=== PATIENT | female | born 1985 | race Caucasian/White ===

== ENCOUNTER 2016-10-23 16:24 | Emergency (ER) | payer OTHER ==
[2016-10-23 16:33] VITALS: BP 117/78; PULSE 82; RESP 16; TEMP 97.8; O2SAT 100
[2016-10-23] MEDS ORDERED: SODIUM CHLOR 0.9% 1000 ML INJ 1,000 ML IV SCH (16:33)
--- NOTE | 2016-10-23 16:39 | PD ---
HPI . Right breast pain Chief Complaint: Cardiac Complaint Time Seen by Provider: 16:33 Travel History International Travel<30 days: No Contact w/Intl Traveler<30days: No History of Present Illness HPI Patient presents ambulatory with chief complaint of right breast pain which has been ongoing for about a week. She developed right upper quadrant abdominal pain associated with nausea, vomiting and diarrhea last night. She reports associated chills and palpitations. She has taken Tylenol without relief. She denies any previous similar history. PFSH Social History Tobacco Use: No Allergies-Medications (Allergen,Severity, Reaction): Coded Allergies: Penicillin (Verified Allergy, Unknown, 10/23/16) Tylenol #3 (Verified Allergy, Unknown, 10/23/16) Reported Meds & Prescriptions Reported Meds & Active Scripts Active Reported Xanax (Alprazolam) 0.25 Mg Tab 0.25 Mg PO Q8H PRN Review of Systems Except as stated in HPI: all other systems reviewed are Neg General / Constitutional: Positive: Chills Cardiovascular: Positive: Palpitations Gastrointestinal: Positive: Nausea, Vomiting, Diarrhea, Abdominal Pain Genitourinary: No: Frequency, Dysuria, Discharge, Dysmenorrhea, Vaginal Bleeding Skin: Positive Breast Tenderness Physical Exam Narrative GENERAL: This is an anxious appearing young woman in no acute distress. SKIN: Warm and dry. No mass, redness, discharge from the right breast. No skin changes. HEAD: Atraumatic. Normocephalic. EYES: Pupils equal and round. ENT: No nasal bleeding or discharge. Mucous membranes pink and moist. NECK: Trachea midline. Neck is supple. CARDIOVASCULAR: Regular rate and rhythm. Heart sounds are normal. Her heart rate is about 80-90. RESPIRATORY: No accessory muscle use. She appears to be hyperventilating. Her lungs are clear with good air movement throughout. GASTROINTESTINAL: Abdomen soft, non-tender, nondistended. I am unable to elicit any point tenderness. MUSCULOSKELETAL: No obvious deformities. No edema. NEUROLOGICAL: Awake and alert. No obvious cranial nerve deficits. Motor grossly within normal limits. Normal speech. PSYCHIATRIC: Anxious appearing; insight and judgment normal. Data Data Last Documented VS Vital Signs Date Time Temp Pulse Resp B/P Pulse Ox O2 Delivery O2 Flow Rate FiO2 10/23/16 16:44 100 Room Air 10/23/16 16:33 97.8 82 16 117/78 Orders Complete Blood Count With Diff (10/23/16 16:33) Comprehensive Metabolic Panel (10/23/16 16:33) Lipase (10/23/16 16:33) Urinalysis - C+S If Indicated (10/23/16 16:33) Iv Access Insert/Monitor (10/23/16 16:33) Ecg Monitoring (10/23/16 16:33) Oximetry (10/23/16 16:33) Sodium Chlor 0.9% 1000 Ml Inj (Ns 1000 M (10/23/16 16:33) Sodium Chloride 0.9% Flush (Ns Flush) (10/23/16 16:45) Ed Urine Pregnancytest Poc (10/23/16 16:33) Prochlorperazine Inj (Compazine Inj) (10/23/16 16:45) Diphenhydramine Inj (Benadryl Inj) (10/23/16 16:45) Potassium Chloride (Kcl) (10/23/16 17:15) Labs Laboratory Tests Test 10/23/16 10/23/16 16:35 16:52 White Blood Count 5.8 TH/MM3 Red Blood Count 4.71 MIL/MM3 Hemoglobin 11.8 GM/DL Hematocrit 37.0 % Mean Corpuscular Volume 78.5 FL Mean Corpuscular Hemoglobin 25.1 PG Mean Corpuscular Hemoglobin 32.0 % Concent Red Cell Distribution Width 13.1 % Platelet Count 327 TH/MM3 Mean Platelet Volume 8.8 FL Neutrophils (%) (Auto) 43.3 % Lymphocytes (%) (Auto) 44.5 % Monocytes (%) (Auto) 9.3 % Eosinophils (%) (Auto) 2.3 % Basophils (%) (Auto) 0.6 % Neutrophils # (Auto) 2.5 TH/MM3 Lymphocytes # (Auto) 2.7 TH/MM3 Monocytes # (Auto) 0.5 TH/MM3 Eosinophils # (Auto) 0.1 TH/MM3 Basophils # (Auto) 0.0 TH/MM3 CBC Comment DIFF FINAL Differential Comment Sodium Level 142 MEQ/L Potassium Level 3.3 MEQ/L Chloride Level 108 MEQ/L Carbon Dioxide Level 23.8 MEQ/L Anion Gap 10 MEQ/L Blood Urea Nitrogen 6 MG/DL Creatinine 0.64 MG/DL Estimat Glomerular Filtration 109 ML/MIN Rate Random Glucose 83 MG/DL Calcium Level 8.1 MG/DL Total Bilirubin 0.2 MG/DL Aspartate Amino Transf 13 U/L (AST/SGOT) Alanine Aminotransferase 17 U/L (ALT/SGPT) Alkaline Phosphatase 70 U/L Total Protein 7.1 GM/DL Albumin 3.7 GM/DL Lipase 128 U/L Urine Collection Type CLEAN CATCH Urine Color YELLOW Urine Turbidity CLEAR Urine pH 7.0 Urine Specific [place] 1.015 Urine Protein NEG mg/dL Urine Glucose (UA) NEG mg/dL Urine Ketones NEG mg/dL Urine Occult Blood NEG Urine Nitrite NEG Urine Bilirubin NEG Urine Leukocyte Esterase NEG Urine RBC 0-3 /hpf Urine WBC 0-2 /hpf Urine Squamous Epithelial 6-8 /hpf Cells Urine Calcium Oxalate Crystals FEW /hpf Microscopic Urinalysis Comment CULT NOT INDICATED Urine Collection Time 16:52 [facility] Medical Decision Making Medical Screen Exam Complete: Yes Emergency Medical Condition: Yes Medical Record Reviewed: Yes (she has no old records here for review.) Interpretation(s) EKG shows a normal sinus rhythm with a rate of 83. No ST segment elevation or depression. This is a normal EKG. Differential Diagnosis Differential diagnosis of abdominal pain includes but is not limited to gastritis, pancreatitis, hepatitis, gastroenteritis, gallbladder disease, constipation, urinary retention, UTI, peptic ulcer disease, diverticulitis or appendicitis Narrative Course Patient presents for evaluation and treatment of a right upper quadrant abdominal pain associated with nausea, vomiting and diarrhea. She also has chills and palpitations. In addition, she is complaining with right breast pain which has been present for about a week. CBC & BMP Diagram 10/23/16 16:35 UA is negative for infection. Liver function studies and lipase are normal. Diagnosis Primary Impression: Palpitations Additional Impressions: Abdominal pain Qualified Code: R10.11 - Right upper quadrant abdominal pain Nausea vomiting and diarrhea Patient Instructions: Gastroenteritis (ED), General Instructions Med/Other Pt SpecificInfo: Prescription(s) given Scripts Promethazine (Phenergan)25 Mg Tab25 Mg PO Q6H PRN (Nausea/Vomiting) #10 TAB Ref 0 Prov:Ruchi Mcclelland MD 10/23/16 Disposition: 01 DISCHARGE HOME Condition: Stable Ruchi Mcclelland MD Oct 23, 2016 16:39
[2016-10-23 16:44] VITALS: O2SAT 100
[2016-10-23 16:44] LABS: AUTOMATED NEUTROPHIL # 2.5 TH/MM3 (1.8-7.7); BASOPHIL % 0.6 % (0.0-2.0); EOSINOPHIL # 0.1 TH/MM3 (0-0.4); EOSINOPHIL % 2.3 % (0.0-4.0); HEMO FLAGS DIFF FINAL; LYMPH % 44.5 % (9.0-44.0); LYMPHOCYTE # 2.7 TH/MM3 (1.0-4.8); MEAN CELL VOLUME 78.5 FL (80.0-100.0); MEAN CORPUSCULAR HEMOGLOBIN 25.1 PG (27.0-34.0); MONO % 9.3 % (0.0-8.0); NEUT % 43.3 % (16.0-70.0); PLATELET COUNT 327 TH/MM3 (150-450); RED BLOOD COUNT 4.71 MIL/MM3 (4.00-5.30); RED CELL DISTRIBUTION WIDTH 13.1 % (11.6-17.2); WHITE BLOOD COUNT 5.8 TH/MM3 (4.0-11.0)
[2016-10-23] MEDS ORDERED: ALPR.25 PO (16:44)
[2016-10-23] MEDS ORDERED: diphenhydrAMINE HCL 50 MG/ML VIAL IV PUSH ONE (16:45)
[2016-10-23] MEDS ORDERED: PROCHLORPERAZINE INJ 10 MG/2 ML VIAL IVS ONE (16:45)
[2016-10-23] MEDS ORDERED: SODIUM CHLORIDE 0.9% FLUSH 5 ML FLUSH IVF PRN (16:45)
[2016-10-23 16:56] LABS: CHLORIDE 108 MEQ/L (98-107); POTASSIUM 3.3 MEQ/L (3.5-5.1); SODIUM (NA) 142 MEQ/L (136-145)
[2016-10-23 17:00] LABS: ANION GAP 10 MEQ/L (5-15); BICARBONATE 23.8 MEQ/L (21.0-32.0); BLOOD UREA NITROGEN 6 MG/DL (7-18)
[2016-10-23 17:01] LABS: BLOOD, URINE NEG (NEG); GLUCOSE,URINE NEG (NEG); KETONE, URINE NEG (NEG); NITRITE,URINE NEG (NEG)
[2016-10-23 17:03] LABS: ALT (GPT) 17 U/L (10-53); AST (GOT) 13 U/L (15-37); GLOMERULAR FILTRATION RATE 109 ML/MIN (>89)
[2016-10-23 17:04] LABS: TOTAL BILIRUBIN ADULT 0.2 MG/DL (0.2-1.0)
[2016-10-23 17:06] LABS: ALKALINE PHOSPHATASE 70 U/L (45-117)
[2016-10-23 17:07] LABS: METHOD OF COLLECTION CLEAN CATCH
[2016-10-23 17:08] LABS: CALCIUM OXALATE CRYSTALS,URINE FEW /hpf; URINE COLOR YELLOW (YELLW/STRAW); WBC, URINE 0-2 /hpf (0-5)
[2016-10-23 17:09] LABS: COMMENT (UR) CULT NOT INDICATED; CULTURE IF INDICATED CULT NOT INDICATED; RBC, URINE 0-3 /hpf (0-3)
[2016-10-23] MEDS ORDERED: POTASSIUM CHLORIDE 20 MEQ CONTROLLED RELEASE TAB PO ONE (17:15)
[2016-10-23] MEDS ORDERED: PROM25TA5 PO (17:48)
--- NOTE | 2016-10-24 12:53 | EKG ---
Date Performed: 10/23/2016 Time Performed: 16:25:24 PTAGE: 31 years EKG: Sinus rhythm . Normal ECG NO PREVIOUS TRACING DOCTOR: Kobe Chambers Interpretating Date/Time 10/24/2016 12:49:43
== END 2016-10-23 18:14 | disposition home or self-care (01) ==
LOC: PHED 16:24
DX: R00.2 Palpitations (principal); R10.11 Right upper quadrant pain; R11.2 Nausea with vomiting, unspecified; R19.7 Diarrhea, unspecified; N64.4 Mastodynia
CPT/HCPCS: 80053; 81001; 83690; 84703; 85025; 93005; 96361; 96374; 96375; 99284; J0780; J1200; J7030

== ENCOUNTER 2016-11-17 13:04 | Emergency (ER) | payer MEDICAID, OTHER ==
[~2016-11-17] VITALS: Ht 157.5 cm; Wt 64.7 kg
[~2016-11-17 13:04] MED LIST: ALPR.25 PO; PROM25TA5 PO
[2016-11-17 13:06] VITALS: BP 124/82; PULSE 111; RESP 16; TEMP 98.2; O2SAT 98
[2016-11-17] MEDS ORDERED: SODIUM CHLORIDE 0.9% FLUSH 5 ML FLUSH IVF PRN (13:30)
[2016-11-17] MEDS ORDERED: SODIUM CHLOR 0.9% 1000 ML INJ 1,000 ML IV ONE (13:30)
[2016-11-17] MEDS ORDERED: ONDANSETRON HCL 4 MG/2 ML VIAL IVP ONE (13:30)
[2016-11-17] MEDS ORDERED: MORPHINE SULFATE 4 MG/ML INJ IV PUSH ONE (13:30)
--- NOTE | 2016-11-17 13:35 | PD ---
HPI Chief Complaint: GI Complaint Time Seen by Provider: 13:12 Travel History International Travel<30 days: No Contact w/Intl Traveler<30days: No Traveled to known affect area: No History of Present Illness HPI The patient was seen and examined in the presence of the nurse. She has history of irritable bowel syndrome. She had had some constipation and was straining and took some Josephine lax. She had an episode of diarrhea with some blood in it. She describes the blood as dark. Not bright red or black. She had some abdominal pain as well. Location is right upper quadrant. She has no gallbladder. She is not a drinker. She has had pancreatitis in the past. Symptoms severity is moderate. No alleviating factors. No history of GI bleed. Takes no blood thinners. Duration one day PFSH Past Medical History Hx Anticoagulant Therapy: No Anxiety: Yes Cardiovascular Problems: Yes (STATES IRREGULAR HEARTBEAT AND AND "HEART ATTACK LIKE THING") Diabetes: No Gastrointestinal Disorders: Yes (LIVER CYST) Kidney Stones: Yes Pancreatitis: Yes Tubal Ligation: Yes Past Surgical History Abdominal Surgery: Yes (GASTRIC BYPASS) Cholecystectomy: Yes (WITH GALLSTONES POST DILEEP) Hysterectomy: Yes (TUBAL) Social History Alcohol Use: No Tobacco Use: No Allergies-Medications (Allergen,Severity, Reaction): Coded Allergies: Penicillin (Verified Allergy, Unknown, Hives, 11/17/16) Tylenol #3 (Verified Allergy, Unknown, Chest Pain, 11/17/16) Reported Meds & Prescriptions Reported Meds & Active Scripts Active Review of Systems General / Constitutional: No: Fever Eyes: No: Visual changes HENT: No: Headaches Cardiovascular: No: Chest Pain or Discomfort Respiratory: No: Shortness of Breath Gastrointestinal: Positive: Nausea, Vomiting, Abdominal Pain Genitourinary: No: Dysuria Musculoskeletal: No: Pain Skin: No Rash Neurologic: No: Weakness Psychiatric: No: Depression Endocrine: No: Polydipsia Hematologic/Lymphatic: No: Easy Bruising Physical Exam Narrative GENERAL: Well-nourished, well-developed patient with abdominal pain and nausea . SKIN: Warm and dry. HEAD: Atraumatic. Normocephalic. EYES: Pupils equal and round. No scleral icterus. No injection or drainage. ENT: No nasal bleeding or discharge. Mucous membranes pink and moist. NECK: Trachea midline. No JVD. CARDIOVASCULAR: Regular rate and rhythm. No murmur appreciated. RESPIRATORY: No accessory muscle use. Clear to auscultation. Breath sounds equal bilaterally. GASTROINTESTINAL: Abdomen soft, non-tender, nondistended. Hepatic and splenic margins not palpable. MUSCULOSKELETAL: No obvious deformities. No clubbing. No cyanosis. No edema. NEUROLOGICAL: Awake and alert. No obvious cranial nerve deficits. Motor grossly within normal limits. Normal speech. PSYCHIATRIC: Appropriate mood and affect; insight and judgment normal. Rectal: Normal tone, no external hemorrhoid or fissure. Stool is normal brown in color Data Data Last Documented VS Vital Signs Date Time Temp Pulse Resp B/P Pulse Ox O2 Delivery O2 Flow Rate FiO2 11/17/16 13:06 98.2 111 16 124/82 98 Orders Beta Hcg (Quant/Titer) (11/17/16 13:24) Complete Blood Count With Diff (11/17/16 13:24) Comprehensive Metabolic Panel (11/17/16 13:24) Lipase (11/17/16 13:24) Iv Access Insert/Monitor (11/17/16 13:24) NPO (11/17/16 13:24) Morphine Inj (Morphine Inj) (11/17/16 13:30) Ondansetron Inj (Zofran Inj) (11/17/16 13:30) Sodium Chloride 0.9% Flush (Ns Flush) (11/17/16 13:30) Sodium Chlor 0.9% 1000 Ml Inj (Ns 1000 M (11/17/16 13:30) Labs Laboratory Tests Test 11/17/16 13:45 White Blood Count 4.5 TH/MM3 Red Blood Count 4.62 MIL/MM3 Hemoglobin 11.6 GM/DL Hematocrit 36.0 % Mean Corpuscular Volume 77.8 FL Mean Corpuscular Hemoglobin 25.1 PG Mean Corpuscular Hemoglobin 32.2 % Concent Red Cell Distribution Width 12.2 % Platelet Count 302 TH/MM3 Mean Platelet Volume 8.8 FL Neutrophils (%) (Auto) 43.1 % Lymphocytes (%) (Auto) 41.2 % Monocytes (%) (Auto) 12.7 % Eosinophils (%) (Auto) 2.7 % Basophils (%) (Auto) 0.3 % Neutrophils # (Auto) 1.9 TH/MM3 Lymphocytes # (Auto) 1.9 TH/MM3 Monocytes # (Auto) 0.6 TH/MM3 Eosinophils # (Auto) 0.1 TH/MM3 Basophils # (Auto) 0.0 TH/MM3 CBC Comment DIFF FINAL Differential Comment Sodium Level 142 MEQ/L Potassium Level 3.4 MEQ/L Chloride Level 108 MEQ/L Carbon Dioxide Level 22.6 MEQ/L Anion Gap 11 MEQ/L Blood Urea Nitrogen 5 MG/DL Creatinine 0.64 MG/DL Estimat Glomerular Filtration 109 ML/MIN Rate Random Glucose 55 MG/DL Calcium Level 8.5 MG/DL Total Bilirubin 0.2 MG/DL Aspartate Amino Transf 11 U/L (AST/SGOT) Alanine Aminotransferase 16 U/L (ALT/SGPT) Alkaline Phosphatase 71 U/L Total Protein 7.0 GM/DL Albumin 3.4 GM/DL Lipase 120 U/L Human Chorionic Gonadotropin, LESS THAN 1 Quant MIU/ML MDM Medical Decision Making Medical Screen Exam Complete: Yes Emergency Medical Condition: Yes Medical Record Reviewed: Yes Differential Diagnosis Colitis, irritable bowel syndrome, ileus Narrative Course I have reviewed the patient's electronic medical record. She was seen here one month ago for palpitations IV placed I gave her 1 L normal saline IV and a dose of IV morphine and IV Zofran CBC is normal Metabolic profile is normal except minor hypokalemia of 3.4 not needing treatment Lipase is normal LFTs are normal Beta hCG is negative Her abdomen is soft and benign with no significant tenderness. Stable for outpatient follow-up No indication for emergent imaging Prescribe Bentyl and Zofran and recommend GI follow-up to discuss GI bleed and further evaluation as outpatient HemaPrompt Point of Care Internal Pos. & Neg. Controls: Passed Fecal Specimen Occult Blood: Negative Diagnosis Primary Impression: Nausea vomiting and diarrhea Additional Impression: Abdominal pain Qualified Code: R10.11 - Right upper quadrant abdominal pain Additional Instructions: The patient was advised to follow up with GI physician and return if they worsen. Med/Other Pt SpecificInfo: Prescription(s) given Scripts Dicyclomine (Bentyl)20 Mg Tab20 Mg PO TID PRN (PAIN SCALE 1 TO 10) #20 TAB Ref 0 Prov:Jesse Read MD 11/17/16 Ondansetron (Zofran)4 Mg Tab4 Mg PO Q6HR PRN (NAUSEA OR VOMITING) #12 TAB Ref 0 Prov:Jesse Read MD 11/17/16 Disposition: 01 DISCHARGE HOME Condition: Stable Jesse Read MD Nov 17, 2016 13:35
[2016-11-17 13:57] LABS: AUTOMATED NEUTROPHIL # 1.9 TH/MM3 (1.8-7.7); BASOPHIL % 0.3 % (0.0-2.0); EOSINOPHIL # 0.1 TH/MM3 (0-0.4); EOSINOPHIL % 2.7 % (0.0-4.0); HEMO FLAGS DIFF FINAL; LYMPH % 41.2 % (9.0-44.0); LYMPHOCYTE # 1.9 TH/MM3 (1.0-4.8); MEAN CELL VOLUME 77.8 FL (80.0-100.0); MEAN CORPUSCULAR HEMOGLOBIN 25.1 PG (27.0-34.0); MEAN CORPUSCULAR HGB CONC 32.2 % (32.0-36.0); MONO % 12.7 % (0.0-8.0); NEUT % 43.1 % (16.0-70.0); PLATELET COUNT 302 TH/MM3 (150-450); RED BLOOD COUNT 4.62 MIL/MM3 (4.00-5.30); RED CELL DISTRIBUTION WIDTH 12.2 % (11.6-17.2); WHITE BLOOD COUNT 4.5 TH/MM3 (4.0-11.0)
[2016-11-17 14:06] LABS: CHLORIDE 108 MEQ/L (98-107); POTASSIUM 3.4 MEQ/L (3.5-5.1); SODIUM (NA) 142 MEQ/L (136-145)
[2016-11-17 14:10] LABS: ANION GAP 11 MEQ/L (5-15); BICARBONATE 22.6 MEQ/L (21.0-32.0)
[2016-11-17 14:11] LABS: BLOOD UREA NITROGEN 5 MG/DL (7-18)
[2016-11-17 14:13] LABS: ALT (GPT) 16 U/L (10-53); AST (GOT) 11 U/L (15-37); GLOMERULAR FILTRATION RATE 109 ML/MIN (>89)
[2016-11-17 14:15] LABS: TOTAL BILIRUBIN ADULT 0.2 MG/DL (0.2-1.0)
[2016-11-17 14:16] LABS: ALKALINE PHOSPHATASE 71 U/L (45-117)
[2016-11-17 14:18] LABS: BETA HCG QUANT LESS THAN 1 MIU/ML (0-5)
[2016-11-17] MEDS ORDERED: BENT20TA PO (14:29)
[2016-11-17] MEDS ORDERED: ZOFR4TAB PO (14:29)
[2016-11-17 14:38] VITALS: RESP 16
== END 2016-11-17 14:42 | disposition home or self-care (01) ==
LOC: PHED 13:04
DX: R19.7 Diarrhea, unspecified (principal); R11.2 Nausea with vomiting, unspecified; R10.11 Right upper quadrant pain; E87.6 Hypokalemia
CPT/HCPCS: 80053; 83690; 84702; 85025; 96361; 96374; 96375; 99283; J2270; J2405; J7030

== ENCOUNTER 2016-12-11 12:36 | Emergency (ER) | payer OTHER, MEDICAID ==
[~2016-12-11] VITALS: Ht 157.5 cm; Wt 66.0 kg
[~2016-12-11 12:36] MED LIST changes: -ALPR.25 PO; +BENT20TA PO; -PROM25TA5 PO; +ZOFR4TAB PO
[2016-12-11 12:52] VITALS: BP 108/74; PULSE 84; RESP 16; TEMP 98.5; O2SAT 96
[2016-12-11] MEDS ORDERED: NAPROXEN 500 MG TAB PO ONE (13:15)
--- NOTE | 2016-12-11 13:15 | PD ---
HPI Chief Complaint: Injury Time Seen by Provider: 13:11 Travel History International Travel<30 days: No Contact w/Intl Traveler<30days: No Traveled to known affect area: No History of Present Illness HPI Patient comes in complaining of right wrist pain that began approximately 2 hours ago. Patient states she was putting laundry down the laundry chute when she had it accidentally close on her right arm causing pain. Pain throbbing like in nature over the the radial aspect of the right wrist and radiates proximally. Pain is worse with movement and palpation. Patient applied ice prior coming to the emergency department. Denies doing anything else for this. Denies any numbness or tingling or . Patient states she is allergic to Tylenol#3, but is able to take Tylenol and codeine separately just not together. PFSH Past Medical History Hx Anticoagulant Therapy: No Anxiety: Yes Cardiovascular Problems: Yes (STATES IRREGULAR HEARTBEAT AND AND "HEART ATTACK LIKE THING") Diabetes: No Gastrointestinal Disorders: Yes (LIVER CYST) Kidney Stones: Yes Pancreatitis: Yes Tetanus Vaccination: Unknown ?: Not LMP: November Tubal Ligation: Yes Past Surgical History Abdominal Surgery: Yes (GASTRIC BYPASS) Cholecystectomy: Yes (WITH GALLSTONES POST DILEEP) Hysterectomy: Yes (TUBAL) Social History Alcohol Use: No Tobacco Use: No Substance Use: No Allergies-Medications (Allergen,Severity, Reaction): Coded Allergies: Penicillin (Verified Allergy, Unknown, Hives, 12/11/16) Tylenol #3 (Verified Allergy, Unknown, Chest Pain, 12/11/16) Reported Meds & Prescriptions Reported Meds & Active Scripts Active No Active Prescriptions or Reported Medications Review of Systems Except as stated in HPI: all other systems reviewed are Neg Physical Exam Narrative GENERAL: Well-developed, well nourished, in no acute distress, and non-ill appearing. SKIN: Focused skin assessment warm and dry. HEAD: Atraumatic. Normocephalic. EYES: Pupils equal and round. EOMI. No scleral icterus. No injection or drainage. ENT: No nasal bleeding or discharge. Mucous membranes pink and moist. NECK: Trachea midline. Supple. No nuclear rigidity. CARDIOVASCULAR: Radial pulses 2+, nontender, and equal bilaterally. Capillary refill less than 2 seconds. RESPIRATORY: No accessory muscle use. No respiratory distress. MUSCULOSKELETAL: No obvious deformities. No clubbing. No cyanosis. No edema. Full range of motion. Wrist: FROM and equal BL with passive flexion, extension, and pronation/supination. Capillary refill less than 2 seconds distal to injury and equal BL. FROM distal to injury and equal BL. Strength distal to injury equal BL. NV intact distal to injury. Flexion and extension of thumb equal BL. Equal strength and movement with abduction/adductions of BL fingers. Painting Manager strength equal BL. No tenderness to the anatomical snuffbox. Patient reports tenderness over the radial aspect of right wrist. NEUROLOGICAL: Awake and alert. No obvious cranial nerve deficits. Motor grossly within normal limits. Normal speech. PSYCHIATRIC: Appropriate mood and affect; insight and judgment normal. Data Data Last Documented VS Vital Signs Date Time Temp Pulse Resp B/P Pulse Ox O2 Delivery O2 Flow Rate FiO2 12/11/16 13:58 80 16 97 12/11/16 12:52 98.5 108/74 Orders Wrist, Complete ([id number]) (12/11/16 ) Ice/Cold Pack (12/11/16 13:06) Naproxen (Naprosyn) (12/11/16 13:15) Acetaminophen (Tylenol) (12/11/16 13:30) Splint Or Brace Apply/Monitor (12/11/16 13:43) MDM Medical Decision Making Medical Screen Exam Complete: Yes Emergency Medical Condition: Yes Differential Diagnosis Fracture, sprain, contusion, other Narrative Course The patient appears to have suffered a contusion of the extremity. There is no clinical evidence to suspect bony injury by exam. Radiographic examination revealed no fracture seen at this time. The patient has full range of motion on active and passive motions. There is no significant edema. There is no proximal or distal joint effusion. The distal extremity appears neurovascularly intact, without evidence of neurovascular injury nor compartment syndrome. Tendon exam also was intact. The patient was discharged on pain medication instructions and given warnings for vascular compromise. The patient is to follow up with employee med. The patient agrees with plan. Patient in no obvious distress upon re-evaluation. All pertinent Radiology result(s) discussed with patient. Any questions/concerns in reference to patient diagnosis/condition discussed and clarified prior to patient's discharge. Reinforced sheer importance of close follow up with employee med. Instructed patient to return to ED immediately, if symptoms return/worsen. Pt showed understanding of above instructions. Further instructions and recommendations were detailed in discharge paperwork. Pt ambulated without difficulty out of ED at discharge. Diagnosis Primary Impression: Contusion of right wrist, initial encounter Referrals: Employ [employer] Patient Instructions: Contusion in Adults (ED), General Instructions, Splint Care (DC) Additional Instructions: Follow-up with employee med in 24-48 hours reevaluation. Apply ice to affected area 20 minutes per hour as needed for pain. Wear wrist splint for comfort. Use [id number] Tylenol as needed for pain. Follow instructions on the packaging. Return to the emergency department if symptoms get worse. Scripts No Active Prescriptions or Reported Meds Disposition: 01 DISCHARGE HOME Condition: Stable Agustin Walker Dec 11, 2016 13:15
[2016-12-11] MEDS ORDERED: ACETAMINOPHEN 500 MG CPLT PO ONE (13:30)
--- NOTE | 2016-12-11 13:39 | RADHPO ---
EXAM DATE/TIME: 12/11/2016 13:16 [facility] COMPARISON: No previous studies available for comparison. INDICATIONS : Right wrist pain. Patient states a door shut on her wrist today. MEDICAL HISTORY : None. SURGICAL HISTORY : None. ENCOUNTER: Initial ACUITY: 1 day PAIN SCORE: 8/10 LOCATION: Right wrist. FINDINGS: Three view examination of the right wrist demonstrates no soft tissue swelling, dislocation, or fract ure. The carpal bones are in normal alignment. The joint spaces are maintained. Bony mineralizatio n is normal. CONCLUSION: Negative for fracture or dislocation. Follow up in 7-10 days is suggested if symptoms persist.. Edinson Britt MD FACR on December 11, 2016 at 13:37 Board Certified Radiologist. This report was verified electronically.
== END 2016-12-11 13:59 | disposition home or self-care (01) ==
LOC: PHED 12:36
DX: S60.211A Contusion of right wrist, initial encounter (principal); F41.9 Anxiety disorder, unspecified; W23.0XXA Caught, crushed, jammed, or pinched between moving objects, initial encounter; Y93.E2 Activity, laundry; Y92.009 Unspecified place in unspecified non-institutional (private) residence as the place of occurrence of the external cause; Z98.84 Bariatric surgery status; Z88.0 Allergy status to penicillin; Z88.5 Allergy status to narcotic agent
CPT/HCPCS: 73110; 99283; L3908

== ENCOUNTER 2017-01-09 14:52 | Inpatient (IN) | payer MEDICAID, OTHER ==
[~2017-01-09] VITALS: Ht 157.5 cm; Wt 68.1 kg
[2017-01-09 15:10] VITALS: BP 114/82; PULSE 76; RESP 17; TEMP 98.7; O2SAT 96
[2017-01-09] MEDS ORDERED: TRAM50TA PO (16:58)
[2017-01-09 17:10] VITALS: BP 115/73; PULSE 67; RESP 16
--- NOTE | 2017-01-09 17:11 | PD ---
HPI Chief Complaint: Abdominal Pain Time Seen by Provider: 16:58 Travel History International Travel<30 days: No Contact w/Intl Traveler<30days: No Traveled to known affect area: No History of Present Illness HPI This 31-year-old female is complaining of abdominal pain. She started having some diarrhea yesterday. She is having pain in the mid abdomen. She has a history of gastric bypass surgery in 2014. She had a Quincy-en-Y done in [place]. Last year she had exploratory surgery in 2014 and was found to have some adhesions. She has vomited 4-5 times. She has not eaten since this morning. She says that in October of this year she had a CT scan and was told it was okay PFSH Past Medical History Hx Anticoagulant Therapy: No Anemia: Yes Anxiety: Yes Depression: Yes Cardiovascular Problems: Yes (STATES IRREGULAR HEARTBEAT PVC's) Diabetes: No Gastrointestinal Disorders: Yes (LIVER CYST, IBS) Kidney Stones: Yes Medical other: Yes (right wrist pain-chronic since 12/11/16 r/t injury) Pancreatitis: Yes Tetanus Vaccination: < 5 Years Influenza Vaccination: Yes ?: Not LMP: 12/22/16 Tubal Ligation: Yes Past Surgical History Abdominal Surgery: Yes (GASTRIC BYPASS -2014) Cholecystectomy: Yes (WITH GALLSTONES POST DILEEP) Hysterectomy: Yes (TUBAL) Other Surgery: Yes (explor lap for abd adhesions) Social History Alcohol Use: No Tobacco Use: No Substance Use: No Allergies-Medications (Allergen,Severity, Reaction): Coded Allergies: Nonsteroidal Anti-Inflammatory Agts (Verified Allergy, Unknown, 01/09/17) Penicillin (Verified Allergy, Unknown, Hives, 12/11/16) Tylenol #3 (Verified Allergy, Unknown, Chest Pain, 12/11/16) Reported Meds & Prescriptions Reported Meds & Active Scripts Active Reported Tramadol (Tramadol HCl) 50 Mg Tab 50 Mg PO Q6H PRN Review of Systems General / Constitutional: No: Fever, Chills Eyes: No: Diploplia, Blurred Vision HENT: No: Headaches Cardiovascular: No: Chest Pain or Discomfort Respiratory: No: Cough, Shortness of Breath Gastrointestinal: Positive: Vomiting, Abdominal Pain Genitourinary: No: Urgency, Frequency Musculoskeletal: No: Myalgias, Arthralgias Skin: No Rash, No Itching Neurologic: No: Weakness Psychiatric: No: Anxiety Hematologic/Lymphatic: No: Easy Bruising Physical Exam Narrative GENERAL: Well-developed female SKIN: Focused skin assessment warm/dry. HEAD: Atraumatic. Normocephalic. EYES: Pupils equal and round. No scleral icterus. No injection or drainage. ENT: No nasal bleeding or discharge. Mucous membranes pink and moist. NECK: Trachea midline. No JVD. CARDIOVASCULAR: Regular rate and rhythm. No murmur appreciated. RESPIRATORY: No accessory muscle use. Clear to auscultation. Breath sounds equal bilaterally. GASTROINTESTINAL: Abdomen soft, there is some mid abdominal tenderness nondistended. Hepatic and splenic margins not palpable. MUSCULOSKELETAL: No obvious deformities. No clubbing. No cyanosis. No edema. NEUROLOGICAL: Awake and alert. No obvious cranial nerve deficits. Motor grossly within normal limits. Normal speech. PSYCHIATRIC: Appropriate mood and affect; insight and judgment normal. Data Data Last Documented VS Vital Signs Date Time Temp Pulse Resp B/P Pulse Ox O2 Delivery O2 Flow Rate FiO2 01/09/17 19:16 18 01/09/17 18:44 64 112/78 99 Room Air 01/09/17 15:10 98.7 Orders Complete Blood Count With Diff (01/09/17 17:04) Comprehensive Metabolic Panel (01/09/17 17:04) Prothrombin Time / Inr (Pt) (01/09/17 17:04) Act Partial Throm Time (Ptt) (01/09/17 17:04) Lipase (01/09/17 17:04) Urinalysis - C+S If Indicated (01/09/17 17:04) Sodium Chlor 0.9% 1000 Ml Inj (Ns 1000 M (01/09/17 17:15) Ondansetron Inj (Zofran Inj) (01/09/17 17:15) Hydromorphone Pf Inj (Dilaudid Pf Inj) (01/09/17 17:15) Ct Abd/Pel W Iv Contrast(Rout) (01/09/17 17:04) Oral Contrast - Adult (01/09/17 17:17) Ed Urine Pregnancytest Poc (01/09/17 17:46) Diatrizoate Liq ( Gastroview Liq) (01/09/17 17:51) Urine Culture (01/09/17 17:30) Hydromorphone Pf Inj (Dilaudid Pf Inj) (01/09/17 18:45) Iohexol 350 Inj (Omnipaque 350 Inj) (01/09/17 18:55) Labs Laboratory Tests Test 01/09/17 01/09/17 17:30 17:35 Urine Collection Type CLEAN CATCH Urine Color YELLOW Urine Turbidity SLIGHT Urine pH 6.5 Urine Specific [place] 1.011 Urine Protein NEG mg/dL Urine Glucose (UA) NEG mg/dL Urine Ketones NEG mg/dL Urine Occult Blood NEG Urine Nitrite NEG Urine Bilirubin NEG Urine Leukocyte Esterase NEG Urine WBC 6-8 /hpf Urine Squamous Epithelial > 8 /hpf Cells Urine Amorphous Sediment MOD Urine Bacteria MOD /hpf Microscopic Urinalysis Comment CULTURE INDICATED Urine Collection Time 1730 White Blood Count 6.3 TH/MM3 Red Blood Count 4.67 MIL/MM3 Hemoglobin 11.8 GM/DL Hematocrit 36.7 % Mean Corpuscular Volume 78.5 FL Mean Corpuscular Hemoglobin 25.3 PG Mean Corpuscular Hemoglobin 32.2 % Concent Red Cell Distribution Width 12.0 % Platelet Count 310 TH/MM3 Mean Platelet Volume 9.0 FL Neutrophils (%) (Auto) 49.2 % Lymphocytes (%) (Auto) 40.7 % Monocytes (%) (Auto) 8.5 % Eosinophils (%) (Auto) 1.3 % Basophils (%) (Auto) 0.3 % Neutrophils # (Auto) 3.1 TH/MM3 Lymphocytes # (Auto) 2.6 TH/MM3 Monocytes # (Auto) 0.5 TH/MM3 Eosinophils # (Auto) 0.1 TH/MM3 Basophils # (Auto) 0.0 TH/MM3 CBC Comment DIFF FINAL Differential Comment Prothrombin Time 10.6 SEC Prothromb Time International 1.0 RATIO Ratio Activated Partial 25.9 SEC Thromboplast Time Sodium Level 141 MEQ/L Potassium Level 3.6 MEQ/L Chloride Level 103 MEQ/L Carbon Dioxide Level 29.2 MEQ/L Anion Gap 9 MEQ/L Blood Urea Nitrogen 5 MG/DL Creatinine 0.69 MG/DL Estimat Glomerular Filtration 100 ML/MIN Rate Random Glucose 88 MG/DL Calcium Level 9.1 MG/DL Total Bilirubin 0.5 MG/DL Aspartate Amino Transf 19 U/L (AST/SGOT) Alanine Aminotransferase 27 U/L (ALT/SGPT) Alkaline Phosphatase 85 U/L Total Protein 7.8 GM/DL Albumin 3.9 GM/DL Lipase 116 U/L MDM Medical Decision Making Medical Screen Exam Complete: Yes Emergency Medical Condition: Yes Medical Record Reviewed: Yes Differential Diagnosis Differential includes obstruction, anastomotic leak, gastroenteritis Narrative Course White count is normal. The scan shows a cystic mass in the left upper quadrant which is 6.5 cm in size. Case discussed with general surgery. They recommended transfer to [facility] with consult to one of the bariatric surgeons Diagnosis Primary Impression: Abdominal mass, left upper quadrant Admitting Information Admitting Physician Requests: Admit Bhaskar Martinez MD Jan 09, 2017 17:11
[2017-01-09] MEDS ORDERED: HYDROmorphone HCL PF 1 MG/ML VIAL IV PUSH ONE ×3 (17:15→20:00)
[2017-01-09] MEDS ORDERED: ONDANSETRON HCL 4 MG/2 ML VIAL IV PUSH ONE ×2 (17:15→20:00)
[2017-01-09] MEDS ORDERED: SODIUM CHLOR 0.9% 1000 ML INJ 1,000 ML IV ONE (17:15)
[2017-01-09] MEDS ORDERED: DIATRIZOATE MEGLUM/DIATRIZOATE SOD 9 ML CUP ONE (17:51)
[2017-01-09 17:52] LABS: AUTOMATED NEUTROPHIL # 3.1 TH/MM3 (1.8-7.7); BASOPHIL % 0.3 % (0.0-2.0); EOSINOPHIL # 0.1 TH/MM3 (0-0.4); EOSINOPHIL % 1.3 % (0.0-4.0); HEMATOCRIT 36.7 % (35.0-46.0); HEMO FLAGS DIFF FINAL; LYMPH % 40.7 % (9.0-44.0); LYMPHOCYTE # 2.6 TH/MM3 (1.0-4.8); MEAN CELL VOLUME 78.5 FL (80.0-100.0); MEAN CORPUSCULAR HEMOGLOBIN 25.3 PG (27.0-34.0); MEAN CORPUSCULAR HGB CONC 32.2 % (32.0-36.0); MONO % 8.5 % (0.0-8.0); NEUT % 49.2 % (16.0-70.0); PLATELET COUNT 310 TH/MM3 (150-450); RED BLOOD COUNT 4.67 MIL/MM3 (4.00-5.30); WHITE BLOOD COUNT 6.3 TH/MM3 (4.0-11.0)
[2017-01-09 17:56] LABS: BLOOD, URINE NEG (NEG); GLUCOSE,URINE NEG (NEG); KETONE, URINE NEG (NEG); NITRITE,URINE NEG (NEG); PH, URINE 6.5 (5.0-8.5)
[2017-01-09 17:57] LABS: METHOD OF COLLECTION CLEAN CATCH; URINE COLOR YELLOW (YELLW/STRAW)
[2017-01-09 18:00] LABS: CHLORIDE 103 MEQ/L (98-107); POTASSIUM 3.6 MEQ/L (3.5-5.1); SODIUM (NA) 141 MEQ/L (136-145)
[2017-01-09 18:04] LABS: ANION GAP 9 MEQ/L (5-15); BICARBONATE 29.2 MEQ/L (21.0-32.0); BLOOD UREA NITROGEN 5 MG/DL (7-18)
[2017-01-09 18:05] LABS: APTT (PATIENT) 25.9 SEC (24.3-30.1); PROTHROMBIN TIME - PATIENT 10.6 SEC (9.8-11.6)
[2017-01-09 18:05] LABS: BACTERIA, URINE MOD /hpf; COMMENT (UR) CULTURE INDICATED; COMMENT2 (UR) MUCOUS PRESENT; CULTURE IF INDICATED CULTURE INDICATED; SQUAMOUS EPITHELIAL CELL URINE > 8 /hpf (0-5)
[2017-01-09 18:07] LABS: ALT (GPT) 27 U/L (10-53); AST (GOT) 19 U/L (15-37); GLOMERULAR FILTRATION RATE 100 ML/MIN (>89)
[2017-01-09 18:09] LABS: TOTAL BILIRUBIN ADULT 0.5 MG/DL (0.2-1.0)
[2017-01-09 18:10] LABS: ALKALINE PHOSPHATASE 85 U/L (45-117)
[2017-01-09 18:44] VITALS: BP 112/78; PULSE 64; RESP 16; O2SAT 99
[2017-01-09] MEDS ORDERED: IOHEXOL 350 MG/ML 10 ML VIAL (for RAD DIAG) IV ONE (18:55)
--- NOTE | 2017-01-09 19:10 | RADHPO ---
EXAM DATE/TIME: 01/09/2017 18:44 [facility] COMPARISON: No previous studies available for comparison. INDICATIONS : Abdominal pain with nausea and vomiting. IV CONTRAST: 90 cc Omnipaque 350 (iohexol) IV ORAL CONTRAST: Partial prescribed oral contrast ingested. RADIATION DOSE: 8.90 CTDIvol (mGy) MEDICAL HISTORY : Pancreatitis. SURGICAL HISTORY : Gastric bypass. Cholecystectomy.Tubal ligation. ENCOUNTER: Initial ACUITY: 1 day PAIN SCALE: 3/10 LOCATION: abdomen/pelvis TECHNIQUE: Volumetric scanning of the abdomen and pelvis was performed. Using automated exposure control and ad justment of the mA and/or kV according to patient size, radiation dose was kept as low as reasonably achievable to obtain optimal diagnostic quality images. FINDINGS: CT Abdomen: There are tiny approximately 2 mm stones in upper pole of each kidney without hydronephro sis. There is an approximate 6.5 cm low attenuating mass in the left upper quadrant anterior to the l eft kidney insinuating in between loops of jejunum. The liver, spleen, pancreas, adrenals are unremar kable. There is no evidence for any appreciable pathological adenopathy, free fluid, or bowel obstruc tion. There is evidence for prior cholecystectomy. Common bile duct measures slightly over a centime ter in size due to post cholecystectomy changes. CT pelvis: There is an approximate 2.7 cm cyst in the right ovary with slight fluid within endometria l canal nonspecific. CONCLUSION: 1. Low attenuating mainly cystic mass left upper quadrant in this patient with postsurgical changes a t this site could be a postsurgical seroma, however a mesenteric mass such as a mesenteric cyst or ev en other neoplastic etiologies should also be entertained. 2. Tiny nonobstructing stones in both kidneys. 3. Right ovarian cyst. Pancho Arroyo MD on January 09, 2017 at 19:06 Board Certified Radiologist. This report was verified electronically.
[2017-01-09 19:15] VITALS: BP 110/56; PULSE 87; RESP 18; O2SAT 98
[2017-01-09] MEDS ORDERED: SODIUM CHLOR 0.9% 1000 ML INJ 1,000 ML IV SCH (20:00)
[2017-01-09] MEDS ORDERED: NALOXONE HCL 0.4 MG/ML AMP IV PRN (20:00)
[2017-01-09] MEDS ORDERED: SODIUM CHLORIDE 0.9% FLUSH 10 ML FLUSH IV FLUSH PRN (20:00)
[2017-01-09 20:30] VITALS: BP 98/70; PULSE 82; RESP 16; O2SAT 97
[2017-01-09] MEDS: SODIUM CHLORIDE 0.9% FLUSH 10 ML FLUSH IV FLUSH SCH (21:00)
[2017-01-09] MEDS: SODIUM CHLOR 0.9% 1000 ML INJ 1,000 ML IV SCH (21:18)
[2017-01-09] MEDS ORDERED: PROCHLORPERAZINE INJ 10 MG/2 ML VIAL IV PUSH ONE (21:45)
[2017-01-09 21:55] VITALS: BP 111/69; PULSE 83; RESP 16; O2SAT 98
[2017-01-10] VITALS (7 sets, daily range): BP systolic 96–146; BP diastolic 52–78; PULSE 55–88; RESP 16–20; TEMP 96–98.8; O2SAT 94–99
[2017-01-10] MEDS: ONDANSETRON HCL 4 MG/2 ML VIAL IVP PRN ×3 (00:02→19:46)
--- NOTE | 2017-01-10 02:20 | HHI.HP ---
[facility] No Primary Care Physician Admission Diagnosis ABDOMINAL MASS Diagnoses: Chief Complaint: abd pain x 2 days Travel History International Travel<30 Days: No Contact w/Intl Traveler <30 Da: No Traveled to Known Affected Are: No History of Present Illness This is a 31 year old female patient with a past medical history which includes liver cyst, IBS, acute pancreatitis, kidney stones and gastric bypass 2014. Patient presented to [facility] for abd pain. Patient reports severe constatnt stabbing abd pain located in the midepigastric area associated with nausea, vomiting 5-10 times a day and diarrhea 5-6 times a day for the past 2 days. Patient denies coffee ground emesis, black tarry stools or bright red blood in stools. Patient also denies fevers chills shortness of breath, chest pain or recent travel. Patient with right wrist tendinitis secondary to work injury partially one month has been taking tramadol for pain She has a history of gastric bypass surgery in 2014. Last year she had exploratory surgery in 2014 with lysis of adhesions. Abdominal/pelvic CT reveals 1. Low attenuating mainly cystic mass left upper quadrant in this patient with postsurgical changes at this site could be a postsurgical seroma, however a mesenteric mass such as a mesenteric cyst or even othe neoplastic etiologies should also be entertained. 2. Tiny nonobstructing stones in both kidneys. 3. Right ovarian cyst. General surgery was consulted and patient was transferred to [facility] for further evaluation and treatment. Review of Systems Except as stated in HPI: all other systems reviewed are Neg Past Family Social History Past Medical History Anxiety/depression, liver cyst, irritable bowel syndrome, acute pancreatitis secondary to medication, kidney stones, recent tendinitis right wrist Past Surgical History Right ear cochlear implant, ET tubes in right ear, cholecystectomy approximately 12 years ago, tubal ligation, hysterectomy, gastric bypass Quincy-en -Y 2014, expiratory laparotomy and lysis of adhesions 2015 Reported Medications Tramadol (Tramadol HCl) 50 Mg Tab 50 Mg PO Q6H PRN Allergies: Coded Allergies: Nonsteroidal Anti-Inflammatory Agts (Verified Allergy, Unknown, 01/09/17) Penicillin (Verified Allergy, Unknown, Hives, 01/09/17) Tylenol #3 (Verified Allergy, Unknown, Chest Pain, 01/09/17) Active Ordered Medications Current Medications Medications (Trade) Dose Ordered Sig/Sonya Route Start Time Stop Time Status Last Admin (NS Flush) 2 ml UNSCH PRN IV FLUSH 01/09/17 20:00 (NS Flush) 2 ml BID IV FLUSH 01/09/17 21:00 (Zofran Inj) 4 mg Q6H PRN IVP 01/10/17 02:00 01/10/17 00:02 (Dilaudid Pf Inj) 0.5 mg Q3H PRN IV 01/09/17 23:00 (Dilaudid Pf Inj) 1 mg Q3H PRN IV 01/09/17 23:00 Naloxone HCl 0.4 mg 0.4 mg UNSCH PRN IV 01/09/17 20:00 (NS 1000 ml Inj) 1,000 ml @ 100 mls/hr Q10H IV 01/09/17 20:15 01/09/17 21:18 Family History Grandmother had diabetes mellitus type 2 Mother has diverticulitis Social History Denies EtOH use tobacco use or illicit drug use Physical Exam Vital Signs Vital Signs Date Time Temp Pulse Resp B/P Pulse Ox O2 Delivery O2 Flow Rate FiO2 01/10/17 00:26 96.0 64 18 98/72 94 01/09/17 21:55 83 16 111/69 98 Room Air 01/09/17 20:34 18 01/09/17 20:30 82 16 98/70 97 Room Air 01/09/17 19:16 18 01/09/17 19:15 87 18 110/56 98 Room Air 01/09/17 18:44 16 01/09/17 18:44 64 16 112/78 99 Room Air 01/09/17 18:40 16 01/09/17 17:10 67 16 115/73 01/09/17 16:48 16 01/09/17 15:10 98.7 76 17 114/82 96 Physical Exam GENERAL: This is a well-nourished, well-developed patient, appears fatigued and uncomfortable SKIN: No rashes, ecchymoses or lesions. Cool and dry. HEAD: Atraumatic. Normocephalic. No temporal or scalp tenderness. EYES: Extraocular motions intact. No scleral icterus. No injection or drainage. CARDIOVASCULAR: Regular rate and rhythm without murmurs, gallops, or rubs. RESPIRATORY: Clear to auscultation. Breath sounds equal bilaterally. No wheezes , rales, or rhonchi. GASTROINTESTINAL: Abdomen soft, tender to palpation mid epigastric area, nondistended, guarding. MUSCULOSKELETAL: Extremities without clubbing, cyanosis, or edema. No joint tenderness, effusion, or edema noted. No calf tenderness. Negative Homans sign bilaterally. NEUROLOGICAL: Awake and alert. No focal deficits appreciated. Motor and sensory grossly within normal limits. Five out of 5 muscle strength in all muscle groups. Normal speech. Laboratory Laboratory Tests Test 01/09/17 01/09/17 17:30 17:35 Urine Collection Type CLEAN CATCH Urine Color YELLOW Urine Turbidity SLIGHT Urine pH 6.5 Urine Specific [place] 1.011 Urine Protein NEG Urine Glucose (UA) NEG Urine Ketones NEG Urine Occult Blood NEG Urine Nitrite NEG Urine Bilirubin NEG Urine Leukocyte Esterase NEG Urine WBC 6-8 Urine Squamous Epithelial > 8 Cells Urine Amorphous Sediment MOD Urine Bacteria MOD Microscopic Urinalysis Comment CULTURE INDICATED Urine Collection Time 1730 White Blood Count 6.3 Red Blood Count 4.67 Hemoglobin 11.8 Hematocrit 36.7 Mean Corpuscular Volume 78.5 Mean Corpuscular Hemoglobin 25.3 Mean Corpuscular Hemoglobin 32.2 Concent Red Cell Distribution Width 12.0 Platelet Count 310 Mean Platelet Volume 9.0 Neutrophils (%) (Auto) 49.2 Lymphocytes (%) (Auto) 40.7 Monocytes (%) (Auto) 8.5 Eosinophils (%) (Auto) 1.3 Basophils (%) (Auto) 0.3 Neutrophils # (Auto) 3.1 Lymphocytes # (Auto) 2.6 Monocytes # (Auto) 0.5 Eosinophils # (Auto) 0.1 Basophils # (Auto) 0.0 CBC Comment DIFF FINAL Differential Comment Prothrombin Time 10.6 Prothromb Time International 1.0 Ratio Activated Partial 25.9 Thromboplast Time Sodium Level 141 Potassium Level 3.6 Chloride Level 103 Carbon Dioxide Level 29.2 Anion Gap 9 Blood Urea Nitrogen 5 Creatinine 0.69 Estimat Glomerular Filtration 100 Rate Random Glucose 88 Calcium Level 9.1 Total Bilirubin 0.5 Aspartate Amino Transf 19 (AST/SGOT) Alanine Aminotransferase 27 (ALT/SGPT) Alkaline Phosphatase 85 Total Protein 7.8 Albumin 3.9 Lipase 116 Date/Time Procedure Status Source Growth 01/09/17 17:30 Urine Culture Received Urine Clean Catch Pending Result Diagram: 01/09/17 1735 01/09/17 1735 Imaging Last Impressions Abdomen/Pelvis CT 01/09/17 1704 Signed Impressions: Service Date/Time: Monday, January 09, 2017 18:44 - CONCLUSION: 1. Low attenuating mainly cystic mass left upper quadrant in this patient with postsurgical changes at this site could be a postsurgical seroma, however a mesenteric mass such as a mesenteric cyst or even other neoplastic etiologies should also be entertained. 2. Tiny nonobstructing stones in both kidneys. 3. Right ovarian cyst. Pancho Arroyo MD Assessment and Plan Problem List: (1) Abdominal pain ICD Code: R10.9 Status: Acute (2) Abdominal mass, left upper quadrant ICD Code: R19.02 Status: Acute Assessment and Plan This is a 31 year old female patient with a past medical history which includes liver cyst, IBS, acute pancreatitis, kidney stones and gastric bypass 2015. Patient presented to [facility] for abd pain. Patient reports severe constatnt stabbing abd pain located in the midepigastric area associated with nausea, vomiting and diarrhea. She has a history of gastric bypass surgery in 2014. Last year she had exploratory surgery in 2014 with lysis of adhesions. Intractable Abdominal pain Abdominal mass left upper quadrant Nausea vomiting diarrhea Abdominal/pelvic CT reveals 1. Low attenuating mainly cystic mass left upper quadrant in this patient with postsurgical changes at this site could be a postsurgical seroma, however a mesenteric mass such as a mesenteric cyst or even other neoplastic etiologies should also be entertained. 2. Tiny nonobstructing stones in both kidneys. 3. Right ovarian cyst. General surgery was consulted and patient was transferred to [facility] for further evaluation and treatment. Continue supportive care NS at 100mlH Dilaudid IV for pain as needed Zofran for nausea as needed DVT prophylaxis with SCDs Discussed with ER provider, nursing, patient and patient's family member at bedside Written by Valeri Krishna, acting as scribe for Dr. Valentin on 01/10/17 at 03: 55. This note was transcribed by scribe [Valeri Krishna]. I, Dr. Katherine Valentin personally performed the history, physical exam, and medical decision making; and confirmed the accuracy of the information in the transcribed note. Authenticated by Dr. Katherine Valentin on 01/10/17 at 03:55. Physician Certification 2 Midnight Certification Type: Admission for Inpatient Services Order for Inpatient Services The services are ordered in accordance with Medicare regulations or non- Medicare payer requirements, as applicable. In the case of services not specified as inpatient-only, they are appropriately provided as inpatient services in accordance with the 2-midnight benchmark. Estimated LOS (days): 3 days is the estimated time the patient will need to remain in the hospital, assuming treatment plan goals are met and no additional complications. Post-Hospital Plan: Home Valeri Krishna January 10, 2017 02:20 Katherine Valentin MD January 10, 2017 06:54
[2017-01-10] MEDS ORDERED: POVIDONE IODINE 5% (ANTISEPSIS KIT) 4 APPLICATIONS EACH NARE PRN (04:15)
[2017-01-10] MEDS ORDERED: CHLORHEXIDINE GLUCONATE 2 % 1 PACK (2 CLOTHS) TOPICAL PRN (04:15)
[2017-01-10] MEDS ORDERED: INSULIN HUMAN REGULAR 1,000 UNITS/10 ML VIAL SQ PRN (04:15)
[2017-01-10] MEDS ORDERED: SODIUM CHLORID 0.9% 500 ML IV PRN (04:15)
[2017-01-10] MEDS ORDERED: LACTATED RINGER'S 1000 ML IV PRN (04:15)
[2017-01-10] MEDS: SODIUM CHLOR 0.9% 1000 ML INJ 1,000 ML IV SCH ×3 (06:15→20:06)
[2017-01-10] MEDS: HYDROmorphone HCL PF 1 MG/ML VIAL IV PRN ×3 (06:23→20:04)
[2017-01-10 06:57] LABS: AUTOMATED NEUTROPHIL # 5.5 TH/MM3 (1.8-7.7); BASOPHIL % 0.3 % (0.0-2.0); EOSINOPHIL # 0.1 TH/MM3 (0-0.4); EOSINOPHIL % 1.7 % (0.0-4.0); HEMATOCRIT 32.4 % (35.0-46.0); HEMO FLAGS DIFF FINAL; LYMPH % 19.2 % (9.0-44.0); LYMPHOCYTE # 1.5 TH/MM3 (1.0-4.8); MEAN CORPUSCULAR HEMOGLOBIN 25.4 PG (27.0-34.0); MEAN CORPUSCULAR HGB CONC 32.6 % (32.0-36.0); MONO % 6.5 % (0.0-8.0); NEUT % 72.3 % (16.0-70.0); PLATELET COUNT 239 TH/MM3 (150-450); RED BLOOD COUNT 4.16 MIL/MM3 (4.00-5.30); RED CELL DISTRIBUTION WIDTH 12.9 % (11.6-17.2); WHITE BLOOD COUNT 7.6 TH/MM3 (4.0-11.0)
[2017-01-10 07:04] LABS: ALT (GPT) 170 U/L (10-53); ANION GAP 7 MEQ/L (5-15); AST (GOT) 237 U/L (15-37); BICARBONATE 26.5 MEQ/L (21.0-32.0); BLOOD UREA NITROGEN 3 MG/DL (7-18); CHLORIDE 104 MEQ/L (98-107); GLOMERULAR FILTRATION RATE 148 ML/MIN (>89); POTASSIUM 4.1 MEQ/L (3.5-5.1); SODIUM (NA) 137 MEQ/L (136-145)
[2017-01-10 07:06] LABS: ALKALINE PHOSPHATASE 122 U/L (45-117); TOTAL BILIRUBIN ADULT 0.6 MG/DL (0.2-1.0)
[2017-01-10] MEDS: SODIUM CHLORIDE 0.9% FLUSH 10 ML FLUSH IV FLUSH SCH ×2 (09:00→20:05)
[2017-01-11 00:25] VITALS: BP 113/69; PULSE 68; RESP 17; TEMP 98.8; O2SAT 99
[2017-01-11 03:50] VITALS: BP 114/56; PULSE 79; RESP 17; TEMP 99; O2SAT 97
[2017-01-11 03:55] VITALS: BP 114/56; PULSE 79; RESP 17; TEMP 99; O2SAT 97
[2017-01-11] MEDS: HYDROmorphone HCL PF 1 MG/ML VIAL IV PRN ×5 (03:58→23:48)
[2017-01-11] MEDS: SODIUM CHLORIDE 0.9% FLUSH 10 ML FLUSH IV FLUSH SCH ×2 (08:10→20:30)
--- NOTE | 2017-01-11 08:23 | HHI.PR ---
Subjective Remarks Follow up for abdominal pain, CT abd finding of possible seroma vs. mass. Patient is currently undergoing abdominal ultrasound study. Patient complains of persistent nausea as well as abdominal pain. No fever or chills. Objective Vitals Vital Signs Date Time Temp Pulse Resp B/P Pulse Ox O2 Delivery O2 Flow Rate FiO2 01/11/17 03:50 99.0 79 17 114/56 97 01/11/17 00:25 98.8 68 17 113/69 99 01/10/17 20:15 98.8 67 17 124/78 97 01/10/17 17:00 98.2 76 16 100/52 98 01/10/17 13:23 18 01/10/17 12:49 107/66 01/10/17 11:55 97.7 88 20 99/60 99 I/O 01/10/17 01/10/17 01/10/17 01/11/17 01/11/17 01/11/17 07:00 15:00 23:00 07:00 15:00 23:00 Intake Total 0 ml 0 ml 240 ml 0 ml Balance 0 ml 0 ml 240 ml 0 ml Intake Oral 0 ml 0 ml 240 ml 0 ml # Voids 1 5 1 2 # Bowel Movements 0 0 0 0 Result Diagram: 01/10/17 0608 01/10/17 0608 Imaging Last Impressions Abdomen/Pelvis CT 01/09/17 1704 Signed Impressions: Service Date/Time: Monday, January 09, 2017 18:44 - CONCLUSION: 1. Low attenuating mainly cystic mass left upper quadrant in this patient with postsurgical changes at this site could be a postsurgical seroma, however a mesenteric mass such as a mesenteric cyst or even other neoplastic etiologies should also be entertained. 2. Tiny nonobstructing stones in both kidneys. 3. Right ovarian cyst. Pancho Arroyo MD Objective Remarks GENERAL: Alert, oriented 3, NAD. SKIN: Warm and dry. HEAD: Normocephalic. EYES: No scleral icterus. No injection or drainage. NECK: Supple, trachea midline. No JVD or lymphadenopathy. CARDIOVASCULAR: Regular rate and rhythm without murmurs, gallops, or rubs. RESPIRATORY: Breath sounds equal bilaterally. No accessory muscle use. GASTROINTESTINAL: Abdomen soft, tenderness on palpation in the mid epigastric area as well as right side of the abdomen, nondistended. MUSCULOSKELETAL: No cyanosis, or edema. BACK: Nontender without obvious deformity. No CVA tenderness. Procedures None. A/P Problem List: (1) Abdominal pain ICD Code: R10.9 Status: Acute (2) Abdominal mass, left upper quadrant ICD Code: R19.02 Status: Acute Assessment and Plan This is a 31 year old female patient with a past medical history which includes liver cyst, IBS, acute pancreatitis, kidney stones and gastric bypass 2015. Patient presented to [facility] for abd pain. Patient reports severe constatnt stabbing abd pain located in the midepigastric area associated with nausea, vomiting and diarrhea. She has a history of gastric bypass surgery in 2014. Last year she had exploratory surgery in 2015 with lysis of adhesions. Intractable Abdominal pain Abdominal mass left upper quadrant Nausea vomiting diarrhea Abdominal/pelvic CT reveals 1. Low attenuating mainly cystic mass left upper quadrant in this patient with postsurgical changes at this site could be a postsurgical seroma, however a mesenteric mass such as a mesenteric cyst or even other neoplastic etiologies should also be entertained. 2. Tiny nonobstructing stones in both kidneys. 3. Right ovarian cyst. General surgery is following patient. Depending on abdominal ultrasound findings, patient may undergo IR directed aspiration or laparoscopic surgery by general surgery Continue supportive care NS at 100 cc/hour. Dilaudid IV for pain as needed Zofran for nausea as needed AST 19 --> 237. ALT 27 --> 170, Alk Phose 85 --> 122. CBC, CMP pending this morning. History of gastric bypass surgery Full code. SCDs. Rickey Moser DO January 11, 2017 8:23 am
[2017-01-11] MEDS: ONDANSETRON HCL 4 MG/2 ML VIAL IVP PRN ×2 (10:00→20:25)
--- NOTE | 2017-01-11 10:37 | RADRPT ---
EXAM DATE/TIME: 01/11/2017 09:41 [facility] COMPARISON: No previous studies available for comparison. INDICATIONS : Stock Clipper for attempted UGI; residual contrast in abdomen. Abdominal pain for 3 months; increased pain si nce Tuesday. Pain with nausea, vomiting, constipation, and diahrrea. MEDICAL HISTORY : Pancreatitis. IBS. Liver cyst. SURGICAL HISTORY : Tubal ligation. Cholecystectomy. Gastric bypass 2014. ENCOUNTER: Initial ACUITY: 3 days PAIN SCORE: 8/10 LOCATION: Upper abdomen. FINDINGS: Supine view of the abdomen was performed. The abdominal bowel gas pattern is normal. No abnormal ma sses, calcifications, or organomegaly is seen. The osseous structures are unremarkable. Oral contras t is seen throughout the transverse colon. This will obscure an upper GI series. CONCLUSION: Oral contrast remains in the colon. This will obscure an upper GI series. Cisco Araiza Jr., MD on January 11, 2017 at 10:34 Board Certified Radiologist. This report was verified electronically.
--- NOTE | 2017-01-11 10:49 | RADRPT ---
EXAM DATE/TIME: 01/11/2017 08:24 [facility] COMPARISON: CT ABDOMEN & PELVIS W CONTRAST, January 09, 2017, 18:44. INDICATIONS : Left upper quadrant mass seen on prior CT. MEDICAL HISTORY : Pancreatitis. Renal calculi. Right ear tumor. Liver cyst. IBS. Anemia. Anxiety. Depression. SURGICAL HISTORY : Cholecystectomy. Tubal ligation. Hysterectomy. Right cochlear implant. Ear tubes. Gastric bypass. ENCOUNTER: Initial ACUITY: 2 weeks PAIN SCORE: 6/10 LOCATION: Bilateral Abdomen. MEASUREMENTS: LIVER: 13.8 cm length COMMON DUCT: 8 mm RIGHT KIDNEY: 11.0 x 5.5 x 4.8 cm LEFT KIDNEY: 8.9 x 5.7 x 5.0 cm SPLEEN: 10.6 x 3.6 x 3.2 cm length AORTA: 1.8cm maximal FINDINGS: LIVER: Normal echotexture without focal lesion or ductal dilatation. COMMON DUCT: No intraluminal mass or stone visualized. GALLBLADDER: Contains no stones, demonstrates no wall thickening or pericholecystic fluid. PANCREAS: The visualized portions are within normal limits. RIGHT KIDNEY: No hydronephrosis, stone or mass. LEFT KIDNEY: No hydronephrosis. A 5.9 x 5.4 cm hypoechoic, well-circumscribed lesion is identified adjacent to the lower pole of the left kidney. However, on the most recent CT, this is discrete from the kidney itse lf and may be centered in the mesentery with branches of the SMV draped along the anterior aspect of the mass itself. SPLEEN: No focal lesion. AORTA: Non aneurysmal. IVC: Within normal limits. CONCLUSION: 1. 5.9 x 5.4 cm hypoechoic mass lesion adjacent to the lower pole left kidney. I do not believe that this involves the left kidney based on the prior CT, however. 2. I believe the mass is located in the region of the mesentery with branches of the superior mesente matti vein draped over the lesion itself. This may represent a sarcomatous process and MRI with and wit hout gadolinium is recommended for further characterization. This lesion will be difficult to biopsy due to the surrounding bowel in regional vascular structures. 3. Otherwise negative. Jeovanny Gillespie MD on January 11, 2017 at 10:41 Board Certified Radiologist. This report was verified electronically.
--- NOTE | 2017-01-11 11:28 | HHI.PR ---
Subjective Subjective Notes Resting in bed US at bedside Dr. Razo also at bedside Objective Vitals/I&O Vital Signs Date Time Temp Pulse Resp B/P Pulse Ox O2 Delivery O2 Flow Rate FiO2 01/11/17 03:50 99.0 79 17 114/56 97 01/09/17 21:55 Room Air Labs Date/Time Procedure Status Source Growth 01/09/17 17:30 Urine Culture - Final Complete Urine Clean Catch 50-100,000 CFU/ML MIXED GRAM POSITIVE... Cardiovascular: Regular Lungs: Clear Abdomen: Other (tender LUQ ) Extremities: No edema A/P Assessment and Plan 31 year old female s/p gastric bypass surgery now with nausea and vomiting; CT reveals LUQ mass -Reviewed US with Dr. Leodan Lee -Pain control -IR consult for possible drainage vs bx of mass -UGI to be completed tomorrow (no bowel prep necessary) Attending Statement patient seen at bedside attempt IR bx may need lap bx of ir un able to bx Attestation The exam, history, and the medical decision-making described in the above note were completed with the assistance of the mid-level provider. I reviewed and agree with the findings presented. I attest that I had a [id number] encounter with the patient on the same day, and personally performed and documented my assessment and findings in the medical record. Monique Toussaint January 11, 2017 11:28 Edwar Alcocer MD January 18, 2017 22:23
[2017-01-11 11:32] LABS: AUTOMATED NEUTROPHIL # 3.8 TH/MM3 (1.8-7.7); BASOPHIL % 0.2 % (0.0-2.0); EOSINOPHIL # 0.4 TH/MM3 (0-0.4); HEMATOCRIT 34.9 % (35.0-46.0); HEMO FLAGS DIFF FINAL; LYMPH % 26.3 % (9.0-44.0); LYMPHOCYTE # 1.7 TH/MM3 (1.0-4.8); MEAN CELL VOLUME 78.4 FL (80.0-100.0); MEAN CORPUSCULAR HEMOGLOBIN 25.4 PG (27.0-34.0); MEAN CORPUSCULAR HGB CONC 32.4 % (32.0-36.0); MONO % 7.2 % (0.0-8.0); NEUT % 60.3 % (16.0-70.0); PLATELET COUNT 227 TH/MM3 (150-450); RED BLOOD COUNT 4.45 MIL/MM3 (4.00-5.30); RED CELL DISTRIBUTION WIDTH 12.9 % (11.6-17.2); WHITE BLOOD COUNT 6.3 TH/MM3 (4.0-11.0)
[2017-01-11 11:48] LABS: ALT (GPT) 136 U/L (10-53); ANION GAP 8 MEQ/L (5-15); AST (GOT) 103 U/L (15-37); BICARBONATE 23.8 MEQ/L (21.0-32.0); BLOOD UREA NITROGEN 5 MG/DL (7-18); CHLORIDE 104 MEQ/L (98-107); GLOMERULAR FILTRATION RATE 127 ML/MIN (>89); POTASSIUM 3.7 MEQ/L (3.5-5.1); SODIUM (NA) 136 MEQ/L (136-145)
[2017-01-11 11:50] LABS: ALKALINE PHOSPHATASE 154 U/L (45-117); TOTAL BILIRUBIN ADULT 0.6 MG/DL (0.2-1.0)
[2017-01-11 12:00] VITALS: BP 120/69; PULSE 67; RESP 18; TEMP 97.7; O2SAT 100
[2017-01-11] MEDS: SODIUM CHLOR 0.9% 1000 ML INJ 1,000 ML IV SCH ×2 (12:15→20:00)
[2017-01-11 12:21] LABS: BETA HCG QUANT LESS THAN 1 MIU/ML (0-5)
--- NOTE | 2017-01-11 14:37 | RADRPT ---
EXAM DATE/TIME: 01/11/2017 00:00 [facility] COMPARISON: CT ABDOMEN & PELVIS W CONTRAST, January 09, 2017, 18:44. INDICATIONS : Left upper quadrant cystic mass/collection. FINDINGS: Review of the patient's recent CT of the abdomen and pelvis dated 01/09/17 reveals no safe window to a ccess the cystic mass/collection within the left upper quadrant for biopsy/drainage. The lesion is co mpletely surrounded by bowel loops. CONCLUSION: Biopsy/drainage of the cystic mass/collection within the left upper quadrant is not possible as the l esion is completely surrounded by bowel loops. Pastor Gonzalez MD on January 11, 2017 at 14:33 Board Certified Radiologist. This report was verified electronically.
[2017-01-11 16:00] VITALS: BP 106/67; PULSE 57; RESP 18; TEMP 97.7; O2SAT 100
[2017-01-11 20:15] VITALS: BP 114/68; PULSE 66; RESP 16; TEMP 98.4; O2SAT 100
--- NOTE | 2017-01-11 21:36 | MB ---
cc: KAM MONTE MD DATE OF CONSULTATION 01/10/17 REASON FOR CONSULTATION History of gastric bypass, nausea, vomiting, abdominal pain, abdominal mass. HISTORY OF PRESENT ILLNESS The patient is a 31-year-old female who presents with multiple medical issues including a history of gastric bypass in 2014 and subsequent diagnostic laparoscopy, lysis of adhesions in 2016. The patient presents with complaints of approximately a two day history of nausea, vomiting, abdominal pain, also associated with diarrhea. She states the pain is an epigastric pain. It is 5/10, constant. It waxes and wanes. It is worse with movement, better with lying still. She also had associated diarrhea up to five to six times a day and vomiting but denies any blood. She further denies fevers or chills. She had a CT abdomen, pelvis which showed a 6 cm left upper quadrant intra-abdominal mass. The surgery was consulted for further evaluation. On my exam, the patient states the pain is persistent, located on the left side near where the mass is. She states she never had severe pain quite like this prior. She did have a history of gastric bypass for which she initially 252 pounds and currently is 143 pounds. She did relatively well with her gastric bypass with the exception of adhesions for which she underwent diagnostic laparoscopy, lysis of fusions in 2016 with improvement. She states this pain is somewhat different from that pain. She does state she avoids smoking or NSAIDs. Further she is taking her bariatric vitamins as well. PAST MEDICAL HISTORY 1. Morbid obesity, 2. Anxiety depression 3. Irritable bowel syndrome 4. Pancreatitis, 5. Kidney stones 6. Tendonitis PAST SURGICAL HISTORY 1. Quincy-en-Y gastric bypass 2014 2. Diagnostic laparoscopy, 3. Lysis of adhesions 2015 4. Right ear eustachian tubes 5. Hysterectomy, 6. Cholecystectomy, SOCIAL HISTORY The patient denies smoking, ETOH or IVDA. ALLERGIES PENICILLIN TYLENOL FAMILY HISTORY The patient denies hypertension and diabetes. MEDICATIONS See EMR. REVIEW OF SYSTEMS GENERAL: The patient denies headaches. HEENT: Denies eye pain, ear pain. CARDIOVASCULAR: Denies chest pain or palpitation. RESPIRATORY: Denies cough or wheeze. ABDOMEN: Complained of nausea, vomiting, abdominal pain. MUSCULOSKELETAL: Denies arthralgia, myalgia. NEUROLOGIC: Denies numbness, tingling. : Denies dysuria, hematuria. ENDOCRINE: Denies polyuria, polydipsia. PHYSICAL EXAMINATION GENERAL: The patient in no acute distress. VITAL SIGNS: Temperature 98.2, pulse 76, respirations 16, blood pressure 100/52, 98% saturations. HEENT: PERRLA, EOMI. LUNGS: Clear to auscultation bilaterally. Bilateral expansion. HEART: S1-S2 regular rhythm. ABDOMEN: Positive tenderness to palpation. No rebound or guarding. Left upper quadrant well-healed surgical scars. EXTREMITIES: Moving all extremities with exception of the right upper extremity wrist in splint. 2+ pulses all extremities, warm, well-perfused. NEUROLOGIC: GCS 15. No numbness, tingling. SKIN: No obvious masses or lesions. LABORATORY AND DIAGNOSTIC DATA WBC 7.6, hemoglobin 10.6, hematocrit 32.4, platelets 239. Sodium 137, potassium 4.1, chloride 104, BUN three, creatinine 0.49, calcium 8.5. T bili 0.6, AST 237, ALT 170, alk phos 122, albumin 3.4, INR one, PT 10.6, PTT 25.9. IMAGING STUDIES CT scan reviewed by myself. Cystic __ solid mass left upper quadrant 5.8 centimeter in the mesentery. Mesenteric vessels surrounding, evidence of gastric bypass, no evidence of obstruction or free fluid and kidney stones both kidneys, right ovarian cyst. ASSESSMENT The patient is a 31-year-old female status post Quincy-en-Y gastric bypass, diagnostic laparoscopy, lysis of adhesions presents with nausea, vomiting, diarrhea, abdominal pain, mesenteric mass. PLAN After full clinical radiologic laboratory assessment, the patient with above-named issue including abdominal mass. The patient did have a recent somewhat diagnostic laparoscopy without evidence or report of mass at this time. Therefore, this could potentially be more of acute onset in nature. I would favor a diagnosis of. Seroma versus some sorry and potential hematoma as a result of trauma traumatic tissue. However, cannot rule will out other etiologies such as possible sarcoma, but this is very unlikely.. At this point we will obtain abdominal ultrasound. 1. We can look at the right upper quadrant due to transaminitis and elevated liver function tests. Also we can assess the mass for further evaluation of cystic for solid components. We will discuss with interventional radiology for potential possible biopsy versus maybe a drain placement. If these are not possible then I will consider a diagnostic laparoscopy for further evaluation and exploration if the patient's pain is persistent and does not improve. As for the gastric bypass and nausea, vomiting, I recommend obtaining upper GI to evaluate the gastrojejunostomy. The patient is having diarrhea and multiple bowel movements. This could be diet related or could be the result of enteritis or acute illness. We will continue to work this up a little further. MD KIERSTEN Anton/ /8:25 PM /9:07 PM
[2017-01-12 00:30] VITALS: BP 107/74; PULSE 65; RESP 16; TEMP 98.5; O2SAT 100
[2017-01-12 04:15] VITALS: BP 119/64; PULSE 84; RESP 16; TEMP 98.6; O2SAT 99
[2017-01-12] MEDS: HYDROmorphone HCL PF 1 MG/ML VIAL IV PRN ×5 (04:23→22:48)
[2017-01-12] MEDS: ONDANSETRON HCL 4 MG/2 ML VIAL IVP PRN ×3 (04:23→19:38)
[2017-01-12] MEDS: SODIUM CHLOR 0.9% 1000 ML INJ 1,000 ML IV SCH ×2 (04:29→18:15)
[2017-01-12 08:32] VITALS: BP 103/62; PULSE 68; RESP 16; TEMP 97.8; O2SAT 98
[2017-01-12] MEDS: SODIUM CHLORIDE 0.9% FLUSH 10 ML FLUSH IV FLUSH SCH ×2 (09:00→19:39)
--- NOTE | 2017-01-12 10:37 | HHI.PR ---
Subjective Remarks Follow up for abdominal pain, CT abd finding of possible seroma vs. mass. Ms. Mcneal wants to eat and take a shower. No fever, chills. Objective Vitals Vital Signs Date Time Temp Pulse Resp B/P Pulse Ox O2 Delivery O2 Flow Rate FiO2 01/12/17 08:32 97.8 68 16 103/62 98 01/12/17 04:15 98.6 84 16 119/64 99 01/12/17 00:30 98.5 65 16 107/74 100 01/11/17 20:15 98.4 66 16 114/68 100 01/11/17 16:00 97.7 57 18 106/67 100 01/11/17 15:30 18 01/11/17 12:00 97.7 67 18 120/69 100 I/O 01/11/17 01/11/17 01/11/17 01/12/17 01/12/17 01/12/17 07:00 15:00 23:00 07:00 15:00 23:00 Intake Total 0 ml 650 ml 480 ml 0 ml Balance 0 ml 650 ml 480 ml 0 ml Intake Oral 0 ml 650 ml 480 ml 0 ml # Voids 2 5 1 2 # Bowel Movements 0 0 0 Result Diagram: 01/11/17 1102 01/11/17 1102 Imaging Last Impressions Consultation 01/11/17 0000 Signed Impressions: Service Date/Time: Wednesday, January 11, 2017 00:00 - CONCLUSION: Biopsy/drainage of the cystic mass/collection within the left upper quadrant is not possible as the lesion is completely surrounded by bowel loops. Pastor Gonzalez MD Abdomen X-Ray 01/11/17 0000 Signed Impressions: Service Date/Time: Wednesday, January 11, 2017 09:41 - CONCLUSION: Oral contrast remains in the colon. This will obscure an upper GI series. Cisco Araiza Jr., MD Abdomen Ultrasound 01/11/17 0000 Signed Impressions: Service Date/Time: Wednesday, January 11, 2017 08:24 - CONCLUSION: 1. 5.9 x 5.4 cm hypoechoic mass lesion adjacent to the lower pole left kidney. I do not believe that this involves the left kidney based on the prior CT, however. 2. I believe the mass is located in the region of the mesentery with branches of the superior mesenteric vein draped over the lesion itself. This may represent a sarcomatous process and MRI with and without gadolinium is recommended for further characterization. This lesion will be difficult to biopsy due to the surrounding bowel in regional vascular structures. 3. Otherwise negative. Jeovanny Gillespie MD Abdomen/Pelvis CT 01/09/17 1704 Signed Impressions: Service Date/Time: Monday, January 09, 2017 18:44 - CONCLUSION: 1. Low attenuating mainly cystic mass left upper quadrant in this patient with postsurgical changes at this site could be a postsurgical seroma, however a mesenteric mass such as a mesenteric cyst or even other neoplastic etiologies should also be entertained. 2. Tiny nonobstructing stones in both kidneys. 3. Right ovarian cyst. Pancho Arroyo MD Objective Remarks GENERAL: Alert, oriented 3, NAD. SKIN: Warm and dry. HEAD: Normocephalic. EYES: No scleral icterus. No injection or drainage. NECK: Supple, trachea midline. No JVD or lymphadenopathy. CARDIOVASCULAR: Regular rate and rhythm without murmurs, gallops, or rubs. RESPIRATORY: Breath sounds equal bilaterally. No accessory muscle use. GASTROINTESTINAL: Abdomen soft, tenderness on palpation in the mid epigastric area as well as right side of the abdomen, nondistended. MUSCULOSKELETAL: No cyanosis, or edema. BACK: Nontender without obvious deformity. No CVA tenderness. Procedures None. A/P Problem List: (1) Abdominal pain ICD Code: R10.9 Status: Acute (2) Abdominal mass, left upper quadrant ICD Code: R19.02 Status: Acute Assessment and Plan This is a 31 year old female patient with a past medical history which includes liver cyst, IBS, acute pancreatitis, kidney stones and gastric bypass 2015. Patient presented to [facility] for abd pain. Patient reports severe constatnt stabbing abd pain located in the midepigastric area associated with nausea, vomiting and diarrhea. She has a history of gastric bypass surgery in 2015. Last year she had exploratory surgery in 2015 with lysis of adhesions. Intractable Abdominal pain Abdominal mass left upper quadrant Nausea vomiting diarrhea Abdominal/pelvic CT indicates a post surgical seroma vs. mass. General surgery is following patient. US indicates mass is not amenable to percutaneous biopsy. IR was consulted by surgery. IR cannot biopsy this mass. Waiting to hear from General surgery. Patient will likely need an MRI or surgical intervention. Continue supportive care NS at 100 cc/hour. Dilaudid IV for pain as needed Zofran for nausea as needed AST, ALT improved. Alk phose 122 --> 154. History of gastric bypass surgery - Okay to take shower. Full code. SCDs. Rickey Moser DO January 12, 2017 10:37 am
[2017-01-12 12:01] VITALS: BP 118/65; PULSE 72; RESP 14; TEMP 96.1; O2SAT 98
--- NOTE | 2017-01-12 15:50 | HHI.PR ---
Subjective Subjective Notes Resting in bed Wants a sandwich and some applesauce Agrees to have surgery tomorrow Objective Vitals/I&O Vital Signs Date Time Temp Pulse Resp B/P Pulse Ox O2 Delivery O2 Flow Rate FiO2 01/12/17 12:01 96.1 72 14 118/65 98 01/09/17 21:55 Room Air Labs Date/Time Procedure Status Source Growth 01/09/17 17:30 Urine Culture - Final Complete Urine Clean Catch 50-100,000 CFU/ML MIXED GRAM POSITIVE... Cardiovascular: Regular Lungs: Clear Abdomen: Other (LUQ pain with palpation ) Extremities: No edema A/P Assessment and Plan 31 year old female s/p gastric bypass surgery now with nausea and vomiting; CT reveals LUQ mass -Plan for dx lap; possible ex lap tomorrow -Clears--okay for sandwich/crackers and some applesauce -NPO after MN -Pain control -Obtain consents Attending Statement patient seen at bedside surgery planning for bx vs mass removal npo at [facility] discuss with pt Attestation The exam, history, and the medical decision-making described in the above note were completed with the assistance of the mid-level provider. I reviewed and agree with the findings presented. I attest that I had a [id number] encounter with the patient on the same day, and personally performed and documented my assessment and findings in the medical record. Monique Toussaint January 12, 2017 15:50 Edwar Alcocer MD January 20, 2017 21:49
[2017-01-12 16:57] VITALS: BP 103/69; PULSE 66; RESP 15; TEMP 97.3; O2SAT 98
[2017-01-12 20:16] VITALS: BP 106/62; PULSE 61; RESP 17; TEMP 96.7; O2SAT 99
[2017-01-13] VITALS: BP 104/64; PULSE 66; RESP 18; TEMP 98.8; O2SAT 98
[2017-01-13 04:00] VITALS: BP 90/57; PULSE 73; RESP 18; TEMP 97.7; O2SAT 97
[2017-01-13] MEDS: SODIUM CHLOR 0.9% 1000 ML INJ 1,000 ML IV SCH ×2 (04:15→14:15)
[2017-01-13] MEDS: HYDROmorphone HCL PF 1 MG/ML VIAL IV PRN ×5 (06:06→23:04)
[2017-01-13] MEDS: ONDANSETRON HCL 4 MG/2 ML VIAL IVP PRN ×3 (06:06→16:30)
[2017-01-13 07:30] VITALS: BP 106/62; PULSE 61; RESP 17; TEMP 98.2; O2SAT 97
[2017-01-13] MEDS ORDERED: PROPOFOL 200 MG/20 ML AMP IV ONE (08:29)
[2017-01-13] MEDS ORDERED: NEOSTIGMINE 3 MG/3 ML SYR IV ONE (08:29)
[2017-01-13] MEDS ORDERED: ONDANSETRON HCL 4 MG/2 ML VIAL IV PUSH ONE (08:29)
[2017-01-13] MEDS ORDERED: LACTATED RINGER'S 1000 ML INJ 1,000 ML IV ONE (08:30)
[2017-01-13] MEDS: SODIUM CHLORIDE 0.9% FLUSH 10 ML FLUSH IV FLUSH SCH ×2 (09:00→19:52)
--- NOTE | 2017-01-13 09:37 | HHI.PR ---
Subjective Remarks Follow up for abdominal pain, CT abd finding of possible seroma vs. mass. Patient underwent ex lap today with biopsy. Patient was seen prior to her surgery. No fever, chills. Still has abdominal pain. Objective Vitals Vital Signs Date Time Temp Pulse Resp B/P Pulse Ox O2 Delivery O2 Flow Rate FiO2 01/13/17 07:30 98.2 61 17 106/62 97 01/13/17 04:00 97.7 73 18 90/57 97 01/13/17 00:00 98.8 66 18 104/64 98 01/12/17 20:16 96.7 61 17 106/62 99 01/12/17 16:57 97.3 66 15 103/69 98 01/12/17 12:01 96.1 72 14 118/65 98 I/O 01/12/17 01/12/17 01/12/17 01/13/17 01/13/17 01/13/17 07:00 15:00 23:00 07:00 15:00 23:00 Intake Total 0 ml 1480 ml Balance 0 ml 1480 ml Intake Oral 0 ml 1480 ml # Voids 2 7 3 # Bowel Movements 0 0 0 Result Diagram: 01/11/17 1102 01/11/17 1102 Objective Remarks GENERAL: Alert, oriented 3, NAD. SKIN: Warm and dry. HEAD: Normocephalic. EYES: No scleral icterus. No injection or drainage. NECK: Supple, trachea midline. No JVD or lymphadenopathy. CARDIOVASCULAR: Regular rate and rhythm without murmurs, gallops, or rubs. RESPIRATORY: Breath sounds equal bilaterally. No accessory muscle use. GASTROINTESTINAL: Abdomen soft, tenderness on palpation in the mid epigastric area as well as right side of the abdomen, nondistended. MUSCULOSKELETAL: No cyanosis, or edema. BACK: Nontender without obvious deformity. No CVA tenderness. Procedures None. A/P Problem List: (1) Abdominal pain ICD Code: R10.9 Status: Acute (2) Abdominal mass, left upper quadrant ICD Code: R19.02 Status: Acute Assessment and Plan This is a 31 year old female patient with a past medical history which includes liver cyst, IBS, acute pancreatitis, kidney stones and gastric bypass 2015. Patient presented to [facility] for abd pain. Patient reports severe constatnt stabbing abd pain located in the midepigastric area associated with nausea, vomiting and diarrhea. She has a history of gastric bypass surgery in 2015. Last year she had exploratory surgery in 2015 with lysis of adhesions. Intractable Abdominal pain Abdominal mass left upper quadrant Nausea vomiting diarrhea Abdominal/pelvic CT indicates a post surgical seroma vs. mass. General surgery is following patient. US indicates mass is not amenable to percutaneous biopsy. IR was consulted by surgery. IR cannot biopsy this mass. Patient underwent surgical intervention today including biopsy. Continue supportive care NS at 100 cc/hour. Dilaudid IV for pain as needed Zofran for nausea as needed CMP obtained this morning --> AST, ALT improved. Alk phose are all improving. History of gastric bypass surgery - Okay to take shower. Full code. Monica. Rickey Moser DO January 13, 2017 09:37
[2017-01-13 11:15] LABS: ANION GAP 9 MEQ/L (5-15); AST (GOT) 33 U/L (15-37); BICARBONATE 26.3 MEQ/L (21.0-32.0); BLOOD UREA NITROGEN 4 MG/DL (7-18); CHLORIDE 102 MEQ/L (98-107); GLOMERULAR FILTRATION RATE 142 ML/MIN (>89); POTASSIUM 3.6 MEQ/L (3.5-5.1); SODIUM (NA) 137 MEQ/L (136-145)
[2017-01-13 11:19] LABS: ALKALINE PHOSPHATASE 139 U/L (45-117); ALT (GPT) 77 U/L (10-53); TOTAL BILIRUBIN ADULT 0.5 MG/DL (0.2-1.0)
[2017-01-13] MEDS ORDERED: ceFAZolin 2 GM PREMIX 50 ML ONE (11:24)
[2017-01-13] MEDS ORDERED: ACETAMINOPHEN 1000 MG/100 ML VIAL IV ONE (11:27)
[2017-01-13] MEDS ORDERED: MIDAZOLAM HCL 2 MG/2 ML VIAL ONE (11:28)
[2017-01-13] MEDS ORDERED: fentaNYL CITRATE 250 MCG/5 ML AMP ONE (11:28)
[2017-01-13] MEDS ORDERED: FAMOTIDINE 20 MG/2 ML VIAL ONE (11:28)
[2017-01-13] MEDS ORDERED: CLINDAMYCIN PHOS 600 MG/4 ML VIAL ONE (11:55)
[2017-01-13] MEDS ORDERED: BUPIVACAINE/EPINEPHRINE 0.25% PF 30 ML VIAL ONE (12:08)
--- NOTE | 2017-01-13 13:23 | HHI.PR ---
Immediate Post Op Note Procedure Date: January 13, 2017 Pre Op Diagnosis: intra abdominal mass Post Op Diagnosis: same Surgeon: Edwar Alcocer MD Manager Investigations(s): see or sheet Procedure: dx lap, lap incisional bx of mesenteric mass Findings: hard spongy mass at base of mesentary off robbie limb Specimen(s) removed: frozen bx, permanent bx of mesenteric mass Estimated blood loss: 10cc Anesthesia: General Drains: None IVF (1000) Patient to: PACU Patient Condition: Good Edwar Alcocer MD January 13, 2017 13:23
[2017-01-13] MEDS ORDERED: *morphine SULFATE 8 MG/ML PERIprocedure ONLY ONE (13:58)
[2017-01-13] MEDS ORDERED: *MEPERIDINE 25 MG INJ VIAL PERIprocedural Use ONLY ONE (14:06)
[2017-01-13 16:00] VITALS: BP 123/66; PULSE 71; RESP 17; TEMP 98.2; O2SAT 95
[2017-01-13 19:32] VITALS: BP 106/62; PULSE 80; RESP 17; TEMP 97.9; O2SAT 97
--- NOTE | 2017-01-13 22:41 | MP ---
cc: KAM ALCOCER MD DATE OF SURGERY 01/13/17 PREOPERATIVE DIAGNOSIS Intraabdominal mass. POSTOPERATIVE DIAGNOSIS Intraabdominal mass PROCEDURE PERFORMED Diagnostic laparoscopy, laparoscopic incisional biopsy of mesenteric mass. SURGEON Dr. Dominic Alcocer BRANDING SPECIALIST See OR sheet ANESTHESIA GETA. IV FLUIDS 1000 mL ESTIMATED BLOOD LOSS 10 mL. DRAINS None COMPLICATIONS None. WOUND CLASSIFICATION Clean SPECIMENS Mesenteric mass permanent section sent for pathology. FINDINGS Hard sponge like mass glued to the mesentery just distal to the gastrojejunostomy and the mesentery of the Quincy limb. 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 INDICATIONS The patient is a 31-year-old female with history of morbid obesity, several medical problems status post laparoscopic Quincy-en-Y gastric bypass two years ago. The patient underwent a diagnostic laparoscopy, lysis of adhesions approximately one year ago. The patient presented with acute onset of abdominal pain, nausea, vomiting, diarrhea. She underwent CT scan with findings of a 5.9 cm mesenteric mass. Initial consultation with interventional radiology for biopsy versus drain without the ability of being able to give to the mass. Therefore, decision was made for operative intervention of mass for possible biopsy, possible resection and diagnostic laparoscopy. PROCEDURE IN DETAIL The patient was taken to the operating suite, placed in supine position. She was prepped and draped in usual sterile fashion after induction of general endotracheal anesthesia. Brief time-out done stating correct patient, procedure, surgical site and all were in agreement with this. Attention was first directed to the umbilicus where a stab claudette incision made. Veress needle was attempted to be placed, question of intra-abdominal placement and question of adhesion therefore decision for left upper quadrant small stab claudette incision. Veress needle then placed through this. Abdomen insufflated to 15 mm pneumoperitoneum. On cursory inspection, no evidence of injury. This was through the 5-mm port and 5-mm scope. Next, three other ports placed, one in the umbilical port 5 mm followed by two 5 mm right upper quadrant and right lower quadrant ports. The patient then placed in reverse Trendelenburg and identification of the gastrojejunostomy was noted, noted to be intact. Minimally dilated without significant issue. The small bowel was traced down and noted to be a somewhat firm spongy mesenteric mass just distal to the gastrojejunostomy within the Quincy limb. The mass was kind of at the base of the mesentery with the mesentery draped over it. At this point, decision was made to incise a small piece of the mesentery in order to access the mass. This was done with Harmonic scalpel by making a small window where the mass sits, the tissue noted to be somewhat spongy and hard. There was no evidence of cystic fluid . Decision was made for a biopsy. DeBakey graspers were used harmonic scalpel to incise small pieces of the mass in order to send for frozen section. Also a couple small pieces were sent for permanent pathology. Hemostasis was obtained. Small piece of Surgicel placed in the mass and removed to confirm hemostasis. The rest of the small bowel was run. The patient noted to have somewhat long Quincy limb. There is no evidence of other masses, lymphadenopathy or obstruction as well. Once we were content with this, decision was made to desufflate the abdomen, removed Trocars and terminate procedure. Consideration to possible mass excision. 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 I thought it prudent to obtain initial biopsies and once confirmatory pathology then further medical and surgical decision made would be done. After abdomen desufflated, local anesthetic injected at all port sites. Ports closed with 4-0 Monocryl and sterile dressings placed. Patient tolerated procedure well. No intraoperative complication. The patient was extubated, taken to PACU. MD KIERSTEN Anton/ /9:25 PM /10:21 PM [facility]OU[facility]
[2017-01-13 23:31] VITALS: BP_SYST 105; BP_SYST 111; BP_DIAS 53; BP_DIAS 56; PULSE 76; PULSE 93; RESP 17; RESP 20; TEMP 97.9; O2SAT 92; O2SAT 98
[2017-01-14] VITALS (7 sets, daily range): BP systolic 102–120; BP diastolic 56–76; PULSE 70–79; RESP 16–20; TEMP 96.4–99.5; O2SAT 97–100
[2017-01-14] MEDS: ONDANSETRON HCL 4 MG/2 ML VIAL IVP PRN ×4 (03:57→22:10)
[2017-01-14] MEDS: HYDROmorphone HCL PF 1 MG/ML VIAL IV PRN ×4 (03:58→22:10)
[2017-01-14] MEDS: SODIUM CHLORIDE 0.9% FLUSH 10 ML FLUSH IV FLUSH SCH ×2 (08:47→19:48)
--- NOTE | 2017-01-14 09:27 | HHI.PR ---
Subjective Remarks Follow up for abdominal pain, mesenteric mass. Patient complains of persistent abdominal pain. Denies any fever or chills. Requests better pain control as well as bowel regimen. Objective Vitals Vital Signs Date Time Temp Pulse Resp B/P Pulse Ox O2 Delivery O2 Flow Rate FiO2 01/14/17 08:04 98.1 73 20 112/62 99 01/14/17 03:45 98.4 74 18 104/66 98 01/13/17 23:31 97.9 76 17 105/53 98 01/13/17 20:28 21 01/13/17 19:32 97.9 80 17 106/62 97 01/13/17 16:00 98.2 71 17 123/66 95 01/13/17 14:25 97.8 77 16 113/63 96 Room Air 01/13/17 14:15 79 16 114/62 96 Room Air 01/13/17 14:03 15 01/13/17 14:00 80 15 112/69 95 Room Air 01/13/17 13:45 83 14 115/68 95 Room Air 01/13/17 13:40 98.7 92 10 119/74 100 Nasal Cannula 3 I/O 01/13/17 01/13/17 01/13/17 01/14/17 01/14/17 01/14/17 07:00 15:00 23:00 07:00 15:00 23:00 Intake Total 1200 ml 720 ml 720 ml Output Total 30 ml Balance 1170 ml 720 ml 720 ml Intake Oral 0 ml 720 ml 720 ml IV Total 100 ml Other 1100 ml Output Estimated Blood Loss 30 ml # Voids 3 3 5 2 # Bowel Movements 0 0 0 Result Diagram: 01/11/17 1102 01/13/17 1030 Imaging Last Impressions Consultation 01/11/17 0000 Signed Impressions: Service Date/Time: Wednesday, January 11, 2017 00:00 - CONCLUSION: Biopsy/drainage of the cystic mass/collection within the left upper quadrant is not possible as the lesion is completely surrounded by bowel loops. Pastor Gonzalez MD Abdomen X-Ray 01/11/17 0000 Signed Impressions: Service Date/Time: Wednesday, January 11, 2017 09:41 - CONCLUSION: Oral contrast remains in the colon. This will obscure an upper GI series. Cisco Araiza Jr., MD Abdomen Ultrasound 01/11/17 0000 Signed Impressions: Service Date/Time: Wednesday, January 11, 2017 08:24 - CONCLUSION: 1. 5.9 x 5.4 cm hypoechoic mass lesion adjacent to the lower pole left kidney. I do not believe that this involves the left kidney based on the prior CT, however. 2. I believe the mass is located in the region of the mesentery with branches of the superior mesenteric vein draped over the lesion itself. This may represent a sarcomatous process and MRI with and without gadolinium is recommended for further characterization. This lesion will be difficult to biopsy due to the surrounding bowel in regional vascular structures. 3. Otherwise negative. Jeovanny Gillespie MD Abdomen/Pelvis CT 01/09/17 1704 Signed Impressions: Service Date/Time: Monday, January 09, 2017 18:44 - CONCLUSION: 1. Low attenuating mainly cystic mass left upper quadrant in this patient with postsurgical changes at this site could be a postsurgical seroma, however a mesenteric mass such as a mesenteric cyst or even other neoplastic etiologies should also be entertained. 2. Tiny nonobstructing stones in both kidneys. 3. Right ovarian cyst. Pancho Arroyo MD Objective Remarks GENERAL: Alert, oriented 3, NAD. SKIN: Warm and dry. HEAD: Normocephalic. EYES: No scleral icterus. No injection or drainage. NECK: Supple, trachea midline. No JVD or lymphadenopathy. CARDIOVASCULAR: Regular rate and rhythm without murmurs, gallops, or rubs. RESPIRATORY: Breath sounds equal bilaterally. No accessory muscle use. GASTROINTESTINAL: Abdomen soft, tenderness on palpation in the mid epigastric area as well as right side of the abdomen, nondistended. MUSCULOSKELETAL: No cyanosis, or edema. BACK: Nontender without obvious deformity. No CVA tenderness. Procedures 01/13/2017 Diagnostic laparoscopy, laparoscopic incisional biopsy of mesenteric mass. A/P Problem List: (1) Abdominal pain ICD Code: R10.9 Status: Acute (2) Abdominal mass, left upper quadrant ICD Code: R19.02 Status: Acute Assessment and Plan This is a 31 year old female patient with a past medical history which includes liver cyst, IBS, acute pancreatitis, kidney stones and gastric bypass 2014. Patient presented to [facility] for abd pain. Patient reports severe constatnt stabbing abd pain located in the midepigastric area associated with nausea, vomiting and diarrhea. She has a history of gastric bypass surgery in 2015. Last year she had exploratory surgery in 2015 with lysis of adhesions. Intractable Abdominal pain Abdominal mass left upper quadrant Abdominal/pelvic CT indicates a post surgical seroma vs. mass. s/p Lap with incisional biopsy of mesenteric mass on 01/13/2017. Gen Surgery following. NS at 100 cc/hour. Pain control with Acetaminophen, Percocet and Dilaudid IV PRN. Zofran for nausea as needed Bowel regimen includes Milk of Mag, Dulcolax supp, Fleet Enema all PRN. History of gastric bypass surgery - Okay to take shower. Full code. SCDs. Rickey Moser DO January 14, 2017 9:27 am
[2017-01-14] MEDS ORDERED: MAGNESIUM HYDROXIDE SUSP 30 ML CUP PO PRN (09:30)
[2017-01-14] MEDS ORDERED: SOD PHOSPHATE/SOD BIPHOSPHATE (ADULT) ENEMA 133ML RECTAL PRN (09:30)
[2017-01-14] MEDS: SODIUM CHLOR 0.9% 1000 ML INJ 1,000 ML IV SCH ×2 (10:15→19:48)
[2017-01-14] MEDS: oxyCODONE/ACETAMINOPHEN 7.5 MG/325 MG TAB PO PRN ×2 (13:20→19:46)
--- NOTE | 2017-01-14 16:50 | HHI.PR ---
Subjective Subjective Notes No acute events overnight Pain controlled Objective Vitals/I&O Vital Signs Date Time Temp Pulse Resp B/P Pulse Ox O2 Delivery O2 Flow Rate FiO2 01/14/17 12:00 99.0 70 20 108/58 97 01/13/17 20:28 21 01/13/17 14:25 Room Air 01/13/17 13:40 3 Labs Date/Time Procedure Status Source Growth 01/09/17 17:30 Urine Culture - Final Complete Urine Clean Catch 50-100,000 CFU/ML MIXED GRAM POSITIVE... Cardiovascular: Regular Lungs: Clear Abdomen: Other (lap sites c/d/i; abdomen soft ), Post-op tenderness Extremities: No edema A/P Assessment and Plan 31 year old female s/p gastric bypass surgery now with nausea and vomiting; CT reveals LUQ mass -POD1 dx lap, lap incisional bx of mesenteric mass -Regular diet -OOB and mobilize -Pain control -Pathology pending -Consult to Medical Oncology pending -GS will see peripherally over the weekend Attending Statement patient seen at bedside no acute issues s/p lap bx consult med onc await bx results Attestation The exam, history, and the medical decision-making described in the above note were completed with the assistance of the mid-level provider. I reviewed and agree with the findings presented. I attest that I had a [id number] encounter with the patient on the same day, and personally performed and documented my assessment and findings in the medical record. Monique Toussaint January 14, 2017 16:50 Edwar Alcocer MD January 20, 2017 22:13
[2017-01-14] MEDS: BISACODYL 10 MG SUPP RECTAL PRN (18:30)
--- NOTE | 2017-01-14 20:01 | MB ---
cc: ANUPAMA STOEVR M.D. DATE OF CONSULTATION: 01/14/2017. REASON FOR CONSULTATION: Oncology was consulted to render opinion regarding a patient with abdominal mass. CONSULTING PHYSICIAN: Dr. Moser. HISTORY OF PRESENT ILLNESS: The patient is a 31-year-old female with history of irritable bowel syndrome and gastric bypass surgery who presented to the hospital with complaint of increased abdominal pain associated with nausea, vomiting, and diarrhea. She stated that she had had intermittent abdominal pain for a year and a half. She has been to the emergency room multiple times without finding the diagnosis. She stated that since October, her abdominal pain is more a constant and stabbing pain in the mid epigastric and left upper quadrant area. Last weekend she developed nausea, vomiting and diarrhea and came to the hospital. CT showed a left upper quadrant 6.5 cm mainly cystic mass. She underwent exploratory laparotomy yesterday and she was found to have a firm spongy-like mass in the mesentery. A biopsy was done and frozen section reportedly showed possible desmoid tumor. She denies any fever, chills, night sweats or weight loss. She has no chest pain or palpitations. She denies shortness of breath or cough. She denies any dysuria or hematuria. She denies any bone pain. Denies any headache, focal numbness or weakness. PAST MEDICAL HISTORY: 1. Liver cyst. 2. Polycystic ovarian syndrome. 3. Irritable bowel syndrome. 4. History of pancreatitis. 5. Kidney stone. 6. Anxiety and depression. 7. Right wrist tendinitis. 8. Obesity. PAST SURGICAL HISTORY: 1. Gastric bypass surgery in 2014 done in [place]. 2. She had an exploratory laparotomy the following year with lysis of adhesions. FAMILY HISTORY: Paternal great-father had kidney cancer. Paternal uncle had some kind of mass. Father also had some kind of mass that she cannot provide a detailed history. The maternal great-aunt had leukemia. She has a half-sibling and she has two sons, all healthy. SOCIAL HISTORY: No tobacco or alcohol use. 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 ALLERGIES: 1. NSAIDS. 2. PENICILLIN. 3. TYLENOL #3. CURRENT MEDICATIONS: Percocet p.r.n. REVIEW OF SYSTEMS: CONSTITUTIONAL: Denies any fever, chills, night sweats or weight loss. EYES: Denies any blurry vision or double vision. ENT: Denies any mouth sores or voice changes. CARDIOVASCULAR: Denies any chest pressure or palpitations. RESPIRATORY: Denies shortness of breath or cough. GI: As above. : Denies any dysuria or hematuria. MUSCULOSKELETAL: Negative. HEMATOLOGIC: As above. ENDOCRINE: Negative. DERMATOLOGIC: Negative. PSYCHIATRIC: She is a little anxious. NEUROLOGIC: Negative. PHYSICAL EXAMINATION: VITAL SIGNS: Temperature 97.4, blood pressure 102/59, 02 saturation 99%. GENERAL: She is alert and oriented times three and in no acute distress. HEAD, EYES, EARS, NOSE, THROAT: Atraumatic, normocephalic. Pupils equal, round, reactive to light. Extraocular muscles are intact. No scleral icterus. OROPHARYNX: Dry mucosa. No lesions. NECK: No thyromegaly. No palpable mass. LYMPHATIC: No palpable cervical, clavicular, axillary or inguinal lymph nodes. CARDIOVASCULAR: Regular S1 and S2. No murmur. LUNGS: Clear to auscultation bilaterally. No wheezing or rhonchi. ABDOMEN: Abdomen soft. Positive bowel sounds. A little tender. EXTREMITIES: No cyanosis or clubbing. No edema. BACK: No paravertebral tenderness. SKIN: No rash or petechiae. NEUROLOGIC EXAM: Nonfocal. LABORATORY DATA: Reviewed. ASSESSMENT: 1. Mesenteric mass. She has had intermittent abdominal pain for a year and a half. Since October, she has had increased stabbing pain in the mid epigastric and left upper quadrant area. CT showed mainly a cystic mass in the left upper quadrant measuring about 6.5 cm. She had an exploratory laparotomy yesterday. She was noted to have a hard spongy mass anterior to the mesentery just distal to the gastrojejunostomy. A biopsy and frozen section reportedly showed possible desmoid tumor. The final pathology is still pending. I reviewed the CT and the surgical findings with the patient and her . I told them the treatment recommendation will depend on the final tissue diagnosis. If indeed this turns out to be desmoid tumor, will need the surgeon's opinion to see if it is resectable and if not then will discuss systemic therapy versus radiation therapy. They had many questions, which I tried to answer. 2. Liver cyst. 3. Irritable bowel syndrome. 4. History of pancreatitis. 5. Anxiety and depression. 6. Obesity status post gastric bypass surgery. 7. Mild anemia which may be iron deficiency anemia. RECOMMENDATIONS: 1. Extensive discussion with the patient and her . Their questions were answered. 2. Await final pathology. 3. Will get CT of the chest. 4. Anemia workup. Thank you, Dr. Moser, for asking me to see this patient. MD GLADYS Snow/JCC /6:52 PM /7:48 PM MTDSim
--- NOTE | 2017-01-14 20:43 | RADRPT ---
EXAM DATE/TIME: 01/14/2017 19:56 [place] COMPARISON: No previous studies available for comparison. INDICATIONS : Abdominal mass. Possible mets. RADIATION DOSE: 7.92 CTDIvol (mGy) MEDICAL HISTORY : Cardiovascular disease. Pancreatitis. SURGICAL HISTORY : Hysterectomy. Cholecystectomy. ENCOUNTER: Initial ACUITY: 1 week PAIN SCALE: 6/10 LOCATION: chest TECHNIQUE: Volumetric scanning of the chest was performed. Using automated exposure control and adjustment of t he mA and/or kV according to patient size, radiation dose was kept as low as reasonably achievable to obtain optimal diagnostic quality images. FINDINGS: Patient is status post intraperitoneal laparoscopic biopsy done yesterday. There is small intraperito teresa air. Also small pericardial and mediastinal and chest wall air. There is no pneumothorax. No infiltrate, effusion or pneumothorax. No pulmonary masses or nodules are demonstrated. There is no mediastinal, hilar or axillary lymphadenopathy. CONCLUSION: No evidence of metastatic disease of the chest. Small pericardial, mediastinal and chest wall air. Pl ease see above. Gustavo Michaels MD on January 14, 2017 at 20:36 Board Certified Radiologist. This report was verified electronically.
[2017-01-15] MEDS: HYDROmorphone HCL PF 1 MG/ML VIAL IV PRN ×4 (01:12→21:55)
[2017-01-15] MEDS: ONDANSETRON HCL 4 MG/2 ML VIAL IVP PRN ×3 (05:20→19:56)
[2017-01-15] MEDS: SODIUM CHLOR 0.9% 1000 ML INJ 1,000 ML IV SCH ×2 (05:20→19:54)
[2017-01-15] MEDS: oxyCODONE/ACETAMINOPHEN 7.5 MG/325 MG TAB PO PRN ×3 (05:21→19:53)
[2017-01-15 06:36] LABS: FERRITIN 10 NG/ML (8-252); TRANSFERRIN IRON PROFILE 226 MG/DL (200-360)
[2017-01-15 08:00] VITALS: BP 111/66; PULSE 66; RESP 18; TEMP 97.7; O2SAT 98
--- NOTE | 2017-01-15 08:31 | PD.ONC.PN ---
Subjective Subjective Remarks Tmax 99.5 overnight. Pt resting comfortably in bed. Still with abdominal pain. States she didn't sleep well last night. Objective Data Date Time Temp Pulse Resp B/P Pulse Ox O2 Delivery O2 Flow Rate FiO2 01/14/17 23:30 97.5 79 16 106/56 100 01/14/17 21:24 99 01/14/17 20:22 99.5 73 16 120/76 100 01/14/17 16:52 96.4 78 20 102/59 99 01/14/17 12:00 99.0 70 20 108/58 97 01/15/17 01/15/17 01/15/17 07:00 15:00 23:00 Intake Total 997 ml Balance 997 ml Result Diagram: 01/11/17 1102 01/13/17 1030 Laboratory Results Laboratory Tests Test 01/15/17 05:17 Iron Level 20 MCG/DL Total Iron Binding Capacity 316 MCG/DL Percent Iron Saturation 6.3 % Ferritin 10 NG/ML Vitamin B12 Level 501 PG/ML Folate 18.0 NG/ML Administered Medications Medications (Trade) Dose Ordered Sig/Sonya Route PRN Reason Start Time Stop Time Status Last Admin Dose Admin Sodium Chloride (NS Flush) 2 ml UNSCH PRN IV FLUSH FLUSH AFTER USING IV ACCESS 01/09/17 20:00 01/12/17 04:27 Sodium Chloride (NS Flush) 2 ml BID IV FLUSH 01/09/17 21:00 01/14/17 19:48 Ondansetron HCl (Zofran Inj) 4 mg Q6H PRN IVP NAUSEA OR VOMITING 01/10/17 02:00 01/15/17 05:20 Hydromorphone HCl (Dilaudid Pf Inj) 0.5 mg Q3H PRN IV Pain 3-5; if unable to take PO 01/09/17 23:00 01/13/17 16:31 Hydromorphone HCl 1 mg 1 mg Q3H PRN IV BREAKTHROUGH PAIN 01/09/17 23:00 01/15/17 01:12 Sodium Chloride (NS 1000 ml Inj) 1,000 ml @ 100 mls/hr Q10H IV 01/09/17 20:15 01/14/17 19:48 Oxycodone/ Acetaminophen (Percocet 7.5-325 Mg) 1 tab Q6H PRN PO PAIN SCALE 5 TO 10 01/14/17 09:30 01/15/17 05:21 Bisacodyl (Dulcolax Supp) 10 mg DAILY PRN RECTAL CONSTIPATION 01/14/17 09:30 01/14/17 18:30 Objective Remarks GENERAL: Younger female, asleep in bed in no distress. Awakens easily. SKIN: Warm and dry. No oozing from incisions to abdomen from laparoscopic procedure. HEAD: Normocephalic. EYES: No injection or drainage. NECK: Supple, trachea midline. CARDIOVASCULAR: +S1/S2. No murmur appreciated. RESPIRATORY: Clear anteriorly. GASTROINTESTINAL: Abdomen soft. Steri strips to incisions. EXTREMITIES: No cyanosis, or edema. NEUROLOGICAL: Moving all extremities. Normal speech. Assessment/Plan Problem List: (1) Abdominal mass, left upper quadrant Status: Acute Plan: -- CT showed a cystic 6.5 cm mass -- Exploratory laparotomy on January 13. 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 Assessment 31 y/o female with a history of gastric bypass surgery presents to the ER with increased abdominal pain that has been intermittent for a year and a half. Plan 1. Begin iron sucrose for iron deficiency anemia 2. Await final pathology report 3. Monitor CBC 4. Supportive care. Attending Statement The exam, history, and the medical decision-making described in the above note were completed with the assistance of the mid-level provider. I reviewed and agree with the findings presented. I attest that I had a [id number] encounter with the patient on the same day, and personally performed and documented my assessment and findings in the medical record. No new c/o. CT chest no mets. Anemia w/u showed iron deficiency. Will give venofer. Can be d /c from oncology standpoint but pt stated that surgeon wants her to stay for possible surgery after the path is available. Alba Amin January 15, 2017 08:31 Tamir Torres MD January 15, 2017 12:27
[2017-01-15] MEDS: SODIUM CHLORIDE 0.9% FLUSH 10 ML FLUSH IV FLUSH SCH ×2 (09:00→19:54)
--- NOTE | 2017-01-15 11:09 | HHI.PR ---
Subjective Remarks Follow up for abdominal pain, mesenteric mass. Still having some nausea. No vomiting. No fever, chills. Objective Vitals Vital Signs Date Time Temp Pulse Resp B/P Pulse Ox O2 Delivery O2 Flow Rate FiO2 01/15/17 08:00 97.7 66 18 111/66 98 01/14/17 23:30 97.5 79 16 106/56 100 01/14/17 21:24 99 01/14/17 20:22 99.5 73 16 120/76 100 01/14/17 16:52 96.4 78 20 102/59 99 01/14/17 12:00 99.0 70 20 108/58 97 I/O 01/14/17 01/14/17 01/14/17 01/15/17 01/15/17 01/15/17 07:00 15:00 23:00 07:00 15:00 23:00 Intake Total 720 ml 480 ml 1835 ml 997 ml Balance 720 ml 480 ml 1835 ml 997 ml Intake Oral 720 ml 480 ml 720 ml 240 ml IV Total 1115 ml 757 ml # Voids 2 3 2 2 # Bowel Movements 0 0 1 0 Result Diagram: 01/11/17 1102 01/13/17 1030 Imaging Last Impressions Chest CT 01/14/17 0000 Signed Impressions: Service Date/Time: Saturday, January 14, 2017 19:56 - CONCLUSION: No evidence of metastatic disease of the chest. Small pericardial, mediastinal and chest wall air. Please see above. Gustavo Michaels MD Consultation 01/11/17 Signed Impressions: Service Date/Time: Wednesday, January 11, 2017 00:00 - CONCLUSION: Biopsy/drainage of the cystic mass/collection within the left upper quadrant is not possible as the lesion is completely surrounded by bowel loops. Pastor Gonzalez MD Abdomen X-Ray 01/11/17 Signed Impressions: Service Date/Time: Wednesday, January 11, 2017 09:41 - CONCLUSION: Oral contrast remains in the colon. This will obscure an upper GI series. Cisco Araiza Jr., MD Abdomen Ultrasound 01/11/17 Signed Impressions: Service Date/Time: Wednesday, January 11, 2017 08:24 - CONCLUSION: 1. 5.9 x 5.4 cm hypoechoic mass lesion adjacent to the lower pole left kidney. I do not believe that this involves the left kidney based on the prior CT, however. 2. I believe the mass is located in the region of the mesentery with branches of the superior mesenteric vein draped over the lesion itself. This may represent a sarcomatous process and MRI with and without gadolinium is recommended for further characterization. This lesion will be difficult to biopsy due to the surrounding bowel in regional vascular structures. 3. Otherwise negative. Jeovanny Gillespie MD Abdomen/Pelvis CT 01/09/17 1704 Signed Impressions: Service Date/Time: Monday, January 09, 2017 18:44 - CONCLUSION: 1. Low attenuating mainly cystic mass left upper quadrant in this patient with postsurgical changes at this site could be a postsurgical seroma, however a mesenteric mass such as a mesenteric cyst or even other neoplastic etiologies should also be entertained. 2. Tiny nonobstructing stones in both kidneys. 3. Right ovarian cyst. Pancho Arroyo MD Objective Remarks GENERAL: Alert, oriented 3, NAD. SKIN: Warm and dry. HEAD: Normocephalic. EYES: No scleral icterus. No injection or drainage. NECK: Supple, trachea midline. No JVD or lymphadenopathy. CARDIOVASCULAR: Regular rate and rhythm without murmurs, gallops, or rubs. RESPIRATORY: Breath sounds equal bilaterally. No accessory muscle use. GASTROINTESTINAL: Abdomen soft, tenderness on palpation in the mid epigastric area as well as right side of the abdomen, nondistended. MUSCULOSKELETAL: No cyanosis, or edema. BACK: Nontender without obvious deformity. No CVA tenderness. Procedures 01/13/2017 Diagnostic laparoscopy, laparoscopic incisional biopsy of mesenteric mass. A/P Problem List: (1) Abdominal pain ICD Code: R10.9 Status: Acute (2) Abdominal mass, left upper quadrant ICD Code: R19.02 Status: Acute Assessment and Plan This is a 31 year old female patient with a past medical history which includes liver cyst, IBS, acute pancreatitis, kidney stones and gastric bypass 2015. Patient presented to [facility] for abd pain. Patient reports severe constatnt stabbing abd pain located in the midepigastric area associated with nausea, vomiting and diarrhea. She has a history of gastric bypass surgery in 2014. Last year she had exploratory surgery in 2014 with lysis of adhesions. Intractable Abdominal pain Abdominal mass left upper quadrant Abdominal/pelvic CT indicates a post surgical seroma vs. mass. s/p Lap with incisional biopsy of mesenteric mass on 01/13/2017. Gen Surgery following. Oncology consulted. Will wait for pathology, hopefully on 01/17/2017. Further plan depending on pathology. NS at 100 cc/hour. Pain control with Acetaminophen, Percocet and Dilaudid IV PRN. Zofran for nausea as needed Bowel regimen includes Milk of Mag, Dulcolax supp, Fleet Enema all PRN. History of gastric bypass surgery - Okay to take shower. Full code. SCDs. Rickey Moser DO January 15, 2017 11:09 am
[2017-01-15 12:00] VITALS: BP 112/70; PULSE 75; RESP 18; TEMP 98.7; O2SAT 98
[2017-01-15] MEDS: IRON SUCROSE INJ 100 MG in SODIUM CHLORIDE 0.9% INJ 100 ML IV SCH (12:19)
[2017-01-15] MEDS ORDERED: MULT-136 PO (13:35)
[2017-01-15] MEDS ORDERED: CAL-TAB4 PO (13:35)
[2017-01-15] MEDS ORDERED: CYAN100016 PO (13:35)
[2017-01-15] MEDS: MULTIVITAMIN HEMATINIC THERAPEUTIC TAB PO SCH (14:56)
[2017-01-15 16:00] VITALS: BP 93/54; PULSE 71; RESP 18; TEMP 97.3; O2SAT 99
[2017-01-15 20:40] VITALS: BP 101/55; PULSE 69; RESP 15; TEMP 97.9; O2SAT 96
[2017-01-16 00:30] VITALS: BP 98/63; PULSE 81; RESP 15; TEMP 97.9; O2SAT 98
[2017-01-16] MEDS: HYDROmorphone HCL PF 1 MG/ML VIAL IV PRN ×5 (01:05→23:57)
[2017-01-16] MEDS: ONDANSETRON HCL 4 MG/2 ML VIAL IVP PRN ×2 (05:33→17:39)
[2017-01-16] MEDS: oxyCODONE/ACETAMINOPHEN 7.5 MG/325 MG TAB PO PRN ×3 (05:33→17:39)
[2017-01-16] MEDS: MULTIVITAMIN HEMATINIC THERAPEUTIC TAB PO SCH (07:57)
[2017-01-16 08:00] VITALS: BP 113/70; PULSE 74; RESP 17; TEMP 97; O2SAT 100
[2017-01-16] MEDS: SODIUM CHLOR 0.9% 1000 ML INJ 1,000 ML IV SCH ×3 (08:03→22:15)
--- NOTE | 2017-01-16 08:05 | PD.ONC.PN ---
Subjective Subjective Remarks Afebrile overnight. Pt resting in bed. She tells me she continues to have abdominal pain. Per nurse, she had some nausea associated with the iron infusion yesterday. Objective Data Date Time Temp Pulse Resp B/P Pulse Ox O2 Delivery O2 Flow Rate FiO2 01/16/17 00:30 97.9 81 15 98/63 98 01/15/17 20:40 97.9 69 15 101/55 96 01/15/17 16:00 97.3 71 18 93/54 99 01/15/17 12:00 98.7 75 18 112/70 98 01/15/17 08:00 97.7 66 18 111/66 98 01/16/17 01/16/17 01/16/17 07:00 15:00 23:00 Intake Total 480 ml Balance 480 ml Result Diagram: 01/13/17 1030 Administered Medications Medications (Trade) Dose Ordered Sig/Sonya Route PRN Reason Start Time Stop Time Status Last Admin Dose Admin Sodium Chloride (NS Flush) 2 ml UNSCH PRN IV FLUSH FLUSH AFTER USING IV ACCESS 01/09/17 20:00 01/12/17 04:27 Sodium Chloride (NS Flush) 2 ml BID IV FLUSH 01/09/17 21:00 01/15/17 19:54 Ondansetron HCl (Zofran Inj) 4 mg Q6H PRN IVP NAUSEA OR VOMITING 01/10/17 02:00 01/16/17 05:33 Hydromorphone HCl (Dilaudid Pf Inj) 0.5 mg Q3H PRN IV Pain 3-5; if unable to take PO 01/09/17 23:00 01/13/17 16:31 Hydromorphone HCl 1 mg 1 mg Q3H PRN IV BREAKTHROUGH PAIN 01/09/17 23:00 01/16/17 01:05 Sodium Chloride (NS 1000 ml Inj) 1,000 ml @ 100 mls/hr Q10H IV 01/09/17 20:15 01/15/17 19:54 Oxycodone/ Acetaminophen (Percocet 7.5-325 Mg) 1 tab Q6H PRN PO PAIN SCALE 5 TO 10 01/14/17 09:30 01/16/17 05:33 Bisacodyl 10 mg 10 mg DAILY PRN RECTAL CONSTIPATION 01/14/17 09:30 01/14/17 18:30 Iron Sucrose/ Sodium Chloride (Venofer Inj/NS Inj) 105 ml @ 105 mls/hr DAILY IV 01/15/17 10:00 01/17/17 09:59 01/15/17 12:19 Multivitamin Hematinic Therapeutic (Theragran Hematinic) 1 tab DAILY PO 01/15/17 14:15 01/15/17 14:56 Objective Remarks GENERAL: Younger female, awake in bed in no distress. SKIN: Warm and dry. No oozing from incisions to abdomen from laparoscopic procedure. HEAD: Normocephalic. EYES: No injection or drainage. NECK: Supple, trachea midline. CARDIOVASCULAR: +S1/S2. No murmur appreciated. RESPIRATORY: Clear anteriorly. GASTROINTESTINAL: Abdomen soft. Steri strips to incisions. EXTREMITIES: No cyanosis, or edema. NEUROLOGICAL: Moving all extremities. Normal speech. Assessment/Plan Problem List: (1) Abdominal mass, left upper quadrant Status: Acute Plan: -- CT showed a cystic 6.5 cm mass -- Exploratory laparotomy on January 13. 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 Assessment 31 y/o female with a history of gastric bypass surgery presents to the ER with increased abdominal pain that has been intermittent for a year and a half. Plan 1. Continue iron sucrose infusion 2. Await path report. Discussed with Dr Alcocer- this does appear to be resectable if it is a desmoid tumor. 3. Path expected to return early this week. Attending Statement The exam, history, and the medical decision-making described in the above note were completed with the assistance of the mid-level provider. I reviewed and agree with the findings presented. I attest that I had a [id number] encounter with the patient on the same day, and personally performed and documented my assessment and findings in the medical record. Tolerating venofer. Path pending. Discussed with Dr. Alcocer and . Pt is going for surgical resection of the abdominal tumor if confirmed to have desmoid tumor. Alba Amin January 16, 2017 08:05 Tamir Torres MD January 16, 2017 11:52
[2017-01-16] MEDS: SODIUM CHLORIDE 0.9% FLUSH 10 ML FLUSH IV FLUSH SCH ×2 (09:00→20:56)
[2017-01-16] MEDS: diphenhydrAMINE HCL 25 MG CAP PO PRN ×2 (09:15→15:48)
[2017-01-16] MEDS: ACETAMINOPHEN 500 MG CPLT PO PRN ×2 (09:15→15:48)
[2017-01-16] MEDS: IRON SUCROSE INJ 100 MG in SODIUM CHLORIDE 0.9% INJ 100 ML IV SCH (09:15)
--- NOTE | 2017-01-16 11:45 | HHI.PR ---
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 Brian hess onc- await final bx results pt now leaning toward surgical resection will continue to follow if pt pain and nausea improves consider d/c home if she remain admitted will plan for surgical resection this week pending path Edwar Alcocer MD January 16, 2017 11:45
[2017-01-16 12:00] VITALS: BP 102/61; PULSE 67; RESP 15; TEMP 96.7; O2SAT 100
[2017-01-16 16:00] VITALS: BP 91/57; PULSE 80; RESP 16; TEMP 98.7; O2SAT 99
--- NOTE | 2017-01-16 16:31 | HHI.PR ---
Subjective Remarks Follow up for abdominal pain, mesenteric mass. Patient reports persistent nausea. She is able to tolerate some food. Denies any fever or chills. Objective Vitals Vital Signs Date Time Temp Pulse Resp B/P Pulse Ox O2 Delivery O2 Flow Rate FiO2 01/16/17 12:00 96.7 67 15 102/61 100 01/16/17 08:00 97.0 74 17 113/70 100 01/16/17 00:30 97.9 81 15 98/63 98 01/15/17 20:40 97.9 69 15 101/55 96 I/O 01/15/17 01/15/17 01/15/17 01/16/17 01/16/17 01/16/17 07:00 15:00 23:00 07:00 15:00 23:00 Intake Total 997 ml 960 ml 680 ml 480 ml Balance 997 ml 960 ml 680 ml 480 ml Intake Oral 240 ml 960 ml 680 ml 480 ml IV Total 757 ml # Voids 2 3 3 3 # Bowel Movements 0 0 0 0 Result Diagram: 01/13/17 1030 Objective Remarks GENERAL: Alert, oriented 3, NAD. SKIN: Warm and dry. HEAD: Normocephalic. EYES: No scleral icterus. No injection or drainage. NECK: Supple, trachea midline. No JVD or lymphadenopathy. CARDIOVASCULAR: Regular rate and rhythm without murmurs, gallops, or rubs. RESPIRATORY: Breath sounds equal bilaterally. No accessory muscle use. GASTROINTESTINAL: Abdomen soft, tenderness on palpation in the mid epigastric area as well as right side of the abdomen, nondistended. MUSCULOSKELETAL: No cyanosis, or edema. BACK: Nontender without obvious deformity. No CVA tenderness. Procedures 01/13/2017 Diagnostic laparoscopy, laparoscopic incisional biopsy of mesenteric mass. A/P Problem List: (1) Abdominal pain ICD Code: R10.9 Status: Acute (2) Abdominal mass, left upper quadrant ICD Code: R19.02 Status: Acute Assessment and Plan This is a 31 year old female patient with a past medical history which includes liver cyst, IBS, acute pancreatitis, kidney stones and gastric bypass 2015. Patient presented to [facility] for abd pain. Patient reports severe constatnt stabbing abd pain located in the midepigastric area associated with nausea, vomiting and diarrhea. She has a history of gastric bypass surgery in 2014. Last year she had exploratory surgery in 2014 with lysis of adhesions. Abdominal pain - improved. Abdominal mass left upper quadrant Abdominal/pelvic CT indicates a post surgical seroma vs. mass. s/p Lap with incisional biopsy of mesenteric mass on 01/13/2017. Gen Surgery following. Oncology consulted. Will wait for pathology, hopefully on 01/17/2017. Further plan depending on pathology. NS at 100 cc/hour. Pain control with Acetaminophen, Percocet and Dilaudid IV PRN. Zofran for nausea as needed Bowel regimen includes Milk of Mag, Dulcolax supp, Fleet Enema all PRN. Probable surgical resection of the mass early next week. History of gastric bypass surgery Full code. SCDs. Rickey Moser DO January 16, 2017 4:31 pm
[2017-01-16] MEDS: BISACODYL 10 MG SUPP RECTAL PRN (17:44)
[2017-01-16 20:20] VITALS: BP 112/68; PULSE 74; RESP 16; TEMP 97.4; O2SAT 99
[2017-01-17 00:20] VITALS: BP 103/67; PULSE 69; RESP 16; TEMP 98.3; O2SAT 97
[2017-01-17] MEDS: oxyCODONE/ACETAMINOPHEN 7.5 MG/325 MG TAB PO PRN ×3 (01:31→14:56)
[2017-01-17] MEDS: ONDANSETRON HCL 4 MG/2 ML VIAL IVP PRN ×3 (01:33→14:56)
[2017-01-17 04:30] VITALS: BP 109/66; PULSE 70; RESP 15; TEMP 96.7; O2SAT 96
[2017-01-17] MEDS: HYDROmorphone HCL PF 1 MG/ML VIAL IV PRN ×3 (06:05→17:07)
[2017-01-17] MEDS: MULTIVITAMIN HEMATINIC THERAPEUTIC TAB PO SCH (07:49)
[2017-01-17] MEDS: IRON SUCROSE INJ 100 MG in SODIUM CHLORIDE 0.9% INJ 100 ML IV SCH (07:50)
[2017-01-17] MEDS: SODIUM CHLORIDE 0.9% FLUSH 10 ML FLUSH IV FLUSH SCH (07:51)
[2017-01-17 08:00] VITALS: BP 103/61; PULSE 75; RESP 18; TEMP 97.1; O2SAT 99
[2017-01-17] MEDS: SODIUM CHLOR 0.9% 1000 ML INJ 1,000 ML IV SCH ×2 (09:05→17:41)
[2017-01-17] MEDS: ACETAMINOPHEN 500 MG CPLT PO PRN (09:06)
[2017-01-17] MEDS: diphenhydrAMINE HCL 25 MG CAP PO PRN (09:06)
--- NOTE | 2017-01-17 09:30 | PD.ONC.PN ---
Subjective Subjective Remarks No new symptoms. Tolerating venofer. No CP/SOB. Objective Data Date Time Temp Pulse Resp B/P Pulse Ox O2 Delivery O2 Flow Rate FiO2 01/17/17 08:00 97.1 75 18 103/61 99 01/17/17 04:30 96.7 70 15 109/66 96 01/17/17 00:25 16 01/17/17 00:20 98.3 69 16 103/67 97 01/16/17 20:20 97.4 74 16 112/68 99 01/16/17 16:00 98.7 80 16 91/57 99 01/16/17 12:00 96.7 67 15 102/61 100 01/17/17 01/17/17 01/17/17 06:59 14:59 22:59 Intake Total 1077 ml Balance 1077 ml Result Diagram: 01/13/17 1030 Administered Medications Medications (Trade) Dose Ordered Sig/Sonya Route PRN Reason Start Time Stop Time Status Last Admin Dose Admin Sodium Chloride (NS Flush) 2 ml UNSCH PRN IV FLUSH FLUSH AFTER USING IV ACCESS 01/09/17 20:00 01/12/17 04:27 Sodium Chloride (NS Flush) 2 ml BID IV FLUSH 01/09/17 21:00 01/17/17 07:51 Ondansetron HCl (Zofran Inj) 4 mg Q6H PRN IVP NAUSEA OR VOMITING 01/10/17 02:00 01/17/17 07:50 Hydromorphone HCl (Dilaudid Pf Inj) 0.5 mg Q3H PRN IV Pain 3-5; if unable to take PO 01/09/17 23:00 01/13/17 16:31 Hydromorphone HCl 1 mg 1 mg Q3H PRN IV BREAKTHROUGH PAIN 01/09/17 23:00 01/17/17 06:05 Sodium Chloride (NS 1000 ml Inj) 1,000 ml @ 100 mls/hr Q10H IV 01/09/17 20:15 01/17/17 09:05 Oxycodone/ Acetaminophen (Percocet 7.5-325 Mg) 1 tab Q6H PRN PO PAIN SCALE 5 TO 10 01/14/17 09:30 01/17/17 07:50 Acetaminophen (Tylenol) 500 mg Q6H PRN PO Fever, headache, Pain 1-4 01/14/17 09:30 01/17/17 09:06 Bisacodyl 10 mg 10 mg DAILY PRN RECTAL CONSTIPATION 01/14/17 09:30 01/16/17 17:44 Iron Sucrose/ Sodium Chloride (Venofer Inj/NS Inj) 105 ml @ 105 mls/hr DAILY IV 01/15/17 10:00 01/17/17 09:59 01/17/17 07:50 Multivitamin Hematinic Therapeutic (Theragran Hematinic) 1 tab DAILY PO 01/15/17 14:15 01/17/17 07:49 Diphenhydramine HCl (Benadryl) 25 mg Q6H PRN PO PRIOR TO IRON 01/16/17 08:00 01/17/17 09:06 Objective Remarks GENERAL: Well-nourished, well-developed patient. SKIN: Warm and dry. HEAD: Normocephalic. EYES: No scleral icterus. No injection or drainage. NECK: Supple, trachea midline. No JVD or lymphadenopathy. LYMPHATIC: No adenopathy. CARDIOVASCULAR: Regular rate and rhythm without murmurs. RESPIRATORY: Breath sounds equal bilaterally. No accessory muscle use. GASTROINTESTINAL: Abdomen soft, mild tenderness, nondistended. EXTREMITIES: No cyanosis, or edema. MUSCULOSKELETAL: Adequate muscle tone. NEUROLOGICAL: No obvious focal deficit. Awake, alert, and oriented x3. PSYCHIATRIC: Appropriate mood and affect; insight and judgment normal. Assessment/Plan Problem List: (1) Abdominal mass, left upper quadrant Status: Acute Plan: -- CT showed a cystic 6.5 cm mass -- Exploratory laparotomy on January 13. 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 Last dose today. Tolerating well. Assessment 31 y/o female with a history of gastric bypass surgery presents to the ER with increased abdominal pain that has been intermittent for a year and a half. Plan 1. Continue iron sucrose infusion 2. Await path report. Discussed with Dr Alcocer- this does appear to be resectable if it is a desmoid tumor. Tamir Torres MD January 17, 2017 09:30
[2017-01-17 11:42] VITALS: BP 109/59; PULSE 77; RESP 16; TEMP 97.9; O2SAT 99
--- NOTE | 2017-01-17 16:10 | HHI.PR ---
Subjective Remarks Follow up for abdominal pain, mesenteric mass. Patient is currently doing well. She still has nausea and some abdominal pain. No other acute concerns. Objective Vitals Vital Signs Date Time Temp Pulse Resp B/P Pulse Ox O2 Delivery O2 Flow Rate FiO2 01/17/17 11:42 97.9 77 16 109/59 99 01/17/17 08:00 97.1 75 18 103/61 99 01/17/17 04:30 96.7 70 15 109/66 96 01/17/17 00:25 16 01/17/17 00:20 98.3 69 16 103/67 97 01/16/17 20:20 97.4 74 16 112/68 99 I/O 01/16/17 01/16/17 01/16/17 01/17/17 01/17/17 01/17/17 07:00 15:00 23:00 07:00 15:00 23:00 Intake Total 480 ml 2190 ml 1797 ml 1077 ml Output Total 1800 ml Balance 480 ml 390 ml 1797 ml 1077 ml Intake Oral 480 ml 1440 ml 1020 ml 480 ml IV Total 750 ml 777 ml 597 ml Output Urine Total 1800 ml # Voids 3 4 3 3 # Bowel Movements 0 1 1 0 Result Diagram: 01/13/17 1030 Imaging Last Impressions Chest CT 01/14/17 0000 Signed Impressions: Service Date/Time: Saturday, January 14, 2017 19:56 - CONCLUSION: No evidence of metastatic disease of the chest. Small pericardial, mediastinal and chest wall air. Please see above. Gustavo Michaels MD Consultation 01/11/17 0000 Signed Impressions: Service Date/Time: Wednesday, January 11, 2017 00:00 - CONCLUSION: Biopsy/drainage of the cystic mass/collection within the left upper quadrant is not possible as the lesion is completely surrounded by bowel loops. Pastor Gonzalez MD Abdomen X-Ray 01/11/17 0000 Signed Impressions: Service Date/Time: Wednesday, January 11, 2017 09:41 - CONCLUSION: Oral contrast remains in the colon. This will obscure an upper GI series. Cisco Araiza Jr., MD Abdomen Ultrasound 01/11/17 0000 Signed Impressions: Service Date/Time: Wednesday, January 11, 2017 08:24 - CONCLUSION: 1. 5.9 x 5.4 cm hypoechoic mass lesion adjacent to the lower pole left kidney. I do not believe that this involves the left kidney based on the prior CT, however. 2. I believe the mass is located in the region of the mesentery with branches of the superior mesenteric vein draped over the lesion itself. This may represent a sarcomatous process and MRI with and without gadolinium is recommended for further characterization. This lesion will be difficult to biopsy due to the surrounding bowel in regional vascular structures. 3. Otherwise negative. Jeovanny Gillespie MD Abdomen/Pelvis CT 01/09/17 1704 Signed Impressions: Service Date/Time: Monday, January 09, 2017 18:44 - CONCLUSION: 1. Low attenuating mainly cystic mass left upper quadrant in this patient with postsurgical changes at this site could be a postsurgical seroma, however a mesenteric mass such as a mesenteric cyst or even other neoplastic etiologies should also be entertained. 2. Tiny nonobstructing stones in both kidneys. 3. Right ovarian cyst. Pancho Arroyo MD Objective Remarks GENERAL: Alert, oriented 3, NAD. SKIN: Warm and dry. HEAD: Normocephalic. EYES: No scleral icterus. No injection or drainage. NECK: Supple, trachea midline. No JVD or lymphadenopathy. CARDIOVASCULAR: Regular rate and rhythm without murmurs, gallops, or rubs. RESPIRATORY: Breath sounds equal bilaterally. No accessory muscle use. GASTROINTESTINAL: Abdomen soft, tenderness on palpation in the mid epigastric area as well as right side of the abdomen, nondistended. MUSCULOSKELETAL: No cyanosis, or edema. BACK: Nontender without obvious deformity. No CVA tenderness. Procedures 01/13/2017 Diagnostic laparoscopy, laparoscopic incisional biopsy of mesenteric mass. A/P Problem List: (1) Abdominal pain ICD Code: R10.9 Status: Acute (2) Abdominal mass, left upper quadrant ICD Code: R19.02 Status: Acute Assessment and Plan This is a 31 year old female patient with a past medical history which includes liver cyst, IBS, acute pancreatitis, kidney stones and gastric bypass 2015. Patient presented to [facility] for abd pain. Patient reports severe constatnt stabbing abd pain located in the midepigastric area associated with nausea, vomiting and diarrhea. She has a history of gastric bypass surgery in 2014. Last year she had exploratory surgery in 2014 with lysis of adhesions. Abdominal pain - improved. Abdominal mass left upper quadrant Abdominal/pelvic CT indicates a post surgical seroma vs. mass. s/p Lap with incisional biopsy of mesenteric mass on 01/13/2017. Gen Surgery following. Oncology consulted. Will wait for pathology, hopefully on 01/17/2017. Further plan depending on pathology. NS at 100 cc/hour. Pain control with Acetaminophen, Percocet and Dilaudid IV PRN. Zofran for nausea as needed Bowel regimen includes Milk of Mag, Dulcolax supp, Fleet Enema all PRN. Probable surgical resection of the mass this week. History of gastric bypass surgery Full code. SCDs. Rickey Msoer DO January 17, 2017 4:10 pm
[2017-01-17] MEDS ORDERED: OXYC1TAB35 PO (16:34)
[2017-01-17] MEDS ORDERED: ZOFR4TAB3 SL (16:34)
[2017-01-17 16:35] VITALS: BP 118/60; PULSE 78; RESP 16; TEMP 98; O2SAT 98
--- NOTE | 2017-01-17 17:28 | HHI.PR ---
Subjective Subjective Notes Resting in bed Requests to go home Feels like her pain is controlled Objective Vitals/I&O Vital Signs Date Time Temp Pulse Resp B/P Pulse Ox O2 Delivery O2 Flow Rate FiO2 01/17/17 11:42 97.9 77 16 109/59 99 01/13/17 20:28 21 01/13/17 14:25 Room Air 01/13/17 13:40 3 Cardiovascular: Regular Lungs: Clear Abdomen: Other (lap sites c/d/i; soft; ), Post-op tenderness Extremities: No edema A/P Assessment and Plan 31 year old female s/p gastric bypass surgery now with nausea and vomiting; CT reveals LUQ mass -POD4 dx lap, lap incisional bx of mesenteric mass -Regular diet -OOB and mobilize -Pain control -Pathology pending -Consult to Medical Oncology -Plan for surgery on Tuesday -Patient would like to go home this evening and come back for surgery on Tuesday- ---she was given instructions to call [facility] in the office tomorrow - clear for DC Attending Statement pt seen at bedside no acute issues, persistent pain but better pt states pain controlled enough to go home bx pending final result pt will need excision of mass Attestation The exam, history, and the medical decision-making described in the above note were completed with the assistance of the mid-level provider. I reviewed and agree with the findings presented. I attest that I had a [id number] encounter with the patient on the same day, and personally performed and documented my assessment and findings in the medical record. Monique Toussaint January 17, 2017 17:27 Edwar Alcocer MD January 22, 2017 17:09
--- NOTE | 2017-01-17 17:55 | HHI.DS ---
Discharge Summary Admission Date Jan 09, 2017 at 19:57 Discharge Date: January 17, 2017 Admitting Diagnosis ABDOMINAL MASS (1) Abdominal pain ICD Code: R10.9 (2) Abdominal mass, left upper quadrant ICD Code: R19.02 Procedures 01/13/2017 Diagnostic laparoscopy, laparoscopic incisional biopsy of mesenteric mass. Brief History - From Admission This is a 31 year old female patient with a past medical history which includes liver cyst, IBS, acute pancreatitis, kidney stones and gastric bypass 2014. Patient presented to [facility] for abd pain. Patient reports severe constatnt stabbing abd pain located in the midepigastric area associated with nausea, vomiting 5-10 times a day and diarrhea 5-6 times a day for the past 2 days. Patient denies coffee ground emesis, black tarry stools or bright red blood in stools. Patient also denies fevers chills shortness of breath, chest pain or recent travel. Patient with right wrist tendinitis secondary to work injury partially one month has been taking tramadol for pain She has a history of gastric bypass surgery in 2014. Last year she had exploratory surgery in 2015 with lysis of adhesions. Abdominal/pelvic CT reveals 1. Low attenuating mainly cystic mass left upper quadrant in this patient with postsurgical changes at this site could be a postsurgical seroma, however a mesenteric mass such as a mesenteric cyst or even othe neoplastic etiologies should also be entertained. 2. Tiny nonobstructing stones in both kidneys. 3. Right ovarian cyst. General surgery was consulted and patient was transferred to [facility] for further evaluation and treatment. CBC/BMP: 01/13/17 1030 Significant Findings Laboratory Tests Test 01/15/17 05:17 Iron Level 20 MCG/DL (50-170) Percent Iron Saturation 6.3 % (20-50) Folate 18.0 NG/ML (3.1-17.5) Imaging Last Impressions Chest CT 01/14/17 0000 Signed Impressions: Service Date/Time: Saturday, January 14, 2017 19:56 - CONCLUSION: No evidence of metastatic disease of the chest. Small pericardial, mediastinal and chest wall air. Please see above. Gustavo Michaels MD Consultation 01/11/17 Signed Impressions: Service Date/Time: Wednesday, January 11, 2017 00:00 - CONCLUSION: Biopsy/drainage of the cystic mass/collection within the left upper quadrant is not possible as the lesion is completely surrounded by bowel loops. Pastor Gonzalez MD Abdomen X-Ray 01/11/17 Signed Impressions: Service Date/Time: Wednesday, January 11, 2017 09:41 - CONCLUSION: Oral contrast remains in the colon. This will obscure an upper GI series. Cisco Araiza Jr., MD Abdomen Ultrasound 01/11/17 Signed Impressions: Service Date/Time: Wednesday, January 11, 2017 08:24 - CONCLUSION: 1. 5.9 x 5.4 cm hypoechoic mass lesion adjacent to the lower pole left kidney. I do not believe that this involves the left kidney based on the prior CT, however. 2. I believe the mass is located in the region of the mesentery with branches of the superior mesenteric vein draped over the lesion itself. This may represent a sarcomatous process and MRI with and without gadolinium is recommended for further characterization. This lesion will be difficult to biopsy due to the surrounding bowel in regional vascular structures. 3. Otherwise negative. Jeovanny Gillespie MD Abdomen/Pelvis CT 01/09/17 1704 Signed Impressions: Service Date/Time: Monday, January 09, 2017 18:44 - CONCLUSION: 1. Low attenuating mainly cystic mass left upper quadrant in this patient with postsurgical changes at this site could be a postsurgical seroma, however a mesenteric mass such as a mesenteric cyst or even other neoplastic etiologies should also be entertained. 2. Tiny nonobstructing stones in both kidneys. 3. Right ovarian cyst. Pancho Arroyo MD PE at Discharge GENERAL: Alert, oriented 3, NAD. SKIN: Warm and dry. HEAD: Normocephalic. EYES: No scleral icterus. No injection or drainage. NECK: Supple, trachea midline. No JVD or lymphadenopathy. CARDIOVASCULAR: Regular rate and rhythm without murmurs, gallops, or rubs. RESPIRATORY: Breath sounds equal bilaterally. No accessory muscle use. GASTROINTESTINAL: Abdomen soft, tenderness on palpation in the mid epigastric area as well as right side of the abdomen, nondistended. MUSCULOSKELETAL: No cyanosis, or edema. BACK: Nontender without obvious deformity. No CVA tenderness. Pt update on day of discharge Patient reports feeling some nausea. However, she is able to ambulate well, tolerating diet well. No fever, chills. Surgery cleared for discharge. Hospital Course This is a 31 year old female patient with a past medical history which includes liver cyst, IBS, acute pancreatitis, kidney stones and gastric bypass 2014. Patient presented to [facility] for abd pain. Patient reports severe constatnt stabbing abd pain located in the midepigastric area associated with nausea, vomiting and diarrhea. She has a history of gastric bypass surgery in 2014. Last year she had exploratory surgery in 2014 with lysis of adhesions. Abdominal pain - improved. Abdominal mass left upper quadrant Abdominal/pelvic CT indicates a post surgical seroma vs. mass. s/p Lap with incisional biopsy of mesenteric mass on 01/13/2017. Gen Surgery following. Oncology consulted. Pathology pending, discussed with pathology. Pathology sample is a send out to an outside facility. Received NS at 100 cc/hour. Pain control with Acetaminophen, Percocet and Dilaudid IV PRN. Zofran for nausea as needed Bowel regimen includes Milk of Mag, Dulcolax supp, Fleet Enema all PRN. History of gastric bypass surgery I discussed with pathology on Tuesday01/17/2017. Pathology result may take several days. I also discussed with Surgery attending as well as Oncology attending. Even though patient's name was placed for surgery on Tuesday01/21/2017 , we all felt that it is not necessary for the patient to stay in the hospital until expected surgical date 01/21/2017. Patient is ambulating well, able to tolerate food. She does have some nausea but not intractable. Abdominal pain as well as nausea can be managed with oral/sublingual meds. Surgery team also discussed with patient. Patient was given an option to stay the night of 2016. However, she opted for discharge. We subsequently discharged her home after surgery clearance. Patient was advised to call Surgeon's office next day to make arrangement for elective surgery. Patient verbalized understanding. Pt Condition on Discharge: Good Discharge Disposition: Discharge Home Discharge Time: > 30 minutes Discharge Instructions DIET: Follow Instructions for: As Tolerated, No Restrictions Activities you can perform: Regular-No Restrictions Follow up Referrals: Surgical with Edwar Alcocer MD Call [facility] in the office [phone] TOMORROW for instructions on Tuesday New Medications: Ondansetron Odt (Zofran Odt) 4 Mg Tab 4 MG SL Q6HR PRN Nausea/Vomiting #30 Ref 0 TAB Oxycodone-Acetaminophen (Oxycodone-Acetaminophen) 7.5-325 mg Tab 1 TAB PO Q6H PRN PAIN SCALE 5 TO 10 #30 TAB Continued Medications: Calcium Citrate-Vitamin D (Paul-Citrate Plus Vitamin D) 250-100 Mg-Unit Tab 1 TAB PO BID Calcium Supplement Ref 0 TAB Cyanocobalamin ER (B-12 Er) 1,000 Mcg Tab 1000 MCG PO DAILY Nutritional Supplement Ref 0 BOTTLE Multiple Vitamins W/ Iron (Multi Vitamin with Iron) 1 Tab Tab 1 TAB PO DAILY Nutritional Supplement Ref 0 TAB Discontinued Medications: Tramadol (Tramadol) 50 Mg Tab 50 MG PO Q6H PRN PAIN SCALE 1 TO 10 Ref 0 TAB Rickey Moser DO January 17, 2017 17:55
== END 2017-01-17 19:11 | disposition home or self-care (01) | DRG 358 ==
LOC: PHED 14:52 → PHEDA 19:57 → N06B 23:19
PROVIDERS: ADMIT Hospitalist; ATTEND Hospitalist
PROC: 0DBV4ZX Excision of Mesentery, Percutaneous Endoscopic Approach, Diagnostic (ICD-10-PCS; 2017-01-13)
PROC: 0WJG4ZZ Inspection of Peritoneal Cavity, Percutaneous Endoscopic Approach (ICD-10-PCS; principal; 2017-01-13 11:32)
DX: D48.4 Neoplasm of uncertain behavior of peritoneum (principal); K76.89 Other specified diseases of liver; N20.0 Calculus of kidney; D50.9 Iron deficiency anemia, unspecified; R10.13 Epigastric pain; R11.2 Nausea with vomiting, unspecified; E28.2 Polycystic ovarian syndrome; R19.7 Diarrhea, unspecified; K58.0 Irritable bowel syndrome with diarrhea; F32.9 Major depressive disorder, single episode, unspecified; F41.9 Anxiety disorder, unspecified; Z88.0 Allergy status to penicillin; Z88.6 Allergy status to analgesic agent; Z98.84 Bariatric surgery status
CPT/HCPCS: 71250; 74000; 74177; 76700; 76937; 80053; 81001; 82607; 82728; 82746; 83540; 83550; 83690; 84702; 84703; 85025; 85610; 85730; 87086; 88305; 88307; 88331; 88341; 88342; 96361; 96374; 96375; 96376; J0131; J0690; J0780; J1170; J1756; J2175; J2250; J2270; J2405; J2710; J3010; J7030; J7120; Q9963; Q9967

== ENCOUNTER 2017-01-20 11:19 | Inpatient (IN) | payer OTHER ==
[~2017-01-20] VITALS: Ht 157.5 cm; Wt 71.5 kg
[~2017-01-20 11:19] MED LIST changes: -BENT20TA PO; +CAL-TAB4 PO; +CYAN100016 PO; +MULT-136 PO; +OXYC1TAB35 PO; -ZOFR4TAB PO; +ZOFR4TAB3 SL
[2017-01-21] MEDS ORDERED: BUPIVACAINE LIPOSOME PF 1.3% 20 ML VIAL ONE (09:59)
[2017-01-21] MEDS ORDERED: POVIDONE IODINE 5% (ANTISEPSIS KIT) 4 APPLICATIONS EACH NARE PRN (10:15)
[2017-01-21] MEDS ORDERED: VANCOMYCIN HCL 1000 MG ON-CALL/NS 250 ML IV SCH ×2 (10:15)
[2017-01-21] MEDS ORDERED: SODIUM CHLORID 0.9% 500 ML IV PRN (10:15)
[2017-01-21] MEDS ORDERED: CHLORHEXIDINE GLUCONATE 2 % 1 PACK (2 CLOTHS) TOPICAL PRN (10:15)
[2017-01-21] MEDS ORDERED: LACTATED RINGER'S 1000 ML IV PRN (10:15)
[2017-01-21] MEDS ORDERED: METOPROLOL TARTRATE 25 MG TAB PO PRN (10:15)
[2017-01-21] MEDS ORDERED: INSULIN HUMAN REGULAR 1,000 UNITS/10 ML VIAL SQ PRN (10:15)
[2017-01-21 10:27] VITALS: BP 114/72; PULSE 63; RESP 16; TEMP 98.1; O2SAT 99
[2017-01-21 10:58] LABS: AUTOMATED NEUTROPHIL # 2.2 TH/MM3 (1.8-7.7); BASOPHIL % 0.4 % (0.0-2.0); EOSINOPHIL # 0.5 TH/MM3 (0-0.4); EOSINOPHIL % 8.5 % (0.0-4.0); HEMATOCRIT 33.6 % (35.0-46.0); LYMPHOCYTE # 2.2 TH/MM3 (1.0-4.8); MEAN CELL VOLUME 78.3 FL (80.0-100.0); MEAN CORPUSCULAR HEMOGLOBIN 24.8 PG (27.0-34.0); MEAN CORPUSCULAR HGB CONC 31.6 % (32.0-36.0); MONO % 9.5 % (0.0-8.0); NEUT % 41.6 % (16.0-70.0); PLATELET COUNT 259 TH/MM3 (150-450); RED BLOOD COUNT 4.29 MIL/MM3 (4.00-5.30); RED CELL DISTRIBUTION WIDTH 13.4 % (11.6-17.2); WHITE BLOOD COUNT 5.4 TH/MM3 (4.0-11.0)
[2017-01-21 11:04] LABS: HEMO FLAGS AUTO DIFF
[2017-01-21] MEDS ORDERED: APREPITANT 40 MG CAP ONE (11:13)
[2017-01-21] MEDS ORDERED: HYDROmorphone HCL PF 2 MG/ML VIAL ONE ×2 (11:13→11:20)
[2017-01-21] MEDS ORDERED: FAMOTIDINE 20 MG/2 ML VIAL ONE (11:13)
[2017-01-21] MEDS ORDERED: MIDAZOLAM HCL 2 MG/2 ML VIAL ONE (11:17)
[2017-01-21 11:19] LABS: BICARBONATE 27.5 MEQ/L (21.0-32.0); POTASSIUM 3.4 MEQ/L (3.5-5.1)
[2017-01-21 11:33] LABS: SCAN/DIFF AUTO DIFF CONFIRMED
[2017-01-21] MEDS ORDERED: LACTATED RINGER'S 1000 ML INJ 2,000 ML IV ONE (12:00)
[2017-01-21] MEDS ORDERED: ePHEDrine/NS 25 MG/5 ML SYR IV ONE (12:00)
[2017-01-21] MEDS ORDERED: NORMOSOL R INJ 2,000 ML IV ONE (12:00)
[2017-01-21] MEDS ORDERED: PROPOFOL 200 MG/20 ML AMP IV ONE (12:00)
[2017-01-21] MEDS ORDERED: SUGAMMADEX SODIUM 200 MG/2 ML VIAL IV PUSH ONE ×2 (12:00)
[2017-01-21] MEDS ORDERED: ONDANSETRON HCL 4 MG/2 ML VIAL IV PUSH ONE (12:00)
[2017-01-21] MEDS ORDERED: BUPIVACAINE/EPINEPHRINE 0.25% PF 30 ML VIAL ONE (12:07)
[2017-01-21] MEDS ORDERED: FLUORESCEIN SOD 10% SOLN 500 MG/5 ML AMP ONE (15:32)
[2017-01-21] MEDS ORDERED: FLUCONAZOLE 400 MG PREMIX BAG 200 ML ONE (16:17)
[2017-01-21 17:12] LABS: HEMATOCRIT 15.2 % (35.0-46.0)
[2017-01-21] MEDS ORDERED: Post-op Orders (for Pharmacy) MISC XX ONE (17:30)
[2017-01-21] MEDS ORDERED: MORPHINE SULFATE 30 MG/30 ML PCA IV SCH (17:30)
[2017-01-21] MEDS ORDERED: PCA - TOTAL MG MORPHINE DELIVERED PER SHIFT SCH (17:30)
[2017-01-21] MEDS ORDERED: ACETAMINOPHEN/HYDROcodone 325 MG/5 MG TAB PO PRN ×2 (17:30)
[2017-01-21] MEDS ORDERED: NALOXONE HCL 0.4 MG/ML AMP IV PRN ×2 (17:30→20:30)
[2017-01-21] MEDS ORDERED: SODIUM CHLORIDE 0.9% FLUSH 10 ML FLUSH IV FLUSH PRN (17:30)
--- NOTE | 2017-01-21 17:42 | HHI.PR ---
Immediate Post Op Note Procedure Date: January 21, 2017 Pre Op Diagnosis: intra abdominal mass, hx of rygb Post Op Diagnosis: same Surgeon: Edwar Alcocer MD Printing Table Worker(s): Dr. Samayoa Procedure: ex lap, resection of intraabdominal mass, resection of GJ, resection of JJ with take down of rygb, construction of gastrogastrostomy, construction of jejunojunostomy Findings: mass at route of mesentary involving all limbs of rygb Complications: none Specimen(s) removed: intra abdominal mesenteric mass Estimated blood loss: 650cc Anesthesia: General Drains: HILARIO IVF ([id number]) Patient to: PACU Patient Condition: Good Edwar Alcocer MD January 21, 2017 17:42
[2017-01-21] MEDS: ACETAMINOPHEN 1000 MG/100 ML VIAL IV SCH ×2 (18:00→23:53)
[2017-01-21] MEDS: D5-NS + KCL 20 MEQ INJ 1,000 ML IV SCH (18:05)
[2017-01-21] MEDS ORDERED: fentaNYL CITRATE 250 MCG/5 ML AMP ONE ×2 (18:14→18:47)
[2017-01-21 18:21] LABS: AUTOMATED NEUTROPHIL # 22.7 TH/MM3 (1.8-7.7); BASOPHIL % 0.1 % (0.0-2.0); EOSINOPHIL % 0.1 % (0.0-4.0); HEMATOCRIT 38.6 % (35.0-46.0); LYMPH % 5.1 % (9.0-44.0); LYMPHOCYTE # 1.3 TH/MM3 (1.0-4.8); MEAN CELL VOLUME 80.1 FL (80.0-100.0); MEAN CORPUSCULAR HEMOGLOBIN 25.3 PG (27.0-34.0); MEAN CORPUSCULAR HGB CONC 31.5 % (32.0-36.0); MONO % 5.8 % (0.0-8.0); NEUT % 88.9 % (16.0-70.0); PLATELET COUNT 162 TH/MM3 (150-450); RED BLOOD COUNT 4.82 MIL/MM3 (4.00-5.30); RED CELL DISTRIBUTION WIDTH 14.5 % (11.6-17.2); WHITE BLOOD COUNT 25.5 TH/MM3 (4.0-11.0)
[2017-01-21 18:28] LABS: HEMO FLAGS AUTO DIFF
[2017-01-21 18:52] LABS: PLATELET ESTIMATE SMEAR NORMAL (NORMAL); PLATELET MORPHOLOGY CLUMPED (NORMAL); SCAN/DIFF AUTO DIFF CONFIRMED
[2017-01-21 19:29] LABS: APTT (PATIENT) 24.4 SEC (24.3-30.1); PROTHROMBIN TIME - PATIENT 10.7 SEC (9.8-11.6)
[2017-01-21 19:52] LABS: BICARBONATE 26.3 MEQ/L (21.0-32.0); POTASSIUM 3.7 MEQ/L (3.5-5.1)
[2017-01-21 20:00] VITALS: BP 111/77; PULSE 93; RESP 16; TEMP 97.3; O2SAT 97
[2017-01-21] MEDS: DOCUSATE SODIUM 100 MG CAP PO SCH (21:00)
[2017-01-21] MEDS: SODIUM CHLORIDE 0.9% FLUSH 10 ML FLUSH IV FLUSH SCH (21:00)
[2017-01-21 21:15] VITALS: O2SAT 98
[2017-01-21] MEDS: ONDANSETRON HCL 4 MG/2 ML VIAL IV PRN (21:21)
[2017-01-21] MEDS: VANCOMYCIN INJ 1,000 MG in SODIUM CHLOR 0.9% 250 ML INJ 250 ML IV SCH (21:25)
[2017-01-21] MEDS: PCA - TOTAL MG DILAUDID DELIVERED PER SHIFT OTHER SCH (21:31)
[2017-01-22] VITALS (8 sets, daily range): BP systolic 103–112; BP diastolic 59–71; PULSE 85–96; RESP 15–17; TEMP 95.8–99; O2SAT 98–100
[2017-01-22] MEDS: D5-NS + KCL 20 MEQ INJ 1,000 ML IV SCH ×3 (01:18→20:27)
[2017-01-22] MEDS: PCA - TOTAL MG DILAUDID DELIVERED PER SHIFT OTHER SCH ×3 (06:00→20:26)
[2017-01-22] MEDS: ACETAMINOPHEN 1000 MG/100 ML VIAL IV SCH ×3 (06:21→17:48)
[2017-01-22] MEDS: HYDROmorphone HCL PCA 6 MG/30 ML IV SCH ×4 (06:47→20:30)
[2017-01-22 07:08] LABS: BASOPHIL % 0.1 % (0.0-2.0); EOSINOPHIL % 0.1 % (0.0-4.0); HEMATOCRIT 32.8 % (35.0-46.0); HEMO FLAGS DIFF FINAL; LYMPH % 5.6 % (9.0-44.0); MEAN CELL VOLUME 80.2 FL (80.0-100.0); MEAN CORPUSCULAR HEMOGLOBIN 25.7 PG (27.0-34.0); MONO % 7.4 % (0.0-8.0); NEUT % 86.8 % (16.0-70.0); PLATELET COUNT 264 TH/MM3 (150-450); RED BLOOD COUNT 4.09 MIL/MM3 (4.00-5.30); RED CELL DISTRIBUTION WIDTH 14.1 % (11.6-17.2); WHITE BLOOD COUNT 18.4 TH/MM3 (4.0-11.0)
[2017-01-22 07:37] LABS: BICARBONATE 24.6 MEQ/L (21.0-32.0); POTASSIUM 4.1 MEQ/L (3.5-5.1)
[2017-01-22] MEDS: SODIUM CHLORIDE 0.9% FLUSH 10 ML FLUSH IV FLUSH SCH ×2 (07:49→20:27)
[2017-01-22] MEDS: DOCUSATE SODIUM 100 MG CAP PO SCH ×2 (07:49→20:27)
[2017-01-22] MEDS: VANCOMYCIN INJ 1,000 MG in SODIUM CHLOR 0.9% 250 ML INJ 250 ML IV SCH (10:18)
--- NOTE | 2017-01-22 17:25 | HHI.PR ---
Subjective Subjective Notes DAILY PROGRESS NOTE FOR SURGICAL ATTENDING, DR. EROS SAMAYOA questions about NG tube questions about bump on the back of her head Objective Vitals/I&O Vital Signs Date Time Temp Pulse Resp B/P Pulse Ox O2 Delivery O2 Flow Rate FiO2 01/22/17 16:00 95.8 96 01/22/17 13:36 16 01/22/17 12:00 106/70 100 01/22/17 08:40 Nasal Cannula 2.00 Labs Laboratory Tests Test 01/21/17 01/21/17 01/22/17 18:05 18:30 06:26 White Blood Count 25.5 18.4 Red Blood Count 4.82 4.09 Hemoglobin 12.2 10.5 Hematocrit 38.6 32.8 Mean Corpuscular Volume 80.1 80.2 Mean Corpuscular Hemoglobin 25.3 25.7 Mean Corpuscular Hemoglobin 31.5 32.0 Concent Red Cell Distribution Width 14.5 14.1 Platelet Count 162 264 Mean Platelet Volume 9.7 9.4 Neutrophils (%) (Auto) 88.9 86.8 Lymphocytes (%) (Auto) 5.1 5.6 Monocytes (%) (Auto) 5.8 7.4 Eosinophils (%) (Auto) 0.1 0.1 Basophils (%) (Auto) 0.1 0.1 Neutrophils # (Auto) 22.7 16.0 Lymphocytes # (Auto) 1.3 1.0 Monocytes # (Auto) 1.5 1.4 Eosinophils # (Auto) 0.0 0.0 Basophils # (Auto) 0.0 0.0 CBC Comment AUTO DIFF DIFF FINAL Differential Comment AUTO DIFF CONFIRMED Platelet Estimate NORMAL Platelet Morphology Comment CLUMPED Hematology Comments Prothrombin Time 10.7 Prothromb Time International 1.0 Ratio Activated Partial 24.4 Thromboplast Time Sodium Level 140 136 Potassium Level 3.7 4.1 Chloride Level 104 105 Carbon Dioxide Level 26.3 24.6 Anion Gap 10 6 Blood Urea Nitrogen 6 5 Creatinine 0.75 0.47 Estimat Glomerular Filtration 91 156 Rate Random Glucose 181 147 Calcium Level 7.8 7.8 Cardiovascular: Regular Lungs: Clear Abdomen: Other (NG tube in with slightly bloody drainage NG tube flushed with small amount of air), Post-op tenderness Extremities: SCD's on Wound Wound : Appearance: Clean & Dry Dressing: Dry (PIC O dressing) A/P Assessment and Plan DAILY PROGRESS NOTE FOR SURGICAL ATTENDING, DR. EROS SAMAYOA 31-year-old female postoperative day 1 abdominal tumor removal and reversal of gastric bypass by Dr. 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 EROS SAMAYOA I attest that I had a [id number] encounter with the patient on the same day, and personally performed and documented my assessment and findings in the medical record. The following services were provided during this hospital visit: Chart data review, vital sign assessments/reviewing monitor data Review of consultations notes if present. Medication orders/review and/or management Ordering and/or reviewing lab tests Ordering and/or interpreting/reviewing x-rays and/or diagnostic studies Care of the patient and discussion of the patient with the care team Documentation time To help prompt me to consider important information that might be impacting today's encounter and assessment, information from prior notes written by myself or my colleagues may have been "brought forward/copy and pasted" into today's note. Eros Samayoa MD January 22, 2017 17:25
[2017-01-22] MEDS: ONDANSETRON HCL 4 MG/2 ML VIAL IV PRN (17:48)
[2017-01-23] VITALS (7 sets, daily range): BP systolic 89–108; BP diastolic 59–74; PULSE 93–105; RESP 16–18; TEMP 96.1–99.6; O2SAT 96–98
[2017-01-23] MEDS: ACETAMINOPHEN 1000 MG/100 ML VIAL IV SCH ×5 (00:08→23:14)
[2017-01-23] MEDS: ONDANSETRON HCL 4 MG/2 ML VIAL IV PRN ×3 (00:12→22:19)
[2017-01-23] MEDS: HYDROmorphone HCL PCA 6 MG/30 ML IV SCH ×4 (01:32→19:29)
[2017-01-23] MEDS: D5-NS + KCL 20 MEQ INJ 1,000 ML IV SCH ×4 (05:13→23:14)
[2017-01-23] MEDS: PCA - TOTAL MG DILAUDID DELIVERED PER SHIFT OTHER SCH ×3 (05:13→20:33)
[2017-01-23] MEDS: SODIUM CHLORIDE 0.9% FLUSH 10 ML FLUSH IV FLUSH SCH ×2 (09:00→19:30)
[2017-01-23] MEDS: DOCUSATE SODIUM 100 MG CAP PO SCH ×2 (09:00→19:30)
--- NOTE | 2017-01-23 12:59 | HHI.PR ---
Subjective Subjective Notes pain controlled, no acute events Objective Vitals/I&O Vital Signs Date Time Temp Pulse Resp B/P Pulse Ox O2 Delivery O2 Flow Rate FiO2 01/23/17 08:20 16 01/23/17 08:00 96.1 96 97/65 97 01/22/17 08:40 Nasal Cannula 2.00 Cardiovascular: Regular Lungs: Clear Abdomen: Non-distended, Post-op tenderness Extremities: No edema, Perfused, SCD's on Narrative Exam dressing intact A/P Assessment and Plan 31yo female s/p resection of abdominal mass, stable. oob today keep NG continue chemist steroids Ranjith Arcos MD January 23, 2017 12:59
[2017-01-23] MEDS: ENOXAPARIN SODIUM 30 MG/0.3 ML SYRINGE SQ SCH (21:24)
[2017-01-24] VITALS (7 sets, daily range): BP systolic 94–108; BP diastolic 57–68; PULSE 70–105; RESP 16–18; TEMP 95.8–99.9; O2SAT 96–100
[2017-01-24] MEDS: ACETAMINOPHEN 1000 MG/100 ML VIAL IV SCH ×3 (04:34→18:01)
[2017-01-24] MEDS: HYDROmorphone HCL PCA 6 MG/30 ML IV SCH ×3 (04:34→18:34)
[2017-01-24 05:13] LABS: AUTOMATED NEUTROPHIL # 7.2 TH/MM3 (1.8-7.7); BASOPHIL % 0.1 % (0.0-2.0); EOSINOPHIL # 0.7 TH/MM3 (0-0.4); EOSINOPHIL % 7.1 % (0.0-4.0); HEMATOCRIT 30.2 % (35.0-46.0); HEMO FLAGS DIFF FINAL; LYMPH % 9.4 % (9.0-44.0); LYMPHOCYTE # 0.9 TH/MM3 (1.0-4.8); MEAN CELL VOLUME 79.1 FL (80.0-100.0); MEAN CORPUSCULAR HEMOGLOBIN 26.5 PG (27.0-34.0); MEAN CORPUSCULAR HGB CONC 33.5 % (32.0-36.0); MONO % 7.2 % (0.0-8.0); NEUT % 76.2 % (16.0-70.0); PLATELET COUNT 248 TH/MM3 (150-450); RED BLOOD COUNT 3.82 MIL/MM3 (4.00-5.30); RED CELL DISTRIBUTION WIDTH 14.5 % (11.6-17.2); WHITE BLOOD COUNT 9.5 TH/MM3 (4.0-11.0)
[2017-01-24 05:32] LABS: BICARBONATE 28.2 MEQ/L (21.0-32.0); POTASSIUM 3.9 MEQ/L (3.5-5.1)
[2017-01-24] MEDS: PCA - TOTAL MG DILAUDID DELIVERED PER SHIFT OTHER SCH ×3 (06:32→22:00)
--- NOTE | 2017-01-24 07:59 | MP ---
cc: KAM ALCOCER MD DATE OF SURGERY: 01/21/2017 PREOPERATIVE DIAGNOSIS 1. Intra-abdominal mass. 2. History of Quincy-en-Y gastric bypass. POSTOPERATIVE DIAGNOSIS 1. Intra-abdominal mass. 2. History of Quincy-en-Y gastric bypass. PROCEDURE PERFORMED 1. Exploratory laparotomy. 2. Resection of intra-abdominal mesenteric mass. 3. Resection of gastrojejunostomy. 4. Resection of jejunojejunostomy with takedown of Quincy-en-Y gastric bypass. 5. Construction of gastrogastrostomy. 6. Construction of jejunojejunostomy. SURGEON Dr. Kam Alcocer HATCH TENDER SURGEON Dr. Gee Samayoa, necessary for complex case due to need for assistance with retraction, exposure and complex open abdominal case. ANESTHESIA General endotracheal. IV FLUIDS 3800 cc. ESTIMATED BLOOD LOSS 650 cc. DRAINS 10-Kyrgyz HILARIO drain. COMPLICATIONS None. WOUND CLASSIFICATION Clean contaminated. SPECIMEN Intra-abdominal mesenteric mass with small bowel. FINDINGS Large mesenteric mass involving the Quincy limb, gastrojejunostomy, mesentery, jejunojejunostomy and small bowel. INDICATION The patient is a 31-year-old female who presented with severe epigastric and abdominal pain. This started several weeks ago and continued to get worst. She came to the emergency department with further work-up and evaluation including the finding of a 6.5 cm mass. Initial consultation with interventional radiology for biopsy without success. Therefore decision was made for laparoscopic biopsy, possible resection. At that time biopsy was done of a hard mass with frozen section of questionable desmoid tumor, benign tumor. Further discussion with Pathology with pending results indicated a high likelihood benign with schwannoma-like features or neurofibroma-like features. Therefore discussion with patient in regards to decision for removal of intra-abdominal mass. This was discussed with the patient in detail. Her pain was significant and severe therefore decision was made for open exploratory laparotomy and excision of mesenteric mass. DETAILS OF PROCEDURE The patient was taken to the operating suite, placed in supine position. She was prepped and draped in the usual sterile fashion after induction of general endotracheal anesthesia. Brief timeout done stating correct patient, procedure, surgical site, were all in agreement with this. Attention was directed to the midline. A midline laparotomy incision was made with a 10 blade. Further dissection done with Bovie electrocautery. Incision of the fascia, entrance into the peritoneum was done with Metzenbaum scissors. After adequate incision to facilitate exposure upper quadrant retractor was placed for further assistance. There was noted on palpation to be a somewhat firm mesenteric mass. On inspection running the Quincy limb, the biliopancreatic limb and the common channel the mass was noted to be involving the mesentery of significant amount of small bowel. Attempts to salvage the gastrojejunostomy were not successful due to again the mass base of the mesentery involving the mesenteric blood supply, therefore necessitating takedown of the gastrojejunostomy. This was done with a SIMONE blue load stapler. Further inspection of both the common channel and the biliopancreatic limb were intermittently adhered and involved along with the jejunojejunostomy and this mass. Therefore, a blue load SIMONE was used to transect these bowel segments as well. The mass was noted to be very vascular superficially and the mesenteric vessels essentially draped over the mass. The mesentery was entered to try and shell out this mass, taking the small bowel that was intimately connected with the mass with it. This was slowly dissected out with. 0 silk sutures were used to tie off bleeding points as needed. Harmonic scalpel was used to dissect through and transect from the mesentery in order to expose and remove the adherent intra-abdominal mass. Also, the fourth portion of duodenum was noted to be very closely adhered to the mass. The mass was shaved away from the duodenum. The duodenum did look very pink and viable but again the mass was very close to this. Once the mass had completely been freed and mobilized this was removed from the wound bed. This was then sent for pathology. Bovie electrocautery and Harmonic was used for hemostasis. At this point further discussion and decision regarding re-creation of the gastric bypass to the distal limb length versus recreating normal anatomy. At this point I broke scrub and discussed with the regarding potential decisions and options to move forward. At this point we both agreed and believed that returning the patient to normal anatomy would be most beneficial because if the patient has an intra-abdominal mass with risk of recurrence the patient would get the best nutritional status and improve the best with reversion of the gastric bypass and re-continuity of her normal anatomy. Discussed again with the . We proceeded to reconnect the gastric pouch to the gastric remnant. This was done by doing two gastrotomies on either side of the pouch in the remnant stomach. A Endo SIMONE gold load stapler was used to create the hyacnsl-[id number]-[id number] layer. The combined enterotomy was then oversewn with 3-0 Vicryl in a running fashion. Lembert sutures were used to reinforce the anastomosis. An NG tube was then advanced past the anastomosis and was passed freely. Next, attention was then directed to the ligament of Treitz and distally to the jejunal bowel. There was a demarcation and a bit of ischemic segment that was nonviable therefore the bowel had to be resected for a more proximal portion which was done with a SIMONE blue load stapler. The distal segment was pink, viable and healthy along with the new stapled proximal segment. Therefore a stapled jejunojejunostomy was created. This was done by using 3-0 silk sutures, two enterotomies made. The blue load SIMONE stapler was obtained and advanced in the two enterotomies to create the ddlhckr-kmf-[id number] layer. Next, Allis clamps were used in order to approximate the common enterotomy. This was stapled with an Endo SIMONE blue load. This was then Lembert'ed with 3-0 silk sutures in an interrupted fashion. A crotch stitch was also placed for assistance in reinforcement. The mesenteric defect was then closed with running 3-0 silk suture to prevent internal herniation. The bowel was again noted with a pink, viable and patent anastomosis. Bovie electrocautery was again used for hemostasis. A small piece of Surgicel was placed in the wound to further assist in hemostasis. A 10-Kyrgyz HILARIO drain was then placed through a separate stab incision. The distal portion was placed near the gastrogastrostomy and the proximal portion was placed over the jejunojejunostomy. The abdomen was irrigated thoroughly with warm normal saline for several liters. The abdomen was then closed with a #1 running looped PDS x2. The subcutaneous tissue was then irrigated. Bovie electrocautery was used for hemostasis. The skin was stapled. Telfa sharmin were placed. _Sterile dressing was placed. The HILARIO drain was secured in place with a 2-0 nylon suture. The patient tolerated the procedure well. There was no intraoperative complication. All lap and instrument counts were correct at the end of the procedure. The patient was extubated and taken to the PACU. MD GABRIELA Anton /8:29 PM /7:19 AM SOURAV
[2017-01-24] MEDS: SODIUM CHLORIDE 0.9% FLUSH 10 ML FLUSH IV FLUSH SCH ×2 (09:00→20:54)
[2017-01-24] MEDS: DOCUSATE SODIUM 100 MG CAP PO SCH ×2 (09:00→20:54)
[2017-01-24] MEDS: ONDANSETRON HCL 4 MG/2 ML VIAL IV PRN ×4 (09:10→21:21)
[2017-01-24] MEDS ORDERED: DIATRIZOATE MEGLUM/DIATRIZOATE SOD 120 ML BTL (for RAD DIAG) NG ONE (10:00)
--- NOTE | 2017-01-24 10:19 | RADRPT ---
EXAM DATE/TIME: 01/24/2017 09:44 [place] COMPARISON: No previous studies available for comparison. INDICATIONS : S/p gastric bypass reversal. FLUORO TIME: 1.7 minutes IMAGE COUNT: 17 CONTRAST: 1. MD Waddell MEDICAL HISTORY : SURGICAL HISTORY : Cholecystectomy. gastric bypass surgery 2015, partial intestine removed, tumor removed and reversal of gastric bypass ENCOUNTER: Initial ACUITY: 2 weeks PAIN SCORE: 10/10 LOCATION: Bilateral abdomen FINDINGS: Preliminary film demonstrates NG tube in the stomach. There are surgical clips in the upper abdomen. There is a surgical drain along the left side of the abdomen.. Gastrografin was placed on the NG tube. There was normal flow of contrast from the stomach into the p roximal small bowel. Normal peristalsis is demonstrated. There is no evidence of a leak of contrast o utside the GI tract. No evidence of obstruction.. CONCLUSION: No evidence of leak or obstruction. Pete Cantu MD on January 24, 2017 at 10:14 Board Certified Radiologist. This report was verified electronically.
[2017-01-24] MEDS: D5-NS + KCL 20 MEQ INJ 1,000 ML IV SCH ×2 (10:21→17:18)
--- NOTE | 2017-01-24 14:59 | HHI.PR ---
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 Reports she was out of bed to the chair yesterday Objective Vitals/I&O Vital Signs Date Time Temp Pulse Resp B/P Pulse Ox O2 Delivery O2 Flow Rate FiO2 01/24/17 13:20 16 01/24/17 11:39 95.8 94 108/68 99 01/22/17 08:40 Nasal Cannula 2.00 Labs Laboratory Tests Test 01/24/17 04:52 White Blood Count 9.5 Red Blood Count 3.82 Hemoglobin 10.1 Hematocrit 30.2 Mean Corpuscular Volume 79.1 Mean Corpuscular Hemoglobin 26.5 Mean Corpuscular Hemoglobin 33.5 Concent Red Cell Distribution Width 14.5 Platelet Count 248 Mean Platelet Volume 8.8 Neutrophils (%) (Auto) 76.2 Lymphocytes (%) (Auto) 9.4 Monocytes (%) (Auto) 7.2 Eosinophils (%) (Auto) 7.1 Basophils (%) (Auto) 0.1 Neutrophils # (Auto) 7.2 Lymphocytes # (Auto) 0.9 Monocytes # (Auto) 0.7 Eosinophils # (Auto) 0.7 Basophils # (Auto) 0.0 CBC Comment DIFF FINAL Differential Comment Sodium Level 138 Potassium Level 3.9 Chloride Level 104 Carbon Dioxide Level 28.2 Anion Gap 6 Blood Urea Nitrogen 2 Creatinine 0.35 Estimat Glomerular Filtration 219 Rate Random Glucose 101 Calcium Level 8.2 Cardiovascular: Regular Lungs: Clear Abdomen: Other (midline incision with DANAY dressing with good seal ---- green light on battery pack; adbomen soft; tender with light palpation; HILARIO with SS drainage ) Extremities: No edema A/P Assessment and Plan 31 year old female POD3 ex lap; removal of abdominal tumor and reversal of gastric bypass -NPO -NGT to LIWS -Upper GI today -OOB and mobilize -Lovenox -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
[2017-01-24] MEDS: ENOXAPARIN SODIUM 30 MG/0.3 ML SYRINGE SQ SCH (20:54)
[2017-01-25] VITALS (8 sets, daily range): BP systolic 97–110; BP diastolic 63–70; PULSE 86–96; RESP 15–18; TEMP 97.6–99.3; O2SAT 97–100
[2017-01-25] MEDS: ACETAMINOPHEN 1000 MG/100 ML VIAL IV SCH ×5 (00:04→23:42)
[2017-01-25] MEDS: METOCLOPRAMIDE HCL 10 MG/2 ML VIAL IVS PRN ×2 (00:44→23:42)
[2017-01-25] MEDS: D5-NS + KCL 20 MEQ INJ 1,000 ML IV SCH ×4 (01:18→23:42)
[2017-01-25] MEDS: ONDANSETRON HCL 4 MG/2 ML VIAL IV PRN ×3 (04:26→20:40)
[2017-01-25] MEDS: HYDROmorphone HCL PCA 6 MG/30 ML IV SCH ×2 (05:21→16:41)
[2017-01-25] MEDS: PCA - TOTAL MG DILAUDID DELIVERED PER SHIFT OTHER SCH ×3 (06:39→22:00)
[2017-01-25] MEDS: DOCUSATE SODIUM 100 MG CAP PO SCH ×2 (08:40→20:39)
[2017-01-25] MEDS: SODIUM CHLORIDE 0.9% FLUSH 10 ML FLUSH IV FLUSH SCH ×2 (08:40→20:40)
[2017-01-25] MEDS ORDERED: BISACODYL 10 MG SUPP RECTAL ONE (09:00)
[2017-01-25] MEDS ORDERED: LACTULOSE SYRUP 20 GM/30 ML CUP PO ONE (09:00)
--- NOTE | 2017-01-25 11:06 | HHI.PR ---
Subjective Subjective Notes Resting in bed RN at bedside Nervous about having dressing changes Objective Vitals/I&O Vital Signs Date Time Temp Pulse Resp B/P Pulse Ox O2 Delivery O2 Flow Rate FiO2 01/25/17 08:02 98.1 96 18 97/65 97 01/22/17 08:40 Nasal Cannula 2.00 Cardiovascular: Regular Lungs: Clear Abdomen: Other (midline incision with bro---DANAY removed; betadine sharmin removed; HILARIO with SS drainage; abdomen soft; tender throughout ) Extremities: No edema A/P Assessment and Plan 31 year old female POD4 ex lap; removal of abdominal tumor and reversal of gastric bypass -Advance to full liquids + applesauce -Add 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 I reviewed and agree with the findings presented. I attest that I had a [id number] encounter with the patient on the same day, and personally performed and documented my assessment and findings in the medical record. Monique Toussaint January 25, 2017 11:06 Edwar Alcocer MD February 06, 2017 15:25
[2017-01-25] MEDS: ENOXAPARIN SODIUM 30 MG/0.3 ML SYRINGE SQ SCH (20:39)
[2017-01-25] MEDS: oxyCODONE/ACETAMINOPHEN 5 MG/325 MG TAB PO PRN (23:42)
[2017-01-26 04:50] VITALS: BP 99/61; PULSE 85; RESP 18; TEMP 98.2; O2SAT 92
[2017-01-26] MEDS: PCA - TOTAL MG DILAUDID DELIVERED PER SHIFT OTHER SCH (05:55)
[2017-01-26] MEDS: ACETAMINOPHEN 1000 MG/100 ML VIAL IV SCH ×3 (05:55→16:45)
[2017-01-26 08:00] VITALS: BP 105/76; PULSE 80; RESP 18; TEMP 98.8; O2SAT 99
[2017-01-26] MEDS: oxyCODONE/ACETAMINOPHEN 5 MG/325 MG TAB PO PRN ×3 (08:41→19:58)
[2017-01-26] MEDS: ONDANSETRON HCL 4 MG/2 ML VIAL IV PRN ×2 (08:41→16:38)
[2017-01-26] MEDS: DOCUSATE SODIUM 100 MG CAP PO SCH ×2 (08:45→19:58)
[2017-01-26] MEDS: SODIUM CHLORIDE 0.9% FLUSH 10 ML FLUSH IV FLUSH SCH ×2 (08:46→20:02)
[2017-01-26] MEDS: D5-NS + KCL 20 MEQ INJ 1,000 ML IV SCH ×2 (09:18→17:18)
[2017-01-26 12:00] VITALS: BP 106/69; PULSE 84; RESP 18; TEMP 98.9; O2SAT 95
[2017-01-26] MEDS: HYDROmorphone HCL PF 1 MG/ML VIAL IV PUSH PRN ×3 (12:02→21:10)
[2017-01-26] MEDS: METOCLOPRAMIDE HCL 10 MG/2 ML VIAL IV PUSH SCH ×2 (13:35→21:09)
--- NOTE | 2017-01-26 14:48 | HHI.PR ---
Subjective Subjective Notes Resting in bed Reports +BM Feels ready to have regular food Pain when moving Objective Vitals/I&O Vital Signs Date Time Temp Pulse Resp B/P Pulse Ox O2 Delivery O2 Flow Rate FiO2 01/26/17 12:00 98.9 84 18 106/69 95 01/22/17 08:40 Nasal Cannula 2.00 Cardiovascular: Regular Lungs: Clear Abdomen: Other (Midline incision ----c/d/i; bro; HILARIO with SS drainage--- minimal; abdomen soft; tender to palpation ) Extremities: No edema A/P Assessment and Plan 31 year old female POD5 ex lap; removal of abdominal tumor and reversal of gastric bypass -Advance to regular diet -DCed NAIL SPECIALIST; added PRN IV medications and Percocet -HILARIO DCed -OOB and mobilize -4x4 dressing secure with tape---change daily and PRN -Lovenox -Pathology back ----shows fibromatosis; consult to Dr. Torres Attending Statement patient seen at bedside pt continues to improve advance diet d/c planning Attestation The exam, history, and the medical decision-making described in the above note were completed with the assistance of the mid-level provider. I reviewed and agree with the findings presented. I attest that I had a [id number] encounter with the patient on the same day, and personally performed and documented my assessment and findings in the medical record. Monique Toussaint January 26, 2017 14:48 Edwar Alcocer MD February 06, 2017 15:38
[2017-01-26 16:00] VITALS: BP 105/75; PULSE 90; RESP 18; TEMP 98.3; O2SAT 96
[2017-01-26] MEDS: ENOXAPARIN SODIUM 30 MG/0.3 ML SYRINGE SQ SCH (19:58)
[2017-01-26 20:10] VITALS: BP 113/76; PULSE 82; RESP 16; TEMP 99.5; O2SAT 98
--- NOTE | 2017-01-26 21:00 | MB ---
cc: ANUPAMA STOVER M.D. DATE OF CONSULTATION 01/26/[address] Palomares REASON FOR CONSULTATION Oncology consulted to render an opinion regarding patient with abdominal fibromatosis. HISTORY OF PRESENT ILLNESS The patient is a very pleasant 31-year-old female first admitted to the hospital in early January with complaint of abdominal pain associated with nausea, vomiting and diarrhea. She has had abdominal pain for about a year and half. Since October the abdominal pain became constant and stabbing and she has stabbing pain in the mid epigastrium, left upper quadrant area. She subsequently developed nausea, vomiting, diarrhea. When she came the hospital a CT showed large 6.5 cm mass in left upper quadrant. She underwent exploratory laparotomy and found to have a mass in the mesentery. Biopsy and frozen section showed possible desmoid tumor. She was subsequently discharged home and re-admitted last week for resection of this mass. She underwent a surgical resection of the mass last Tuesday. She is slowly recovering from the surgery. She just started eating a regular diet today. She had bowel movement yesterday. She is still sore. Denies any fever, chills, chest pain, palpitations, any shortness of breath or cough. She is a little tired. Denies any headache, focal numbness or weakness. PAST MEDICAL HISTORY 1. Liver cyst. 2. Polycystic ovarian syndrome. 3. Irritable bowel syndrome. 4. A history of pancreatitis. 5. Kidney stone. 6. anxiety, depression. 7. Obesity. 8. Right wrist tendonitis. PAST SURGICAL HISTORY 1. Gastric bypass surgery in 2014. 2. Exploratory laparotomy in 2015 with lysis of adhesions. FAMILY HISTORY Paternal grandfather had kidney cancer. Paternal uncle had some kind of mass. Father had a mass but she cannot provide specific details. Maternal great-aunt had leukemia. She has half sibling and two sons, all healthy. SOCIAL HISTORY No tobacco or alcohol use. 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 ALLERGIES NONSTEROIDAL ANTIINFLAMMATORY DRUG, PENICILLIN, TYLENOL NO. 3. MEDICATIONS Current medications: 1. Reglan. 2. Lovenox. 3. Colace. 4. Acetaminophen. REVIEW OF SYSTEMS CONSTITUTIONAL: Denies any fever, chills, night sweat, weight loss. EYES: Denies any blurred vision or double vision. ENT: No mouth sore or voice changes. CARDIOVASCULAR: She has no chest pain or palpitations. RESPIRATORY: Denies shortness of breath or cough. GASTROINTESTINAL: As above. GENITOURINARY: Denies any dysuria, hematuria. MUSCULOSKELETAL: Negative. HEMATOLOGIC: Negative. ENDOCRINE: Negative. DERMATOLOGIC: Negative. PSYCHIATRIC: She has anxiety. NEUROLOGIC: Negative. PHYSICAL EXAMINATION VITAL SIGNS: Temperature 98.3, blood pressure 105/75. O2 saturation 96%. GENERAL: She is alert and oriented times three, in no acute distress. HEENT: Atraumatic, normocephalic. Pupils equal, round and reactive to light. Extraocular muscles intact. No scleral icterus. Oropharynx moist mucosa, no lesion, no thrush, no mucositis. NECK: No thyromegaly, no palpable mass. LYMPHATICS: No palpable cervical, clavicular, axillary or inguinal lymph nodes. CARDIOVASCULAR: Regular S1, S2. No murmur. LUNGS: Clear to auscultation bilaterally. No wheezing or rhonchi. ABDOMEN: Soft. Positive bowel sounds. Still a little sore. The dressing is dry. EXTREMITIES: No clubbing, cyanosis or edema. BACK: No paravertebral tenderness. SKIN: No rash or petechiae. NEUROLOGIC: Nonfocal. LABORATORY DATA Reviewed. ASSESSMENT 1. Mesenteric fibromatosis. She has had intermittent abdominal pain for last year and half. Since October the pain has become more constant and increased in intensity. CT showed a 6.5 cm mass. Biopsy showed fibromatosis. She underwent resection on January 21. Intraoperatively there was a large mass noted, it is very close to the duodenum but was able to be scraped off. The mass was grossly resected. 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 There was no necrosis or mitotic activity noted. The mass measured about 9 cm. There was infiltrative border noted but no invasion of the small intestinal wall noted. I had an extensive discussion with the patient regarding the diagnosis and management plan. I told her fibromatosis is generally considered a non malignant tumor. However, it has a high risk of recurrence. Since the tumor is grossly resected, no further adjuvant therapy has been shown to be beneficial. Due to the high recurrence rate I told her she need to be monitored closely. She is also going to need a colonoscopy given mesenteric fibromatosis could be associated with Mccoy syndrome or familial adenomatous polyposis. This however can be done as an outpatient.She was rather anxious. She asked many questions today which I answered. I told her she will need to follow up at the oncology clinic. 2. Anemia consistent with iron deficiency. She has previously received Venofer infusion. Her hemoglobin trended lower due to recent surgery. She will need iron supplement. 3. Irritable bowel syndrome. 4. History of pancreatitis. 5. Anxiety and depression. 6. Obesity status post gastric bypass surgery. 7. Liver cyst. PLAN 1. I reviewed pathology with the patient, her questions were answered. 2. She will need followup at oncology clinic. 3. She will need iron supplement once she is able to tolerate an oral diet well. 4. Outpatient GI referral for colonoscopy. Thank you Dr. Palomares for asking me to see this patient. MD GLADYS Snow/STEFF /7:24 PM /8:34 PM SOURAV
[2017-01-27] VITALS: BP 107/65; PULSE 93; RESP 16; TEMP 98.2; O2SAT 98
[2017-01-27] MEDS: D5-NS + KCL 20 MEQ INJ 1,000 ML IV SCH ×2 (00:21→09:18)
[2017-01-27] MEDS: ONDANSETRON HCL 4 MG/2 ML VIAL IV PRN (00:21)
[2017-01-27] MEDS: oxyCODONE/ACETAMINOPHEN 5 MG/325 MG TAB PO PRN ×2 (00:21→05:11)
[2017-01-27] MEDS: ACETAMINOPHEN 1000 MG/100 ML VIAL IV SCH ×2 (00:21→06:17)
[2017-01-27] MEDS: HYDROmorphone HCL PF 1 MG/ML VIAL IV PUSH PRN ×4 (01:56→20:54)
[2017-01-27] MEDS: METOCLOPRAMIDE HCL 10 MG/2 ML VIAL IV PUSH SCH ×3 (05:11→20:52)
[2017-01-27 08:04] VITALS: BP 97/61; PULSE 52; RESP 16; TEMP 98.2; O2SAT 98
[2017-01-27 08:20] LABS: BASOPHIL % 0.1 % (0.0-2.0); EOSINOPHIL # 0.9 TH/MM3 (0-0.4); EOSINOPHIL % 9.9 % (0.0-4.0); HEMATOCRIT 30.7 % (35.0-46.0); HEMO FLAGS DIFF FINAL; LYMPH % 15.7 % (9.0-44.0); LYMPHOCYTE # 1.4 TH/MM3 (1.0-4.8); MEAN CELL VOLUME 79.9 FL (80.0-100.0); MEAN CORPUSCULAR HEMOGLOBIN 25.5 PG (27.0-34.0); MONO % 8.7 % (0.0-8.0); NEUT % 65.6 % (16.0-70.0); PLATELET COUNT 355 TH/MM3 (150-450); RED BLOOD COUNT 3.84 MIL/MM3 (4.00-5.30); RED CELL DISTRIBUTION WIDTH 14.5 % (11.6-17.2); WHITE BLOOD COUNT 9.1 TH/MM3 (4.0-11.0)
[2017-01-27] MEDS: KETOROLAC TROMETHAMINE 60 MG/2 ML (IM) VIAL IM SCH ×3 (08:45→18:27)
[2017-01-27] MEDS ORDERED: BISACODYL 10 MG SUPP RECTAL ONE (08:45)
[2017-01-27 08:50] LABS: BICARBONATE 27.1 MEQ/L (21.0-32.0); POTASSIUM 3.6 MEQ/L (3.5-5.1)
[2017-01-27] MEDS: oxyCODONE/ACETAMINOPHEN 7.5 MG/325 MG TAB PO PRN ×4 (09:29→22:29)
[2017-01-27] MEDS: DOCUSATE SODIUM 100 MG CAP PO SCH ×2 (09:29→20:52)
[2017-01-27] MEDS: SODIUM CHLORIDE 0.9% FLUSH 10 ML FLUSH IV FLUSH SCH ×2 (09:29→20:53)
[2017-01-27] MEDS: PANTOPRAZOLE SOD 40 MG DELAYED RELEASE TAB PO SCH ×2 (09:29→20:52)
[2017-01-27] MEDS: PIPERACIL-TAZO 3.375 GM PREMIX 50 ML IV SCH ×2 (11:57→20:56)
[2017-01-27 12:06] VITALS: BP 99/61; PULSE 80; RESP 18; TEMP 98.4; O2SAT 98
[2017-01-27 16:00] VITALS: BP 102/66; PULSE 82; RESP 18; TEMP 97.9; O2SAT 97
--- NOTE | 2017-01-27 16:02 | HHI.PR ---
Subjective Subjective Notes Resting in bed Patient seen by Dr. Alcocer Objective Vitals/I&O Vital Signs Date Time Temp Pulse Resp B/P Pulse Ox O2 Delivery O2 Flow Rate FiO2 01/27/17 12:06 98.4 80 18 99/61 98 Labs Laboratory Tests Test 01/27/17 08:01 White Blood Count 9.1 Red Blood Count 3.84 Hemoglobin 9.8 Hematocrit 30.7 Mean Corpuscular Volume 79.9 Mean Corpuscular Hemoglobin 25.5 Mean Corpuscular Hemoglobin 32.0 Concent Red Cell Distribution Width 14.5 Platelet Count 355 Mean Platelet Volume 8.5 Neutrophils (%) (Auto) 65.6 Lymphocytes (%) (Auto) 15.7 Monocytes (%) (Auto) 8.7 Eosinophils (%) (Auto) 9.9 Basophils (%) (Auto) 0.1 Neutrophils # (Auto) 6.0 Lymphocytes # (Auto) 1.4 Monocytes # (Auto) 0.8 Eosinophils # (Auto) 0.9 Basophils # (Auto) 0.0 CBC Comment DIFF FINAL Differential Comment Hematology Comments Sodium Level 137 Potassium Level 3.6 Chloride Level 103 Carbon Dioxide Level 27.1 Anion Gap 7 Blood Urea Nitrogen 5 Creatinine 0.32 Estimat Glomerular Filtration 242 Rate Random Glucose 98 Calcium Level 8.4 Prealbumin 13 Cardiovascular: Regular Lungs: Clear Abdomen: Other (midline incision with bro; HILARIO removed ) Extremities: No edema A/P Assessment and Plan 31 year old female POD6 ex lap; removal of abdominal tumor and reversal of gastric bypass -Tolerating regular diet -PRN IV medications and Percocet (increased dose) -OOB and mobilize -4x4 dressing secure with tape---change daily and PRN -Lovenox -Pathology back ----shows fibromatosis; consult to -Appreciate consult from Dr. Torres Attending Statement patient seen at bedside pain meds increased due to abd pain await Dr. Torres recs Attestation The exam, history, and the medical decision-making described in the above note were completed with the assistance of the mid-level provider. I reviewed and agree with the findings presented. I attest that I had a [id number]-by-fnsu encounter with the patient on the same day, and personally performed and documented my assessment and findings in the medical record. Monique Toussaint January 27, 2017 16:01 Edwar Alcocer MD February 06, 2017 15:44
--- NOTE | 2017-01-27 16:49 | PD.ONC.PN ---
Subjective Subjective Remarks Tolerating diet. +Nausea. Objective Data Date Time Temp Pulse Resp B/P Pulse Ox O2 Delivery O2 Flow Rate FiO2 01/27/17 12:06 98.4 80 18 99/61 98 01/27/17 08:04 98.2 52 16 97/61 98 01/27/17 00:00 98.2 93 16 107/65 98 01/26/17 20:10 99.5 82 16 113/76 98 01/27/17 01/27/17 01/27/17 07:00 15:00 23:00 Intake Total 564 ml Balance 564 ml Result Diagram: 01/27/17 0801 01/27/17 0801 Laboratory Results Laboratory Tests Test 01/27/17 08:01 White Blood Count 9.1 TH/MM3 Red Blood Count 3.84 MIL/MM3 Hemoglobin 9.8 GM/DL Hematocrit 30.7 % Mean Corpuscular Volume 79.9 FL Mean Corpuscular Hemoglobin 25.5 PG Mean Corpuscular Hemoglobin 32.0 % Concent Red Cell Distribution Width 14.5 % Platelet Count 355 TH/MM3 Mean Platelet Volume 8.5 FL Neutrophils (%) (Auto) 65.6 % Lymphocytes (%) (Auto) 15.7 % Monocytes (%) (Auto) 8.7 % Eosinophils (%) (Auto) 9.9 % Basophils (%) (Auto) 0.1 % Neutrophils # (Auto) 6.0 TH/MM3 Lymphocytes # (Auto) 1.4 TH/MM3 Monocytes # (Auto) 0.8 TH/MM3 Eosinophils # (Auto) 0.9 TH/MM3 Basophils # (Auto) 0.0 TH/MM3 CBC Comment DIFF FINAL Differential Comment Hematology Comments Sodium Level 137 MEQ/L Potassium Level 3.6 MEQ/L Chloride Level 103 MEQ/L Carbon Dioxide Level 27.1 MEQ/L Anion Gap 7 MEQ/L Blood Urea Nitrogen 5 MG/DL Creatinine 0.32 MG/DL Estimat Glomerular Filtration 242 ML/MIN Rate Random Glucose 98 MG/DL Calcium Level 8.4 MG/DL Prealbumin 13 MG/DL Administered Medications Medications (Trade) Dose Ordered Sig/Sonya Route PRN Reason Start Time Stop Time Status Last Admin Dose Admin Potassium Chloride/Dextrose/ Sod Cl (D5-NS + KCl 20 Meq Inj) 1,000 ml @ 125 mls/hr Q8H IV 01/21/17 17:18 01/25/17 18:26 Sodium Chloride (NS Flush) 2 ml BID IV FLUSH 01/21/17 21:00 01/27/17 09:29 Ondansetron HCl (Zofran Inj) 4 mg Q4H PRN IV NAUSEA OR VOMITING 01/21/17 17:30 01/27/17 00:21 Docusate Sodium (Colace) 100 mg BID PO 01/21/17 21:00 01/27/17 09:29 Enoxaparin Sodium (Lovenox Inj) 30 mg Q24H SQ 01/23/17 21:00 01/26/17 19:58 Metoclopramide HCl (Reglan Inj) 10 mg Q8HR IV PUSH 01/26/17 14:00 01/27/17 13:27 Pantoprazole Sodium 40 mg 40 mg Q12HR PO 01/27/17 09:00 01/27/17 09:29 Piperacillin Sod/ Tazobactam Sod (Zosyn 3.375 Gm Premix) 50 ml @ 100 mls/hr Q12H IV 01/27/17 10:00 01/27/17 11:57 Ketorolac Tromethamine (Toradol Inj) 15 mg Q6HR IM 01/27/17 08:45 02/01/17 08:44 01/27/17 11:58 Hydromorphone HCl (Dilaudid Pf Inj) 1 mg Q6H PRN IV PUSH pain scale 6-10 01/27/17 13:45 01/27/17 14:37 Oxycodone/ Acetaminophen (Percocet 7.5-325 Mg) 2 tab Q4H PRN PO pain scale 1-5 01/27/17 09:00 01/27/17 13:27 Objective Remarks GENERAL: Well-nourished, well-developed patient. SKIN: Warm and dry. HEAD: Normocephalic. EYES: No scleral icterus. No injection or drainage. NECK: Supple, trachea midline. No JVD or lymphadenopathy. LYMPHATIC: No adenopathy. CARDIOVASCULAR: Regular rate and rhythm without murmurs. RESPIRATORY: Breath sounds equal bilaterally. No accessory muscle use. GASTROINTESTINAL: Abdomen soft, non-tender, nondistended. +BS EXTREMITIES: No cyanosis, or edema. MUSCULOSKELETAL: Adequate muscle tone. NEUROLOGICAL: No obvious focal deficit. Awake, alert, and oriented x3. PSYCHIATRIC: Appropriate mood and affect; insight and judgment normal. Assessment/Plan Assessment 1. Mesenteric fibromatosis. She has had intermittent abdominal pain for last year and half. Since October the pain has become more constant and increased in intensity. CT showed a 6.5 cm mass. Biopsy showed fibromatosis. She underwent resection on January 21. Intraoperatively there was a large mass noted, it is very close to the duodenum but was able to be scraped off. The mass was grossly resected. 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 There was no necrosis or mitotic activity noted. The mass measured about 9 cm. There was infiltrative border noted but no invasion of the small intestinal wall noted. I had an extensive discussion with the patient regarding the diagnosis and management plan. I told her fibromatosis is generally considered a non malignant tumor. However, it has a high risk of recurrence. Since the tumor is grossly resected, no further adjuvant therapy has been shown to be beneficial. Due to the high recurrence rate I told her she need to be monitored closely. She is also going to need a colonoscopy given mesenteric fibromatosis could be associated with Mccoy syndrome or familial adenomatous polyposis. This however can be done as an outpatient. 2. Anemia consistent with iron deficiency. She has previously received Venofer infusion. Her hemoglobin trended lower due to recent surgery. She will need iron supplement. Hgb stable. Plan PLAN 1. Arrange followup at oncology clinic. 2. She will need iron supplement once she is able to tolerate an oral diet well. 3. Outpatient GI referral for colonoscopy. Tamir Torres MD January 27, 2017 16:49
[2017-01-27 20:01] VITALS: BP 110/71; PULSE 83; RESP 16; TEMP 98.7; O2SAT 98
[2017-01-27] MEDS: ENOXAPARIN SODIUM 30 MG/0.3 ML SYRINGE SQ SCH (20:52)
[2017-01-28] VITALS: BP 101/56; PULSE 85; RESP 17; TEMP 97.6; O2SAT 97
[2017-01-28] MEDS: KETOROLAC TROMETHAMINE 60 MG/2 ML (IM) VIAL IM SCH ×3 (00:07→12:00)
[2017-01-28] MEDS: oxyCODONE/ACETAMINOPHEN 7.5 MG/325 MG TAB PO PRN ×3 (02:35→10:32)
[2017-01-28] MEDS: METOCLOPRAMIDE HCL 10 MG/2 ML VIAL IV PUSH SCH ×2 (06:13→13:15)
[2017-01-28 07:41] VITALS: BP 97/56; PULSE 75; RESP 16; TEMP 98.3; O2SAT 97
[2017-01-28] MEDS: D5-NS + KCL 20 MEQ INJ 1,000 ML IV SCH ×2 (09:18→13:15)
[2017-01-28] MEDS: PANTOPRAZOLE SOD 40 MG DELAYED RELEASE TAB PO SCH (10:32)
[2017-01-28] MEDS: DOCUSATE SODIUM 100 MG CAP PO SCH (10:32)
[2017-01-28] MEDS: SODIUM CHLORIDE 0.9% FLUSH 10 ML FLUSH IV FLUSH SCH (10:33)
[2017-01-28] MEDS: PIPERACIL-TAZO 3.375 GM PREMIX 50 ML IV SCH (10:39)
[2017-01-28 12:06] VITALS: BP 101/66; PULSE 74; RESP 16; TEMP 97.9; O2SAT 97
[2017-01-28] MEDS ORDERED: OMEP40CA2 PO (12:15)
[2017-01-28] MEDS ORDERED: CEPH-460 PO (12:15)
[2017-01-28] MEDS ORDERED: ZOFR4TAB PO (12:15)
[2017-01-28] MEDS ORDERED: PERC7.5T13 PO (12:15)
--- NOTE | 2017-02-17 13:40 | HHI.DS ---
Discharge Summary Admission Date January 21, 2017 at 09:34 Discharge Date: January 28, 2017 Admitting Diagnosis Brief History 31 year old female s/p ex lap; removal of abdominal tumor and reversal of gastric bypass PE at Discharge Alert and awake Cardio: RRR Resp: CTAB Abd: incision healing well; open area with packing in place; HILARIO removed Hospital Course This is a 31 year old female s/p ex lap; removal of abdominal tumor and reversal of gastric bypass. The patient was able to tolerate a regular diet. Her pain was controlled using oral pain medications. Her pathology reports fibromatosis. Dr. Torres following. She was able to ambulate independently. Her was instructed on packing instructions. She will follow up with Dr. Alcocer in the office. Pt Condition on Discharge: Good Discharge Disposition: Discharge Home Discharge Instructions DIET: Follow Instructions for: As Tolerated, No Restrictions Activities you can perform: See Additionl Instruction Activities to Avoid: Strenuous Activity Other Activity Instructions: Okay to shower---patient intructed how to pack incision---change twice daily and as needed Avoid heavy pushing pulling and lifting Monique Toussaint Feb 17, 2017 13:40
== END 2017-01-28 15:26 | disposition home or self-care (01) | DRG 983 ==
LOC: HSDI 01-21 09:34 → N06A 01-21 19:10
PROVIDERS: ADMIT Surgery; ATTEND Surgery
PROC: 0DB60ZZ Excision of Stomach, Open Approach (ICD-10-PCS; 2017-01-21)
PROC: 0DBA0ZZ Excision of Jejunum, Open Approach (ICD-10-PCS; 2017-01-21)
PROC: 30233N1 Transfusion of Nonautologous Red Blood Cells into Peripheral Vein, Percutaneous Approach (ICD-10-PCS; 2017-01-21)
PROC: 0DBV0ZZ Excision of Mesentery, Open Approach (ICD-10-PCS; principal; 2017-01-21 11:36)
DX: D48.1 Neoplasm of uncertain behavior of connective and other soft tissue (principal); K76.89 Other specified diseases of liver; F32.9 Major depressive disorder, single episode, unspecified; E11.9 Type 2 diabetes mellitus without complications; D50.9 Iron deficiency anemia, unspecified; E28.2 Polycystic ovarian syndrome; K58.0 Irritable bowel syndrome with diarrhea; E66.9 Obesity, unspecified; F41.9 Anxiety disorder, unspecified; Z68.28 Body mass index [BMI] 28.0-28.9, adult; Z80.51 Family history of malignant neoplasm of kidney; Z80.6 Family history of leukemia; Z88.0 Allergy status to penicillin; Z88.6 Allergy status to analgesic agent; Z98.84 Bariatric surgery status
CPT/HCPCS: 36430; 74240; 80048; 82040; 84134; 85014; 85018; 85025; 85610; 85730; 86850; 86900; 86901; 86920; 88305; 88307; 88309; 94150; C9290; J0131; J1170; J1450; J1650; J1885; J2250; J2270; J2405; J2543; J2765; J3010; J3370; J3480; J7050; J7120; J8501; P9016; Q9963

== ENCOUNTER 2017-03-08 16:36 | Emergency (ER) | payer MEDICAID, OTHER ==
[~2017-03-08] VITALS: Ht 157.5 cm; Wt 62.1 kg
[~2017-03-08 16:36] MED LIST changes: +CEPH-460 PO; +OMEP40CA2 PO; -OXYC1TAB35 PO; +PERC7.5T13 PO; +ZOFR4TAB PO; -ZOFR4TAB3 SL
[2017-03-08 16:40] VITALS: BP 109/69; PULSE 81; RESP 16; TEMP 97.6; O2SAT 100
[2017-03-08] MEDS ORDERED: SODIUM CHLOR 0.9% 1000 ML INJ 1,000 ML IV SCH (17:21)
[2017-03-08] MEDS ORDERED: ONDANSETRON HCL 4 MG/2 ML VIAL IVP ONE (17:30)
[2017-03-08] MEDS ORDERED: MORPHINE SULFATE 8 MG/ML INJ IV PUSH ONE (17:30)
[2017-03-08] MEDS ORDERED: SODIUM CHLORIDE 0.9% FLUSH 10 ML FLUSH IV FLUSH PRN (17:30)
--- NOTE | 2017-03-08 17:31 | PD ---
HPI Chief Complaint: Abdominal Pain Time Seen by Provider: 16:58 Travel History International Travel<30 days: No Contact w/Intl Traveler<30days: No Traveled to known affect area: No History of Present Illness HPI 31 yo F w of GBP w subsequent ex-lap for adhesions, IBS, cholecystectomy, anxiety/depression, recurrently kidney stones, pancreatitis, full dentures, cochlear implants arrives complaining of 10/10 generalized abdominal pain intermittently x 1 week since pain medication and antibiotics were discontinued. Pt has history of abdominal surgery approx 5 weeks prior and had a mass removed from her abdomen by Dr Alcocer who the patient states advised her to come in to the ER. He, she states, has also been helping her with rescheduling a court [place]. + Subjective fever reported. Normal bowel movements. 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) High Cholesterol: No Chest Pain: No Congestive Heart Failure: No Diabetes: Yes Patient Takes Glucophage: No Endocrine: No Gastrointestinal Disorders: Yes (LIVER CYST, IBS) Genitourinary: Yes Hepatitis: No Hiatal Hernia: No Immune Disorder: No Kidney Stones: Yes Musculoskeletal: No Neurologic: No Psychiatric: Yes (ANXIETY DEPRESSION) Respiratory: No Pancreatitis: Yes Renal Failure: No Thyroid Disease: No ?: Not LMP: 03/03/2017 Tubal Ligation: Yes Past Surgical History Abdominal Surgery: Yes (GASTRIC BYPASS -2014, EXP LAP FOR ADHESIONS, DILEEP) AICD: No Body Medical Devices: CHOCLEAR IMPLANTS Cholecystectomy: Yes (WITH GALLSTONES POST DILEEP) Ear Surgery: Yes ( IMPLANTS) Genitourinary Surgery: Yes (KIDNEY STONES SURGERY AND LITHOTRIPSY) Gynecologic Surgery: Yes (TUBAL) Joint Replacement: No Pacemaker: No Other Surgery: Yes (explor lap for abd adhesions) Social History Alcohol Use: No Tobacco Use: No Substance Use: No Allergies-Medications (Allergen,Severity, Reaction): Coded Allergies: Morphine (Verified Allergy, Unknown, 03/08/17) Penicillin (Verified Allergy, Unknown, Hives, 03/08/17) Tylenol #3 (Verified Allergy, Unknown, Chest Pain, 03/08/17) Reported Meds & Prescriptions Reported Meds & Active Scripts Active Lortab (Hydrocodone-Acetaminophen) 5-325 Mg Tab 1-2 Tab PO Q6H PRN Zofran Odt (Ondansetron Odt) 4 Mg Tab 4 Mg SL Q8HR PRN Reported Omeprazole 40 Mg Cap 40 Mg PO DAILY Zofran (Ondansetron HCl) 4 Mg Tab 4 Mg PO Q6HR PRN Paul-Citrate Plus Vitamin D (Calcium Citrate-Vitamin D) 250-100 Mg-Unit Tab 1 Tab PO BID Review of Systems Except as stated in HPI: all other systems reviewed are Neg Physical Exam Narrative GENERAL: 31 yo F, WNWD, NAD, speaking full sentences, asleep when I enter the room SKIN: Warm and dry. HEAD: Atraumatic. Normocephalic. EYES: Pupils equal and round. No scleral icterus. No injection or drainage. ENT: No nasal bleeding or discharge. Mucous membranes pink and moist. NECK: Trachea midline. No JVD. CARDIOVASCULAR: Regular rate and rhythm. RESPIRATORY: No accessory muscle use. Clear to auscultation. Breath sounds equal bilaterally. GASTROINTESTINAL: Abdomen soft, non-tender, nondistended. Hepatic and splenic margins not palpable. MUSCULOSKELETAL: Soft. Generalized non-specific tenderness. Well healed surgical incision midline abdomen. NEUROLOGICAL: Awake and alert. No obvious cranial nerve deficits. Motor grossly within normal limits. Five out of 5 muscle strength in the arms and legs. Normal speech. Normal gait. PSYCHIATRIC: Appropriate mood and affect; insight and judgment normal. Data Data Last Documented VS Vital Signs Date Time Temp Pulse Resp B/P Pulse Ox O2 Delivery O2 Flow Rate FiO2 03/08/17 17:45 81 20 109/63 100 03/08/17 16:40 97.6 VS reviewed Orders Complete Blood Count With Diff (03/08/17 17:21) Comprehensive Metabolic Panel (03/08/17 17:21) Lipase (03/08/17 17:21) Urinalysis - C+S If Indicated (03/08/17 17:21) Ct Abd/Pel W Iv Contrast(Rout) (03/08/17 17:21) Iv Access Insert/Monitor (03/08/17 17:21) Ecg Monitoring (03/08/17 17:21) Oximetry (03/08/17 17:21) Ondansetron Inj (Zofran Inj) (03/08/17 17:30) Sodium Chlor 0.9% 1000 Ml Inj (Ns 1000 M (03/08/17 17:21) Sodium Chloride 0.9% Flush (Ns Flush) (03/08/17 17:30) Morphine Inj (Morphine Inj) (03/08/17 17:30) Ed Urine Pregnancytest Poc (03/08/17 17:21) Diphenhydramine Inj (Benadryl Inj) (03/08/17 18:00) Methylprednisolone So Succ Inj (Solumedr (03/08/17 18:00) Famotidine Inj (Pepcid Inj) (03/08/17 18:00) Iohexol 350 Inj (Omnipaque 350 Inj) (03/08/17 18:04) Labs Laboratory Tests Test 03/08/17 03/08/17 17:30 17:40 White Blood Count 5.0 TH/MM3 Red Blood Count 4.38 MIL/MM3 Hemoglobin 11.1 GM/DL Hematocrit 34.7 % Mean Corpuscular Volume 79.3 FL Mean Corpuscular Hemoglobin 25.4 PG Mean Corpuscular Hemoglobin 32.0 % Concent Red Cell Distribution Width 13.4 % Platelet Count 380 TH/MM3 Mean Platelet Volume 8.2 FL Neutrophils (%) (Auto) 58.9 % Lymphocytes (%) (Auto) 31.7 % Monocytes (%) (Auto) 5.3 % Eosinophils (%) (Auto) 3.4 % Basophils (%) (Auto) 0.7 % Neutrophils # (Auto) 2.9 TH/MM3 Lymphocytes # (Auto) 1.6 TH/MM3 Monocytes # (Auto) 0.3 TH/MM3 Eosinophils # (Auto) 0.2 TH/MM3 Basophils # (Auto) 0.0 TH/MM3 CBC Comment DIFF FINAL Differential Comment Sodium Level 141 MEQ/L Potassium Level 4.1 MEQ/L Chloride Level 107 MEQ/L Carbon Dioxide Level 27.1 MEQ/L Anion Gap 7 MEQ/L Blood Urea Nitrogen 6 MG/DL Creatinine 0.60 MG/DL Estimat Glomerular Filtration 117 ML/MIN Rate Random Glucose 97 MG/DL Calcium Level 8.9 MG/DL Total Bilirubin 0.2 MG/DL Aspartate Amino Transf 11 U/L (AST/SGOT) Alanine Aminotransferase 19 U/L (ALT/SGPT) Alkaline Phosphatase 64 U/L Total Protein 7.3 GM/DL Albumin 3.7 GM/DL Lipase 115 U/L Urine Color YELLOW Urine Turbidity CLEAR Urine pH 7.5 Urine Specific [place] 1.015 Urine Protein NEG mg/dL Urine Glucose (UA) NEG mg/dL Urine Ketones NEG mg/dL Urine Occult Blood TRACE Urine Nitrite NEG Urine Bilirubin NEG Urine Leukocyte Esterase NEG Urine RBC 0-3 /hpf Urine WBC 0-2 /hpf Urine Squamous Epithelial 0-5 /hpf Cells Microscopic Urinalysis Comment CULT NOT INDICATED MDM Medical Decision Making Medical Screen Exam Complete: Yes Emergency Medical Condition: Yes Differential Diagnosis Constipation, Gastritis, Acute Cholecystitis, Biliary Colic, Pancreatitis, BROWN , Hepatitis, Bowel Obstruction, Cystitis, Mesenteric Ischemia, AAA, Appendicitis , Renal Stone/Hydronephrosis, GERD, perforated viscous Narrative Course CBC & BMP Diagram 03/08/17 17:30 LFTs normal Lipase normal UA normal CT ab/pel: Pt had an allergic reaction to morphine with erythema along the RUE proximal to IV. Excellent response to Benadryl and Pepcid upon reassessment at 625pm prior to discharge. The patient is resting comfortably and feels better, is alert and in no distress. The patients results and examination findings were discussed. The repeat examination is unremarkable and benign. The history, exam, diagnostic testing, and current condition do not suggest any significant pathology to warrant further testing, continued ED treatment, admission, or surgical evaluation at this point. The vital signs have been stable. The patient does not have uncontrollable pain, intractable vomiting, or other significant symptoms. The patient's condition is stable and appropriate for discharge. The patient will pursue further outpatient evaluation with a primary care physician or other designated or consulting physician as indicated in the discharge instructions. The patient expressed understanding and was agreeable with this plan. Diagnosis Primary Impression: Abdominal pain Qualified Code: R10.9 - Abdominal pain, unspecified location Additional Impression: Allergic reaction caused by a drug Qualified Code: T78.40XA - Allergic reaction caused by a drug, initial encounter Referrals: Edwar Alcocer MD 2 days Additional Instructions: You have a choice when it comes to health care, and we are glad that you chose [facility]. Hopefully, we have met your expectations on today's visit. You are welcome to return to [facility] at any time, as we are committed to meeting the health care needs of our community. Med/Other Pt SpecificInfo: Prescription(s) given Scripts Hydrocodone-Acetaminophen (Lortab)5-325 Mg Tab1-2 Tab PO Q6H PRN (PAIN SCALE 6 TO 10) #12 TAB Ref 0 Prov:Reggie Eldridge MD 03/08/17 Ondansetron Odt (Zofran Odt)4 Mg Tab4 Mg SL Q8HR PRN (Nausea/Vomiting) #10 TAB Ref 0 Prov:Reggie Eldridge MD 03/08/17 Disposition: 01 DISCHARGE HOME Condition: Stable Reggie Eldridge MD Mar 08, 2017 17:31
[2017-03-08 17:35] VITALS: O2SAT 96
[2017-03-08 17:37] LABS: AUTOMATED NEUTROPHIL # 2.9 TH/MM3 (1.8-7.7); BASOPHIL % 0.7 % (0.0-2.0); EOSINOPHIL # 0.2 TH/MM3 (0-0.4); EOSINOPHIL % 3.4 % (0.0-4.0); HEMATOCRIT 34.7 % (35.0-46.0); HEMO FLAGS DIFF FINAL; LYMPH % 31.7 % (9.0-44.0); LYMPHOCYTE # 1.6 TH/MM3 (1.0-4.8); MEAN CELL VOLUME 79.3 FL (80.0-100.0); MEAN CORPUSCULAR HEMOGLOBIN 25.4 PG (27.0-34.0); MONO % 5.3 % (0.0-8.0); NEUT % 58.9 % (16.0-70.0); PLATELET COUNT 380 TH/MM3 (150-450); RED BLOOD COUNT 4.38 MIL/MM3 (4.00-5.30); RED CELL DISTRIBUTION WIDTH 13.4 % (11.6-17.2)
[2017-03-08 17:45] VITALS: BP 109/63; PULSE 81; RESP 20; O2SAT 100
[2017-03-08 17:46] LABS: CHLORIDE 107 MEQ/L (98-107); POTASSIUM 4.1 MEQ/L (3.5-5.1); SODIUM (NA) 141 MEQ/L (136-145)
[2017-03-08 17:50] LABS: ANION GAP 7 MEQ/L (5-15); BICARBONATE 27.1 MEQ/L (21.0-32.0); BLOOD UREA NITROGEN 6 MG/DL (7-18)
[2017-03-08 17:50] LABS: BLOOD, URINE TRACE (NEG); GLUCOSE,URINE NEG (NEG); KETONE, URINE NEG (NEG); NITRITE,URINE NEG (NEG); PH, URINE 7.5 (5.0-8.5)
[2017-03-08 17:53] LABS: ALT (GPT) 19 U/L (10-53); AST (GOT) 11 U/L (15-37); GLOMERULAR FILTRATION RATE 117 ML/MIN (>89)
[2017-03-08 17:54] LABS: TOTAL BILIRUBIN ADULT 0.2 MG/DL (0.2-1.0)
[2017-03-08 17:55] LABS: ALKALINE PHOSPHATASE 64 U/L (45-117)
[2017-03-08 17:55] LABS: URINE COLOR YELLOW (YELLW/STRAW)
[2017-03-08 17:58] LABS: COMMENT (UR) CULT NOT INDICATED; CULTURE IF INDICATED CULT NOT INDICATED; RBC, URINE 0-3 /hpf (0-3); SQUAMOUS EPITHELIAL CELL URINE 0-5 /hpf (0-5); WBC, URINE 0-2 /hpf (0-5)
[2017-03-08] MEDS ORDERED: methylPREDNISolone SOD SUCC 125 MG/2 ML VIAL IVP ONE (18:00)
[2017-03-08] MEDS ORDERED: FAMOTIDINE 20 MG/2 ML VIAL IV PUSH ONE (18:00)
[2017-03-08] MEDS ORDERED: diphenhydrAMINE HCL 50 MG/ML VIAL IV PUSH ONE (18:00)
[2017-03-08] MEDS ORDERED: IOHEXOL 350 MG/ML 10 ML VIAL (for RAD DIAG) IV ONE (18:04)
--- NOTE | 2017-03-08 18:16 | RADRPT ---
EXAM DATE/TIME: 03/08/2017 17:51 [facility] COMPARISON: CT ABDOMEN & PELVIS W CONTRAST, January 09, 2017, 18:44. INDICATIONS : Intermittent abdominal pain with nausea and vomiting for one week. Recently had mass removed from ab ruiz one month ago. IV CONTRAST: 70 cc Omnipaque 350 (iohexol) IV ORAL CONTRAST: No oral contrast ingested. RADIATION DOSE: 6.64 CTDIvol (mGy) MEDICAL HISTORY : Pancreatitis. Renal calculi. SURGICAL HISTORY : Cholecystectomy. Gastric bypass. Tubal ligation.Cochlear implant. ENCOUNTER: Initial ACUITY: 1 week PAIN SCALE: 6/10 LOCATION: upper quadrant abdomen TECHNIQUE: Volumetric scanning of the abdomen and pelvis was performed. Using automated exposure control and ad justment of the mA and/or kV according to patient size, radiation dose was kept as low as reasonably achievable to obtain optimal diagnostic quality images. DICOM format image data is available electro nically for review and comparison. FINDINGS: LOWER LUNGS: There is a calcified granuloma in the medial right lung base. LIVER: Homogeneous density without lesion. There is no dilation of the biliary tree. The patient is status post cholecystectomy with clips seen in the right upper quadrant. SPLEEN: Normal size without lesion. PANCREAS: Within normal limits. KIDNEYS: Small less than 3 mm nonobstructing renal stones are seen in the superior collecting systems bilatera lly. No hydronephrosis is seen. No renal masses. ADRENAL GLANDS: Within normal limits. VASCULAR: There is no aortic aneurysm. BOWEL/MESENTERY: The patient is status post gastric bypass procedure. There was a 6 cm mass in the left upper quadrant on the prior exam which apparently has been removed. No mass is seen at this time. ABDOMINAL WALL: There is postoperative change in the midline from prior surgery. RETROPERITONEUM: There is no lymphadenopathy. BLADDER: No wall thickening or mass. REPRODUCTIVE: Within normal limits. Phleboliths are seen in the pelvis. INGUINAL: There is no lymphadenopathy or hernia. MUSCULOSKELETAL: Within normal limits for patient age. CONCLUSION: 1. No acute abnormality seen. 2. Nonobstructing small renal stones. 3. The previously seen 6 cm mass in the left upper quadrant is no longer present. 4. The patient is status post cholecystectomy and gastric bypass procedure. Gustavo Henriquez MD on March 08, 2017 at 18:08 Board Certified Radiologist. This report was verified electronically.
[2017-03-08] MEDS ORDERED: ZOFR4TAB3 SL (18:21)
[2017-03-08] MEDS ORDERED: HYDR-3533 PO (18:24)
[2017-03-08 18:33] VITALS: BP 98/52
== END 2017-03-08 18:38 | disposition home or self-care (01) ==
LOC: PHED 16:36
DX: R10.84 Generalized abdominal pain (principal); T40.2X5A Adverse effect of other opioids, initial encounter; L53.9 Erythematous condition, unspecified; Y92.9 Unspecified place or not applicable; I49.1 Atrial premature depolarization; Z87.442 Personal history of urinary calculi; Z98.84 Bariatric surgery status
CPT/HCPCS: 74177; 80053; 81001; 83690; 84703; 85025; 96361; 96374; 96375; 99285; J1200; J2270; J2405; J2930; J7030; Q9967

== ENCOUNTER 2017-03-12 22:22 | Emergency (ER) | payer MEDICAID ==
[~2017-03-12 22:22] MED LIST changes: -CEPH-460 PO; -CYAN100016 PO; +HYDR-3533 PO; -MULT-136 PO; -PERC7.5T13 PO; +ZOFR4TAB3 SL
[2017-03-12 22:43] VITALS: BP 106/72; PULSE 109; RESP 20; TEMP 98.2; O2SAT 100
[2017-03-12] MEDS ORDERED: SODIUM CHLOR 0.9% 1000 ML INJ 1,000 ML IV SCH (23:46)
--- NOTE | 2017-03-12 23:51 | PD ---
HPI Chief Complaint: Abdominal Pain Time Seen by Provider: 23:46 Travel History International Travel<30 days: No Contact w/Intl Traveler<30days: No Traveled to known affect area: No History of Present Illness HPI The patient is a 31-year-old female that complains of nausea and vomiting for one week. She states she is not able get down even clear liquids. The patient also today manifested a fever 101.6. She had diarrhea last night. She does feel dehydrated. Recently she was operated on for abdominal mass by Dr. Alcocer. She denies any cough or shortness of breath. Her pain is mostly midline epigastrium and radiates to the left back near the scapula. She does have a history of pancreatitis, the etiology is undetermined on this she has never been an alcohol abuser. In January of this year Dr. Alcocer did an exploratory laparotomy and reversed the patient's [place]-en-Y gastric bypass. 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 Dr. 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 The patient has been on fairly high doses of pain medications and has been taken off of these high doses. The patient may be experiencing some narcotic withdrawal. She has no Percocet at home now she states. PFSH Past Medical History Hx Anticoagulant Therapy: No Anemia: Yes Anxiety: Yes Depression: Yes Heart Rhythm Problems: No Cancer: Yes (? 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) High Cholesterol: No Chest Pain: No Congestive Heart Failure: No Diabetes: Yes (NO MEDS) Patient Takes Glucophage: No Endocrine: No Gastrointestinal Disorders: Yes (LIVER CYST, IBS, January: PANCREATIC DUCT TUMOR REMOVED) GERD: Yes Genitourinary: Yes Hepatitis: No Hiatal Hernia: No Immune Disorder: No Kidney Stones: Yes Musculoskeletal: No Neurologic: No Psychiatric: Yes (ANXIETY DEPRESSION) Respiratory: No Pancreatitis: Yes Renal Failure: No Thyroid Disease: No Influenza Vaccination: No ?: Not LMP: 02/24/17 : 2 Para: 2 Tubal Ligation: Yes Past Surgical History Abdominal Surgery: Yes (GASTRIC BYPASS -2014, EXP LAP FOR ADHESIONS, DILEEP) AICD: No Body Medical Devices: CHOCLEAR IMPLANTS Cholecystectomy: Yes (WITH GALLSTONES POST DILEEP) Ear Surgery: Yes ( IMPLANTS) Genitourinary Surgery: Yes (KIDNEY STONES SURGERY AND LITHOTRIPSY) Gynecologic Surgery: Yes (TUBAL) Joint Replacement: No Pacemaker: No Other Surgery: Yes (explor lap for abd adhesions) Social History Alcohol Use: No Tobacco Use: No Substance Use: No Allergies-Medications (Allergen,Severity, Reaction): Coded Allergies: Morphine (Verified Allergy, Unknown, 03/12/17) Penicillin (Verified Allergy, Unknown, Hives, 03/12/17) Tylenol #3 (Verified Allergy, Unknown, Chest Pain, 03/12/17) Reported Meds & Prescriptions Reported Meds & Active Scripts Active Zofran Odt (Ondansetron Odt) 4 Mg Tab 4 Mg SL Q8HR PRN Reported Zofran (Ondansetron HCl) 4 Mg Tab 4 Mg PO Q6HR PRN Review of Systems Except as stated in HPI: all other systems reviewed are Neg Physical Exam Narrative GENERAL: The patient appears moderately dehydrated, alert, oriented 3 and moderate apparent distress with her epigastric pain. Her vital signs show heart rate of 109 but otherwise normal. SKIN: Focused skin assessment warm/dry. HEAD: Atraumatic. Normocephalic. EYES: Pupils equal and round. No scleral icterus. No injection or drainage. ENT: No nasal bleeding or discharge. Mucous membranes pink and moist. NECK: Trachea midline. No JVD. CARDIOVASCULAR: Regular rate and rhythm. No murmur appreciated. RESPIRATORY: No accessory muscle use. Clear to auscultation. Breath sounds equal bilaterally. GASTROINTESTINAL: Abdomen soft, with tenderness to direct palpation in the midline epigastrium, nondistended. Hepatic and splenic margins not palpable. No guarding or rebound is present. MUSCULOSKELETAL: No obvious deformities. No clubbing. No cyanosis. No edema. NEUROLOGICAL: Awake and alert. No obvious cranial nerve deficits. Motor grossly within normal limits. Normal speech. PSYCHIATRIC: Appropriate mood and affect; insight and judgment normal. Data Data Last Documented VS Vital Signs Date Time Temp Pulse Resp B/P Pulse Ox O2 Delivery O2 Flow Rate FiO2 03/13/17 02:46 97.8 77 16 107/71 100 Room Air Orders Complete Blood Count With Diff (03/12/17 23:46) Comprehensive Metabolic Panel (03/12/17 23:46) Lipase (03/12/17 23:46) Lactic Acid (03/12/17 23:46) Urinalysis - C+S If Indicated (03/12/17 23:46) Iv Access Insert/Monitor (03/12/17 23:46) Ecg Monitoring (03/12/17 23:46) Oximetry (03/12/17 23:46) Ondansetron Inj (Zofran Inj) (03/13/17 00:00) Sodium Chlor 0.9% 1000 Ml Inj (Ns 1000 M (03/12/17 23:46) Sodium Chloride 0.9% Flush (Ns Flush) (03/13/17 00:00) Sodium Chlor 0.9% 1000 Ml Inj (Ns 1000 M (03/13/17 00:00) Oral Contrast - Adult (03/12/17 23:51) Hydromorphone Pf Inj (Dilaudid Pf Inj) (03/13/17 00:00) Diatrizoate Liq ( Gastroview Liq) (03/13/17 00:02) Ondansetron Inj (Zofran Inj) (03/13/17 01:15) Hydromorphone Pf Inj (Dilaudid Pf Inj) (03/13/17 01:15) Ct Abd/Pel W Iv Contrast(Rout) (03/13/17 ) Iohexol 350 Inj (Omnipaque 350 Inj) (03/13/17 02:11) Labs Laboratory Tests Test 03/12/17 03/12/17 23:30 23:55 White Blood Count 7.7 TH/MM3 Red Blood Count 4.62 MIL/MM3 Hemoglobin 11.8 GM/DL Hematocrit 36.8 % Mean Corpuscular Volume 79.6 FL Mean Corpuscular Hemoglobin 25.5 PG Mean Corpuscular Hemoglobin 32.1 % Concent Red Cell Distribution Width 13.3 % Platelet Count 390 TH/MM3 Mean Platelet Volume 8.6 FL Neutrophils (%) (Auto) 59.9 % Lymphocytes (%) (Auto) 30.0 % Monocytes (%) (Auto) 5.8 % Eosinophils (%) (Auto) 3.8 % Basophils (%) (Auto) 0.5 % Neutrophils # (Auto) 4.7 TH/MM3 Lymphocytes # (Auto) 2.3 TH/MM3 Monocytes # (Auto) 0.4 TH/MM3 Eosinophils # (Auto) 0.3 TH/MM3 Basophils # (Auto) 0.0 TH/MM3 CBC Comment DIFF FINAL Differential Comment Sodium Level 143 MEQ/L Potassium Level 3.7 MEQ/L Chloride Level 108 MEQ/L Carbon Dioxide Level 24.5 MEQ/L Anion Gap 11 MEQ/L Blood Urea Nitrogen 9 MG/DL Creatinine 0.63 MG/DL Estimat Glomerular Filtration 111 ML/MIN Rate Random Glucose 82 MG/DL Calcium Level 8.9 MG/DL Total Bilirubin 0.2 MG/DL Aspartate Amino Transf 14 U/L (AST/SGOT) Alanine Aminotransferase 19 U/L (ALT/SGPT) Alkaline Phosphatase 67 U/L Total Protein 7.5 GM/DL Albumin 3.7 GM/DL Lipase 202 U/L Urine Color YELLOW Urine Turbidity CLEAR Urine pH 7.0 Urine Specific [place] 1.022 Urine Protein NEG mg/dL Urine Glucose (UA) NEG mg/dL Urine Ketones NEG mg/dL Urine Occult Blood NEG Urine Nitrite NEG Urine Bilirubin NEG Urine Leukocyte Esterase NEG Urine RBC 0-3 /hpf Urine WBC 3-5 /hpf Urine Squamous Epithelial 6-8 /hpf Cells Microscopic Urinalysis Comment CULT NOT INDICATED Lactic Acid Level 1.5 mmol/L MDM Medical Decision Making Medical Screen Exam Complete: Yes Emergency Medical Condition: Yes Medical Record Reviewed: Yes Interpretation(s) The CBC is normal. The complete metabolic profile is normal. The lipase is normal. Lactic acid is normal. The urinalysis is normal and culture is not indicated. The CT abdomen/pelvis with IV contrast is essentially normal. The appendix is normal and bowel gas pattern is unremarkable. Differential Diagnosis Small bowel obstruction, narcotic withdrawal, dehydration, electrolyte imbalance , ileus Narrative Course The patient may have some narcotic withdrawal symptoms. She will be given Compazine and Percocet 5. She should he stop the Percocet so that she takes as few as possible. She is to follow-up as soon as possible with Dr. Alcocer. Diagnosis Primary Impression: Abdominal pain Additional Impression: Nausea vomiting and diarrhea Med/Other Pt SpecificInfo: Prescription(s) given Scripts Oxycodone-Acetaminophen (Percocet)5-325 mg Tab1 Tab PO Q6H PRN (PAIN) #20 TAB Ref 0 Prov:Vijay Delatorre MD 03/13/17 Prochlorperazine Maleate 10 Mg Tab10 Mg PO Q4H PRN (NAUSEA OR VOMITING) #30 TAB Ref 0 Prov:Vijay Delatorre MD 03/13/17 Disposition: 01 DISCHARGE HOME Condition: Stable Vijay Delatorre MD Mar 12, 2017 23:51
[2017-03-13] MEDS ORDERED: HYDROmorphone HCL PF 1 MG/ML VIAL IV PUSH ONE
[2017-03-13] MEDS ORDERED: SODIUM CHLORIDE 0.9% FLUSH 10 ML FLUSH IV FLUSH PRN
[2017-03-13] MEDS ORDERED: ONDANSETRON HCL 4 MG/2 ML VIAL IVP ONE
[2017-03-13] MEDS ORDERED: DIATRIZOATE MEGLUM/DIATRIZOATE SOD 9 ML CUP ONE (00:02)
[2017-03-13 00:07] LABS: AUTOMATED NEUTROPHIL # 4.7 TH/MM3 (1.8-7.7); BASOPHIL % 0.5 % (0.0-2.0); EOSINOPHIL # 0.3 TH/MM3 (0-0.4); EOSINOPHIL % 3.8 % (0.0-4.0); HEMATOCRIT 36.8 % (35.0-46.0); HEMO FLAGS DIFF FINAL; LYMPHOCYTE # 2.3 TH/MM3 (1.0-4.8); MEAN CELL VOLUME 79.6 FL (80.0-100.0); MEAN CORPUSCULAR HEMOGLOBIN 25.5 PG (27.0-34.0); MEAN CORPUSCULAR HGB CONC 32.1 % (32.0-36.0); MONO % 5.8 % (0.0-8.0); NEUT % 59.9 % (16.0-70.0); PLATELET COUNT 390 TH/MM3 (150-450); RED BLOOD COUNT 4.62 MIL/MM3 (4.00-5.30); RED CELL DISTRIBUTION WIDTH 13.3 % (11.6-17.2); WHITE BLOOD COUNT 7.7 TH/MM3 (4.0-11.0)
[2017-03-13] MEDS: SODIUM CHLOR 0.9% 1000 ML INJ 1,000 ML IV SCH ×2 (00:10→01:16)
[2017-03-13 00:15] LABS: CHLORIDE 108 MEQ/L (98-107); POTASSIUM 3.7 MEQ/L (3.5-5.1); SODIUM (NA) 143 MEQ/L (136-145)
[2017-03-13 00:18] LABS: ANION GAP 11 MEQ/L (5-15); BICARBONATE 24.5 MEQ/L (21.0-32.0); BLOOD UREA NITROGEN 9 MG/DL (7-18)
[2017-03-13 00:21] LABS: ALT (GPT) 19 U/L (10-53); AST (GOT) 14 U/L (15-37); GLOMERULAR FILTRATION RATE 111 ML/MIN (>89)
[2017-03-13 00:22] LABS: TOTAL BILIRUBIN ADULT 0.2 MG/DL (0.2-1.0)
[2017-03-13 00:24] LABS: ALKALINE PHOSPHATASE 67 U/L (45-117)
[2017-03-13 00:29] LABS: BLOOD, URINE NEG (NEG); GLUCOSE,URINE NEG (NEG); KETONE, URINE NEG (NEG); NITRITE,URINE NEG (NEG)
[2017-03-13 00:40] LABS: URINE COLOR YELLOW (YELLW/STRAW)
[2017-03-13 00:41] LABS: COMMENT (UR) CULT NOT INDICATED; CULTURE IF INDICATED CULT NOT INDICATED; RBC, URINE 0-3 /hpf (0-3)
[2017-03-13 01:07] VITALS: BP 121/80; PULSE 85; RESP 16; O2SAT 100
[2017-03-13] MEDS ORDERED: ONDANSETRON HCL 4 MG/2 ML VIAL IV ONE (01:15)
[2017-03-13] MEDS ORDERED: HYDROmorphone HCL PF 1 MG/ML VIAL IVP ONE (01:15)
[2017-03-13] MEDS ORDERED: IOHEXOL 350 MG/ML 10 ML VIAL (for RAD DIAG) IV ONE (02:11)
--- NOTE | 2017-03-13 02:26 | RADRPT ---
EXAM DATE/TIME: 03/13/2017 01:58 [facility] COMPARISON: No previous studies available for comparison. INDICATIONS : Abdomen pain with nause and vomiting. IV CONTRAST: 95 cc Omnipaque 350 (iohexol) IV ORAL CONTRAST: Prescribed oral contrast ingested. RADIATION DOSE: 7.68 CTDIvol (mGy) MEDICAL HISTORY : Gastroesophageal reflux disease. Pancreatitis. Renal calculi. SURGICAL HISTORY : Gastric bypass. Cholecystectomy.Tubal ligation. ENCOUNTER: Initial ACUITY: 3 days PAIN SCALE: 10/10 LOCATION: Bilateral abdomen TECHNIQUE: Volumetric scanning of the abdomen and pelvis was performed. Using automated exposure control and ad justment of the mA and/or kV according to patient size, radiation dose was kept as low as reasonably achievable to obtain optimal diagnostic quality images. DICOM format image data is available electro nically for review and comparison. FINDINGS: LOWER LUNGS: The visualized lower lungs are clear. LIVER: Homogeneous density without lesion. There is no dilation of the biliary tree. Status post cholecyste ctomy. SPLEEN: Normal size without lesion. PANCREAS: Within normal limits. KIDNEYS: Normal in size and shape. There is no mass, stone or hydronephrosis. ADRENAL GLANDS: Within normal limits. VASCULAR: There is no aortic aneurysm. BOWEL/MESENTERY: Postoperative change to the stomach . The stomach, small bowel, and colon demonstrate no acute abnor mality. There is no free intraperitoneal air or fluid. ABDOMINAL WALL: Within normal limits. Previous midline abdominal surgery. RETROPERITONEUM: There is no lymphadenopathy. BLADDER: No wall thickening or mass. REPRODUCTIVE: Within normal limits. Clitoral ring INGUINAL: There is no lymphadenopathy or hernia. MUSCULOSKELETAL: Within normal limits for patient age. CONCLUSION: Normal examination. Status post cholecystectomy. Previous gastric surgery. The appendix is normal. Th e bowel gas pattern is unremarkable Micheal Esteves MD on March 13, 2017 at 2:21 Board Certified Radiologist. This report was verified electronically.
[2017-03-13 02:46] VITALS: BP 107/71; PULSE 77; RESP 16; TEMP 97.8; O2SAT 100
[2017-03-13] MEDS ORDERED: PERC5TAB12 PO (03:21)
[2017-03-13] MEDS ORDERED: PROC10TA PO (03:21)
== END 2017-03-13 03:36 | disposition home or self-care (01) ==
LOC: PHED 22:22
DX: R10.9 Unspecified abdominal pain (principal); R19.7 Diarrhea, unspecified; R11.2 Nausea with vomiting, unspecified; K85.90 Acute pancreatitis without necrosis or infection, unspecified; F41.8 Other specified anxiety disorders; E11.9 Type 2 diabetes mellitus without complications; Z90.49 Acquired absence of other specified parts of digestive tract; D48.1 Neoplasm of uncertain behavior of connective and other soft tissue; Z98.890 Other specified postprocedural states
CPT/HCPCS: 74177; 80053; 81001; 83605; 83690; 85025; 96361; 96374; 96375; 96376; 99285; J1170; J2405; J7030; Q9963; Q9967

== ENCOUNTER 2017-03-21 03:15 | Day surgery (SDC) | payer MEDICAID ==
[~2017-03-21] VITALS: Ht 162.6 cm; Wt 60.0 kg
[~2017-03-21 03:15] MED LIST changes: -CAL-TAB4 PO; -HYDR-3533 PO; -OMEP40CA2 PO; +PERC5TAB12 PO; +PROC10TA PO
[2017-03-21 03:27] VITALS: BP 108/64; PULSE 95; RESP 20; TEMP 98.2; O2SAT 100
--- NOTE | 2017-03-21 03:58 | PD ---
HPI Chief Complaint: GI Complaint Time Seen by Provider: 03:58 Travel History International Travel<30 days: No Contact w/Intl Traveler<30days: No Traveled to known affect area: No History of Present Illness HPI 31-year-old female came to the emergency room brought in by EMS for abdominal pain, vomiting and some blood in the vomitus. Patient says that she had an abdominal surgery done 6 weeks ago in this hospital by Dr. Alcocer. Her gastric bypass was reversed at that time. The surgery showed lots of scar tissue in her abdomen and this was sent for pathology. 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 Patient is seeing Dr. Gray for oncology regarding the fibromatosis. Meanwhile she says that her abdominal pain never really went away after the surgery. She was here about 10 days ago for the abdominal pain. Today she suddenly woke up with severe pain and vomited and noticed that there was some blood in her vomitus. Vital signs are stable. PFSH Past Medical History Narrative Medical List of her past medical, surgical, social and family history is reviewed from the nursing note. Hx Anticoagulant Therapy: No Anemia: Yes Anxiety: Yes Depression: Yes Heart Rhythm Problems: No Cancer: Yes (? 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) High Cholesterol: No Chest Pain: No Congestive Heart Failure: No Diabetes: Yes (NO MEDS) Patient Takes Glucophage: No Endocrine: No Gastrointestinal Disorders: Yes (LIVER CYST, IBS, January: PANCREATIC DUCT TUMOR REMOVED) GERD: Yes Genitourinary: Yes Hepatitis: No Hiatal Hernia: No Immune Disorder: No Kidney Stones: Yes Musculoskeletal: No Neurologic: No Psychiatric: Yes (ANXIETY DEPRESSION) Respiratory: No Pancreatitis: Yes Renal Failure: No Thyroid Disease: No Tetanus Vaccination: < 5 Years ?: Not : 2 Para: 2 Tubal Ligation: Yes Past Surgical History Abdominal Surgery: Yes (GASTRIC BYPASS -2015, EXP LAP FOR ADHESIONS, DILEEP) AICD: No Body Medical Devices: CHOCLEAR IMPLANTS Cholecystectomy: Yes (WITH GALLSTONES POST DILEEP) Ear Surgery: Yes ( IMPLANTS) Genitourinary Surgery: Yes (KIDNEY STONES SURGERY AND LITHOTRIPSY) Gynecologic Surgery: Yes (TUBAL) Joint Replacement: No Pacemaker: No Other Surgery: Yes (explor lap for abd adhesions) Social History Alcohol Use: No Tobacco Use: No Substance Use: No Allergies-Medications (Allergen,Severity, Reaction): Coded Allergies: Morphine (Verified Allergy, Unknown, 03/21/17) Penicillin (Verified Allergy, Unknown, Hives, 03/21/17) Tylenol #3 (Verified Allergy, Unknown, Chest Pain, 03/21/17) Comments List of her allergies reviewed from the nursing note. Reported Meds & Prescriptions Reported Meds & Active Scripts Active Zofran (Ondansetron HCl) 4 Mg Tab 4 Mg PO Q6HR PRN Carafate (Sucralfate) 1 Gm Tab 1 Gm PO TID On empty stomach Protonix (Pantoprazole Sodium) 40 Mg Tab 40 Mg PO DAILY Prochlorperazine Maleate 10 Mg Tab 10 Mg PO Q4H PRN Narrative Medication List of her home medications reviewed from the nursing note. Review of Systems Except as stated in HPI: all other systems reviewed are Neg Physical Exam Narrative GENERAL: Awake, alert, mild distress SKIN: Focused skin assessment warm/dry. HEAD: Atraumatic. Normocephalic. EYES: Pupils equal and round. No scleral icterus. No injection or drainage. ENT: No nasal bleeding or discharge. Mucous membranes pink and moist. NECK: Trachea midline. No JVD. CARDIOVASCULAR: Regular rate and rhythm. No murmur appreciated. RESPIRATORY: No accessory muscle use. Clear to auscultation. Breath sounds equal bilaterally. GASTROINTESTINAL: Abdomen soft, non-tender, nondistended. Hepatic and splenic margins not palpable. MUSCULOSKELETAL: No obvious deformities. No clubbing. No cyanosis. No edema. NEUROLOGICAL: Awake and alert. No obvious cranial nerve deficits. Motor grossly within normal limits. Normal speech. PSYCHIATRIC: Appropriate mood and affect; insight and judgment normal. Data Data Last Documented VS Vital Signs Date Time Temp Pulse Resp B/P Pulse Ox O2 Delivery O2 Flow Rate FiO2 03/21/17 09:24 97.7 68 16 103/69 99 Room Air Orders Complete Blood Count With Diff (03/21/17 04:10) Comprehensive Metabolic Panel (03/21/17 04:10) Iv Access Insert/Monitor (03/21/17 04:10) Ecg Monitoring (03/21/17 04:10) Oximetry (03/21/17 04:10) Ondansetron Inj (Zofran Inj) (03/21/17 04:15) Pantoprazole Inj (Protonix Inj) (03/21/17 04:15) Sodium Chlor 0.9% 1000 Ml Inj (Ns 1000 M (03/21/17 04:10) Sodium Chloride 0.9% Flush (Ns Flush) (03/21/17 04:15) Ketorolac Inj (Toradol Inj) (03/21/17 04:15) Lipase (03/21/17 05:48) Upper Gi Series With Kub Database Management System Specialist (03/21/17 ) Hydromorphone Pf Inj (Dilaudid Pf Inj) (03/21/17 08:00) Admit Order (Ed Use Only) (03/21/17 10:13) Labs Laboratory Tests Test 03/21/17 05:10 White Blood Count 6.7 TH/MM3 Red Blood Count 4.41 MIL/MM3 Hemoglobin 11.5 GM/DL Hematocrit 34.8 % Mean Corpuscular Volume 79.0 FL Mean Corpuscular Hemoglobin 26.1 PG Mean Corpuscular Hemoglobin 33.0 % Concent Red Cell Distribution Width 14.1 % Platelet Count 332 TH/MM3 Mean Platelet Volume 9.4 FL Neutrophils (%) (Auto) 46.4 % Lymphocytes (%) (Auto) 41.0 % Monocytes (%) (Auto) 8.9 % Eosinophils (%) (Auto) 3.2 % Basophils (%) (Auto) 0.5 % Neutrophils # (Auto) 3.1 TH/MM3 Lymphocytes # (Auto) 2.7 TH/MM3 Monocytes # (Auto) 0.6 TH/MM3 Eosinophils # (Auto) 0.2 TH/MM3 Basophils # (Auto) 0.0 TH/MM3 CBC Comment DIFF FINAL Differential Comment Sodium Level 140 MEQ/L Potassium Level 3.6 MEQ/L Chloride Level 109 MEQ/L Carbon Dioxide Level 22.7 MEQ/L Anion Gap 8 MEQ/L Blood Urea Nitrogen 9 MG/DL Creatinine 0.60 MG/DL Estimat Glomerular Filtration 117 ML/MIN Rate Random Glucose 88 MG/DL Calcium Level 8.4 MG/DL Total Bilirubin 0.2 MG/DL Aspartate Amino Transf 11 U/L (AST/SGOT) Alanine Aminotransferase 14 U/L (ALT/SGPT) Alkaline Phosphatase 63 U/L Total Protein 7.0 GM/DL Albumin 3.6 GM/DL Lipase 171 U/L [facility] Medical Decision Making Medical Screen Exam Complete: Yes Emergency Medical Condition: Yes Medical Record Reviewed: Yes Differential Diagnosis Gastritis, chronic abdominal pain, postsurgical pain, abdominal pain NOS Narrative Course 6:47 AM patient was given IV Protonix and IV Toradol. She told the nurse that the Toradol has not helped with her pain at all. Blood test results of back and all within normal limit. Given the fact that patient had 2 CAT scans in relatively short amount of time I hesitate to ordered another CAT scan. I discussed the case with Dr. Alcocer who agreed and wanted an upper GI series which has been ordered. I was told that the radiologist does not come into 9 AM and hence the test will not be done until then. Case will be signed over to the oncoming ER physician. Procedures EKG Prior to Arrival: No Scripts Ondansetron (Zofran)4 Mg Tab4 Mg PO Q6HR PRN (NAUSEA OR VOMITING) #15 TAB Ref 2 Prov:Monique Toussaint 03/21/17 Sucralfate (Carafate)1 Gm Tab1 Gm PO TID #90 TAB Ref 2 On empty stomach Prov:Monique Toussaint 03/21/17 Pantoprazole (Protonix)40 Mg Tab40 Mg PO DAILY #30 TAB Ref 2 Prov:Monique Toussaint 03/21/17 Carlene Bang MD Mar 21, 2017 03:58
[2017-03-21] MEDS ORDERED: SODIUM CHLOR 0.9% 1000 ML INJ 1,000 ML IV SCH (04:10)
[2017-03-21] MEDS ORDERED: KETOROLAC TROMETHAMINE 30 MG/ML (IVP) VIAL IVP ONE (04:15)
[2017-03-21] MEDS ORDERED: ONDANSETRON HCL 4 MG/2 ML VIAL IVP ONE (04:15)
[2017-03-21] MEDS ORDERED: SODIUM CHLORIDE 0.9% FLUSH 10 ML FLUSH IV FLUSH PRN (04:15)
[2017-03-21] MEDS ORDERED: PANTOPRAZOLE SODIUM 40 MG VIAL IVP ONE (04:15)
[2017-03-21 05:30] LABS: AUTOMATED NEUTROPHIL # 3.1 TH/MM3 (1.8-7.7); BASOPHIL % 0.5 % (0.0-2.0); EOSINOPHIL # 0.2 TH/MM3 (0-0.4); EOSINOPHIL % 3.2 % (0.0-4.0); HEMATOCRIT 34.8 % (35.0-46.0); HEMO FLAGS DIFF FINAL; LYMPHOCYTE # 2.7 TH/MM3 (1.0-4.8); MEAN CORPUSCULAR HEMOGLOBIN 26.1 PG (27.0-34.0); MONO % 8.9 % (0.0-8.0); NEUT % 46.4 % (16.0-70.0); PLATELET COUNT 332 TH/MM3 (150-450); RED BLOOD COUNT 4.41 MIL/MM3 (4.00-5.30); RED CELL DISTRIBUTION WIDTH 14.1 % (11.6-17.2); WHITE BLOOD COUNT 6.7 TH/MM3 (4.0-11.0)
[2017-03-21 05:58] LABS: ALT (GPT) 14 U/L (10-53); ANION GAP 8 MEQ/L (5-15); AST (GOT) 11 U/L (15-37); BICARBONATE 22.7 MEQ/L (21.0-32.0); BLOOD UREA NITROGEN 9 MG/DL (7-18); CHLORIDE 109 MEQ/L (98-107); GLOMERULAR FILTRATION RATE 117 ML/MIN (>89); POTASSIUM 3.6 MEQ/L (3.5-5.1); SODIUM (NA) 140 MEQ/L (136-145)
[2017-03-21 06:01] LABS: ALKALINE PHOSPHATASE 63 U/L (45-117); TOTAL BILIRUBIN ADULT 0.2 MG/DL (0.2-1.0)
[2017-03-21 06:45] VITALS: BP 110/64; PULSE 77; RESP 16; O2SAT 99
[2017-03-21 07:00] VITALS: BP 109/67; PULSE 69; RESP 16; TEMP 97.8; O2SAT 99
[2017-03-21] MEDS ORDERED: HYDROmorphone HCL PF 1 MG/ML VIAL IV PUSH ONE (08:00)
[2017-03-21 09:24] VITALS: BP 103/69; PULSE 68; RESP 16; TEMP 97.7; O2SAT 99
--- NOTE | 2017-03-21 10:04 | RADRPT ---
EXAM DATE/TIME: 03/21/2017 09:34 [facility] COMPARISON: No previous studies available for comparison. INDICATIONS : Vomiting blood and abdominal pain. FLUORO TIME: 0.4 minutes IMAGE COUNT: 17 CONTRAST: 1. Liquid E-Z Paque Barium Sulfate (60% w/v, 41% w.w) MEDICAL HISTORY : Diabetes mellitus type II. SURGICAL HISTORY : Gastric bypass. Bpass 02/2015 and reversal 01/2017. ENCOUNTER: Initial ACUITY: 2 weeks PAIN SCORE: 10/10 LOCATION: Bilateral Abdomen. FINDINGS: The shallot cleaner radiograph is unremarkable. The bowel gas is nonspecific without any signs of obstruction or free air. The esophagus appears intact without mucosal lesions, mass, or strictures. The gastroes ophageal junction appears intact. The stomach and the duodenum appear intact without mucosal lesions , or any evidence for peptic ulcer disease. No significant hiatal hernia or gastroesophageal reflux was identified during this examination. CONCLUSION: Unremarkable upper GI examination. Pancho Arroyo MD on March 21, 2017 at 10:01 Board Certified Radiologist. This report was verified electronically.
--- NOTE | 2017-03-21 10:23 | PD ---
Physical Exam Date Seen by Provider: Mar 21, 2017 Time Seen by Provider: 07:00 Narrative Patient signed out to me at [address] Bang, patient had is here with abdominal pain, nausea and vomiting, with history of previous chronic abdominal pain and abdominal fibromatosis. Please see previous notes for further information. Laboratory Tests Test 03/21/17 05:10 Hemoglobin 11.5 GM/DL (11.6-15.3) Hematocrit 34.8 % (35.0-46.0) Mean Corpuscular Volume 79.0 FL (80.0-100.0) Mean Corpuscular Hemoglobin 26.1 PG (27.0-34.0) Monocytes (%) (Auto) 8.9 % (0.0-8.0) Chloride Level 109 MEQ/L (98-107) Calcium Level 8.4 MG/DL (8.5-10.1) Aspartate Amino Transf 11 U/L (15-37) (AST/SGOT) Last 24 hours Impressions Upper GI Series 03/21/17 0000 Signed Impressions: Service Date/Time: Tuesday, March 21, 2017 09:34 - CONCLUSION: Unremarkable upper GI examination. Pancho Arroyo MD Objective series did not show any signs of acute processes. Case was discussed with Dr. Alcocer who is patient's surgeon and he would like to take the patient to endoscopy lab for further evaluation. Patient is at this point admitted for same-day surgery. Data Data Last Documented VS Vital Signs Date Time Temp Pulse Resp B/P Pulse Ox O2 Delivery O2 Flow Rate FiO2 03/21/17 09:24 97.7 68 16 103/69 99 Room Air Orders Complete Blood Count With Diff (03/21/17 04:10) Comprehensive Metabolic Panel (03/21/17 04:10) Iv Access Insert/Monitor (03/21/17 04:10) Ecg Monitoring (03/21/17 04:10) Oximetry (03/21/17 04:10) Ondansetron Inj (Zofran Inj) (03/21/17 04:15) Pantoprazole Inj (Protonix Inj) (03/21/17 04:15) Sodium Chlor 0.9% 1000 Ml Inj (Ns 1000 M (03/21/17 04:10) Sodium Chloride 0.9% Flush (Ns Flush) (03/21/17 04:15) Ketorolac Inj (Toradol Inj) (03/21/17 04:15) Lipase (03/21/17 05:48) Upper Gi Series With Kub Director Of First Impressions (03/21/17 ) Hydromorphone Pf Inj (Dilaudid Pf Inj) (03/21/17 08:00) Admit Order (Ed Use Only) (03/21/17 10:13) Labs Laboratory Tests Test 03/21/17 05:10 White Blood Count 6.7 TH/MM3 Red Blood Count 4.41 MIL/MM3 Hemoglobin 11.5 GM/DL Hematocrit 34.8 % Mean Corpuscular Volume 79.0 FL Mean Corpuscular Hemoglobin 26.1 PG Mean Corpuscular Hemoglobin 33.0 % Concent Red Cell Distribution Width 14.1 % Platelet Count 332 TH/MM3 Mean Platelet Volume 9.4 FL Neutrophils (%) (Auto) 46.4 % Lymphocytes (%) (Auto) 41.0 % Monocytes (%) (Auto) 8.9 % Eosinophils (%) (Auto) 3.2 % Basophils (%) (Auto) 0.5 % Neutrophils # (Auto) 3.1 TH/MM3 Lymphocytes # (Auto) 2.7 TH/MM3 Monocytes # (Auto) 0.6 TH/MM3 Eosinophils # (Auto) 0.2 TH/MM3 Basophils # (Auto) 0.0 TH/MM3 CBC Comment DIFF FINAL Differential Comment Sodium Level 140 MEQ/L Potassium Level 3.6 MEQ/L Chloride Level 109 MEQ/L Carbon Dioxide Level 22.7 MEQ/L Anion Gap 8 MEQ/L Blood Urea Nitrogen 9 MG/DL Creatinine 0.60 MG/DL Estimat Glomerular Filtration 117 ML/MIN Rate Random Glucose 88 MG/DL Calcium Level 8.4 MG/DL Total Bilirubin 0.2 MG/DL Aspartate Amino Transf 11 U/L (AST/SGOT) Alanine Aminotransferase 14 U/L (ALT/SGPT) Alkaline Phosphatase 63 U/L Total Protein 7.0 GM/DL Albumin 3.6 GM/DL Lipase 171 U/L [facility] Medical Record Reviewed: Yes Supervised Visit with SANDRA: No Diagnosis Primary Impression: Abdominal pain Admitting Information Admitting Physician Requests: Admit Kady Barcenas MD Mar 21, 2017 10:23
[2017-03-21 10:52] VITALS: BP 103/66; PULSE 78; RESP 16; TEMP 98.1; O2SAT 99
[2017-03-21] MEDS ORDERED: ONDANSETRON HCL 4 MG/2 ML VIAL IV PUSH ONE (12:00)
[2017-03-21] MEDS ORDERED: DEXAMETHASONE SOD PHOS 4 MG/ML VIAL IV ONE (12:00)
[2017-03-21] MEDS ORDERED: DO NOT ADM ANY ANTICOAGULANT DRUGS PRN (12:20)
--- NOTE | 2017-03-21 12:38 | HHI.PR ---
Immediate Post Op Note Procedure Date: Mar 21, 2017 Pre Op Diagnosis: abdominal pain Post Op Diagnosis: ulcer Surgeon: Edwar Alcocer MD Transfer Coordinator(s): none Procedure: egd Findings: ulcer Complications: none Specimen(s) removed: none Estimated blood loss: 0cc Anesthesia: MAC Drains: None Patient to: PACU Patient Condition: Good Edwar Alcocer MD Mar 21, 2017 12:38
[2017-03-21] MEDS ORDERED: *HYDROmorphone PF 1 MG VIAL PERIprocedural Use ONLY ONE ×2 (12:42→14:12)
[2017-03-21] MEDS ORDERED: SUCRALFATE 1 GM/10 ML CUP PO ONE (12:45)
[2017-03-21] MEDS ORDERED: PROT40TA PO (12:53)
[2017-03-21] MEDS ORDERED: CARA1TAB6 PO ×2 (12:53→13:05)
[2017-03-21] MEDS ORDERED: CARA1SUS3 PO (12:55)
[2017-03-21] MEDS ORDERED: ZOFR4TAB PO (13:09)
[2017-03-21] MEDS ORDERED: PROPOFOL 200 MG/20 ML AMP IV ONE (14:08)
[2017-03-21 15:10] VITALS: BP 117/83; PULSE 81; RESP 20; TEMP 98; O2SAT 97
--- NOTE | 2017-03-22 09:52 | MP ---
cc: EDWAR ALCOCER MD DATE OF SURGERY 03/21/2017 PREOPERATIVE DIAGNOSIS Abdominal pain, history of by gastric bypass reversal, history of desmoid tumor exploratory laparotomy. POSTOPERATIVE DIAGNOSIS Anastomotic ulcer SURGEON Dr. Edwar Alcocer PROCEDURE PERFORMED Esophagogastroduodenoscopy ANESTHESIA MAC IV FLUIDS See anesthesia sheet ESTIMATED BLOOD LOSS None DRAINS None COMPLICATIONS None WOUND CLASSIFICATION Clean contaminated INDICATION The patient is a 31-year-old female who presented with nausea, vomiting, and abdominal pain. This has been chronic in nature. 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 The patient has done relatively well, however, developed abdominal pain and some nausea and vomiting. She had further workup including upper GI with patent stomach and without obstruction. Decision made for further investigation including EGD. Discussed with the patient in detail. FINDINGS Small erythema at the anastomotic staple line, very mild ulceration. DETAILS OF THE PROCEDURE The patient was taken to the operating suite, placed in the left lateral decubitus position. She was draped in the usual fashion. A bite block was placed after induction of time-out stating correct patient, procedure, surgical site and we were all in agreement with this. The endoscope obtained placed through the mouth, oropharynx and down through the esophagus. On inspection of the GE junction, it was noted to be normal with a normal lower esophageal sphincter. Further advancement noted the anastomosis had a small hyperemic erythematous area with scant blood in a small portion of the staple line. Very small ulceration noted. On further advancement, there was noted to be copious barium throughout the rest of the stomach, therefore complete visualization of the entire stomach was not possible. The scope was advanced down through the pylorus down to the second portion of duodenum. Further advancement attempted to identify the second anastomosis without success. However, her second portion of the duodenum looked normal. The scope was then retracted. Suction irrigation was used to try and clear some fluid with some success. No other noted significant abnormality. The scope was then retracted. The stomach desufflated and pictures were taken. Scope was removed. The patient tolerated the procedure well. There were no intraoperative complications. The patient was taken stable to the PACU. MD KIERSTEN Anton/ESTELA /3:11 PM /9:45 AM
--- NOTE | 2017-04-05 11:51 | MH ---
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 The patient has a history of chronic pain issues and presents to the emergency department with significance of nausea, vomiting, and abdominal pain. She states the pain is severe 9/10 located in the midline and epigastric area. She has had similar pain to this before, however, states this started a couple weeks ago and continued to get worse. Acute onset overnight necessitating the patient to come to the emergency department for further evaluation. The patient does deny any fevers greater than 101.5. She does complained of some chills and again multiple episodes of nausea and vomiting. She denies any vomiting blood. PAST MEDICAL HISTORY 1. Anemia 2. Anxiety 3. Depression 4. Desmoid tumor 5. Diabetes resolved with bypass 6. IBS 7. Pancreatic duct tumor 8. Liver cyst 9. Kidney stones 10. Anxiety 11. Pancreatitis PAST SURGICAL HISTORY 1. Quincy-en-Y gastric bypass 2014 2. Exploratory laparotomy with lysis of adhesions 3. Laparoscopic cholecystectomy 4. Exploratory laparotomy with removal of large desmoid tumor 9 cm 5. Cholecystectomy 6. Eye surgery 7. Lithotripsy for kidney stones 8. Tubal ligation SOCIAL HISTORY Denies smoking, ETOH or IVDA. ALLERGIES MORPHINE, PENICILLIN, TYLENOL #3 three. MEDICATIONS See EMR. FAMILY HISTORY Denies hypertension or diabetes. REVIEW OF SYSTEMS A 10-point review of systems done, otherwise negative except as per above. PHYSICAL EXAMINATION GENERAL: The patient is in no acute distress. VITAL SIGNS: Temperature 97.7, pulse 68, respirations 16, blood pressure 103/69, saturation 99%. HEENT: PERRLA, pupils equal and round, no scleral icterus. NECK: Supple. Trachea midline. LUNGS: Bilateral expansion, clear. HEART: S1 and S2 regular. No murmur. ABDOMEN: Soft, positive tenderness to palpation in the epigastric area. A midline incision. No rebound. No peritoneal signs. EXTREMITIES: Warm and well-perfused. NEUROLOGIC: A&O x4. 5/5 motor all extremities. SKIN: No obvious masses or lesions. PSYCH: Appropriate affect and mood, depression. LABORATORY AND DIAGNOSTIC DATA WBC 6.7, hemoglobin 11.5, hematocrit 34, platelets 332. Sodium 140, potassium 3.6, chloride 109, BUN 9, creatinine 0.6, glucose 88, calcium 8.4, bili 0.2, AST 11, ALT 14, alkaline phos 63, protein 7, lipase 171. IMAGING STUDIES Upper GI series reviewed by myself without evidence of obstruction, normal passage of contrast. ASSESSMENT The patient is a 31-year-old female with a history of chronic pain issues, history of several medical issues including morbid obesity, reversal of gastric bypass due to large desmoid tumor exploratory laparotomy presents with epigastric and acute onset of pain. Upper GI looks patent, however, concern for possible ulcer. After a full clinical, radiologic and laboratory workup for the patient with the above-named issue including chronic abdominal pain in an acute on chronic setting currently with epigastric pain, concern for possible anastomotic ulcer. At this point, discussed with the patient in detail regarding findings and the fact that she may benefit from upper endoscopy for evaluation of gastrogastrostomy anastomosis and to rule out any ulceration or further issue. The patient stated understanding, agreed and would like to proceed. MD KIERSTEN Anton/ESTELA /10:58 AM /11:39 AM
== END 2017-03-21 16:00 | disposition home or self-care (01) ==
LOC: NEPC 03:15 → NEDA 10:18 → HPAC 15:21 → NEPC 16:00
PROVIDERS: ATTEND Surgery
DX: K28.9 Gastrojejunal ulcer, unspecified as acute or chronic, without hemorrhage or perforation (principal); R10.9 Unspecified abdominal pain; K92.0 Hematemesis; E11.9 Type 2 diabetes mellitus without complications; K21.9 Gastro-esophageal reflux disease without esophagitis; F41.9 Anxiety disorder, unspecified; F32.9 Major depressive disorder, single episode, unspecified; Z98.84 Bariatric surgery status
CPT/HCPCS: 00740; 43235; 74241; 80053; 83690; 85025; 96361; 96374; 96375; 99285; C9113; J1100; J1170; J1885; J2405; J7030

== ENCOUNTER 2017-03-27 17:12 | Observation (INO) | payer MEDICAID ==
[~2017-03-27] VITALS: Ht 157.5 cm; Wt 70.0 kg
[~2017-03-27 17:12] MED LIST changes: +CARA1TAB6 PO; -PERC5TAB12 PO; +PROT40TA PO; -ZOFR4TAB3 SL
[2017-03-27] MEDS ORDERED: SODIUM CHLOR 0.9% 1000 ML INJ 1,000 ML IV SCH ×2 (18:03→21:15)
[2017-03-27] MEDS ORDERED: HYDROmorphone HCL PF 1 MG/ML VIAL IVS ONE (18:15)
[2017-03-27] MEDS ORDERED: SODIUM CHLORIDE 0.9% FLUSH 10 ML FLUSH IV FLUSH PRN (18:15)
[2017-03-27] MEDS ORDERED: ONDANSETRON HCL 4 MG/2 ML VIAL IVP ONE (18:15)
--- NOTE | 2017-03-27 18:16 | PD ---
HPI Chief Complaint: Fever Time Seen by Provider: 17:47 Travel History International Travel<30 days: No Contact w/Intl Traveler<30days: No Traveled to known affect area: No History of Present Illness HPI Patient is a 31-year-old female with history of gastric bypass reversal, history of desmoid tumor resection in January 2017, and recent EGD on 03/21/17, presents to the ER with c/o of fevers and abdominal pain. Patient reports that for the past week and a half, she has been hypotensive with a blood pressure of 75/54. Patient reports that she has been having fevers and chills, reports that she has been having diffuse abdominal pain. Patient reports that she follow-up with Dr. Cerna her surgeon on Tuesday, reports that she was told to go to the emergency room for evaluation and for possible admission if she was not feeling any better. Patient reports that she is feeling worse, reports diffuse abdominal pain, patient here for evaluation. Patient denies any cough, congestion, reports that she is feeling nauseous and has been vomiting. Patient reports that she also has been feeling constipated, she did have a bowel movement yesterday, but prior to that, she did not have a bowel movement for 5 days. PFSH Past Medical History Hx Anticoagulant Therapy: No Anemia: Yes Anxiety: Yes Depression: Yes Heart Rhythm Problems: No Cancer: Yes (? 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) High Cholesterol: No Chemotherapy: No (TUMOR) Chest Pain: No Congestive Heart Failure: No Diabetes: Yes (NO MEDS) Endocrine: No Gastrointestinal Disorders: Yes (LIVER CYST, IBS, January: PANCREATIC DUCT TUMOR REMOVED) GERD: Yes Genitourinary: Yes Hepatitis: No Hiatal Hernia: No Immune Disorder: No Kidney Stones: Yes Musculoskeletal: No Neurologic: No Psychiatric: Yes (ANXIETY DEPRESSION) Respiratory: No Pancreatitis: Yes Renal Failure: No Thyroid Disease: No : 2 Para: 2 Tubal Ligation: Yes Past Surgical History Abdominal Surgery: Yes (GASTRIC BYPASS -2014, EXP LAP FOR ADHESIONS, DILEEP) AICD: No Body Medical Devices: CHOCLEAR IMPLANTS Cholecystectomy: Yes (WITH GALLSTONES POST DILEEP) Ear Surgery: Yes ( IMPLANTS) Genitourinary Surgery: Yes (KIDNEY STONES SURGERY AND LITHOTRIPSY) Gynecologic Surgery: Yes (TUBAL) Joint Replacement: No Pacemaker: No Other Surgery: Yes (explor lap for abd adhesions) Social History Alcohol Use: No Tobacco Use: No Substance Use: No Allergies-Medications (Allergen,Severity, Reaction): Coded Allergies: Morphine (Verified Allergy, Unknown, 03/27/17) Penicillin (Verified Allergy, Unknown, Hives, 03/27/17) Tylenol #3 (Verified Allergy, Unknown, Chest Pain, 03/27/17) Reported Meds & Prescriptions Reported Meds & Active Scripts Active Zofran (Ondansetron HCl) 4 Mg Tab 4 Mg PO Q6HR PRN Carafate (Sucralfate) 1 Gm Tab 1 Gm PO TID On empty stomach Protonix (Pantoprazole Sodium) 40 Mg Tab 40 Mg PO DAILY Prochlorperazine Maleate 10 Mg Tab 10 Mg PO Q4H PRN Review of Systems General / Constitutional: Positive: Fever, Chills Eyes: No: Visual changes HENT: No: Headaches Cardiovascular: No: Chest Pain or Discomfort Respiratory: No: Shortness of Breath Gastrointestinal: Positive: Nausea, Vomiting, Abdominal Pain, Constipation, No : Diarrhea Genitourinary: No: Dysuria Musculoskeletal: No: Pain Skin: No Rash Neurologic: No: Weakness Psychiatric: No: Depression Endocrine: No: Polydipsia Hematologic/Lymphatic: No: Easy Bruising Physical Exam Narrative GENERAL: Mild distress SKIN: Focused skin assessment warm/dry. HEAD: Atraumatic. Normocephalic. EYES: Pupils equal and round. No scleral icterus. No injection or drainage. ENT: No nasal bleeding or discharge. Mucous membranes pink and moist. NECK: Trachea midline. No JVD. CARDIOVASCULAR: Regular rate and rhythm. No murmur appreciated. RESPIRATORY: No accessory muscle use. Clear to auscultation. Breath sounds equal bilaterally. GASTROINTESTINAL: Abdomen soft, diffuse abdominal tenderness, no peritoneal signs, nondistended. Hepatic and splenic margins not palpable. MUSCULOSKELETAL: No obvious deformities. No clubbing. No cyanosis. No edema. NEUROLOGICAL: Awake and alert. No obvious cranial nerve deficits. Motor grossly within normal limits. Normal speech. PSYCHIATRIC: Appropriate mood and affect; insight and judgment normal. Data Data Orders Complete Blood Count With Diff (03/27/17 18:03) Comprehensive Metabolic Panel (03/27/17 18:03) Lipase (03/27/17 18:03) Prothrombin Time / Inr (Pt) (03/27/17 18:03) Act Partial Throm Time (Ptt) (03/27/17 18:03) Urinalysis - C+S If Indicated (03/27/17 18:03) Ct Abd/Pel W Iv Contrast(Rout) (03/27/17 18:03) Iv Access Insert/Monitor (03/27/17 18:03) Ecg Monitoring (03/27/17 18:03) Oximetry (03/27/17 18:03) Ondansetron Inj (Zofran Inj) (03/27/17 18:15) Sodium Chlor 0.9% 1000 Ml Inj (Ns 1000 M (03/27/17 18:03) Sodium Chloride 0.9% Flush (Ns Flush) (03/27/17 18:15) Chest, Single Ap (03/27/17 18:03) Hydromorphone Pf Inj (Dilaudid Pf Inj) (03/27/17 18:15) Ed Urine Pregnancytest Poc (03/27/17 18:03) Lactic Acid Sepsis Protocol (03/27/17 18:09) Blood Culture (03/27/17 18:09) Urine Culture (03/27/17 18:15) Ceftriaxone Inj (Rocephin Inj) (03/27/17 19:30) Labs Laboratory Tests Test 03/27/17 03/27/17 03/27/17 18:07 18:10 18:15 White Blood Count 5.2 TH/MM3 Red Blood Count 3.96 MIL/MM3 Hemoglobin 10.2 GM/DL Hematocrit 31.5 % Mean Corpuscular Volume 79.4 FL Mean Corpuscular Hemoglobin 25.7 PG Mean Corpuscular Hemoglobin 32.4 % Concent Red Cell Distribution Width 13.3 % Platelet Count 305 TH/MM3 Mean Platelet Volume 8.9 FL Neutrophils (%) (Auto) 48.7 % Lymphocytes (%) (Auto) 38.6 % Monocytes (%) (Auto) 8.3 % Eosinophils (%) (Auto) 4.1 % Basophils (%) (Auto) 0.3 % Neutrophils # (Auto) 2.5 TH/MM3 Lymphocytes # (Auto) 2.0 TH/MM3 Monocytes # (Auto) 0.4 TH/MM3 Eosinophils # (Auto) 0.2 TH/MM3 Basophils # (Auto) 0.0 TH/MM3 CBC Comment DIFF FINAL Differential Comment Prothrombin Time 10.0 SEC Prothromb Time International 0.9 RATIO Ratio Activated Partial 29.5 SEC Thromboplast Time Sodium Level 138 MEQ/L Potassium Level 3.7 MEQ/L Chloride Level 106 MEQ/L Carbon Dioxide Level 25.5 MEQ/L Anion Gap 7 MEQ/L Blood Urea Nitrogen 8 MG/DL Creatinine 0.65 MG/DL Estimat Glomerular Filtration 107 ML/MIN Rate Random Glucose 70 MG/DL Calcium Level 8.5 MG/DL Total Bilirubin 0.3 MG/DL Aspartate Amino Transf 17 U/L (AST/SGOT) Alanine Aminotransferase 33 U/L (ALT/SGPT) Alkaline Phosphatase 87 U/L Total Protein 7.1 GM/DL Albumin 3.5 GM/DL Lipase 78 U/L Lactic Acid Level 1.6 mmol/L Urine Color YELLOW Urine Turbidity HAZY Urine pH 6.5 Urine Specific [place] 1.013 Urine Protein NEG mg/dL Urine Glucose (UA) NEG mg/dL Urine Ketones NEG mg/dL Urine Occult Blood NEG Urine Nitrite NEG Urine Bilirubin NEG Urine Urobilinogen LESS THAN 2.0 MG/DL Urine Leukocyte Esterase LARGE Urine RBC 2 /hpf Urine WBC 5 /hpf Urine Squamous Epithelial 4 /hpf Cells Urine Bacteria MOD /hpf Urine Mucus FEW /lpf Microscopic Urinalysis Comment CULTURE INDICATED MDM Medical Decision Making Medical Screen Exam Complete: Yes Emergency Medical Condition: Yes Differential Diagnosis Differential includes intra-abdominal abscess, cystitis, colitis, pneumonia, chronic pain, appendicitis Narrative Course Patient is a 31-year-old female who presents to emergency room with complaints of abdominal pain, nausea, vomiting, constipation and fevers for the past week and a half. 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 Reports that she has followed up with Dr. Alcocer since then and had an EGD performed on 03/21/17. Patient was found to have an anastomotic ulcer during her EGD. Patient presents to emergency room with complaints of fevers and chills and abdominal pain with nausea vomiting constipation for the past week and a half. She was seen by Dr. Alcocer in the office on Tuesday, was told to come to the emergency room if her symptoms worsened. IV line established. Labs as well as lactate and BC ordered. IVF ordered. Ct abd/pelvis with IV contrast ordered. Plan to call Dr. Alcocer after studies have been resulted Patient signed out to care of Dr. Arias at change of shift Case reviewed with Dr. Alcocer, request call back on all studies after they have resulted. If patient is not feeling any better, there is consideration for gastric emptying study, GI consult as well as pain management consult. Will call with results of all studies once resulted Angela Dodd DO Mar 27, 2017 18:16
[2017-03-27 18:25] VITALS: O2SAT 99
--- NOTE | 2017-03-27 18:47 | RADRPT ---
EXAM DATE/TIME: 03/27/2017 18:10 [facility] COMPARISON: No previous studies available for comparison. INDICATIONS : Evaluate for free air MEDICAL HISTORY : Diabetes mellitus type II. SURGICAL HISTORY : Gastric bypass. Bpass 02/2015 and reversal 01/2017. ENCOUNTER: Initial ACUITY: >1 year PAIN SCORE: 6/10 LOCATION: chest FINDINGS: The lungs are clear without infiltrate, nodule, or mass. There is no appreciable pleural effusion fo r technique. Heart and mediastinum are unremarkable. No definite free air is identified for techniqu e. CONCLUSION: No acute cardiopulmonary disease. Pancho Arroyo MD on March 27, 2017 at 18:45 Board Certified Radiologist. This report was verified electronically.
[2017-03-27 19:00] LABS: AUTOMATED NEUTROPHIL # 2.5 TH/MM3 (1.8-7.7); BASOPHIL % 0.3 % (0.0-2.0); EOSINOPHIL # 0.2 TH/MM3 (0-0.4); EOSINOPHIL % 4.1 % (0.0-4.0); HEMATOCRIT 31.5 % (35.0-46.0); HEMO FLAGS DIFF FINAL; LYMPH % 38.6 % (9.0-44.0); MEAN CELL VOLUME 79.4 FL (80.0-100.0); MEAN CORPUSCULAR HEMOGLOBIN 25.7 PG (27.0-34.0); MEAN CORPUSCULAR HGB CONC 32.4 % (32.0-36.0); MONO % 8.3 % (0.0-8.0); NEUT % 48.7 % (16.0-70.0); PLATELET COUNT 305 TH/MM3 (150-450); RED BLOOD COUNT 3.96 MIL/MM3 (4.00-5.30); RED CELL DISTRIBUTION WIDTH 13.3 % (11.6-17.2); WHITE BLOOD COUNT 5.2 TH/MM3 (4.0-11.0)
[2017-03-27 19:10] LABS: BACTERIA, URINE MOD /hpf; BLOOD, URINE NEG (NEG); GLUCOSE,URINE NEG (NEG); KETONE, URINE NEG (NEG); MUCUS URINE FEW /lpf (OCC); NITRITE,URINE NEG (NEG); PH, URINE 6.5 (5.0-8.5); SQUAMOUS EPITHELIAL CELL URINE 4 /hpf (0-5); URINE COLOR YELLOW (YELLW/STRAW)
[2017-03-27 19:11] LABS: COMMENT (UR) CULTURE INDICATED; CULTURE IF INDICATED CULTURE INDICATED
[2017-03-27 19:16] LABS: ANION GAP 7 MEQ/L (5-15); APTT (PATIENT) 29.5 SEC (24.3-30.1); AST (GOT) 17 U/L (15-37); BICARBONATE 25.5 MEQ/L (21.0-32.0); BLOOD UREA NITROGEN 8 MG/DL (7-18); CHLORIDE 106 MEQ/L (98-107); GLOMERULAR FILTRATION RATE 107 ML/MIN (>89); INTERNATIONAL NORMALIZED RATIO 0.9 RATIO; POTASSIUM 3.7 MEQ/L (3.5-5.1); SODIUM (NA) 138 MEQ/L (136-145)
[2017-03-27 19:17] LABS: ALT (GPT) 33 U/L (10-53)
[2017-03-27 19:19] LABS: ALKALINE PHOSPHATASE 87 U/L (45-117); TOTAL BILIRUBIN ADULT 0.3 MG/DL (0.2-1.0)
[2017-03-27 19:30] VITALS: BP 109/57; PULSE 88; RESP 16; TEMP 98.6; O2SAT 95
[2017-03-27] MEDS ORDERED: cefTRIAXone INJ 1,000 MG in SODIUM CHLORIDE 0.9% INJ 100 ML IV ONE (19:30)
[2017-03-27] MEDS ORDERED: IOHEXOL 350 MG/ML 10 ML VIAL (for RAD DIAG) IV ONE (20:29)
--- NOTE | 2017-03-27 20:48 | RADRPT ---
EXAM DATE/TIME: 03/27/2017 20:25 [facility] COMPARISON: CT ABDOMEN & PELVIS W CONTRAST, March 13, 2017, 1:58. INDICATIONS : Abdominal pain. IV CONTRAST: 95 cc Omnipaque 350 (iohexol) IV ORAL CONTRAST: No oral contrast ingested. RADIATION DOSE: 8.02 CTDIvol (mGy) MEDICAL HISTORY : SURGICAL HISTORY : Gastric bypass. pancreatic tumor removed 2016 ENCOUNTER: Initial ACUITY: 4 - 6 days PAIN SCALE: 7/10 LOCATION: abdomen TECHNIQUE: Volumetric scanning of the abdomen and pelvis was performed. Using automated exposure control and adjustment of the mA and/or kV according to patient size, radiation dose was kept as low as reasonably achievable to obtain optimal diagnostic quality images. DICOM format image data is av ailable electronically for review and comparison. FINDINGS: CT Abdomen: The liver, spleen, pancreas, left kidney, adrenals are unremarkable. There is no evidence for any appreciable pathological adenopathy, free fluid, or bowel obstruction. There is evidence fo r prior cholecystectomy. There are postsurgical changes in the region of the stomach. There is a tiny 2 mm stone in the right kidney. CT pelvis: There is no evidence for mass, abscess formation, or any significant adenopathy within the pelvis. There is moderate amount of stool throughout the colon. CONCLUSION: Tiny nonobstructing right renal stone. Pancho Arroyo MD on March 27, 2017 at 20:43 Board Certified Radiologist. This report was verified electronically.
[2017-03-27 21:00] VITALS: BP 95/54; PULSE 74; RESP 16; O2SAT 98
[2017-03-27] MEDS: oxyCODONE/ACETAMINOPHEN 10 MG/325 MG TAB PO ONE (21:15)
--- NOTE | 2017-03-27 21:43 | PD ---
Data Data Last Documented VS Vital Signs Date Time Temp Pulse Resp B/P Pulse Ox O2 Delivery O2 Flow Rate FiO2 03/27/17 21:00 74 16 95/54 98 Room Air 03/27/17 19:30 98.6 Orders Complete Blood Count With Diff (03/27/17 18:03) Comprehensive Metabolic Panel (03/27/17 18:03) Lipase (03/27/17 18:03) Prothrombin Time / Inr (Pt) (03/27/17 18:03) Act Partial Throm Time (Ptt) (03/27/17 18:03) Urinalysis - C+S If Indicated (03/27/17 18:03) Ct Abd/Pel W Iv Contrast(Rout) (03/27/17 18:03) Iv Access Insert/Monitor (03/27/17 18:03) Ecg Monitoring (03/27/17 18:03) Oximetry (03/27/17 18:03) Ondansetron Inj (Zofran Inj) (03/27/17 18:15) Sodium Chlor 0.9% 1000 Ml Inj (Ns 1000 M (03/27/17 18:03) Sodium Chloride 0.9% Flush (Ns Flush) (03/27/17 18:15) Chest, Single Ap (03/27/17 18:03) Hydromorphone Pf Inj (Dilaudid Pf Inj) (03/27/17 18:15) Ed Urine Pregnancytest Poc (03/27/17 18:03) Lactic Acid Sepsis Protocol (03/27/17 18:09) Blood Culture (03/27/17 18:09) Urine Culture (03/27/17 18:15) Ceftriaxone Inj (Rocephin Inj) (03/27/17 19:30) Iohexol 350 Inj (Omnipaque 350 Inj) (03/27/17 20:29) Sodium Chlor 0.9% 1000 Ml Inj (Ns 1000 M (03/27/17 21:15) Oxycodone-Acetamin 10-325 Mg (Percocet 1 (03/27/17 21:15) Admit Order (Ed Use Only) (03/27/17 21:23) Labs Laboratory Tests Test 03/27/17 03/27/17 03/27/17 18:07 18:10 18:15 White Blood Count 5.2 TH/MM3 Red Blood Count 3.96 MIL/MM3 Hemoglobin 10.2 GM/DL Hematocrit 31.5 % Mean Corpuscular Volume 79.4 FL Mean Corpuscular Hemoglobin 25.7 PG Mean Corpuscular Hemoglobin 32.4 % Concent Red Cell Distribution Width 13.3 % Platelet Count 305 TH/MM3 Mean Platelet Volume 8.9 FL Neutrophils (%) (Auto) 48.7 % Lymphocytes (%) (Auto) 38.6 % Monocytes (%) (Auto) 8.3 % Eosinophils (%) (Auto) 4.1 % Basophils (%) (Auto) 0.3 % Neutrophils # (Auto) 2.5 TH/MM3 Lymphocytes # (Auto) 2.0 TH/MM3 Monocytes # (Auto) 0.4 TH/MM3 Eosinophils # (Auto) 0.2 TH/MM3 Basophils # (Auto) 0.0 TH/MM3 CBC Comment DIFF FINAL Differential Comment Prothrombin Time 10.0 SEC Prothromb Time International 0.9 RATIO Ratio Activated Partial 29.5 SEC Thromboplast Time Sodium Level 138 MEQ/L Potassium Level 3.7 MEQ/L Chloride Level 106 MEQ/L Carbon Dioxide Level 25.5 MEQ/L Anion Gap 7 MEQ/L Blood Urea Nitrogen 8 MG/DL Creatinine 0.65 MG/DL Estimat Glomerular Filtration 107 ML/MIN Rate Random Glucose 70 MG/DL Calcium Level 8.5 MG/DL Total Bilirubin 0.3 MG/DL Aspartate Amino Transf 17 U/L (AST/SGOT) Alanine Aminotransferase 33 U/L (ALT/SGPT) Alkaline Phosphatase 87 U/L Total Protein 7.1 GM/DL Albumin 3.5 GM/DL Lipase 78 U/L Lactic Acid Level 1.6 mmol/L Urine Color YELLOW Urine Turbidity HAZY Urine pH 6.5 Urine Specific [place] 1.013 Urine Protein NEG mg/dL Urine Glucose (UA) NEG mg/dL Urine Ketones NEG mg/dL Urine Occult Blood NEG Urine Nitrite NEG Urine Bilirubin NEG Urine Urobilinogen LESS THAN 2.0 MG/DL Urine Leukocyte Esterase LARGE Urine RBC 2 /hpf Urine WBC 5 /hpf Urine Squamous Epithelial 4 /hpf Cells Urine Bacteria MOD /hpf Urine Mucus FEW /lpf Microscopic Urinalysis Comment CULTURE INDICATED MDM Supervised Visit with SANDRA: Yes Narrative Course The history, exam, and medical decision-making in the associated midlevel provider note were completed with my assistance. I reviewed and agree with the findings presented. I attest that I had a [id number] encounter with the patient on the same day, and personally performed and documented my assessment and findings in the medical record. *My assessment and Findings: This is a 31-year-old female who presents to the emergency department with history of gastric bypass reversal, desmoid tumor resection in January followed by Dr. Alcocer who reports several days of vomiting, fever and abdominal discomfort. Labs are obtained which were all reassuring and his CT abdomen and pelvis was unremarkable. It's unclear where this patient 's pain is coming from. Plan for observation for GI consultation and possible upper GI series. She did ask for Dilaudid by name, has stated allergy to morphine, and has received opiate prescriptions from 7 different providers in the past year, all red flags for drug seeking behavior. I agreed to order the patient's home oral pain medications. Physician Communication Physician Communication Discussed with Dr. Samayoa Diagnosis Primary Impression: Abdominal pain Qualified Code: R10.9 - Abdominal pain, unspecified location Admitting Information Admitting Physician Requests: Observation Melonie Arias MD Mar 27, 2017 21:43
[2017-03-27] MEDS ORDERED: ONDANSETRON HCL 4 MG/2 ML VIAL IV ONE (22:00)
--- NOTE | 2017-03-27 22:33 | PD ---
Data Data Last Documented VS Vital Signs Date Time Temp Pulse Resp B/P Pulse Ox O2 Delivery O2 Flow Rate FiO2 03/27/17 21:00 74 16 95/54 98 Room Air 03/27/17 19:30 98.6 Orders Complete Blood Count With Diff (03/27/17 18:03) Comprehensive Metabolic Panel (03/27/17 18:03) Lipase (03/27/17 18:03) Prothrombin Time / Inr (Pt) (03/27/17 18:03) Act Partial Throm Time (Ptt) (03/27/17 18:03) Urinalysis - C+S If Indicated (03/27/17 18:03) Ct Abd/Pel W Iv Contrast(Rout) (03/27/17 18:03) Iv Access Insert/Monitor (03/27/17 18:03) Ecg Monitoring (03/27/17 18:03) Oximetry (03/27/17 18:03) Ondansetron Inj (Zofran Inj) (03/27/17 18:15) Sodium Chlor 0.9% 1000 Ml Inj (Ns 1000 M (03/27/17 18:03) Sodium Chloride 0.9% Flush (Ns Flush) (03/27/17 18:15) Chest, Single Ap (03/27/17 18:03) Hydromorphone Pf Inj (Dilaudid Pf Inj) (03/27/17 18:15) Ed Urine Pregnancytest Poc (03/27/17 18:03) Lactic Acid Sepsis Protocol (03/27/17 18:09) Blood Culture (03/27/17 18:09) Urine Culture (03/27/17 18:15) Ceftriaxone Inj (Rocephin Inj) (03/27/17 19:30) Iohexol 350 Inj (Omnipaque 350 Inj) (03/27/17 20:29) Sodium Chlor 0.9% 1000 Ml Inj (Ns 1000 M (03/27/17 21:15) Oxycodone-Acetamin 10-325 Mg (Percocet 1 (03/27/17 21:15) Admit Order (Ed Use Only) (03/27/17 21:23) Labs Laboratory Tests Test 03/27/17 03/27/17 03/27/17 18:07 18:10 18:15 White Blood Count 5.2 TH/MM3 Red Blood Count 3.96 MIL/MM3 Hemoglobin 10.2 GM/DL Hematocrit 31.5 % Mean Corpuscular Volume 79.4 FL Mean Corpuscular Hemoglobin 25.7 PG Mean Corpuscular Hemoglobin 32.4 % Concent Red Cell Distribution Width 13.3 % Platelet Count 305 TH/MM3 Mean Platelet Volume 8.9 FL Neutrophils (%) (Auto) 48.7 % Lymphocytes (%) (Auto) 38.6 % Monocytes (%) (Auto) 8.3 % Eosinophils (%) (Auto) 4.1 % Basophils (%) (Auto) 0.3 % Neutrophils # (Auto) 2.5 TH/MM3 Lymphocytes # (Auto) 2.0 TH/MM3 Monocytes # (Auto) 0.4 TH/MM3 Eosinophils # (Auto) 0.2 TH/MM3 Basophils # (Auto) 0.0 TH/MM3 CBC Comment DIFF FINAL Differential Comment Prothrombin Time 10.0 SEC Prothromb Time International 0.9 RATIO Ratio Activated Partial 29.5 SEC Thromboplast Time Sodium Level 138 MEQ/L Potassium Level 3.7 MEQ/L Chloride Level 106 MEQ/L Carbon Dioxide Level 25.5 MEQ/L Anion Gap 7 MEQ/L Blood Urea Nitrogen 8 MG/DL Creatinine 0.65 MG/DL Estimat Glomerular Filtration 107 ML/MIN Rate Random Glucose 70 MG/DL Calcium Level 8.5 MG/DL Total Bilirubin 0.3 MG/DL Aspartate Amino Transf 17 U/L (AST/SGOT) Alanine Aminotransferase 33 U/L (ALT/SGPT) Alkaline Phosphatase 87 U/L Total Protein 7.1 GM/DL Albumin 3.5 GM/DL Lipase 78 U/L Lactic Acid Level 1.6 mmol/L Urine Color YELLOW Urine Turbidity HAZY Urine pH 6.5 Urine Specific [place] 1.013 Urine Protein NEG mg/dL Urine Glucose (UA) NEG mg/dL Urine Ketones NEG mg/dL Urine Occult Blood NEG Urine Nitrite NEG Urine Bilirubin NEG Urine Urobilinogen LESS THAN 2.0 MG/DL Urine Leukocyte Esterase LARGE Urine RBC 2 /hpf Urine WBC 5 /hpf Urine Squamous Epithelial 4 /hpf Cells Urine Bacteria MOD /hpf Urine Mucus FEW /lpf Microscopic Urinalysis Comment CULTURE INDICATED MDM Supervised Visit with SANDRA: No Narrative Course Unfortunately the patient decided she wants to leave the hospital and go home. She was upset that I wasn't comfortable writing her for IV Dilaudid. She says she can take her Percocets at home and keep drinking water. She has no objective surgical emergency or abnormal labs or imaging. I tried to convince her to stay for further testing and GI consultation but she would prefer to follow up in clinic which I think is reasonable. I think she is safe for discharge. She tells me she has an appointment with Dr. Alcocer tomorrow in clinic. Diagnosis Primary Impression: Abdominal pain Qualified Code: R10.9 - Abdominal pain, unspecified location Patient Instructions: General Instructions Additional Instruction: If you develop severe or worsening abdominal pain, fever>100.4, persistent vomiting or inability to eat or drink return to the emergency department immediately. Follow up with your primary care physician in 1-2 days for a check-up. Med/Other Pt SpecificInfo: No Change to Meds Disposition: 01 DISCHARGE HOME Condition: Stable Melonie Arias MD Mar 27, 2017 22:33
== END 2017-03-27 23:33 | disposition home or self-care (01) ==
LOC: NEPC 17:12 → NEDA 21:24
PROVIDERS: ADMIT Surgery; ATTEND Surgery
DX: R10.9 Unspecified abdominal pain (principal); R11.2 Nausea with vomiting, unspecified; R50.9 Fever, unspecified; K59.00 Constipation, unspecified; N20.0 Calculus of kidney; K28.9 Gastrojejunal ulcer, unspecified as acute or chronic, without hemorrhage or perforation; I95.9 Hypotension, unspecified; E11.9 Type 2 diabetes mellitus without complications; K21.9 Gastro-esophageal reflux disease without esophagitis; F41.9 Anxiety disorder, unspecified; F32.9 Major depressive disorder, single episode, unspecified; Z98.84 Bariatric surgery status
CPT/HCPCS: 71010; 74177; 80053; 81001; 83605; 83690; 84703; 85025; 85610; 85730; 87040; 87086; 96361; 96365; 96375; 99285; G0378; J0696; J1170; J2405; J7030; Q9967

== ENCOUNTER 2017-04-09 22:19 | Observation (INO) | payer MEDICAID ==
[~2017-04-09] VITALS: Ht 157.5 cm; Wt 65.9 kg
[2017-04-09 22:24] VITALS: BP 114/63; PULSE 91; RESP 24; TEMP 98.2; O2SAT 99
[2017-04-09 22:38] VITALS: BP 110/74; PULSE 89; RESP 20; O2SAT 100
[2017-04-09 22:47] VITALS: BP 110/74; PULSE 89; RESP 20; O2SAT 100
[2017-04-09] MEDS ORDERED: SODIUM CHLOR 0.9% 1000 ML INJ 1,000 ML IV SCH (22:53)
[2017-04-09] MEDS ORDERED: HYDROmorphone HCL PF 1 MG/ML VIAL IVS ONE (23:00)
[2017-04-09] MEDS ORDERED: SODIUM CHLORIDE 0.9% FLUSH 10 ML FLUSH IV FLUSH PRN (23:00)
[2017-04-09] MEDS ORDERED: ONDANSETRON HCL 4 MG/2 ML VIAL IVP ONE (23:00)
--- NOTE | 2017-04-09 23:03 | PD ---
HPI Chief Complaint: Abdominal Pain Time Seen by Provider: 22:39 Travel History International Travel<30 days: No Contact w/Intl Traveler<30days: No Traveled to known affect area: No History of Present Illness HPI The patient is a 31-year-old female that comes in for abdominal pain. In January of this year she had a desmoid tumor removed and she has had pain since. In removing the tumor they had to reverse a gastric bypass. Her last surgery was for an anastomosis ulcer, she is followed by Dr. Alcocer for this. Dr. Alcocer wants her to see a patient relations manager before her next appointment. The patient states that Dr. Alcocer wanted to admit her in the hospital but she wanted to stay home. She states she is willing to be admitted now. She states she is having considerable diarrhea for the last 6 days and was vomiting today. The patient did not notice any blood in the diarrhea. She states she has had a fever of 100.2 today. She states her pain as a constant stabbing pain and a 10 over 10. The pain is mostly in the midline epigastrium. She denies any distention. 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 ear ) Endocrine: No Gastrointestinal Disorders: Yes (LIVER CYST, IBS, January: PANCREATIC DUCT TUMOR REMOVED) GERD: Yes Genitourinary: Yes Hepatitis: No Hiatal Hernia: No Hypertension: No Immune Disorder: No Implanted Vascular Access Dvce: No Kidney Stones: Yes Musculoskeletal: No Neurologic: No Psychiatric: Yes (ANXIETY DEPRESSION) Respiratory: No Pancreatitis: Yes Renal Failure: No Thyroid Disease: No Tetanus Vaccination: > 5 Years Influenza Vaccination: Yes ?: Not LMP: 7-25-17 : 2 Para: 2 Tubal Ligation: Yes Past Surgical History Abdominal Surgery: Yes (GASTRIC BYPASS -2014, EXP LAP FOR ADHESIONS, DILEEP, benign tumor removal ) AICD: No Body Medical Devices: CHOCLEAR IMPLANTS Cholecystectomy: Yes (WITH GALLSTONES POST DILEEP) Ear Surgery: Yes ( IMPLANTS) Genitourinary Surgery: Yes (KIDNEY STONES SURGERY AND LITHOTRIPSY) Gynecologic Surgery: Yes (TUBAL) Joint Replacement: No Pacemaker: No Other Surgery: Yes (explor lap for abd adhesions) Social History Alcohol Use: No Tobacco Use: No Substance Use: No Allergies-Medications (Allergen,Severity, Reaction): Coded Allergies: Morphine (Verified Allergy, Unknown, 04/09/17) Penicillin (Verified Allergy, Unknown, Hives, 04/09/17) Tylenol #3 (Verified Allergy, Unknown, Chest Pain, 04/09/17) Reported Meds & Prescriptions Reported Meds & Active Scripts Active Zofran (Ondansetron HCl) 4 Mg Tab 4 Mg PO Q6HR PRN Carafate (Sucralfate) 1 Gm Tab 1 Gm PO TID On empty stomach Protonix (Pantoprazole Sodium) 40 Mg Tab 40 Mg PO DAILY Review of Systems Except as stated in HPI: all other systems reviewed are Neg Physical Exam Narrative GENERAL: The patient is alert, oriented 3 and moderate apparent distress with her abdominal pain. Her vital signs show respirations 24 but otherwise are normal. SKIN: Focused skin assessment warm/dry. HEAD: Atraumatic. Normocephalic. EYES: Pupils equal and round. No scleral icterus. No injection or drainage. ENT: No nasal bleeding or discharge. Mucous membranes pink and moist. NECK: Trachea midline. No JVD. CARDIOVASCULAR: Regular rate and rhythm. No murmur appreciated. RESPIRATORY: No accessory muscle use. Clear to auscultation. Breath sounds equal bilaterally. GASTROINTESTINAL: Abdomen soft, with tenderness to direct palpation in the midline epigastrium, nondistended. Hepatic and splenic margins not palpable. No guarding or rebound is present. MUSCULOSKELETAL: No obvious deformities. No clubbing. No cyanosis. No edema. NEUROLOGICAL: Awake and alert. No obvious cranial nerve deficits. Motor grossly within normal limits. Normal speech. PSYCHIATRIC: Appropriate mood and affect; insight and judgment normal. Data Data Last Documented VS Vital Signs Date Time Temp Pulse Resp B/P Pulse Ox O2 Delivery O2 Flow Rate FiO2 04/10/17 00:58 82 18 112/56 100 Room Air 04/09/17 22:24 98.2 Orders Complete Blood Count With Diff (04/09/17 22:53) Comprehensive Metabolic Panel (04/09/17 22:53) Lipase (04/09/17 22:53) Ct Abd/Pel W Iv Contrast(Rout) (04/09/17 22:53) Iv Access Insert/Monitor (04/09/17 22:53) Ecg Monitoring (04/09/17 22:53) Oximetry (04/09/17 22:53) Ondansetron Inj (Zofran Inj) (04/09/17 23:00) Sodium Chlor 0.9% 1000 Ml Inj (Ns 1000 M (04/09/17 22:53) Sodium Chloride 0.9% Flush (Ns Flush) (04/09/17 23:00) Hydromorphone Pf Inj (Dilaudid Pf Inj) (04/09/17 23:00) Oral Contrast - Adult (04/09/17 22:56) Diatrizoate Liq ( Gastroview Liq) (04/09/17 23:49) Iohexol 350 Inj (Omnipaque 350 Inj) (04/10/17 01:16) Labs Laboratory Tests Test 04/09/17 23:39 White Blood Count 7.4 TH/MM3 Red Blood Count 4.44 MIL/MM3 Hemoglobin 11.1 GM/DL Hematocrit 35.2 % Mean Corpuscular Volume 79.2 FL Mean Corpuscular Hemoglobin 24.9 PG Mean Corpuscular Hemoglobin 31.5 % Concent Red Cell Distribution Width 12.5 % Platelet Count 372 TH/MM3 Mean Platelet Volume 8.5 FL Neutrophils (%) (Auto) 54.2 % Lymphocytes (%) (Auto) 36.6 % Monocytes (%) (Auto) 5.8 % Eosinophils (%) (Auto) 2.7 % Basophils (%) (Auto) 0.7 % Neutrophils # (Auto) 4.0 TH/MM3 Lymphocytes # (Auto) 2.7 TH/MM3 Monocytes # (Auto) 0.4 TH/MM3 Eosinophils # (Auto) 0.2 TH/MM3 Basophils # (Auto) 0.1 TH/MM3 CBC Comment AUTO DIFF Differential Comment AUTO DIFF CONFIRMED Ovalocytes 1+ Sodium Level 141 MEQ/L Potassium Level 3.6 MEQ/L Chloride Level 105 MEQ/L Carbon Dioxide Level 28.1 MEQ/L Anion Gap 8 MEQ/L Blood Urea Nitrogen 9 MG/DL Creatinine 0.68 MG/DL Estimat Glomerular Filtration 102 ML/MIN Rate Random Glucose 97 MG/DL Calcium Level 8.7 MG/DL Total Bilirubin 0.2 MG/DL Aspartate Amino Transf 8 U/L (AST/SGOT) Alanine Aminotransferase 14 U/L (ALT/SGPT) Alkaline Phosphatase 78 U/L Total Protein 7.2 GM/DL Albumin 3.5 GM/DL Lipase 201 U/L MDM Medical Decision Making Medical Screen Exam Complete: Yes Emergency Medical Condition: Yes Medical Record Reviewed: Yes Interpretation(s) The CBC is normal except for hemoglobin of 11.1. The complete metabolic profile is normal. The lipase is normal. The CT abdomen/pelvis with IV contrast shows no etiology for the patient's abdominal pain. There is a previous abdominal incision and she is status post cholecystectomy. Differential Diagnosis Abdominal pain etiology undetermined, small bowel obstruction, electrolyte disorder, colitis Narrative Course The patient has not vomited here in the emergency department. She did ask for more pain medication after she got Dilaudid. Her CBC and complete metabolic profile, lipase and CT abdomen are all normal. Physician Communication Physician Communication I discussed the patient with Dr. Saunders, the patient will be admitted to her. Diagnosis Primary Impression: Intractable abdominal pain Admitting Information Admitting Physician Requests: Admit Vijay Delatorre MD Apr 09, 2017 23:03
[2017-04-09 23:46] LABS: BASOPHIL # 0.1 TH/MM3 (0-0.2); BASOPHIL % 0.7 % (0.0-2.0); EOSINOPHIL # 0.2 TH/MM3 (0-0.4); EOSINOPHIL % 2.7 % (0.0-4.0); HEMATOCRIT 35.2 % (35.0-46.0); LYMPH % 36.6 % (9.0-44.0); LYMPHOCYTE # 2.7 TH/MM3 (1.0-4.8); MEAN CELL VOLUME 79.2 FL (80.0-100.0); MEAN CORPUSCULAR HEMOGLOBIN 24.9 PG (27.0-34.0); MEAN CORPUSCULAR HGB CONC 31.5 % (32.0-36.0); MONO % 5.8 % (0.0-8.0); NEUT % 54.2 % (16.0-70.0); PLATELET COUNT 372 TH/MM3 (150-450); RED BLOOD COUNT 4.44 MIL/MM3 (4.00-5.30); RED CELL DISTRIBUTION WIDTH 12.5 % (11.6-17.2); WHITE BLOOD COUNT 7.4 TH/MM3 (4.0-11.0)
[2017-04-09] MEDS ORDERED: DIATRIZOATE MEGLUM/DIATRIZOATE SOD 9 ML CUP ONE (23:49)
[2017-04-09 23:50] VITALS: O2SAT 97
[2017-04-09 23:53] LABS: CHLORIDE 105 MEQ/L (98-107); POTASSIUM 3.6 MEQ/L (3.5-5.1); SODIUM (NA) 141 MEQ/L (136-145)
[2017-04-09 23:57] LABS: ANION GAP 8 MEQ/L (5-15); BICARBONATE 28.1 MEQ/L (21.0-32.0); BLOOD UREA NITROGEN 9 MG/DL (7-18)
[2017-04-09 23:59] LABS: ALT (GPT) 14 U/L (10-53)
[2017-04-10] VITALS (10 sets, daily range): BP systolic 94–112; BP diastolic 54–75; PULSE 60–82; RESP 15–18; TEMP 96.8–97.8; O2SAT 97–100
[2017-04-10] LABS: AST (GOT) 8 U/L (15-37); GLOMERULAR FILTRATION RATE 102 ML/MIN (>89); HEMO FLAGS AUTO DIFF
[2017-04-10 00:01] LABS: TOTAL BILIRUBIN ADULT 0.2 MG/DL (0.2-1.0)
[2017-04-10 00:02] LABS: ALKALINE PHOSPHATASE 78 U/L (45-117)
[2017-04-10 00:47] LABS: OVALOCYTES 1+ (NORMAL); SCAN/DIFF AUTO DIFF CONFIRMED
[2017-04-10] MEDS ORDERED: IOHEXOL 350 MG/ML 10 ML VIAL (for RAD DIAG) IV ONE (01:16)
--- NOTE | 2017-04-10 01:40 | RADRPT ---
EXAM DATE/TIME: 04/10/2017 01:00 [facility] COMPARISON: CT ABDOMEN & PELVIS W CONTRAST, March 27, 2017, 20:25. INDICATIONS : Abdominal pain radiatng to back. IV CONTRAST: 96 cc Omnipaque 350 (iohexol) IV ORAL CONTRAST: Prescribed oral contrast ingested. RADIATION DOSE: 7.82 CTDIvol (mGy) MEDICAL HISTORY : Gastroesophageal reflux disease. Renal calculi. Pancreatitis.Liver cysts, diabetic, ulcer SURGICAL HISTORY : Gastric bypass. Tubal ligation.Lithotripsy, pancreatic duct removed ENCOUNTER: Initial ACUITY: 1 day PAIN SCALE: 10/10 LOCATION: posterior abdomen TECHNIQUE: Volumetric scanning of the abdomen and pelvis was performed. Using automated exposure control and ad justment of the mA and/or kV according to patient size, radiation dose was kept as low as reasonably achievable to obtain optimal diagnostic quality images. DICOM format image data is available electro nically for review and comparison. FINDINGS: LOWER LUNGS: The visualized lower lungs are clear. LIVER: Homogeneous density without lesion. There is no dilation of the biliary tree. Cholecystectomy clips. SPLEEN: Normal size without lesion. PANCREAS: Within normal limits. KIDNEYS: Normal in size and shape. There is no mass, stone or hydronephrosis. ADRENAL GLANDS: Within normal limits. VASCULAR: There is no aortic aneurysm. BOWEL/MESENTERY: Previous gastric surgery The stomach, small bowel, and colon demonstrate no acute abnormality. There is no free intraperitoneal air or fluid. ABDOMINAL WALL: Abdominal wall incision in the midline RETROPERITONEUM: There is no lymphadenopathy. BLADDER: No wall thickening or mass. REPRODUCTIVE: Within normal limits. Clitoral piercing INGUINAL: There is no lymphadenopathy or hernia. MUSCULOSKELETAL: Within normal limits for patient age. CONCLUSION: No etiology for abdominal pain is identified. Previous abdominal incision. Status post cholecystectom y. Micheal Esteves MD on April 10, 2017 at 1:35 Board Certified Radiologist. This report was verified electronically.
[2017-04-10] MEDS ORDERED: MAGNESIUM HYDROXIDE SUSP 30 ML CUP PO PRN (02:15)
[2017-04-10] MEDS ORDERED: SODIUM CHLORIDE 0.9% FLUSH 10 ML FLUSH IV FLUSH PRN (02:15)
[2017-04-10] MEDS ORDERED: ACETAMINOPHEN/HYDROcodone 325 MG/5 MG TAB PO PRN (02:15)
[2017-04-10] MEDS ORDERED: SENNOSIDES 8.6 MG TAB PO PRN (02:15)
[2017-04-10] MEDS ORDERED: BISACODYL 10 MG SUPP RECTAL PRN (02:15)
[2017-04-10] MEDS ORDERED: LACTULOSE SYRUP 20 GM/30 ML CUP PO PRN (02:15)
[2017-04-10] MEDS ORDERED: PANTOPRAZOLE SODIUM 40 MG VIAL IV PUSH ONE (02:15)
[2017-04-10] MEDS ORDERED: ACETAMINOPHEN 325 MG TAB PO PRN (02:15)
[2017-04-10] MEDS: HYDROmorphone HCL PF 1 MG/ML VIAL IV PRN ×6 (02:21→21:00)
[2017-04-10] MEDS: ONDANSETRON HCL 4 MG/2 ML VIAL IVP PRN ×3 (02:21→11:04)
[2017-04-10] MEDS: SODIUM CHLOR 0.9% 1000 ML INJ 1,000 ML IV SCH ×3 (02:30→20:47)
[2017-04-10] MEDS: SODIUM CHLORIDE 0.9% FLUSH 10 ML FLUSH IV FLUSH SCH ×2 (08:56→20:47)
[2017-04-10] MEDS: DOCUSATE SODIUM 50 MG/SENNA 8.6 MG TAB PO SCH ×2 (08:56→20:47)
--- NOTE | 2017-04-10 10:31 | HHI.HP ---
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 She is continuing to have pain and had been taking Percocet however this has not been helpful and in the last 48 hours the pain has become 10 out of 10. Patient says she has pain in the mid abdomen radiating into the back and she has been following up with her surgeon who recommended she see a dynamics ax technical architect. She has been unable to do this as of her admission here is she is waiting for referral. There is no hematemesis or melena but she has had a considerable amount of diarrhea and vomiting which was bilious. She had low- grade temperature at home but none here. There is no white cell count elevation with the patient does have severe pain and this has been improved with IV Dilaudid. CT abdomen pelvis was done does not show any acute intra- abdominal pathology. Patient is recommended for observation due to significant abdominal pain Review of Systems Constitutional: DENIES: Diaphoretic episodes, Fatigue, Fever, Weight gain, Weight loss, Chills, Dizziness, Change in appetite, Night Sweats Endocrine: DENIES: Abnorml menstrual pattern, Heat/cold intolerance, Polydipsia , Polyuria, Polyphagia Eyes: DENIES: Blurred vision, Diplopia, Eye inflammation, Eye pain, Vision loss , Photosensitivity, Double Vision Respiratory: DENIES: Apneas, Cough, Snoring, Wheezing, Hemoptysis, Sputum production, Shortness of breath Cardiovascular: DENIES: Chest pain, Palpitations, Syncope, Dyspnea on Exertion , PND, Lower Extremity Edema, Orthopnea, Claudication Gastrointestinal: COMPLAINS OF: Abdominal pain, Nausea, Vomiting, Anorexia Genitourinary: DENIES: Abnormal vaginal bleeding, Dysmenorrhea, Dyspareunia, Sexual dysfunction, Urinary frequency, Urinary incontinence, Urgency, Hematuria , Dysuria, Nocturia, Vaginal discharge Integumentary: DENIES: Abnormal pigmentation, Pruritus, Rash, Nail changes, Breast masses, Breast skin changes, Nipple discharge Hematologic/lymphatic: DENIES: Bruising, Lymphadenopathy Immunologic/allergic: DENIES: Eczema, Urticaria Neurologic: DENIES: Abnormal gait, Headache, Localized weakness, Paresthesias, Seizures, Speech Problems, Tremor, Poor Balance Psychiatric: DENIES: Anxiety, Confusion, Mood changes, Depression, Hallucinations, Agitation, Suicidal Ideation, Homicidal Ideation, Delusions Past Family Social History Past Medical History Mesenteric fibromatosis Irritable bowel syndrome Nephrolithiasis Anxiety/depression Past Surgical History Abdominal surgery for his tumor resection, gastric bypass and reversal, cholecystectomy, cochlear implants Reported Medications Reviewed in the medical record, also takes Percocet Allergies: Coded Allergies: Morphine (Verified Allergy, Unknown, 04/09/17) Penicillin (Verified Allergy, Unknown, Hives, 04/09/17) Tylenol #3 (Verified Allergy, Unknown, Chest Pain, 04/09/17) Active Ordered Medications Reviewed in the medical record Family History Mother has inflammatory or irritable bowel syndrome and there is a family member with colon cancer Social History No tobacco or alcohol dependency. Patient lives with her family Physical Exam Vital Signs Vital Signs Date Time Temp Pulse Resp B/P Pulse Ox O2 Delivery O2 Flow Rate FiO2 04/10/17 08:00 97.6 69 16 95/63 98 04/10/17 07:20 97.8 69 16 105/74 100 04/10/17 07:20 16 04/10/17 05:08 82 16 103/54 100 Room Air 04/10/17 04:39 63 15 100 Room Air 04/10/17 02:51 18 04/10/17 02:30 73 16 102/65 97 Room Air 04/10/17 00:58 82 18 112/56 100 Room Air 04/10/17 00:15 19 04/09/17 23:50 97 Room Air 04/09/17 22:47 89 20 110/74 100 Room Air 04/09/17 22:38 89 20 110/74 100 04/09/17 22:24 98.2 91 24 114/63 99 Physical Exam GENERAL: This is a well-nourished, well-developed patient, complaining of abdominal pain SKIN: No rashes, ecchymoses or lesions. Cool and dry. HEAD: Atraumatic. Normocephalic. No temporal or scalp tenderness. EYES: Pupils equal round and reactive. Extraocular motions intact. No scleral icterus. No injection or drainage. ENT: Nose without bleeding, purulent drainage or septal hematoma. Throat without erythema, tonsillar hypertrophy or exudate. Uvula midline. Airway patent. NECK: Trachea midline. No JVD or lymphadenopathy. Supple, nontender, no meningeal signs. CARDIOVASCULAR: Regular rate and rhythm without murmurs, gallops, or rubs. RESPIRATORY: Clear to auscultation. Breath sounds equal bilaterally. No wheezes , rales, or rhonchi. GASTROINTESTINAL: Abdomen soft, diffusely-tender, nondistended. Hypoactive bowel sounds. No hepato-splenomegaly, or palpable masses. No guarding. MUSCULOSKELETAL: Extremities without clubbing, cyanosis, or edema. No joint tenderness, effusion, or edema noted. No calf tenderness. Negative Homans sign bilaterally. NEUROLOGICAL: Awake and alert. Cranial nerves II through XII intact. Motor and sensory grossly within normal limits. Five out of 5 muscle strength in all muscle groups. Normal speech. Laboratory Laboratory Tests Test 04/09/17 23:39 White Blood Count 7.4 Red Blood Count 4.44 Hemoglobin 11.1 Hematocrit 35.2 Mean Corpuscular Volume 79.2 Mean Corpuscular Hemoglobin 24.9 Mean Corpuscular Hemoglobin 31.5 Concent Red Cell Distribution Width 12.5 Platelet Count 372 Mean Platelet Volume 8.5 Neutrophils (%) (Auto) 54.2 Lymphocytes (%) (Auto) 36.6 Monocytes (%) (Auto) 5.8 Eosinophils (%) (Auto) 2.7 Basophils (%) (Auto) 0.7 Neutrophils # (Auto) 4.0 Lymphocytes # (Auto) 2.7 Monocytes # (Auto) 0.4 Eosinophils # (Auto) 0.2 Basophils # (Auto) 0.1 CBC Comment AUTO DIFF Differential Comment AUTO DIFF CONFIRMED Ovalocytes 1+ Sodium Level 141 Potassium Level 3.6 Chloride Level 105 Carbon Dioxide Level 28.1 Anion Gap 8 Blood Urea Nitrogen 9 Creatinine 0.68 Estimat Glomerular Filtration 102 Rate Random Glucose 97 Calcium Level 8.7 Total Bilirubin 0.2 Aspartate Amino Transf 8 (AST/SGOT) Alanine Aminotransferase 14 (ALT/SGPT) Alkaline Phosphatase 78 Total Protein 7.2 Albumin 3.5 Lipase 201 Result Diagram: 04/09/17 2339 04/09/17 2339 Imaging Last Impressions Abdomen/Pelvis CT 04/09/17 2667 Signed Impressions: Service Date/Time: Monday, April 10, 2017 01:00 - CONCLUSION: No etiology for abdominal pain is identified. Previous abdominal incision. Status post cholecystectomy. Micheal Esteves MD Assessment and Plan Problem List: (1) Abdominal pain ICD Code: R10.9 Status: Acute Plan: Is with a history of mesenteric fibromatosis status post resection in January and status post reversal of gastric bypass. Patient has experienced increased pain and will need IV narcotics for pain. Patient has antiemetics prescribed and has felt somewhat better. Patient has been admitted for further treatment gi follow up pending Continue Carafate and Protonix Liquid diet for now (2) Microcytic anemia ICD Code: D50.9 Status: Acute Plan: Likely due to iron deficiency and malabsorption. We'll add iron Code Status full code Arleen Kunz MD Apr 10, 2017 10:31
[2017-04-10] MEDS: PANTOPRAZOLE SOD 40 MG DELAYED RELEASE TAB PO SCH (10:58)
[2017-04-10] MEDS: SUCRALFATE 1 GM TAB PO SCH ×2 (13:07→17:11)
--- NOTE | 2017-04-10 14:40 | PD.CONS ---
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 Alcocer and she was told she had an ulcer the patient presents to the ER with complaints of pain nausea and vomiting. PFSH Past Medical History Mesenteric fibromatosis Irritable bowel syndrome Nephrolithiasis Anxiety/depression Past Surgical History Abdominal surgery for his tumor resection, gastric bypass and reversal, cholecystectomy, cochlear implants Coded Allergies: Morphine (Verified Allergy, Unknown, 04/09/17) Penicillin (Verified Allergy, Unknown, Hives, 04/09/17) Tylenol #3 (Verified Allergy, Unknown, Chest Pain, 04/09/17) Medications Current Medications Ondansetron HCl 4 mg 4 mg ONCE ONCE IVP Last administered on 04/09/17 23:44; Start 04/09/17 at 23:00; Stop 04/09/17 at 23:01; Status DC Sodium Chloride (NS 1000 ml Inj) 1,000 ml @ 1,000 mls/hr Q1H IV Last administered on 04/09/17 23:44; Start 04/09/17 at 22:53; Stop 04/09/17 at 23:52 ; Status DC Sodium Chloride (NS Flush) 2 ml UNSCH PRN IV FLUSH FLUSH AFTER USING IV ACCESS ; Start 04/09/17 at 23:00; Stop 04/10/17 at 02:25; Status DC Hydromorphone HCl (Dilaudid Pf Inj) 1 mg ONCE ONCE IVS Last administered on 23:45; Start 04/09/17 at 23:00; Stop 04/09/17 at 23:01; Status DC Diatrizoate Meglum/ Diatrizoate Sod ( Gastroview Liq) 18 ml STK-MED ONCE .ROUTE Last administered on 04/09/17 23:49; Start 04/09/17 at 23:49; Stop at 23:50; Status DC Iohexol (Omnipaque 350 Inj) 96 ml STK-MED ONCE IV Last administered on 01:16; Start 04/10/17 at 01:16; Stop 04/10/17 at 01:17; Status DC Pantoprazole Sodium 40 mg 40 mg ONCE ONCE IV PUSH Last administered on 02:20; Start 04/10/17 at 02:15; Stop 04/10/17 at 02:16; Status DC Sodium Chloride (NS 1000 ml Inj) 1,000 ml @ 100 mls/hr Q10H IV Last administered on 04/10/17 02:30; Start 04/10/17 at 02:07 Sodium Chloride (NS Flush) 2 ml UNSCH PRN IV FLUSH FLUSH AFTER USING IV ACCESS ; Start 04/10/17 at 02:15 Sodium Chloride (NS Flush) 2 ml BID IV FLUSH ; Start 04/10/17 at 09:00 Ondansetron HCl (Zofran Inj) 4 mg Q6H PRN IVP NAUSEA OR VOMITING Last administered on 04/10/17 11:04; Start 04/10/17 at 02:15 Acetaminophen (Tylenol) 650 mg Q6H PRN PO FEVER/PAIN SCALE 1 TO 2; Start at 02:15 Acetaminophen/ Hydrocodone Bitart ([place] 5-325 Mg) 1 tab Q4H PRN PO PAIN SCALE 3 TO 5; Start 04/10/17 at 02:15 Hydromorphone HCl (Dilaudid Pf Inj) 1 mg Q3H PRN IV Pain 6-10 Last administered on 04/10/17 13:55; Start 04/10/17 at 02:15 Senna/Docusate Sodium (Karishma-Colace) 1 tab BID PO ; Start 04/10/17 at 09:00 Magnesium Hydroxide (Milk Of Magnesia Liq) 30 ml Q12H PRN PO MILD - MODERATE CONSTIPATION; Start 04/10/17 at 02:15; Stop 04/10/17 at 10:31; Status DC Sennosides (Senokot) 17.2 mg Q12H PRN PO MODERATE - SEVERE CONSTIPATION; Start 04/10/17 at 02:15 Bisacodyl (Dulcolax Supp) 10 mg DAILY PRN RECTAL SEVERE CONSITIPATION; Start at 02:15 Lactulose (Lactulose Liq) 30 ml DAILY PRN PO SEVERE CONSITIPATION; Start at 02:15; Stop 04/10/17 at 10:31; Status DC Pantoprazole Sodium (Protonix) 40 mg DAILY PO Last administered on 04/10/17 10 :58; Start 04/10/17 at 11:00 Sucralfate (Carafate) 1 gm TID PO Last administered on 04/10/17 13:07; Start 04/10/17 at 13:00 Polysaccharide Iron Complex (Nu-Iron) 150 mg Q12HR PO ; Start 04/10/17 at 21:00 Family History Mother has inflammatory or irritable bowel syndrome and there is a family member with colon cancer Social History No tobacco or alcohol dependency. Patient lives with her family Review of Systems ROS Review of systems Patient denies any headache dizziness blurry vision, denies any chest pain shortness of breath cough fever chills, Denies any palpitations or fatigue denies any polyuria dysuria hematuria, denies any numbness tingling or weakness, denies any skin rash pruritus or jaundice, denies any easy bruising or bleeding tendency, denies any recent change in mood GI Exam Vitals I&O Vital Signs Date Time Temp Pulse Resp B/P Pulse Ox O2 Delivery O2 Flow Rate FiO2 04/10/17 12:00 97.4 60 18 101/72 100 04/10/17 08:00 97.6 69 16 95/63 98 04/10/17 07:20 97.8 69 16 105/74 100 04/10/17 07:20 16 04/10/17 05:08 82 16 103/54 100 Room Air 04/10/17 04:39 63 15 100 Room Air 04/10/17 02:51 18 04/10/17 02:30 73 16 102/65 97 Room Air 04/10/17 00:58 82 18 112/56 100 Room Air 04/10/17 00:15 19 04/09/17 23:50 97 Room Air 04/09/17 22:47 89 20 110/74 100 Room Air 04/09/17 22:38 89 20 110/74 100 04/09/17 22:24 98.2 91 24 114/63 99 I/O 04/09/17 04/09/17 04/09/17 04/10/17 04/10/17 04/10/17 06:59 14:59 22:59 06:59 14:59 22:59 Intake Total 1000 ml Balance 1000 ml Intake IV Total 1000 ml # Voids 2 Imaging Last 48 hours Impressions Abdomen/Pelvis CT 04/09/17 9602 Signed Impressions: Service Date/Time: Monday, April 10, 2017 01:00 - CONCLUSION: No etiology for abdominal pain is identified. Previous abdominal incision. Status post cholecystectomy. Micheal Esteves MD Laboratory Test 04/09/17 23:39 White Blood Count 7.4 TH/MM3 Red Blood Count 4.44 MIL/MM3 Hemoglobin 11.1 GM/DL Hematocrit 35.2 % Mean Corpuscular Volume 79.2 FL Mean Corpuscular Hemoglobin 24.9 PG Mean Corpuscular Hemoglobin 31.5 % Concent Red Cell Distribution Width 12.5 % Platelet Count 372 TH/MM3 Mean Platelet Volume 8.5 FL Neutrophils (%) (Auto) 54.2 % Lymphocytes (%) (Auto) 36.6 % Monocytes (%) (Auto) 5.8 % Eosinophils (%) (Auto) 2.7 % Basophils (%) (Auto) 0.7 % Neutrophils # (Auto) 4.0 TH/MM3 Lymphocytes # (Auto) 2.7 TH/MM3 Monocytes # (Auto) 0.4 TH/MM3 Eosinophils # (Auto) 0.2 TH/MM3 Basophils # (Auto) 0.1 TH/MM3 CBC Comment AUTO DIFF Differential Comment AUTO DIFF CONFIRMED Ovalocytes 1+ Sodium Level 141 MEQ/L Potassium Level 3.6 MEQ/L Chloride Level 105 MEQ/L Carbon Dioxide Level 28.1 MEQ/L Anion Gap 8 MEQ/L Blood Urea Nitrogen 9 MG/DL Creatinine 0.68 MG/DL Estimat Glomerular Filtration 102 ML/MIN Rate Random Glucose 97 MG/DL Calcium Level 8.7 MG/DL Total Bilirubin 0.2 MG/DL Aspartate Amino Transf 8 U/L (AST/SGOT) Alanine Aminotransferase 14 U/L (ALT/SGPT) Alkaline Phosphatase 78 U/L Total Protein 7.2 GM/DL Albumin 3.5 GM/DL Lipase 201 U/L Physical Examination HEENT: Pupils round and reactive to light; normocephalic; atraumatic; no jaundice. Throat is clear. NECK: Neck is supple, no JVD, no lymphadenopathy. CHEST: Chest is clear to auscultation and percussion. CARDIAC: Regular rate and rhythm with no murmur gallop or rubs. ABDOMEN: Soft, nondistended, diffusely tender but no rebound or guarding; no hepatosplenomegaly; bowel sounds are present in all four quadrants. EXTREMITIES: No clubbing, cyanosis, or edema. SKIN: Normal; no rash; no jaundice. PHOTO PRODUCER: No focal deficits; alert and oriented times three. Assessment and Plan Plan Abdominal pain Nausea and vomiting Complex surgical history Peptic ulcer disease We'll plan on an upper endoscopy tomorrow This will be followed by small bowel follow-through In the meanwhile continue with current supportive care and monitor labs We will need the assistance of Dr. Alcocer her surgeon and I recommend that he be consulted Jone Navarro MD Apr 10, 2017 14:40
[2017-04-10] MEDS ORDERED: MAGNESIUM CITRATE SOLN 300 ML BTL PO ONE ×2 (14:48→18:00)
[2017-04-10] MEDS: METOCLOPRAMIDE HCL 10 MG/2 ML VIAL IV PRN (17:10)
[2017-04-10] MEDS: BISACODYL EC 5 MG TABEC PO SCH ×2 (17:11→20:47)
[2017-04-10] MEDS: POLYSACCHARIDE IRON COMPLEX 150 MG CAP PO SCH (20:47)
[2017-04-11] MEDS: METOCLOPRAMIDE HCL 10 MG/2 ML VIAL IV PRN ×4 (03:01→23:20)
[2017-04-11] MEDS: HYDROmorphone HCL PF 1 MG/ML VIAL IV PRN ×7 (03:01→23:22)
[2017-04-11 06:23] LABS: AUTOMATED NEUTROPHIL # 3.7 TH/MM3 (1.8-7.7); BASOPHIL # 0.1 TH/MM3 (0-0.2); EOSINOPHIL # 0.1 TH/MM3 (0-0.4); HEMATOCRIT 33.6 % (35.0-46.0); LYMPH % 23.7 % (9.0-44.0); LYMPHOCYTE # 1.3 TH/MM3 (1.0-4.8); MEAN CELL VOLUME 77.1 FL (80.0-100.0); MEAN CORPUSCULAR HEMOGLOBIN 24.3 PG (27.0-34.0); MEAN CORPUSCULAR HGB CONC 31.6 % (32.0-36.0); MONO % 6.2 % (0.0-8.0); NEUT % 67.1 % (16.0-70.0); PLATELET COUNT 334 TH/MM3 (150-450); RED BLOOD COUNT 4.36 MIL/MM3 (4.00-5.30); RED CELL DISTRIBUTION WIDTH 11.8 % (11.6-17.2); WHITE BLOOD COUNT 5.5 TH/MM3 (4.0-11.0)
[2017-04-11 06:35] LABS: CHLORIDE 105 MEQ/L (98-107); HEMO FLAGS AUTO DIFF; POTASSIUM 3.7 MEQ/L (3.5-5.1); SODIUM (NA) 139 MEQ/L (136-145)
[2017-04-11 06:40] LABS: ANION GAP 7 MEQ/L (5-15); BICARBONATE 27.4 MEQ/L (21.0-32.0); BLOOD UREA NITROGEN 3 MG/DL (7-18)
[2017-04-11 06:42] LABS: ALT (GPT) 16 U/L (10-53)
[2017-04-11 06:43] LABS: AST (GOT) 10 U/L (15-37); GLOMERULAR FILTRATION RATE 177 ML/MIN (>89)
[2017-04-11 06:44] LABS: TOTAL BILIRUBIN ADULT 0.3 MG/DL (0.2-1.0)
[2017-04-11 06:46] LABS: ALKALINE PHOSPHATASE 71 U/L (45-117)
[2017-04-11] MEDS: SODIUM CHLOR 0.9% 1000 ML INJ 1,000 ML IV SCH ×2 (06:49→17:26)
[2017-04-11 07:15] VITALS: BP 103/69; PULSE 70; RESP 16; TEMP 96.9; O2SAT 99
[2017-04-11 07:47] LABS: OVALOCYTES 1+ (NORMAL); PLATELET ESTIMATE SMEAR NORMAL (NORMAL); PLATELET MORPHOLOGY NORMAL (NORMAL); SCAN/DIFF AUTO DIFF CONFIRMED
[2017-04-11] MEDS: ONDANSETRON HCL 4 MG/2 ML VIAL IVP PRN ×3 (07:47→20:19)
[2017-04-11 07:49] VITALS: BP 103/69; PULSE 70; RESP 16; TEMP 96.9; O2SAT 99
[2017-04-11] MEDS: SODIUM CHLORIDE 0.9% FLUSH 10 ML FLUSH IV FLUSH SCH ×2 (09:00→20:22)
[2017-04-11] MEDS ORDERED: PROPOFOL 200 MG/20 ML AMP IV ONE (09:07)
--- NOTE | 2017-04-11 09:56 | GIPROC ---
[facility] [address] [place] [address], [id number] EGD PROCEDURE REPORT EXAM DATE: 04/11/2017 PATIENT NAME: Bridgette Mcneal MR #: [id number] BIRTHDATE: 1985 ATTENDING: Sandie Jensen MD ORDER #: [id number] LOCAL HAZMAT DRIVER: Timothy Schreiber and Kannan Harden STATUS: inpatient INDICATIONS: The patient is a 31 yr old female here for an EGD due to epigastric abdominal pain and vomiting PROCEDURE PERFORMED: EGD w/ biopsy MEDICATIONS: None and Per Anesthesia. TOPICAL ANESTHETIC: none CONSENT: The patient understands the risks and benefits of the procedure and understands that these risks include, but are not limited to: sedation, allergic reaction, infection, perforation and/or bleeding. Alternative means of evaluation and treatment include, among others: physical exam, x-rays, and/or surgical intervention. The patient elects to proceed with this endoscopic procedure. medical equipment was checked for proper function. Hand hygiene and appropriate measures for infection prevention was taken. After the risks, benefits and alternatives of the procedure were thoroughly explained, Informed consent was verified, confirmed and timeout was successfully executed by the treatment team. The patient was anesthetized with topical anesthesia and the Pentax [id number] endoscope was introduced through the mouth and advanced to the second portion of the duodenum. Retroflexed views revealed esophagitis The gastroscope was then slowly withdrawn and removed. Erythema at the surgical anastamosis. Grade B esophagitis. The endoscopy was otherwise normal. Food in stomach. ADVERSE EVENTS: There were no complications. IMPRESSIONS: 1. Erythema at the surgical anastamosis 2. Grade B esophagitis 3. Normal endoscopy otherwise 4. Retroflexed views revealed esophagitis 5. possible gastroparesis RECOMMENDATIONS: 1. Await biopsy results. Biopsy results will not be ready for 7-10 days. If you don't hear from us in two weeks, call our office for biopsy results. 2. Anti-reflux regimen 3. Gastric emptying study continue PPI PATIENT CONDITION: stable DISPOSITION: Home REPEAT EXAM: Sandie Jensen MD eSigned: Sandie Jensen MD 04/11/2017 9:55 AM cc: PATIENT NAME: Bridgette Mcneal MR#: [id number]
[2017-04-11] MEDS: POLYSACCHARIDE IRON COMPLEX 150 MG CAP PO SCH ×2 (10:23→21:00)
[2017-04-11] MEDS: SUCRALFATE 1 GM TAB PO SCH ×3 (10:23→18:00)
[2017-04-11] MEDS: DOCUSATE SODIUM 50 MG/SENNA 8.6 MG TAB PO SCH ×2 (10:24→21:00)
[2017-04-11] MEDS: PANTOPRAZOLE SOD 40 MG DELAYED RELEASE TAB PO SCH (10:24)
--- NOTE | 2017-04-11 11:30 | HHI.PR ---
Subjective Remarks Patient seen and evaluated in follow-up for abdominal pain and for nausea. Status post endoscopy today. Still with severe abdominal pain improved with IV narcotics and with some nausea improved with antiemetics Objective Vitals Vital Signs Date Time Temp Pulse Resp B/P Pulse Ox O2 Delivery O2 Flow Rate FiO2 04/11/17 09:30 73 15 106/68 100 04/11/17 09:15 98.7 65 14 105/68 100 04/11/17 07:49 96.9 70 16 103/69 99 04/11/17 07:15 96.9 70 16 103/69 99 04/11/17 04:00 04/10/17 23:36 97.2 76 18 94/64 98 04/10/17 20:00 96.8 66 16 105/75 99 04/10/17 16:00 97.2 72 18 99/71 100 04/10/17 12:00 97.4 60 18 101/72 100 I/O 04/10/17 04/10/17 04/10/17 04/11/17 04/11/17 04/11/17 07:00 15:00 23:00 07:00 15:00 23:00 Intake Total 1000 ml 300 ml 800 ml Balance 1000 ml 300 ml 800 ml Intake IV Total 1000 ml 300 ml 800 ml # Voids 2 2 Result Diagram: 04/11/17 0550 04/11/17 0550 Imaging Last Impressions Abdomen/Pelvis CT 04/09/17 2253 Signed Impressions: Service Date/Time: Monday, April 10, 2017 01:00 - CONCLUSION: No etiology for abdominal pain is identified. Previous abdominal incision. Status post cholecystectomy. Micheal Esteves MD Objective Remarks GENERAL: This is a well-nourished, well-developed patient, in no apparent distress. CARDIOVASCULAR: Regular rate and rhythm without murmurs, gallops, or rubs. RESPIRATORY: Clear to auscultation. Breath sounds equal bilaterally. No wheezes , rales, or rhonchi. GASTROINTESTINAL: Abdomen soft, diffusely tender, nondistended. Normal active bowel sounds MUSCULOSKELETAL: Extremities without clubbing, cyanosis, or edema. NEURO: Alert & Oriented x4 to person, place, time, situation. Moves all ext x4 A/P Problem List: (1) Abdominal pain ICD Code: R10.9 Status: Acute Plan: Is with a history of mesenteric fibromatosis status post resection in January and status post reversal of gastric bypass. continue IV narcotics for pain. Small bowel series pending Patient has antiemetics prescribed and has felt somewhat better. s/p endoscopy Dx gastritis and esophagitis (2) Microcytic anemia ICD Code: D50.9 Status: Acute Plan: Likely due to iron deficiency and malabsorption. (Folic acid and B-12 checked earlier this year) Continue iron Arleen Kunz MD Apr 11, 2017 11:30
[2017-04-11 12:00] VITALS: BP 101/65; PULSE 89; RESP 17; TEMP 98.6; O2SAT 98
--- NOTE | 2017-04-11 13:38 | RADRPT ---
EXAM DATE/TIME: 04/11/2017 12:35 [facility] COMPARISON: No previous studies available for comparison. INDICATIONS : Abdomen Pain, patient incomplete prep for small bowel./ MEDICAL HISTORY : Gastroesophageal reflux disease. Renal calculi. Pancreatitis.Liver cysts, diabetic, ulcer SURGICAL HISTORY : Gastric bypass. Tubal ligation.Lithotripsy, pancreatic duct removed ENCOUNTER: Initial ACUITY: 2 days PAIN SCORE: 9/10 LOCATION: Bilateral abdomen FINDINGS: The bowel gas is nonspecific. There are no signs of obstruction or free air for technique. No defini te calcified stones are identified for technique. There is evidence for prior cholecystectomy. There is contrast throughout the colon. CONCLUSION: Nonspecific abdomen. Pancho Arroyo MD on April 11, 2017 at 13:36 Board Certified Radiologist. This report was verified electronically.
[2017-04-11 16:00] VITALS: BP 113/76; PULSE 72; RESP 16; TEMP 98.2; O2SAT 100
[2017-04-11] MEDS ORDERED: MAGNESIUM CITRATE SOLN 300 ML BTL PO PRN (17:15)
[2017-04-11 20:00] VITALS: BP 111/68; PULSE 73; RESP 18; TEMP 98.2; O2SAT 100
[2017-04-11] MEDS ORDERED: SCOPOLAMINE 1.5 MG PATCH T-DERMAL PRN (22:45)
[2017-04-11] MEDS ORDERED: REMOVE OLD PATCH T-DERMAL SCH (22:45)
[2017-04-12] VITALS: BP 101/69; PULSE 75; RESP 16; TEMP 97.8; O2SAT 100
[2017-04-12] MEDS: ONDANSETRON HCL 4 MG/2 ML VIAL IVP PRN (03:38)
[2017-04-12] MEDS: HYDROmorphone HCL PF 1 MG/ML VIAL IV PRN ×6 (03:40→21:38)
[2017-04-12] MEDS: SODIUM CHLOR 0.9% 1000 ML INJ 1,000 ML IV SCH ×2 (04:59→12:13)
[2017-04-12 08:00] VITALS: BP 98/60; PULSE 68; RESP 16; TEMP 98.4; O2SAT 98
[2017-04-12] MEDS: SUCRALFATE 1 GM TAB PO SCH ×3 (08:18→18:30)
[2017-04-12] MEDS: PANTOPRAZOLE SOD 40 MG DELAYED RELEASE TAB PO SCH (08:18)
[2017-04-12] MEDS: DOCUSATE SODIUM 50 MG/SENNA 8.6 MG TAB PO SCH ×2 (08:19→21:02)
[2017-04-12] MEDS: METOCLOPRAMIDE HCL 10 MG/2 ML VIAL IV PRN (08:19)
[2017-04-12] MEDS: SODIUM CHLORIDE 0.9% FLUSH 10 ML FLUSH IV FLUSH SCH ×2 (08:23→21:00)
[2017-04-12] MEDS: POLYSACCHARIDE IRON COMPLEX 150 MG CAP PO SCH ×2 (08:26→21:02)
--- NOTE | 2017-04-12 10:56 | HHI.PR ---
Subjective Subjective Notes Resting in bed Going to radiology at 1000 Objective Vitals/I&O Vital Signs Date Time Temp Pulse Resp B/P Pulse Ox O2 Delivery O2 Flow Rate FiO2 04/12/17 08:00 98.4 68 16 98/60 98 04/10/17 05:08 Room Air Cardiovascular: Regular Lungs: Clear Abdomen: Other (well healed midline incision; abdomen soft; minimally tender ) Extremities: No edema A/P Assessment and Plan 31 year old female with intractable abdominal pain; s/p ex lap and resection of mesenteric fibromatosis and reversal of gastric bypass. -Gastric emptying study today -Continue scopolamine patch -Carafate and Protonix -[place]/Dilaudid for pain control -Continue IVF Attending Statement patient seen at bedside await gastric emptying study will follow Attestation The exam, history, and the medical decision-making described in the above note were completed with the assistance of the mid-level provider. I reviewed and agree with the findings presented. I attest that I had a [id number] encounter with the patient on the same day, and personally performed and documented my assessment and findings in the medical record. Monique Toussaint Apr 12, 2017 10:56 Edwar Alcocer MD Apr 15, 2017 15:50
--- NOTE | 2017-04-12 11:33 | HHI.PR ---
Subjective Remarks Patient seen and evaluated in follow-up for abdominal pain and for mesenteric fibromatosis. For gastric and pain study today. Patient still unable to tolerate orals and requiring IV narcotics. Continue to require IV hydration with hypotension. Objective Vitals Vital Signs Date Time Temp Pulse Resp B/P Pulse Ox O2 Delivery O2 Flow Rate FiO2 04/12/17 08:00 98.4 68 16 98/60 98 04/12/17 00:00 97.8 75 16 101/69 100 04/11/17 20:00 98.2 73 18 111/68 100 04/11/17 16:00 98.2 72 16 113/76 100 04/11/17 12:00 98.6 89 17 101/65 98 I/O 04/11/17 04/11/17 04/11/17 04/12/17 04/12/17 04/12/17 06:59 14:59 22:59 06:59 14:59 22:59 Intake Total 800 ml 860 ml 1150 ml Balance 800 ml 860 ml 1150 ml Intake Oral 360 ml 50 ml IV Total 800 ml 300 ml 1100 ml Other 200 ml # Voids 2 3 Result Diagram: 04/11/17 0550 04/11/17 0550 Objective Remarks GENERAL: This is a well-nourished, well-developed patient, in no apparent distress. CARDIOVASCULAR: Regular rate and rhythm without murmurs, gallops, or rubs. RESPIRATORY: Clear to auscultation. Breath sounds equal bilaterally. No wheezes , rales, or rhonchi. GASTROINTESTINAL: Abdomen soft, diffusely tender, nondistended. Normal active bowel sounds MUSCULOSKELETAL: Extremities without clubbing, cyanosis, or edema. NEURO: Alert & Oriented x4 to person, place, time, situation. Moves all ext x4 A/P Problem List: (1) Abdominal pain ICD Code: R10.9 Status: Acute Plan: with a history of mesenteric fibromatosis status post resection in January and status post reversal of gastric bypass. KUB unremarkable, gastric emptying study Patient has antiemetics , and IV narcotics. Pain still severe s/p endoscopy Dx gastritis and esophagitis (2) Microcytic anemia ICD Code: D50.9 Status: Acute Plan: Likely due to iron deficiency and malabsorption. (Folic acid and B-12 checked earlier this year) Continue iron (3) Hypotension ICD Code: I95.9 Status: Acute Plan: IV fluid bolus Likely due to nausea and vomiting Discharge Planning Patient not a safe discharge due to inability to keep food down and severe abdominal pain. We'll continue with pain control measures and IV hydration for now Arleen Kunz MD Apr 12, 2017 11:33
[2017-04-12] MEDS ORDERED: SODIUM CHLORID 0.9% 500 ML INJ 500 ML IV ONE (11:45)
[2017-04-12 12:00] VITALS: BP 107/62; PULSE 68; RESP 18; TEMP 98.4; O2SAT 100
[2017-04-12] MEDS ORDERED: SCOP1PAT2 T-DERMAL (15:42)
[2017-04-12 16:00] VITALS: BP 110/60; PULSE 67; RESP 18; TEMP 97.8; O2SAT 98
--- NOTE | 2017-04-12 19:22 | HHI.GIFU ---
Subjective Remarks patient is lying in bed comfortably, feels hungry wants to advance her diet from clear liquid, she did not get her gastric emptying study since she was on antiemetic medication, still having some abdominal discomfort. Objective Vitals I&O Vital Signs Date Time Temp Pulse Resp B/P Pulse Ox O2 Delivery O2 Flow Rate FiO2 04/12/17 16:00 97.8 67 18 110/60 98 04/12/17 12:00 98.4 68 18 107/62 100 04/12/17 08:00 98.4 68 16 98/60 98 04/12/17 00:00 97.8 75 16 101/69 100 04/11/17 20:00 98.2 73 18 111/68 100 I/O 04/11/17 04/11/17 04/11/17 04/12/17 04/12/17 04/12/17 07:00 15:00 23:00 07:00 15:00 23:00 Intake Total 800 ml 860 ml 1150 ml 1950 ml Balance 800 ml 860 ml 1150 ml 1950 ml Intake Oral 360 ml 50 ml 750 ml IV Total 800 ml 300 ml 1100 ml 1200 ml Other 200 ml # Voids 2 3 9 # Bowel Movements 1 Physical Exam HEENT: Pupils round and reactive to light; normocephalic; atraumatic; no jaundice. Throat is clear. NECK: Neck is supple, no JVD, no lymphadenopathy. CHEST: Chest is clear to auscultation and percussion. CARDIAC: Regular rate and rhythm with no murmur gallop or rubs. ABDOMEN: Soft, nondistended, mild diffuse tender; no hepatosplenomegaly; bowel sounds are present in all four quadrants. EXTREMITIES: No clubbing, cyanosis, or edema. SKIN: Normal; no rash; no jaundice. SPRAY BOOTH OPERATOR: No focal deficits; alert and oriented times three. Assessment and Plan Plan Abdominal pain Nausea and vomiting Complex surgical history Possible gastroparesis We'll plan on gastric emptying study This will be followed by small bowel follow-through In the meanwhile continue with current supportive care and monitor labs, advance diet as tolerated Sandie Jensen MD Apr 12, 2017 19:22
[2017-04-12 20:00] VITALS: BP 101/66; PULSE 65; RESP 20; TEMP 96.2; O2SAT 100
--- NOTE | 2017-04-12 21:12 | MB ---
cc: KAM MONTE MD DATE OF CONSULTATION 04/11/2017 REASON FOR CONSULTATION Patient known to service, abdominal pain. HISTORY OF PRESENT ILLNESS The patient is a 31-year-old female with a history of multiple medical problems including history of Quincy-en-Y gastric bypass, status post reversal for desmoid tumor. The patient has a history of chronic pain and presented to [place] emergency department with complaints of nausea, vomiting, abdominal pain. She has had ongoing intermittent bouts of recurrent pain. She has been on some long-term p.o. narcotic pain medication and is not narcotic naive. She states this episode was pretty severe, pain located midepigastric, right side. Pain was worse with movement and severe that prompted her to come to the emergency department for further evaluation including CT scan without significant findings. She also underwent endoscopy with findings of gastritis, esophagitis and some hyperemia to her gastro gastro anastomotic staple line. This was biopsied and biopsy is pending. She has currently been placed on Dilaudid pain medication along with Percocet and given Carafate and Protonix which she has been on at home medications as well. She is further scheduled for upper GI and gastric emptying study. On my exam the patient is resting a little more comfortably. She states the pain medications are helping, however, she does have some persistent pain. PAST MEDICAL HISTORY Anemia, anxiety depression, desmoid tumor, diabetes, bypass, IBS, pancreatic tumor, liver cyst, kidney stones, pancreatitis. PAST SURGICAL HISTORY Quincy-en-Y gastric bypass, exploratory laparotomy with lysis of adhesions, laparoscopic cholecystectomy, exploratory laparotomy, excision of large 9-cm desmoid tumor with reversal of Quincy-en-Y gastric bypass to normal anatomy. Eye surger, lithotripsy for kidney stones and tubal ligation. SOCIAL HISTORY Denies smoking, EtOH or IVDA. ALLERGIES PENICILLIN, MORPHINE, TYLENOL #3. MEDICATIONS EMR. FAMILY HISTORY Denies hypertension or diabetes. REVIEW OF SYSTEMS 10-point review of systems otherwise negative except for as above. PHYSICAL EXAMINATION GENERAL: The patient no acute distress. VITAL SIGNS: Temperature 98.6, pulse 89, respirations 17, blood pressure 101/65, saturation 98%. HEENT: PEERL, pupils round and reactive. NECK: Supple. Trachea midline. LUNGS: Bilateral expansion. Clear. HEART: S1-S2 regular rhythm. ABDOMEN: Soft, positive tenderness to palpation along the incision line of epigastric, midabdomen and right side. No rebound. No guarding. EXTREMITIES: Warm, well-perfused. NEUROLOGIC: GCS of 15. 5/5 motor all extremities. PSYCH: Appropriate mood and judgment. LABORATORY AND DIAGNOSTIC DATA WBC 7.4, hemoglobin 11.1, hematocrit 35.2, platelets 372. Sodium 141, potassium 3.6, chloride 105, BUN 9, creatinine 0.6, calcium 8.7, AST 8, ALT 14, alkaline phos is 78, albumin 3.5, lipase 201. IMAGING STUDIES Reviewed by myself. CT abdomen, pelvis no evidence of pathology. Stabilized ___ intact and no free air or free fluid. Absence of gallbladder. ASSESSMENT The patient is a 31-year-old female who presents with recurrent chronic episodes of nausea, vomiting, abdominal pain. PLAN After full clinical, radiologic, laboratory workup the patient with the above-named issues including abdominal pain. The patient has had multiple admissions to the emergency department, multiple evaluations including CT scans, endoscopy, upper GI, small-bowel follow-throughs, evaluation of the patient's GI tract along with workup of her abdominal pain. The patient has had significantly normal workup along with being afebrile, normal vital signs and normal white blood cell counts on previous admissions as well as this admission. The patient has been on chronic narcotic medications and she was last seen in my office where I referred her to pain management clinic for assistance given the fact that she has had these multiple pain episodes. I did have some concern for addictive behavior. However, I do agree with further workup including evaluation of small bowel follow-through and the patient has not had a gastric emptying study and may benefit from evaluation with this. I currently recommend nausea control and pain control, however, I do think this should be somewhat limited as she did appear to have some seeking behavior. I will continue to follow along with you. Thank you for the consultation. MD KIERSTEN nAton/LANA /8:27 PM /8:48 PM
[2017-04-13] VITALS: BP 118/75; PULSE 68; RESP 20; TEMP 98.1; O2SAT 98
[2017-04-13] MEDS: HYDROmorphone HCL PF 1 MG/ML VIAL IV PRN ×4 (00:49→13:16)
[2017-04-13] MEDS: SODIUM CHLOR 0.9% 1000 ML INJ 1,000 ML IV SCH ×2 (00:51→08:36)
[2017-04-13 08:00] VITALS: BP 102/62; PULSE 68; RESP 16; TEMP 97.1; O2SAT 99
[2017-04-13] MEDS: DOCUSATE SODIUM 50 MG/SENNA 8.6 MG TAB PO SCH (08:35)
[2017-04-13] MEDS: PANTOPRAZOLE SOD 40 MG DELAYED RELEASE TAB PO SCH (08:35)
[2017-04-13] MEDS: POLYSACCHARIDE IRON COMPLEX 150 MG CAP PO SCH (08:35)
[2017-04-13] MEDS: SUCRALFATE 1 GM TAB PO SCH ×2 (08:36→13:16)
[2017-04-13] MEDS: SODIUM CHLORIDE 0.9% FLUSH 10 ML FLUSH IV FLUSH SCH (08:36)
[2017-04-13] MEDS ORDERED: METOCLOPRAMIDE HCL 10 MG/2 ML VIAL IV ONE (10:36)
--- NOTE | 2017-04-13 11:16 | HHI.PR ---
Subjective Remarks Patient seen and evaluated in follow-up for abdominal pain of unknown etiology. Patient for gastric emptying study today. Still requiring IV narcotics for pain with nausea Objective Vitals Vital Signs Date Time Temp Pulse Resp B/P Pulse Ox O2 Delivery O2 Flow Rate FiO2 04/13/17 08:00 97.1 68 16 102/62 99 04/13/17 00:00 98.1 68 20 118/75 98 04/12/17 20:00 96.2 65 20 101/66 100 04/12/17 16:00 97.8 67 18 110/60 98 04/12/17 12:00 98.4 68 18 107/62 100 I/O 04/12/17 04/12/17 04/12/17 04/13/17 04/13/17 04/13/17 07:00 15:00 23:00 07:00 15:00 23:00 Intake Total 1150 ml 1950 ml 360 ml 1440 ml 1200 ml Balance 1150 ml 1950 ml 360 ml 1440 ml 1200 ml Intake Oral 50 ml 750 ml 360 ml 240 ml IV Total 1100 ml 1200 ml 1200 ml 1200 ml # Voids 9 2 2 # Bowel Movements 1 0 0 Result Diagram: 04/11/17 0550 04/11/17 0550 Imaging Last Impressions Abdomen X-Ray 04/11/17 0000 Signed Impressions: Service Date/Time: Tuesday, April 11, 2017 12:35 - CONCLUSION: Nonspecific abdomen. KMichael Arroyo MD Abdomen/Pelvis CT 04/09/17 2253 Signed Impressions: Service Date/Time: Monday, April 10, 2017 01:00 - CONCLUSION: No etiology for abdominal pain is identified. Previous abdominal incision. Status post cholecystectomy. Micheal Esteves MD Objective Remarks GENERAL: This is a well-nourished, well-developed patient, in no apparent distress. CARDIOVASCULAR: Regular rate and rhythm without murmurs, gallops, or rubs. RESPIRATORY: Clear to auscultation. Breath sounds equal bilaterally. No wheezes , rales, or rhonchi. GASTROINTESTINAL: Abdomen soft, diffusely tender, nondistended. Normal active bowel sounds MUSCULOSKELETAL: Extremities without clubbing, cyanosis, or edema. NEURO: Alert & Oriented x4 to person, place, time, situation. 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 4 gastric imaging study today Patient discussed with general surgery Patient has antiemetics , and IV narcotics. Pain still severe s/p endoscopy Dx gastritis and esophagitis (2) Microcytic anemia ICD Code: D50.9 Status: Acute Plan: Likely due to iron deficiency and malabsorption. (Folic acid and B-12 checked earlier this year) Continue iron (3) Hypotension ICD Code: I95.9 Status: Acute Plan: Improved after IV fluids Discharge Planning Eating better yesterday evening Likely discharge in 1-2 days pending results and inability to keep oral intake and wean narcotics Arleen Kunz MD Apr 13, 2017 11:16
[2017-04-13 12:00] VITALS: BP 101/65; PULSE 61; RESP 16; TEMP 97.6; O2SAT 98
[2017-04-13] MEDS ORDERED: OXYC1TAB36 PO ×2 (12:03→14:40)
--- NOTE | 2017-04-13 12:39 | RADRPT ---
EXAM DATE/TIME: 04/13/2017 08:54 [facility] COMPARISON: No previous studies available for comparison. INDICATIONS : Nausea and vomiting for one week with abdominal pain. DOSE: 1.1 mCi Tc99m Sulfur Colloid Labeled Whole egg PO MEDICATONS: 1.) 5 mg Reglan IV at 90 minutes IMAGIN hrs MEDICAL HISTORY : Irritiable bowel syndrome. SURGICAL HISTORY : Tubal ligation. Cholecystectomy. Gastric bypass. ENCOUNTER: Initial ACUITY: 1 week PAIN SCALE: 1/10 LOCATION: upper quadrant TECHNIQUE: Following the oral ingestion of radiotracer-labeled meal, dynamic sequential images in the PERUVIAN projec tion were acquired with simultaneous computer acquisition. The data set was decay-corrected. FINDINGS: There is essentially no gastric emptying for 2 hours. CONCLUSION: No significant gastric emptying. There is no response to Reglan. Edinson Britt MD FACR on April 13, 2017 at 12:37 Board Certified Radiologist. This report was verified electronically.
[2017-04-13] MEDS: ONDANSETRON HCL 4 MG/2 ML VIAL IVP PRN (13:16)
--- NOTE | 2017-04-13 14:41 | HHI.DCPOC ---
Discharge Care Plan Diagnosis: (1) Abdominal pain Goals to Promote Your Health * To prevent worsening of your condition and complications * To maintain your health at the optimal level Directions to Meet Your Goals Take your medications as prescribed Follow your dietary instruction Follow activity as directed Keep your appointments as scheduled Take your immunizations and boosters as scheduled If your symptoms worsen call your PCP, if no PCP go to Urgent Care Center or Emergency Room Smoking is Dangerous to Your Health. Avoid second hand smoke Call the 24-hour hour crisis hotline for domestic abuse at Arleen Kunz MD Apr 13, 2017 14:41
--- NOTE | 2017-04-13 14:48 | HHI.DS ---
Discharge Summary Admission Date Apr 10, 2017 at 02:11 Discharge Date: Apr 13, 2017 Admitting Diagnosis intractable abdominal pain (1) Abdominal pain ICD Code: R10.9 (2) Microcytic anemia ICD Code: D50.9 (3) Hypotension ICD Code: I95.9 Procedures Panendoscopy: gastritis esophagitis Brief History - From Admission Patient is a 31-year-old female with abdominal pain since January when she was found to have a mesenteric fibromatosis tumor and is now status post resection of this. She is continuing to have pain and had been taking Percocet however this has not been helpful and in the last 48 hours the pain has become 10 out of 10. Patient says she has pain in the mid abdomen radiating into the back and she has been following up with her surgeon who recommended she see a slot floor attendant. She has been unable to do this as of her admission here is she is waiting for referral. There is no hematemesis or melena but she has had a considerable amount of diarrhea and vomiting which was bilious. She had low- grade temperature at home but none here. There is no white cell count elevation with the patient does have severe pain and this has been improved with IV Dilaudid. CT abdomen pelvis was done does not show any acute intra- abdominal pathology. Patient is recommended for observation due to significant abdominal pain CBC/BMP: 04/11/17 0550 04/11/17 0550 Significant Findings Laboratory Tests Test 04/11/17 05:50 Hemoglobin 10.6 GM/DL (11.6-15.3) Hematocrit 33.6 % (35.0-46.0) Mean Corpuscular Volume 77.1 FL (80.0-100.0) Mean Corpuscular Hemoglobin 24.3 PG (27.0-34.0) Mean Corpuscular Hemoglobin 31.6 % Concent (32.0-36.0) Ovalocytes 1+ (NORMAL) Blood Urea Nitrogen 3 MG/DL (7-18) Creatinine 0.42 MG/DL (0.50-1.00) Calcium Level 8.1 MG/DL (8.5-10.1) Aspartate Amino Transf 10 U/L (15-37) (AST/SGOT) Albumin 3.2 GM/DL (3.4-5.0) Imaging Last Impressions Gastric Emptying Nuclear Medicine 04/13/17 0910 Signed Impressions: Service Date/Time: Thursday, April 13, 2017 08:54 - CONCLUSION: No significant gastric emptying. There is no response to Reglan. Edinson Britt MD FACR Abdomen X-Ray 04/11/17 0000 Signed Impressions: Service Date/Time: Tuesday, April 11, 2017 12:35 - CONCLUSION: Nonspecific abdomen. K. Bhaskar Arroyo MD Abdomen/Pelvis CT 04/09/17 2253 Signed Impressions: Service Date/Time: Monday, April 10, 2017 01:00 - CONCLUSION: No etiology for abdominal pain is identified. Previous abdominal incision. Status post cholecystectomy. Micheal Esteves MD PE at Discharge GENERAL: This is a well-nourished, well-developed patient, in no apparent distress. CARDIOVASCULAR: Regular rate and rhythm without murmurs, gallops, or rubs. RESPIRATORY: Clear to auscultation. Breath sounds equal bilaterally. No wheezes , rales, or rhonchi. GASTROINTESTINAL: Abdomen soft, diffusely tender, nondistended. Normal active bowel sounds MUSCULOSKELETAL: Extremities without clubbing, cyanosis, or edema. NEURO: Alert & Oriented x4 to person, place, time, situation. Moves all ext x4 Pt update on day of discharge see progress note Hospital Course Patient seen and evaluated for acute exacerbation of chronic ABd pain. Found to have gastritis and esophagitis on endoscopy Seen by GI and Surgery no further inpatient work up needed Pt Condition on Discharge: Good Discharge Disposition: Discharge Home Discharge Time: <= 30 minutes Discharge Instructions DIET: Follow Instructions for: As Tolerated, No Restrictions Activities you can perform: Regular-No Restrictions Follow up Referrals: Pain Management Continued Medications: Ondansetron (Zofran) 4 Mg Tab 4 MG PO Q6HR PRN NAUSEA OR VOMITING #15 Ref 2 TAB Oxycodone-Acetaminophen (Oxycodone-Acetaminophen) 10-325 mg Tab 1 TAB PO Q6H PRN PAIN #30 Ref 0 TAB (This prescription has been renewed) Pantoprazole (Protonix) 40 Mg Tab 40 MG PO DAILY Reflux #30 Ref 2 TAB Scopolamine Patch 72 HR (Scopolamine Patch 72 HR) 1 Mg Patch 1 PATCH T-DERMAL Q72H #10 Ref 0 PATCH Sucralfate (Carafate) 1 Gm Tab 1 GM PO TID On empty stomach Ulcer Prevention #90 Ref 2 TAB Arleen Kunz MD Apr 13, 2017 14:48
[2017-04-13] MEDS ORDERED: REGL10TA5 PO (14:52)
--- NOTE | 2017-04-13 17:15 | HHI.PR ---
Subjective Subjective Notes Patient seen at 0730 today Resting in bed Awaiting gastric emptying study Objective Vitals/I&O Vital Signs Date Time Temp Pulse Resp B/P Pulse Ox O2 Delivery O2 Flow Rate FiO2 04/13/17 12:00 97.6 61 16 101/65 98 04/10/17 05:08 Room Air Cardiovascular: Regular Lungs: Clear Abdomen: Other (well healed midline incision; soft; tender to palpation in all 4 quadrants ) Extremities: No edema A/P Assessment and Plan 31 year old female with intractable abdominal pain; s/p ex lap and resection of mesenteric fibromatosis and reversal of gastric bypass. -Gastric emptying study today -Continue scopolamine patch -Carafate and Protonix -Buras/Dilaudid for pain control -Continue IVF -Await results for gastric empty---if normal possible DC today Attending Statement patient seen at bedside await gastric emptying study pain better with dilaudid Attestation The exam, history, and the medical decision-making described in the above note were completed with the assistance of the mid-level provider. I reviewed and agree with the findings presented. I attest that I had a [id number] encounter with the patient on the same day, and personally performed and documented my assessment and findings in the medical record. Monique Toussaint Apr 13, 2017 17:15 Edwar Alcocer MD Apr 18, 2017 21:41
== END 2017-04-13 16:27 | disposition home or self-care (01) ==
LOC: PHED 22:19 → PHEDA 04-10 02:11 → INTOOBSV 04-10 02:11 → PHEDH 04-10 05:22 → PH3A 04-10 08:12
PROVIDERS: ADMIT Hospitalist; ATTEND Hospitalist
DX: K29.50 Unspecified chronic gastritis without bleeding (principal); K20.9 Esophagitis, unspecified; D50.9 Iron deficiency anemia, unspecified; I95.9 Hypotension, unspecified; E11.9 Type 2 diabetes mellitus without complications; K58.9 Irritable bowel syndrome, unspecified; Z87.11 Personal history of peptic ulcer disease
CPT/HCPCS: 00740; 43239; 74000; 74177; 78264; 80053; 83690; 84703; 85025; 88305; 88312; 96361; 96374; 96375; 99285; A9541; C9113; G0378; J1170; J2405; J2765; J7030; J7040; Q9963; Q9967

== ENCOUNTER 2017-04-22 23:36 | Emergency (ER) | payer MEDICAID ==
[~2017-04-22] VITALS: Ht 157.5 cm; Wt 64.6 kg
[~2017-04-22 23:36] MED LIST changes: +OXYC1TAB36 PO; -PROC10TA PO; +REGL10TA5 PO; +SCOP1PAT2 T-DERMAL
[2017-04-22 23:51] VITALS: BP 103/71; PULSE 99; RESP 18; TEMP 98.2; O2SAT 99
[2017-04-23 01:07] VITALS: BP 103/77; PULSE 99; RESP 18; TEMP 98.2; O2SAT 99
[2017-04-23] MEDS ORDERED: ONDANSETRON HCL 4 MG/2 ML VIAL IV PUSH ONE ×2 (01:45→03:45)
[2017-04-23] MEDS ORDERED: SODIUM CHLOR 0.9% 1000 ML INJ 1,000 ML IV ONE (01:45)
[2017-04-23 02:15] LABS: AUTOMATED NEUTROPHIL # 4.6 TH/MM3 (1.8-7.7); BASOPHIL % 0.3 % (0.0-2.0); BLOOD, URINE NEG (NEG); EOSINOPHIL # 0.2 TH/MM3 (0-0.4); EOSINOPHIL % 2.1 % (0.0-4.0); GLUCOSE,URINE NEG (NEG); HEMATOCRIT 34.8 % (35.0-46.0); KETONE, URINE NEG (NEG); LYMPH % 29.1 % (9.0-44.0); LYMPHOCYTE # 2.2 TH/MM3 (1.0-4.8); MEAN CORPUSCULAR HEMOGLOBIN 23.8 PG (27.0-34.0); MEAN CORPUSCULAR HGB CONC 31.4 % (32.0-36.0); MONO % 7.6 % (0.0-8.0); NEUT % 60.9 % (16.0-70.0); NITRITE,URINE NEG (NEG); PLATELET COUNT 331 TH/MM3 (150-450); RED BLOOD COUNT 4.58 MIL/MM3 (4.00-5.30); RED CELL DISTRIBUTION WIDTH 11.8 % (11.6-17.2); WHITE BLOOD COUNT 7.6 TH/MM3 (4.0-11.0)
[2017-04-23 02:17] LABS: HEMO FLAGS DIFF FINAL
[2017-04-23 02:21] LABS: BACTERIA, URINE MOD /hpf; COMMENT (UR) CULTURE INDICATED; CULTURE IF INDICATED CULTURE INDICATED; RBC, URINE 0-2 /hpf (0-3); SQUAMOUS EPITHELIAL CELL URINE 0-5 /hpf (0-5); URINE COLOR YELLOW (YELLW/STRAW)
[2017-04-23 02:23] LABS: CHLORIDE 107 MEQ/L (98-107); POTASSIUM 3.8 MEQ/L (3.5-5.1); SODIUM (NA) 139 MEQ/L (136-145)
[2017-04-23 02:26] LABS: ANION GAP 9 MEQ/L (5-15); BICARBONATE 23.4 MEQ/L (21.0-32.0)
[2017-04-23 02:27] LABS: BLOOD UREA NITROGEN 12 MG/DL (7-18)
[2017-04-23 02:29] LABS: ALT (GPT) 16 U/L (10-53); AST (GOT) 9 U/L (15-37); GLOMERULAR FILTRATION RATE 111 ML/MIN (>89)
[2017-04-23 02:31] LABS: TOTAL BILIRUBIN ADULT 0.1 MG/DL (0.2-1.0)
[2017-04-23 02:32] LABS: ALKALINE PHOSPHATASE 72 U/L (45-117)
--- NOTE | 2017-04-23 03:35 | PD ---
HPI Chief Complaint: GI Complaint Time Seen by Provider: 01:43 Travel History International Travel<30 days: No Contact w/Intl Traveler<30days: No Traveled to known affect area: No History of Present Illness HPI 31-year-old female presents to the emergency department by private transportation for complaint of abdominal pain and vomiting. Patient reportedly recently underwent exploratory laparotomy with desmoid tumor resection and pathology consistent with mesenteric fibromatosis. Patient with previous gastric bypass gastric bypass reversal EGD in March and admission for postsurgical fever and abdominal pain. Patient has been followed by Dr. Alcocer and Dr. Torres her oncologist. 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 Patient has had ongoing issues with abdominal pain and vomiting. Patient states that she's vomited numerous times since seeing her customs compliance analyst yesterday. No hematemesis no coffee-ground emesis. Patient has also had bowel movement and flatus. No abdominal distention no fever or chills. Patient states she is here for pain control as she is not being given any pain medication by her surgeon or her oncologist or customs compliance analyst and has not been able to be started on pain medication through her pain management doctor who states she will not begin pain medication until after 2-3 visits in all of her records are available. Patient denies other concerns or complaints. Patient rates her pain 10 over 10 in intensity. PFSH Past Medical History Narrative Medical Anxiety depression mesenteric fibromatosis/Mccoy syndrome, diabetes, diminished hearing pancreatitis exploratory laparotomy pancreatic duct tumor removal colonoscopy and upper endoscopy tubal ligation cochlear implants; no tobacco use; nursing notes reviewed Hx Anticoagulant Therapy: No Anemia: Yes Anxiety: Yes Depression: Yes Heart Rhythm Problems: No Cancer: Yes (desmoid tumors) Cardiovascular Problems: Yes (STATES IRREGULAR HEARTBEAT PVC's) High Cholesterol: No Chest Pain: No Congestive Heart Failure: No Diabetes: Yes (NO MEDS) Patient Takes Glucophage: No Diminished Hearing: Yes ( right COCHLEAR IMPLANT, TUBES, TUMOR in rt ear ) Endocrine: No Gastrointestinal Disorders: Yes (LIVER CYST, IBS, January: PANCREATIC DUCT TUMOR REMOVED) GERD: Yes Genitourinary: Yes Hepatitis: No Hiatal Hernia: No Hypertension: No Immune Disorder: No Implanted Vascular Access Dvce: No Kidney Stones: Yes Musculoskeletal: No Neurologic: No Psychiatric: Yes (ANXIETY DEPRESSION) Respiratory: No Pancreatitis: Yes Renal Failure: No Thyroid Disease: No Tetanus Vaccination: > 5 Years Influenza Vaccination: Yes ?: Not LMP: 2 WEEKS AGO : 2 Para: 2 Tubal Ligation: Yes Past Surgical History Abdominal Surgery: Yes (GASTRIC BYPASS -2014, EXP LAP FOR ADHESIONS, DILEEP, benign tumor removal ) AICD: No Body Medical Devices: CHOCLEAR IMPLANTS Cholecystectomy: Yes (WITH GALLSTONES POST DILEEP) Ear Surgery: Yes ( IMPLANTS) Genitourinary Surgery: Yes (KIDNEY STONES SURGERY AND LITHOTRIPSY) Gynecologic Surgery: Yes (TUBAL) Joint Replacement: No Pacemaker: No Other Surgery: Yes (explor lap for abd adhesions) Social History Alcohol Use: No Tobacco Use: No Substance Use: No Allergies-Medications (Allergen,Severity, Reaction): Coded Allergies: Morphine (Verified Allergy, Severe, Rash, 04/23/17) Penicillin (Verified Allergy, Unknown, Hives, 04/23/17) Tylenol #3 (Verified Allergy, Unknown, Chest Pain, 04/23/17) Reported Meds & Prescriptions Reported Meds & Active Scripts Active Reglan (Metoclopramide HCl) 10 Mg Tab 10 Mg PO TIDAC Carafate (Sucralfate) 1 Gm Tab 1 Gm PO TID On empty stomach Protonix (Pantoprazole Sodium) 40 Mg Tab 40 Mg PO DAILY Reported Scopolamine Patch 72 HR (Scopolamine) 1 Mg Patch 1 Patch T-DERMAL Q72H Review of Systems Except as stated in HPI: all other systems reviewed are Neg General / Constitutional: No: Fever (yesterday temperature was 100.1), Chills HENT: No: Congestion Cardiovascular: No: Chest Pain or Discomfort Respiratory: No: Shortness of Breath Gastrointestinal: Positive: Nausea, Vomiting, Diarrhea, Abdominal Pain, No: Hematemesis, Hematochezia Genitourinary: No: Dysuria, Flank Pain Musculoskeletal: No: Myalgias, Arthralgias Skin: No Rash Neurologic: No: Weakness Psychiatric: No: Anxiety Hematologic/Lymphatic: No: Lymph Node Enlargement Physical Exam Narrative GENERAL: Well-developed well-nourished female in no acute distress no respiratory distress SKIN: Warm and dry. HEAD: Normocephalic. EYES: No scleral icterus. No injection or drainage. NECK: Supple, trachea midline. No JVD or lymphadenopathy. CARDIOVASCULAR: Regular rate and rhythm without murmurs, gallops, or rubs. RESPIRATORY: Breath sounds equal bilaterally. No accessory muscle use. GASTROINTESTINAL: Abdomen soft, non-tender, nondistended. Midline incision scar well-healed no redness no induration no drainage no guarding no rebound. MUSCULOSKELETAL: No cyanosis, or edema. BACK: Nontender without obvious deformity. No CVA tenderness. Data Data Last Documented VS Vital Signs Date Time Temp Pulse Resp B/P Pulse Ox O2 Delivery O2 Flow Rate FiO2 04/23/17 03:55 78 16 109/71 99 Room Air 04/23/17 01:07 98.2 Orders Complete Blood Count With Diff (04/23/17 01:26) Comprehensive Metabolic Panel (04/23/17 01:26) Urinalysis - C+S If Indicated (04/23/17 01:26) Ed Urine Pregnancytest Poc (04/23/17 01:26) Iv Access Insert/Monitor (04/23/17 01:26) Oximetry (04/23/17 01:26) Lipase (04/23/17 01:26) Sodium Chlor 0.9% 1000 Ml Inj (Ns 1000 M (04/23/17 01:45) Ondansetron Inj (Zofran Inj) (04/23/17 01:45) Urine Culture (04/23/17 02:00) Ondansetron Inj (Zofran Inj) (04/23/17 03:45) Ceftriaxone Inj (Rocephin Inj) (04/23/17 03:45) Hydromorphone Pf Inj (Dilaudid Pf Inj) (04/23/17 03:45) Labs Laboratory Tests Test 04/23/17 02:00 White Blood Count 7.6 TH/MM3 Red Blood Count 4.58 MIL/MM3 Hemoglobin 10.9 GM/DL Hematocrit 34.8 % Mean Corpuscular Volume 76.0 FL Mean Corpuscular Hemoglobin 23.8 PG Mean Corpuscular Hemoglobin 31.4 % Concent Red Cell Distribution Width 11.8 % Platelet Count 331 TH/MM3 Mean Platelet Volume 9.1 FL Neutrophils (%) (Auto) 60.9 % Lymphocytes (%) (Auto) 29.1 % Monocytes (%) (Auto) 7.6 % Eosinophils (%) (Auto) 2.1 % Basophils (%) (Auto) 0.3 % Neutrophils # (Auto) 4.6 TH/MM3 Lymphocytes # (Auto) 2.2 TH/MM3 Monocytes # (Auto) 0.6 TH/MM3 Eosinophils # (Auto) 0.2 TH/MM3 Basophils # (Auto) 0.0 TH/MM3 CBC Comment DIFF FINAL Differential Comment Urine Color YELLOW Urine Turbidity CLEAR Urine pH 7.0 Urine Specific [place] 1.015 Urine Protein NEG mg/dL Urine Glucose (UA) NEG mg/dL Urine Ketones NEG mg/dL Urine Occult Blood NEG Urine Nitrite NEG Urine Bilirubin NEG Urine Leukocyte Esterase NEG Urine RBC 0-2 /hpf Urine WBC 3-5 /hpf Urine Squamous Epithelial 0-5 /hpf Cells Urine Bacteria MOD /hpf Microscopic Urinalysis Comment CULTURE INDICATED Sodium Level 139 MEQ/L Potassium Level 3.8 MEQ/L Chloride Level 107 MEQ/L Carbon Dioxide Level 23.4 MEQ/L Anion Gap 9 MEQ/L Blood Urea Nitrogen 12 MG/DL Creatinine 0.63 MG/DL Estimat Glomerular Filtration 111 ML/MIN Rate Random Glucose 101 MG/DL Calcium Level 8.8 MG/DL Total Bilirubin 0.1 MG/DL Aspartate Amino Transf 9 U/L (AST/SGOT) Alanine Aminotransferase 16 U/L (ALT/SGPT) Alkaline Phosphatase 72 U/L Total Protein 7.3 GM/DL Albumin 3.6 GM/DL Lipase 243 U/L [facility] Medical Decision Making Medical Screen Exam Complete: Yes Emergency Medical Condition: Yes Medical Record Reviewed: Yes Interpretation(s) CBC & BMP Diagram 04/23/17 02:00 Vital Signs Date Time Temp Pulse Resp B/P Pulse Ox O2 Delivery O2 Flow Rate FiO2 04/23/17 01:07 98.2 99 18 103/77 99 04/22/17 23:51 98.2 99 18 103/71 99 UA: moderate bacteria; cx indicated Differential Diagnosis Vomiting bowel obstruction dehydration electrolyte disturbance gastroenteritis sepsis chronic pain syndrome Narrative Course IV access obtained specimens collected and sent for resulting patient administered 1 L normal saline and Zofran CBC with automated differential total white cell count is normal without left shift hemoglobin remained stable at 10.9; metabolic panel was within normal limits; urinalysis moderate bacteria cultures indicated Additional Zofran administered along with Dilaudid and presumptive IV antibiotic Rocephin for UTI Plan is to palpation be discharged to home with oral antibiotic and prescription for nausea vomiting medication. Patient is a process of being managed by pain management. Patient stable for outpatient management. Diagnosis Primary Impression: Vomiting Qualified Code: R11.2 - Non-intractable vomiting with nausea, unspecified vomiting type Additional Impression: UTI (urinary tract infection) Qualified Code: N39.0 - Urinary tract infection without hematuria, site unspecified Referrals: Pain Management call for appointment Primary Care Physician call for appointment Patient Instructions: Narcotic given in the ED, General Instructions Additional Instructions: Increase fluid hydration Follow clear liquid diet for next 12-24 hours advance diet as tolerated to bland diet then regular diet Complete course of antibiotic as prescribed Take acetaminophen as needed for fever 100.4F or greater Follow-up with your primary care/managing physician and your pain management doctor Return to the emergency department for any concerns or change in condition Med/Other Pt SpecificInfo: Prescription(s) given Scripts Oxycodone-Acetaminophen (Percocet)5-325 mg Tab1 Tab PO Q6H PRN (PAIN) #10 TAB Ref 0 Prov:Uma Ovalle MD 04/23/17 Ondansetron Odt (Zofran Odt)4 Mg Tab4 Mg SL Q6HR PRN (Nausea/Vomiting) #10 TAB Ref 0 Prov:Uma Ovalle MD 04/23/17 Nitrofurantoin Monohydrate Macrocrystals (Macrobid)100 Mg Fti162 Mg PO BID 7 Days Ref 0 Prov:Uma Ovalle MD 04/23/17 Disposition: 01 DISCHARGE HOME Condition: Stable Uma Ovalle MD Apr 23, 2017 03:34
[2017-04-23] MEDS ORDERED: HYDROmorphone HCL PF 1 MG/ML VIAL IV PUSH ONE (03:45)
[2017-04-23] MEDS ORDERED: cefTRIAXone INJ 1,000 MG in SODIUM CHLORIDE 0.9% INJ 100 ML IV ONE (03:45)
[2017-04-23 03:55] VITALS: BP 109/71; PULSE 78; RESP 16; O2SAT 99
[2017-04-23] MEDS ORDERED: PERC5TAB12 PO (04:16)
[2017-04-23] MEDS ORDERED: MACR100C2 PO (04:16)
[2017-04-23] MEDS ORDERED: ZOFR4TAB3 SL (04:16)
[2017-04-23 04:48] VITALS: BP 106/72
== END 2017-04-23 04:51 | disposition home or self-care (01) ==
LOC: PHED 23:36
DX: N39.0 Urinary tract infection, site not specified (principal); B96.89 Other specified bacterial agents as the cause of diseases classified elsewhere
CPT/HCPCS: 80053; 81001; 83690; 84703; 85025; 87086; 96361; 96365; 96375; 96376; 99284; J0696; J1170; J2405; J7030

== ENCOUNTER 2017-05-05 22:42 | Emergency (ER) | payer MEDICAID ==
[~2017-05-05] VITALS: Ht 157.5 cm; Wt 63.0 kg
[~2017-05-05 22:42] MED LIST changes: +MACR100C2 PO; -OXYC1TAB36 PO; +PERC5TAB12 PO; -ZOFR4TAB PO; +ZOFR4TAB3 SL
[2017-05-05 22:48] VITALS: BP 134/68; PULSE 100; RESP 18; TEMP 98.4; O2SAT 99
[2017-05-05 23:20] VITALS: BP_SYST 103; BP_SYST 134; BP_DIAS 63; BP_DIAS 68; PULSE 100; PULSE 84; RESP 16; RESP 18; TEMP 98.4; O2SAT 97; O2SAT 99
--- NOTE | 2017-05-05 23:27 | PD ---
HPI Chief Complaint: abdominal pain and vomiting. Time Seen by Provider: 23:10 Travel History International Travel<30 days: No Contact w/Intl Traveler<30days: No Traveled to known affect area: No History of Present Illness HPI This 32-year-old female is complaining of abdominal pain and vomiting. He's been having bouts of this off and on for the past 2 years. She has been seen in the emergency department and has been admitted to the hospital for this. 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 She has been in the ER and will times with nausea vomiting and abdominal pain. She has had multiple CTs which have been nonrevealing. She does go to pain management and takes Percocet at home. She is concerned that her period is a few days late. She generally is very regular periods she has been seen by Dr. Nicole and apparently was thought to have gastroparesis. The pain has been worsening usual last 3 or 4 days. It is crampy pain that is located in the mid abdomen and epigastric area. She has had some loose stools. She says that several days ago she thought there might be some blood in her stool. She has a history of a tubal ligation. 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 ) Endocrine: No Gastrointestinal Disorders: Yes (LIVER CYST, IBS, January: PANCREATIC DUCT TUMOR REMOVED) GERD: Yes Genitourinary: Yes Hepatitis: No Hiatal Hernia: No Hypertension: No Immune Disorder: No Implanted Vascular Access Dvce: No Kidney Stones: Yes Musculoskeletal: No Neurologic: No Psychiatric: Yes (ANXIETY DEPRESSION) Respiratory: No Pancreatitis: Yes Renal Failure: No Thyroid Disease: No : 2 Para: 2 Tubal Ligation: Yes Past Surgical History Abdominal Surgery: Yes (GASTRIC BYPASS -2015, EXP LAP FOR ADHESIONS, DILEEP, benign tumor removal ) AICD: No Body Medical Devices: CHOCLEAR IMPLANTS Cholecystectomy: Yes (WITH GALLSTONES POST DILEEP) Ear Surgery: Yes ( IMPLANTS) Genitourinary Surgery: Yes (KIDNEY STONES SURGERY AND LITHOTRIPSY) Gynecologic Surgery: Yes (TUBAL) Joint Replacement: No Pacemaker: No Other Surgery: Yes (explor lap for abd adhesions) Social History Alcohol Use: No Tobacco Use: No Substance Use: No Allergies-Medications (Allergen,Severity, Reaction): Coded Allergies: morphine (Unverified Allergy, Severe, Rash, 04/26/17) acetaminophen (Unverified Allergy, Unknown, Chest Pain, 04/26/17) codeine (Unverified Allergy, Unknown, Chest Pain, 04/26/17) penicillin G (Unverified Allergy, Unknown, Hives, 04/26/17) Reported Meds & Prescriptions Reported Meds & Active Scripts Active Percocet (Oxycodone-Acetaminophen) 5-325 mg Tab 1 Tab PO Q6H PRN Zofran Odt (Ondansetron Odt) 4 Mg Tab 4 Mg SL Q6HR PRN Macrobid (Nitrofurantoin Monoh/Nitrofur Macro) 100 Mg Cap 100 Mg PO BID 7 Days Reglan (Metoclopramide HCl) 10 Mg Tab 10 Mg PO TIDAC Carafate (Sucralfate) 1 Gm Tab 1 Gm PO TID On empty stomach Protonix (Pantoprazole Sodium) 40 Mg Tab 40 Mg PO DAILY Reported Scopolamine Patch 72 HR (Scopolamine) 1 Mg Patch 1 Patch T-DERMAL Q72H Review of Systems General / Constitutional: Positive: Fever, No: Chills Eyes: No: Diploplia, Blurred Vision HENT: No: Headaches, Vertigo Cardiovascular: No: Chest Pain or Discomfort, Palpitations Respiratory: No: Cough, Shortness of Breath Gastrointestinal: Positive: Nausea, Vomiting, Diarrhea, Abdominal Pain Genitourinary: No: Urgency, Frequency Musculoskeletal: No: Myalgias, Arthralgias Skin: No Rash, No Itching Neurologic: No: Weakness Endocrine: No: Heat Intolerance Hematologic/Lymphatic: No: Easy Bruising Physical Exam Narrative GENERAL: Well-developed female SKIN: Focused skin assessment warm/dry. HEAD: Atraumatic. Normocephalic. EYES: Pupils equal and round. No scleral icterus. No injection or drainage. ENT: No nasal bleeding or discharge. Mucous membranes pink and moist. NECK: Trachea midline. No JVD. CARDIOVASCULAR: Regular rate and rhythm. No murmur appreciated. RESPIRATORY: No accessory muscle use. Clear to auscultation. Breath sounds equal bilaterally. GASTROINTESTINAL: Abdomen soft, non-tender, nondistended. Hepatic and splenic margins not palpable. There is no guarding or rigidity. There is no distention. No masses are felt MUSCULOSKELETAL: No obvious deformities. No clubbing. No cyanosis. No edema. NEUROLOGICAL: Awake and alert. No obvious cranial nerve deficits. Motor grossly within normal limits. Normal speech. PSYCHIATRIC: Appropriate mood and affect; insight and judgment normal. Data Data Last Documented VS Vital Signs Date Time Temp Pulse Resp B/P (MAP) Pulse Ox O2 Delivery O2 Flow Rate FiO2 05/05/17 22:48 98.4 100 18 134/68 (90) 99 MDM Medical Decision Making Medical Screen Exam Complete: Yes Emergency Medical Condition: Yes Medical Record Reviewed: Yes Differential Diagnosis Differential includes bowel obstruction, gastroparesis, gastroenteritis Narrative Course Pattern is similar to previous attacks. She will be given IV fluids and Zofran and Dilaudid. Lab work is pending. I have ordered a test concerned that she might be Diagnosis Primary Impression: Gastroparesis Bhaskar Martinez MD May 05, 2017 23:27
[2017-05-05] MEDS ORDERED: HYDROmorphone HCL PF 1 MG/ML VIAL IV PUSH ONE (23:30)
[2017-05-05] MEDS ORDERED: ONDANSETRON HCL 4 MG/2 ML VIAL IV PUSH ONE (23:30)
[2017-05-05] MEDS ORDERED: SODIUM CHLOR 0.9% 1000 ML INJ 1,000 ML IV ONE (23:30)
[2017-05-05 23:57] LABS: BLOOD, URINE NEG (NEG); GLUCOSE,URINE NEG (NEG); KETONE, URINE NEG (NEG); NITRITE,URINE NEG (NEG)
[2017-05-06 00:01] LABS: CHLORIDE 105 MEQ/L (98-107); POTASSIUM 3.6 MEQ/L (3.5-5.1); SODIUM (NA) 138 MEQ/L (136-145)
[2017-05-06 00:05] LABS: ANION GAP 8 MEQ/L (5-15); BICARBONATE 25.1 MEQ/L (21.0-32.0); BLOOD UREA NITROGEN 8 MG/DL (7-18)
[2017-05-06 00:08] LABS: ALT (GPT) 16 U/L (10-53); AST (GOT) 13 U/L (15-37); GLOMERULAR FILTRATION RATE 94 ML/MIN (>89)
[2017-05-06 00:09] LABS: TOTAL BILIRUBIN ADULT 0.2 MG/DL (0.2-1.0)
[2017-05-06 00:11] LABS: ALKALINE PHOSPHATASE 60 U/L (45-117)
[2017-05-06 00:13] LABS: BETA HCG QUANT LESS THAN 1 MIU/ML (0-5)
[2017-05-06 00:24] LABS: MUCUS URINE FEW /lpf (OCC); URINE COLOR YELLOW (YELLW/STRAW)
[2017-05-06 00:25] LABS: COMMENT (UR) CULT NOT INDICATED; CULTURE IF INDICATED CULT NOT INDICATED; RBC, URINE 0-3 /hpf (0-3); SQUAMOUS EPITHELIAL CELL URINE 0-5 /hpf (0-5); WBC, URINE 0-2 /hpf (0-5)
[2017-05-06 00:28] VITALS: BP 111/64; PULSE 84; RESP 16; O2SAT 98
[2017-05-06 00:31] LABS: AUTOMATED NEUTROPHIL # 3.6 TH/MM3 (1.8-7.7); BASOPHIL % 0.6 % (0.0-2.0); EOSINOPHIL # 0.2 TH/MM3 (0-0.4); EOSINOPHIL % 3.3 % (0.0-4.0); HEMATOCRIT 34.9 % (35.0-46.0); LYMPH % 35.4 % (9.0-44.0); LYMPHOCYTE # 2.3 TH/MM3 (1.0-4.8); MEAN CELL VOLUME 77.6 FL (80.0-100.0); MEAN CORPUSCULAR HEMOGLOBIN 24.8 PG (27.0-34.0); MEAN CORPUSCULAR HGB CONC 31.9 % (32.0-36.0); MONO % 8.1 % (0.0-8.0); NEUT % 52.6 % (16.0-70.0); PLATELET COUNT 360 TH/MM3 (150-450); RED BLOOD COUNT 4.49 MIL/MM3 (4.00-5.30); RED CELL DISTRIBUTION WIDTH 12.6 % (11.6-17.2); WHITE BLOOD COUNT 6.6 TH/MM3 (4.0-11.0)
[2017-05-06 00:39] LABS: HEMO FLAGS AUTO DIFF
--- NOTE | 2017-05-06 00:50 | PD ---
Physical Exam Date Seen by Provider: May 06, 2017 Time Seen by Provider: 00:45 Narrative Accepted in transfer of care from Dr. Wyman Data Data Last Documented VS Vital Signs Date Time Temp Pulse Resp B/P (MAP) Pulse Ox O2 Delivery O2 Flow Rate FiO2 05/05/17 23:20 98.4 100 18 134/68 (90) 99 Orders Orders Complete Blood Count With Diff (05/05/17 23:20) Comprehensive Metabolic Panel (05/05/17 23:20) Lipase (05/05/17 23:20) Urinalysis - C+S If Indicated (05/05/17 23:20) Beta Hcg (Quant/Titer) (05/05/17 23:20) Sodium Chlor 0.9% 1000 Ml Inj (Ns 1000 M (05/05/17 23:30) Ondansetron Inj (Zofran Inj) (05/05/17 23:30) Hydromorphone Pf Inj (Dilaudid Pf Inj) (05/05/17 23:30) Labs Laboratory Tests Test 05/05/17 23:30 05/05/17 23:40 Urine Color YELLOW Urine Turbidity CLEAR Urine pH 6.0 Urine Specific [place] 1.021 Urine Protein NEG mg/dL Urine Glucose (UA) NEG mg/dL Urine Ketones NEG mg/dL Urine Occult Blood NEG Urine Nitrite NEG Urine Bilirubin NEG Urine Leukocyte Esterase NEG Urine RBC 0-3 /hpf Urine WBC 0-2 /hpf Urine Squamous Epithelial Cells 0-5 /hpf Urine Mucus FEW /lpf Microscopic Urinalysis Comment CULT NOT INDICATED White Blood Count 6.6 TH/MM3 Red Blood Count 4.49 MIL/MM3 Hemoglobin 11.1 GM/DL Hematocrit 34.9 % Mean Corpuscular Volume 77.6 FL Mean Corpuscular Hemoglobin 24.8 PG Mean Corpuscular Hemoglobin Concent 31.9 % Red Cell Distribution Width 12.6 % Platelet Count 360 TH/MM3 Mean Platelet Volume 8.7 FL Neutrophils (%) (Auto) 52.6 % Lymphocytes (%) (Auto) 35.4 % Monocytes (%) (Auto) 8.1 % Eosinophils (%) (Auto) 3.3 % Basophils (%) (Auto) 0.6 % Neutrophils # (Auto) 3.6 TH/MM3 Lymphocytes # (Auto) 2.3 TH/MM3 Monocytes # (Auto) 0.5 TH/MM3 Eosinophils # (Auto) 0.2 TH/MM3 Basophils # (Auto) 0.0 TH/MM3 CBC Comment AUTO DIFF Blood Urea Nitrogen 8 MG/DL Creatinine 0.72 MG/DL Random Glucose 104 MG/DL Total Protein 7.5 GM/DL Albumin 3.7 GM/DL Calcium Level 8.0 MG/DL Alkaline Phosphatase 60 U/L Aspartate Amino Transf (AST/SGOT) 13 U/L Alanine Aminotransferase (ALT/SGPT) 16 U/L Total Bilirubin 0.2 MG/DL Sodium Level 138 MEQ/L Potassium Level 3.6 MEQ/L Chloride Level 105 MEQ/L Carbon Dioxide Level 25.1 MEQ/L Anion Gap 8 MEQ/L Estimat Glomerular Filtration Rate 94 ML/MIN Lipase 184 U/L Human Chorionic Gonadotropin, Quant LESS THAN 1 MIU/ML [facility] Medical Record Reviewed: Yes Supervised Visit with SANDRA: No Interpretation(s) CBC & BMP Diagram 05/05/17 23:40 Total Protein 7.5, Albumin 3.7, Calcium Level 8.0 L, Alkaline Phosphatase 60, Aspartate Amino Transf (AST/SGOT) 13 L, Alanine Aminotransferase (ALT/SGPT) 16, Total Bilirubin 0.2 Vital Signs Date Time Temp Pulse Resp B/P (MAP) Pulse Ox O2 Delivery O2 Flow Rate FiO2 05/05/17 23:20 98.4 100 18 134/68 (90) 99 05/05/17 23:20 18 05/05/17 22:48 98.4 100 18 134/68 (90) 99 Quant HCG: less than 1, not elevated UA: wnl Differential Diagnosis Accepted in transfer of care from Dr. Wyman please refer to his dictation Narrative Course Accept in transfer of care from Dr. Wyman for follow-up of pending labs and patient disposition it is It is now 12:45 AM labs have been resulted quantitative hCG is less than 1, not elevated CBC metabolic panel and urinalysis eyes are normal range: Patient has received IV fluids anti-emetic and narcotic pain medication. Patient is stable for outpatient management and follow-up with her pain management provider. Diagnosis Primary Impression: Gastroparesis Referrals: Pain Management call for appointment Primary Care Physician call for appointment Patient Instructions: Narcotic given in the ED, General Instructions Additional Instruction: Follow-up with your primary care provider and pain management provider call office to schedule appointments and keep currently scheduled appointments Continue current medications as presently prescribed Return to the emergency department for any concerns Med/Other Pt SpecificInfo: No Change to Meds Disposition: 01 DISCHARGE HOME Condition: Stable Uma Ovalle MD May 06, 2017 00:50
[2017-05-06 01:36] LABS: OVALOCYTES 1+ (NORMAL); SCAN/DIFF AUTO DIFF CONFIRMED
[2017-05-06 01:37] VITALS: BP 120/77
== END 2017-05-06 01:47 | disposition home or self-care (01) ==
LOC: PHED 22:42
DX: K31.84 Gastroparesis (principal); E11.43 Type 2 diabetes mellitus with diabetic autonomic (poly)neuropathy; K21.9 Gastro-esophageal reflux disease without esophagitis; K58.9 Irritable bowel syndrome, unspecified; Z88.0 Allergy status to penicillin; Z98.84 Bariatric surgery status; Z87.19 Personal history of other diseases of the digestive system
CPT/HCPCS: 80053; 81001; 83690; 84702; 85025; 96374; 96375; 99284; J1170; J2405; J7030

== ENCOUNTER 2017-05-20 23:47 | Emergency (ER) | payer MEDICAID ==
[~2017-05-20] VITALS: Ht 157.5 cm; Wt 65.2 kg
[2017-05-20 23:53] VITALS: BP 103/86; PULSE 109; RESP 20; TEMP 97.9; O2SAT 100
--- NOTE | 2017-05-21 00:13 | PD ---
HPI Chief Complaint: Abdominal Pain Time Seen by Provider: 00:04 Travel History International Travel<30 days: No Contact w/Intl Traveler<30days: No Traveled to known affect area: No History of Present Illness HPI 32-year-old female presents to the emergency department for 30 minutes of multiple episodes of vomiting and left upper quadrant abdominal pain since last evening. Patient is under the care of Dr. Torres for diagnosis of mesenteric fibromatosis with abdominal pain symptoms for 1.5 years with increasing symptoms since October 2016. She had resection of the mass 01/24/17 which showed a 9 cm mass. Patient has a benign tumor. Patient had a EGD March 2017 that reportedly showed gastritis she was encouraged to follow-up with GI for a colonoscopy. 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 Patient has had multiple hospitalizations and ER visits for nausea vomiting and abdominal pain with unrevealing CAT scans. Her oncologist thinks she may have a component of gastroparesis and again has referred her back to gastroenterology. Patient has chronic anemia. She has also been referred to pain management doctor. Patient reports she attempted to get ahold of her managing physicians yesterday but was unable to do so and the officer closed today so decided to come to the emergency room. Patient reports she takes no prescription narcotics. 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) High Cholesterol: No Chest Pain: No Congestive Heart Failure: No Diabetes: Yes (NO MEDS) Diminished Hearing: Yes ( right COCHLEAR IMPLANT, TUBES, TUMOR in rt ear ) Endocrine: No Gastrointestinal Disorders: Yes (LIVER CYST, IBS, January: PANCREATIC DUCT TUMOR REMOVED) GERD: Yes Genitourinary: Yes Hepatitis: No Hiatal Hernia: No Hypertension: No Immune Disorder: No Implanted Vascular Access Dvce: No Kidney Stones: Yes Musculoskeletal: No Neurologic: No Psychiatric: Yes (ANXIETY DEPRESSION) Respiratory: No Pancreatitis: Yes Renal Failure: No Thyroid Disease: No : 2 Para: 2 Tubal Ligation: Yes Past Surgical History Abdominal Surgery: Yes (GASTRIC BYPASS -2015, EXP LAP FOR ADHESIONS, DILEEP, benign tumor removal ) AICD: No Body Medical Devices: CHOCLEAR IMPLANTS Cholecystectomy: Yes (WITH GALLSTONES POST DILEEP) Ear Surgery: Yes ( IMPLANTS) Genitourinary Surgery: Yes (KIDNEY STONES SURGERY AND LITHOTRIPSY) Gynecologic Surgery: Yes (TUBAL) Joint Replacement: No Pacemaker: No Other Surgery: Yes (explor lap for abd adhesions) Social History Alcohol Use: No Tobacco Use: No Substance Use: No Allergies-Medications (Allergen,Severity, Reaction): Coded Allergies: morphine (Unverified Allergy, Severe, Rash, 05/21/17) acetaminophen (Unverified Allergy, Unknown, Chest Pain, 05/21/17) codeine (Unverified Allergy, Unknown, Chest Pain, 05/21/17) penicillin G (Unverified Allergy, Unknown, Hives, 05/21/17) Reported Meds & Prescriptions Reported Meds & Active Scripts Active Zofran Odt (Ondansetron Odt) 4 Mg Tab 4 Mg SL Q6HR PRN Reglan (Metoclopramide HCl) 10 Mg Tab 10 Mg PO TIDAC Carafate (Sucralfate) 1 Gm Tab 1 Gm PO TID On empty stomach Protonix (Pantoprazole Sodium) 40 Mg Tab 40 Mg PO DAILY Review of Systems Except as stated in HPI: all other systems reviewed are Neg Physical Exam Narrative GENERAL: Well-developed well-nourished female in acute distress no respiratory distress SKIN: Warm and dry. HEAD: Normocephalic. EYES: No scleral icterus. No injection or drainage. NECK: Supple, trachea midline. No JVD or lymphadenopathy. CARDIOVASCULAR: Regular rate and rhythm without murmurs, gallops, or rubs. RESPIRATORY: Breath sounds equal bilaterally. No accessory muscle use. GASTROINTESTINAL: Abdomen soft, non-tender, nondistended. Well-healed postsurgical scar no redness no induration no drainage. No guarding no rebound. No palpable mass. MUSCULOSKELETAL: No cyanosis, or edema. BACK: Nontender without obvious deformity. No CVA tenderness. Data Data Last Documented VS Vital Signs Date Time Temp Pulse Resp B/P (MAP) Pulse Ox O2 Delivery O2 Flow Rate FiO2 05/21/17 02:15 100 Room Air 05/21/17 02:15 91 18 05/20/17 23:53 97.9 Orders Orders Sodium Chlor 0.9% 1000 Ml Inj (Ns 1000 M (05/21/17 00:15) Ondansetron Inj (Zofran Inj) (05/21/17 00:15) Pantoprazole Inj (Protonix Inj) (05/21/17 00:15) Ed Urine Pregnancytest Poc (05/21/17 00:08) Complete Blood Count With Diff (05/21/17 01:33) Comprehensive Metabolic Panel (05/21/17 01:33) Lipase (05/21/17 01:33) Urinalysis - C+S If Indicated (05/21/17 01:33) Iv Access Insert/Monitor (05/21/17 01:33) Ecg Monitoring (05/21/17 01:33) Oximetry (05/21/17 01:33) Sodium Chloride 0.9% Flush (Ns Flush) (05/21/17 01:45) Sodium Chlor 0.9% 1000 Ml Inj (Ns 1000 M (05/21/17 01:45) Ondansetron Inj (Zofran Inj) (05/21/17 01:45) Ketorolac Inj (Toradol Inj) (05/21/17 01:45) Potassium Chloride (Kcl) (05/21/17 02:45) Blood Glucose (05/21/17 03:12) Labs Laboratory Tests Test 05/21/17 02:00 White Blood Count 6.5 TH/MM3 Red Blood Count 4.66 MIL/MM3 Hemoglobin 11.1 GM/DL Hematocrit 35.2 % Mean Corpuscular Volume 75.6 FL Mean Corpuscular Hemoglobin 23.9 PG Mean Corpuscular Hemoglobin Concent 31.6 % Red Cell Distribution Width 12.6 % Platelet Count 338 TH/MM3 Mean Platelet Volume 8.4 FL Neutrophils (%) (Auto) 50.7 % Lymphocytes (%) (Auto) 37.3 % Monocytes (%) (Auto) 8.8 % Eosinophils (%) (Auto) 2.5 % Basophils (%) (Auto) 0.7 % Neutrophils # (Auto) 3.3 TH/MM3 Lymphocytes # (Auto) 2.4 TH/MM3 Monocytes # (Auto) 0.6 TH/MM3 Eosinophils # (Auto) 0.2 TH/MM3 Basophils # (Auto) 0.0 TH/MM3 CBC Comment DIFF FINAL Differential Comment Urine Color YELLOW Urine Turbidity CLEAR Urine pH 8.0 Urine Specific [place] 1.012 Urine Protein NEG mg/dL Urine Glucose (UA) NEG mg/dL Urine Ketones NEG mg/dL Urine Occult Blood NEG Urine Nitrite NEG Urine Bilirubin NEG Urine Leukocyte Esterase NEG Urine RBC 0-2 /hpf Urine WBC 0-2 /hpf Urine Squamous Epithelial Cells 6-8 /hpf Urine Bacteria OCC /hpf Microscopic Urinalysis Comment CULT NOT INDICATED Blood Urea Nitrogen 8 MG/DL Creatinine 0.66 MG/DL Random Glucose 55 MG/DL Total Protein 7.5 GM/DL Albumin 3.7 GM/DL Calcium Level 7.9 MG/DL Alkaline Phosphatase 62 U/L Aspartate Amino Transf (AST/SGOT) 11 U/L Alanine Aminotransferase (ALT/SGPT) 14 U/L Total Bilirubin 0.2 MG/DL Sodium Level 141 MEQ/L Potassium Level 3.3 MEQ/L Chloride Level 109 MEQ/L Carbon Dioxide Level 24.8 MEQ/L Anion Gap 7 MEQ/L Estimat Glomerular Filtration Rate 104 ML/MIN Lipase 175 U/L [facility] Medical Decision Making Medical Screen Exam Complete: Yes Emergency Medical Condition: Yes Medical Record Reviewed: Yes Interpretation(s) CBC & BMP Diagram 05/21/17 02:00 Total Protein 7.5, Albumin 3.7, Calcium Level 7.9 L, Alkaline Phosphatase 62, Aspartate Amino Transf (AST/SGOT) 11 L, Alanine Aminotransferase (ALT/SGPT) 14, Total Bilirubin 0.2 Vital Signs Date Time Temp Pulse Resp B/P (MAP) Pulse Ox O2 Delivery O2 Flow Rate FiO2 05/21/17 02:15 100 Room Air 05/21/17 02:15 91 18 107/82 (90) 99 Room Air 05/20/17 23:53 97.9 109 20 103/86 (92) 100 POC hcg: negative Differential Diagnosis Recurrent abdominal pain, gastroparesis, vomiting, chronic pain syndrome, dehydration, opiate withdrawal Narrative Course IV access obtained patient given liter normal saline and Zofran 4 mg IV for complaint of vomiting Patient with recurrent nausea therefore given additional Zofran 4 mg IV Given additional liter of normal saline Patient notes serum glucose of 55 given oral hydration and she is tolerating well Serum potassium 3.3 patient given oral potassium replacement Bedside glucose specimen collected after oral hydration without recurrent vomiting 98 Patient is stable for outpatient management Diagnosis Primary Impression: Gastroparesis Additional Impression: Chronic abdominal pain Referrals: Primary Care Physician call for appointment Patient Instructions: General Instructions Additional Instructions: Take medication as prescribed as needed for nausea and/or vomiting Increase fluid hydration Follow clear liquid diet for next 12-24 hours advance to bland diet and regular diet Take ibuprofen as tolerated as needed for discomfort or for fever 100.4F or greater Return to the emergency department for any concerns or change in condition Med/Other Pt SpecificInfo: Prescription(s) given Scripts Ondansetron Odt (Zofran Odt) 4 Mg Tab 4 MG SL Q6HR Y for Nausea/Vomiting, #10 TAB 0 Refills Prov: Uma Ovalle MD 05/21/17 Disposition: 01 DISCHARGE HOME Condition: Stable Uma Ovalle MD May 21, 2017 00:13
[2017-05-21] MEDS ORDERED: SODIUM CHLOR 0.9% 1000 ML INJ 1,000 ML IV ONE ×2 (00:15→01:45)
[2017-05-21] MEDS ORDERED: ONDANSETRON HCL 4 MG/2 ML VIAL IV PUSH ONE ×2 (00:15→01:45)
[2017-05-21] MEDS ORDERED: PANTOPRAZOLE SODIUM 40 MG VIAL IV PUSH ONE (00:15)
[2017-05-21] MEDS ORDERED: KETOROLAC TROMETHAMINE 30 MG/ML (IVP) VIAL IV PUSH ONE (01:45)
[2017-05-21] MEDS ORDERED: SODIUM CHLORIDE 0.9% FLUSH 10 ML FLUSH IV FLUSH PRN (01:45)
[2017-05-21 02:15] VITALS: BP 107/82; PULSE 91; RESP 18; O2SAT 100; O2SAT 99
[2017-05-21 02:15] LABS: BLOOD, URINE NEG (NEG); GLUCOSE,URINE NEG (NEG); KETONE, URINE NEG (NEG); NITRITE,URINE NEG (NEG)
[2017-05-21 02:17] LABS: AUTOMATED NEUTROPHIL # 3.3 TH/MM3 (1.8-7.7); BASOPHIL % 0.7 % (0.0-2.0); EOSINOPHIL # 0.2 TH/MM3 (0-0.4); EOSINOPHIL % 2.5 % (0.0-4.0); HEMATOCRIT 35.2 % (35.0-46.0); LYMPH % 37.3 % (9.0-44.0); LYMPHOCYTE # 2.4 TH/MM3 (1.0-4.8); MEAN CELL VOLUME 75.6 FL (80.0-100.0); MEAN CORPUSCULAR HEMOGLOBIN 23.9 PG (27.0-34.0); MEAN CORPUSCULAR HGB CONC 31.6 % (32.0-36.0); MONO % 8.8 % (0.0-8.0); NEUT % 50.7 % (16.0-70.0); PLATELET COUNT 338 TH/MM3 (150-450); RED BLOOD COUNT 4.66 MIL/MM3 (4.00-5.30); RED CELL DISTRIBUTION WIDTH 12.6 % (11.6-17.2); WHITE BLOOD COUNT 6.5 TH/MM3 (4.0-11.0)
[2017-05-21 02:21] LABS: BACTERIA, URINE OCC /hpf; COMMENT (UR) CULT NOT INDICATED; CULTURE IF INDICATED CULT NOT INDICATED; HEMO FLAGS DIFF FINAL; RBC, URINE 0-2 /hpf (0-3); URINE COLOR YELLOW (YELLW/STRAW); WBC, URINE 0-2 /hpf (0-5)
[2017-05-21 02:26] LABS: CHLORIDE 109 MEQ/L (98-107); POTASSIUM 3.3 MEQ/L (3.5-5.1); SODIUM (NA) 141 MEQ/L (136-145)
[2017-05-21 02:30] LABS: ANION GAP 7 MEQ/L (5-15); BICARBONATE 24.8 MEQ/L (21.0-32.0); BLOOD UREA NITROGEN 8 MG/DL (7-18)
[2017-05-21 02:33] LABS: ALT (GPT) 14 U/L (10-53); AST (GOT) 11 U/L (15-37); GLOMERULAR FILTRATION RATE 104 ML/MIN (>89)
[2017-05-21 02:34] LABS: TOTAL BILIRUBIN ADULT 0.2 MG/DL (0.2-1.0)
[2017-05-21 02:36] LABS: ALKALINE PHOSPHATASE 62 U/L (45-117)
[2017-05-21] MEDS ORDERED: POTASSIUM CHLORIDE 20 MEQ CONTROLLED RELEASE TAB PO ONE (02:45)
[2017-05-21] MEDS ORDERED: ZOFR4TAB3 SL (03:11)
[2017-05-21 04:02] VITALS: BP 120/88
== END 2017-05-21 04:14 | disposition home or self-care (01) ==
LOC: PHED 23:47
DX: K31.84 Gastroparesis (principal); G89.29 Other chronic pain; D64.9 Anemia, unspecified
CPT/HCPCS: 80053; 81001; 83690; 84703; 85025; 96361; 96374; 96375; 96376; 99284; C9113; J1885; J2405; J7030

== ENCOUNTER 2017-05-24 19:44 | Emergency (ER) | payer MEDICAID ==
[~2017-05-24] VITALS: Ht 157.5 cm; Wt 65.7 kg
[~2017-05-24 19:44] MED LIST changes: -MACR100C2 PO; -PERC5TAB12 PO; -SCOP1PAT2 T-DERMAL
[2017-05-24 19:55] VITALS: BP 117/74; PULSE 110; RESP 20; TEMP 98.4; O2SAT 98
[2017-05-24 20:40] VITALS: BP 101/70; PULSE 97; RESP 15; O2SAT 97
[2017-05-24] MEDS ORDERED: SODIUM CHLOR 0.9% 1000 ML INJ 1,000 ML IV SCH (20:53)
[2017-05-24] MEDS ORDERED: ONDANSETRON HCL 4 MG/2 ML VIAL IVP ONE (21:00)
[2017-05-24] MEDS ORDERED: SODIUM CHLORIDE 0.9% FLUSH 10 ML FLUSH IV FLUSH PRN (21:00)
[2017-05-24] MEDS ORDERED: HYDROmorphone HCL PF 0.5 MG/0.5 ML SYRINGE IV PUSH ONE (21:00)
[2017-05-24] MEDS ORDERED: HYDROmorphone HCL PF 1 MG/ML VIAL IV ONE (21:45)
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
[2017-05-24] MEDS ORDERED: DIATRIZOATE MEGLUM/DIATRIZOATE SOD 9 ML CUP ONE (21:52)
[2017-05-24 21:55] VITALS: BP 101/59; PULSE 78; RESP 15
[2017-05-24 21:56] LABS: AUTOMATED NEUTROPHIL # 5.3 TH/MM3 (1.8-7.7); BASOPHIL % 0.6 % (0.0-2.0); EOSINOPHIL # 0.1 TH/MM3 (0-0.4); EOSINOPHIL % 1.3 % (0.0-4.0); HEMATOCRIT 34.8 % (35.0-46.0); LYMPH % 27.7 % (9.0-44.0); LYMPHOCYTE # 2.2 TH/MM3 (1.0-4.8); MEAN CELL VOLUME 76.6 FL (80.0-100.0); MEAN CORPUSCULAR HGB CONC 32.6 % (32.0-36.0); MONO % 6.8 % (0.0-8.0); NEUT % 63.6 % (16.0-70.0); PLATELET COUNT 343 TH/MM3 (150-450); RED BLOOD COUNT 4.54 MIL/MM3 (4.00-5.30); RED CELL DISTRIBUTION WIDTH 12.6 % (11.6-17.2); WHITE BLOOD COUNT 8.1 TH/MM3 (4.0-11.0)
[2017-05-24 22:11] LABS: APTT (PATIENT) 27.3 SEC (24.3-30.1); INTERNATIONAL NORMALIZED RATIO 0.9 RATIO; PROTHROMBIN TIME - PATIENT 10.2 SEC (9.8-11.6)
[2017-05-24 22:12] LABS: HEMO FLAGS AUTO DIFF
[2017-05-24 22:17] LABS: BLOOD, URINE NEG (NEG); GLUCOSE,URINE NEG (NEG); KETONE, URINE NEG (NEG); NITRITE,URINE NEG (NEG)
[2017-05-24 22:30] LABS: URINE COLOR YELLOW (YELLW/STRAW)
[2017-05-24 22:31] LABS: BACTERIA, URINE RARE /hpf; COMMENT (UR) CULT NOT INDICATED; CULTURE IF INDICATED CULT NOT INDICATED; SQUAMOUS EPITHELIAL CELL URINE 0-5 /hpf (0-5); WBC, URINE 0-2 /hpf (0-5)
[2017-05-24 22:37] LABS: OVALOCYTES 1+ (NORMAL); SCAN/DIFF AUTO DIFF CONFIRMED
[2017-05-24 22:50] LABS: ALKALINE PHOSPHATASE 60 U/L (45-117); ALT (GPT) 15 U/L (10-53); ANION GAP 6 MEQ/L (5-15); AST (GOT) 16 U/L (15-37); BICARBONATE 27.1 MEQ/L (21.0-32.0); BLOOD UREA NITROGEN 6 MG/DL (7-18); CHLORIDE 105 MEQ/L (98-107); GLOMERULAR FILTRATION RATE 103 ML/MIN (>89); POTASSIUM 4.3 MEQ/L (3.5-5.1); SODIUM (NA) 138 MEQ/L (136-145); TOTAL BILIRUBIN ADULT 0.1 MG/DL (0.2-1.0)
[2017-05-24 23:05] VITALS: BP 106/58; PULSE 72; RESP 15; O2SAT 98
[2017-05-24] MEDS ORDERED: IOHEXOL 350 MG/ML 10 ML VIAL (for RAD DIAG) IVCONTRAST ONE (23:20)
--- NOTE | 2017-05-24 23:54 | RADRPT ---
EXAM DATE/TIME: 05/24/2017 23:15 [facility] COMPARISON: CT ABDOMEN & PELVIS W CONTRAST, April 10, 2017, 1:00. INDICATIONS : Diffuse abdomen pain with nausea and vomiting for five days. IV CONTRAST: 72 cc Omnipaque 350 (iohexol) IV ORAL CONTRAST: Prescribed oral contrast ingested. RADIATION DOSE: 7.91 CTDIvol (mGy) MEDICAL HISTORY : Renal calculi. Pancreatitis. SURGICAL HISTORY : Gastric bypass. Cholecystectomy.Tubal ligation. ENCOUNTER: Initial ACUITY: 4 - 6 days PAIN SCALE: 6/10 LOCATION: Bilateral abdomen TECHNIQUE: Volumetric scanning of the abdomen and pelvis was performed. Using automated exposure control and ad justment of the mA and/or kV according to patient size, radiation dose was kept as low as reasonably achievable to obtain optimal diagnostic quality images. DICOM format image data is available electro nically for review and comparison. FINDINGS: Lung bases are clear. Postoperative laparotomy and gastric bypass surgery as well as cholecystectomy. Minimal prominence of biliary ductal system stable since April 10. Spleen, adrenals, kidneys and panc reas unremarkable. There is a 2 cm right ovarian cyst. No pelvic mass or free fluid otherwise. No acute bony abnormality . CONCLUSION: 1. No acute findings. Postoperative gastric bypass surgery and cholecystectomy. [address] No obstruction, free fluid or free air. Gee Laurent MD on May 24, 2017 at 23:48 Board Certified Radiologist. This report was verified electronically.
[2017-05-25 00:03] VITALS: BP 110/62; PULSE 76; RESP 17; O2SAT 99
[2017-05-25] MEDS ORDERED: PERC5TAB12 PO (00:08)
[2017-05-25] MEDS ORDERED: oxyCODONE/ACETAMINOPHEN 10 MG/325 MG TAB PO ONE (00:15)
== END 2017-05-25 00:26 | disposition home or self-care (01) ==
LOC: PHED 19:44
DX: R10.12 Left upper quadrant pain (principal); N83.201 Unspecified ovarian cyst, right side
CPT/HCPCS: 74177; 80053; 81001; 83605; 83690; 84703; 85025; 85610; 85730; 96361; 96374; 96375; 99285; J1170; J2405; J7030; Q9963; Q9967

== ENCOUNTER 2017-06-22 16:18 | Emergency (ER) | payer MEDICAID ==
[~2017-06-22] VITALS: Ht 157.5 cm; Wt 67.7 kg
[~2017-06-22 16:18] MED LIST changes: +PERC5TAB12 PO
[2017-06-22 16:33] VITALS: BP 127/89; PULSE 91; RESP 16; TEMP 98.4; O2SAT 98
[2017-06-22] MEDS ORDERED: FENT25DI T-DERMAL (16:48)
[2017-06-22] MEDS ORDERED: SODIUM CHLOR 0.9% 1000 ML INJ 1,000 ML IV SCH (17:09)
[2017-06-22] MEDS ORDERED: HYDROmorphone HCL PF 1 MG/ML VIAL IV PUSH ONE ×2 (17:15→18:45)
[2017-06-22] MEDS ORDERED: ONDANSETRON HCL 4 MG/2 ML VIAL IVP ONE (17:15)
[2017-06-22] MEDS: SODIUM CHLORIDE 0.9% FLUSH 10 ML FLUSH IV FLUSH PRN ×2 (17:37→19:26)
[2017-06-22 17:56] LABS: AUTOMATED NEUTROPHIL # 2.3 TH/MM3 (1.8-7.7); BASOPHIL % 0.3 % (0.0-2.0); EOSINOPHIL # 0.2 TH/MM3 (0-0.4); EOSINOPHIL % 3.8 % (0.0-4.0); HEMATOCRIT 35.6 % (35.0-46.0); LYMPH % 38.6 % (9.0-44.0); LYMPHOCYTE # 1.9 TH/MM3 (1.0-4.8); MEAN CELL VOLUME 76.7 FL (80.0-100.0); MEAN CORPUSCULAR HEMOGLOBIN 24.6 PG (27.0-34.0); MONO % 8.3 % (0.0-8.0); PLATELET COUNT 336 TH/MM3 (150-450); RED BLOOD COUNT 4.64 MIL/MM3 (4.00-5.30); RED CELL DISTRIBUTION WIDTH 13.6 % (11.6-17.2); WHITE BLOOD COUNT 4.9 TH/MM3 (4.0-11.0)
[2017-06-22 17:56] LABS: BLOOD, URINE NEG (NEG); GLUCOSE,URINE NEG (NEG); KETONE, URINE NEG (NEG); NITRITE,URINE NEG (NEG)
[2017-06-22 18:06] LABS: CHLORIDE 101 MEQ/L (98-107); POTASSIUM 3.6 MEQ/L (3.5-5.1); SODIUM (NA) 135 MEQ/L (136-145)
[2017-06-22 18:07] VITALS: RESP 18
[2017-06-22 18:10] LABS: ANION GAP 6 MEQ/L (5-15); BICARBONATE 27.7 MEQ/L (21.0-32.0); BLOOD UREA NITROGEN 9 MG/DL (7-18)
[2017-06-22 18:11] LABS: APTT (PATIENT) 28.2 SEC (24.3-30.1); INTERNATIONAL NORMALIZED RATIO 0.9 RATIO; PROTHROMBIN TIME - PATIENT 10.1 SEC (9.8-11.6)
[2017-06-22 18:12] LABS: ALT (GPT) 239 U/L (10-53); AST (GOT) 101 U/L (15-37)
[2017-06-22 18:13] LABS: GLOMERULAR FILTRATION RATE 114 ML/MIN (>89)
[2017-06-22 18:14] LABS: TOTAL BILIRUBIN ADULT 0.1 MG/DL (0.2-1.0)
[2017-06-22 18:15] LABS: ALKALINE PHOSPHATASE 103 U/L (45-117)
[2017-06-22] MEDS ORDERED: IOHEXOL 350 MG/ML 10 ML VIAL (for RAD DIAG) IVCONTRAST ONE (18:24)
[2017-06-22 18:29] LABS: MUCUS URINE FEW /lpf (OCC); RBC, URINE 0-3 /hpf (0-3); URINE COLOR YELLOW (YELLW/STRAW)
[2017-06-22 18:30] LABS: COMMENT (UR) CULT NOT INDICATED; CULTURE IF INDICATED CULT NOT INDICATED
[2017-06-22 18:45] LABS: HEMO FLAGS AUTO DIFF
[2017-06-22] MEDS ORDERED: METOCLOPRAMIDE INJ 10 MG in SODIUM CHLORIDE 0.9% INJ 50 ML IV ONE (18:45)
--- NOTE | 2017-06-22 18:49 | RADRPT ---
EXAM DATE/TIME: 06/22/2017 18:20 [facility] COMPARISON: CT ABDOMEN & PELVIS W CONTRAST, May 24, 2017, 23:15. INDICATIONS : Abdominal pain with nausea vomiting after fentanyl patch usage. IV CONTRAST: 100 cc Omnipaque 350 (iohexol) IV ORAL CONTRAST: No oral contrast ingested. RADIATION DOSE: 10.58 CTDIvol (mGy) MEDICAL HISTORY : Carcinoma, not otherwise specified. SURGICAL HISTORY : Cholecystectomy. Tubal ligation.Gastric bypass. Pancreatic duct tumor removed. ENCOUNTER: Initial ACUITY: 1 week PAIN SCALE: 7/10 LOCATION: upper quadrant abdomen TECHNIQUE: Volumetric scanning of the abdomen and pelvis was performed. Using automated exposure control and ad justment of the mA and/or kV according to patient size, radiation dose was kept as low as reasonably achievable to obtain optimal diagnostic quality images. DICOM format image data is available electro nically for review and comparison. FINDINGS: LOWER LUNGS: The visualized lower lungs are clear. LIVER: Homogeneous density without lesion. There is no dilation of the biliary tree. No gallbladder, surgi neetu removed. SPLEEN: Normal size without lesion. PANCREAS: Within normal limits. KIDNEYS: Normal in size and shape. There is no mass or hydronephrosis. Tiny 2 mm stone upper pole right kidne y not causing obstruction. No significant changes. ADRENAL GLANDS: Within normal limits. VASCULAR: There is no aortic aneurysm. BOWEL/MESENTERY: The stomach, small bowel, and colon demonstrate no acute abnormality. There is no free intraperitone al air or fluid. Status post previous gastric bypass surgery. No inflammatory changes. No significant changes compared to the prior study. ABDOMINAL WALL: Within normal limits. RETROPERITONEUM: There is no lymphadenopathy. BLADDER: No wall thickening or mass. REPRODUCTIVE: Within normal limits. The previously noted right ovarian cyst has resolved. INGUINAL: There is no lymphadenopathy or hernia. MUSCULOSKELETAL: Within normal limits for patient age. CONCLUSION: 1. There is a tiny 2 mm nonobstructing stone upper pole right kidney. 2. No new or significant changes compared to the prior exam. Pete Cantu MD on June 22, 2017 at 18:45 Board Certified Radiologist. This report was verified electronically.
[2017-06-22] MEDS ORDERED: ZOFR4TAB3 SL (19:11)
--- NOTE | 2017-06-22 19:11 | PD ---
HPI Chief Complaint: GI Complaint Time Seen by Provider: 17:01 Travel History International Travel<30 days: No Contact w/Intl Traveler<30days: No Traveled to known affect area: No History of Present Illness HPI Patient is a 32-year-old female who comes in complaining of epigastric abdominal pain that radiates to her back. She has been here multiple times for this. She is currently being followed by pain management is on a fentanyl patch. She also complains of nausea and vomiting. She denies fever or chills. She denies any dysuria. She says she has a rash on her right leg. She says this pain is similar to pain that she has had in the past. She says the Fentanyl was helping, but now it is not. 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 ) Endocrine: No Gastrointestinal Disorders: Yes (LIVER CYST, IBS, January: PANCREATIC DUCT TUMOR REMOVED) GERD: Yes Genitourinary: Yes Hepatitis: No Hiatal Hernia: No Hypertension: No Immune Disorder: No Implanted Vascular Access Dvce: No Kidney Stones: Yes Musculoskeletal: No Neurologic: No Psychiatric: Yes (ANXIETY DEPRESSION) Respiratory: No Immunizations Current: Yes Pancreatitis: Yes Renal Failure: No Thyroid Disease: No Tetanus Vaccination: > 5 Years Influenza Vaccination: No ?: Not LMP: 06/10/17 : 2 Para: 2 Tubal Ligation: Yes Past Surgical History Abdominal Surgery: Yes (GASTRIC BYPASS -2014, EXP LAP FOR ADHESIONS, DILEEP, benign tumor removal ) AICD: No Body Medical Devices: CHOCLEAR IMPLANTS Cholecystectomy: Yes (WITH GALLSTONES POST DILEEP) Ear Surgery: Yes ( IMPLANTS) Genitourinary Surgery: Yes (KIDNEY STONES SURGERY AND LITHOTRIPSY) Gynecologic Surgery: Yes (TUBAL) Joint Replacement: No Pacemaker: No Other Surgery: Yes (explor lap for abd adhesions) Social History Alcohol Use: No Tobacco Use: No Substance Use: No Allergies-Medications (Allergen,Severity, Reaction): Coded Allergies: morphine (Verified Allergy, Severe, Rash, 06/23/17) penicillin G (Verified Allergy, Unknown, Hives, 06/23/17) Reported Meds & Prescriptions Reported Meds & Active Scripts Active Zofran Odt (Ondansetron Odt) 4 Mg Tab 4 Mg SL Q6HR PRN Reglan (Metoclopramide HCl) 10 Mg Tab 10 Mg PO TIDAC Carafate (Sucralfate) 1 Gm Tab 1 Gm PO TID On empty stomach Protonix (Pantoprazole Sodium) 40 Mg Tab 40 Mg PO DAILY Reported Fentanyl Patch 72 HR (Fentanyl) 25 Mcg/Hr Patch 25 Mcg T-DERMAL Q72H Review of Systems Except as stated in HPI: all other systems reviewed are Neg General / Constitutional: No: Fever, Chills Eyes: No: Blurred Vision HENT: No: Headaches, Lightheadedness Cardiovascular: No: Chest Pain or Discomfort Respiratory: No: Shortness of Breath Gastrointestinal: Positive: Nausea, Vomiting, Abdominal Pain Genitourinary: No: Dysuria Musculoskeletal: No: Myalgias Skin: No Rash, No Change in Pigmentation Neurologic: No: Weakness, Dizziness Physical Exam Narrative GENERAL: Awake and alert, in no acute distress. SKIN: Focused skin assessment warm/dry. Insect bites to the right leg. No evidence of infection. HEAD: Atraumatic. Normocephalic. EYES: Pupils equal and round. No scleral icterus. ENT: Mucous membranes pink and moist. NECK: Trachea midline. No JVD. CARDIOVASCULAR: Regular rate and rhythm. No murmur appreciated. RESPIRATORY: No accessory muscle use. Clear to auscultation. Breath sounds equal bilaterally. GASTROINTESTINAL: Abdomen soft, nondistended. Tender to palpation of the epigastric area. No rebound or guarding. MUSCULOSKELETAL: No obvious deformities. No clubbing. No cyanosis. No edema. NEUROLOGICAL: Awake and alert. No obvious cranial nerve deficits. Motor grossly within normal limits. Normal speech. PSYCHIATRIC: Appropriate mood and affect; insight and judgment normal. Data Data Last Documented VS Vital Signs Date Time Temp Pulse Resp B/P (MAP) Pulse Ox O2 Delivery O2 Flow Rate FiO2 06/22/17 20:25 98.2 90 20 116/75 (89) 98 06/22/17 17:47 Room Air Orders Orders Basic Metabolic Panel (Bmp) (06/22/17 17:09) Complete Blood Count With Diff (06/22/17 17:09) Lipase (06/22/17 17:09) Prothrombin Time / Inr (Pt) (06/22/17 17:09) Act Partial Throm Time (Ptt) (06/22/17 17:09) Urinalysis - C+S If Indicated (06/22/17 17:09) Ct Abd/Pel W Iv Contrast(Rout) (06/22/17 17:09) Iv Access Insert/Monitor (06/22/17 17:09) Ecg Monitoring (06/22/17 17:09) Oximetry (06/22/17 17:09) Ondansetron Inj (Zofran Inj) (06/22/17 17:15) Sodium Chlor 0.9% 1000 Ml Inj (Ns 1000 M (06/22/17 17:09) Sodium Chloride 0.9% Flush (Ns Flush) (06/22/17 17:15) Hepatic Functional Panel (06/22/17 17:09) Hydromorphone Pf Inj (Dilaudid Pf Inj) (06/22/17 17:15) Iohexol 350 Inj (Omnipaque 350 Inj) (06/22/17 18:24) Metoclopramide Inj (Reglan Inj) (06/22/17 18:45) Hydromorphone Pf Inj (Dilaudid Pf Inj) (06/22/17 18:45) Ed Discharge Order (06/22/17 19:11) Labs Laboratory Tests Test 06/22/17 17:20 06/22/17 17:40 White Blood Count 4.9 TH/MM3 Red Blood Count 4.64 MIL/MM3 Hemoglobin 11.4 GM/DL Hematocrit 35.6 % Mean Corpuscular Volume 76.7 FL Mean Corpuscular Hemoglobin 24.6 PG Mean Corpuscular Hemoglobin Concent 32.0 % Red Cell Distribution Width 13.6 % Platelet Count 336 TH/MM3 Mean Platelet Volume 8.5 FL Neutrophils (%) (Auto) 49.0 % Lymphocytes (%) (Auto) 38.6 % Monocytes (%) (Auto) 8.3 % Eosinophils (%) (Auto) 3.8 % Basophils (%) (Auto) 0.3 % Neutrophils # (Auto) 2.3 TH/MM3 Lymphocytes # (Auto) 1.9 TH/MM3 Monocytes # (Auto) 0.4 TH/MM3 Eosinophils # (Auto) 0.2 TH/MM3 Basophils # (Auto) 0.0 TH/MM3 CBC Comment AUTO DIFF Differential Comment AUTO DIFF CONFIRMED Ovalocytes 1+ Prothrombin Time 10.1 SEC Prothromb Time International Ratio 0.9 RATIO Activated Partial Thromboplast Time 28.2 SEC Blood Urea Nitrogen 9 MG/DL Creatinine 0.61 MG/DL Random Glucose 88 MG/DL Total Protein 7.8 GM/DL Albumin 3.7 GM/DL Calcium Level 8.8 MG/DL Alkaline Phosphatase 103 U/L Aspartate Amino Transf (AST/SGOT) 101 U/L Alanine Aminotransferase (ALT/SGPT) 239 U/L Total Bilirubin 0.1 MG/DL Direct Bilirubin LESS THAN 0.1 MG/DL Sodium Level 135 MEQ/L Potassium Level 3.6 MEQ/L Chloride Level 101 MEQ/L Carbon Dioxide Level 27.7 MEQ/L Anion Gap 6 MEQ/L Estimat Glomerular Filtration Rate 114 ML/MIN Indirect Bilirubin 0.0 MG/DL Lipase 81 U/L Urine Color YELLOW Urine Turbidity SLIGHT Urine pH 8.0 Urine Specific [place] 1.018 Urine Protein NEG mg/dL Urine Glucose (UA) NEG mg/dL Urine Ketones NEG mg/dL Urine Occult Blood NEG Urine Nitrite NEG Urine Bilirubin NEG Urine Leukocyte Esterase NEG Urine RBC 0-3 /hpf Urine WBC 6-8 /hpf Urine Squamous Epithelial Cells 6-8 /hpf Urine Mucus FEW /lpf Microscopic Urinalysis Comment CULT NOT INDICATED MDM Medical Decision Making Medical Screen Exam Complete: Yes Emergency Medical Condition: Yes Medical Record Reviewed: Yes Differential Diagnosis Pancreatitis versus gastritis versus chronic pain Narrative Course Patient is a 32-year-old female who comes in complaining of abdominal pain. Exam shows tenderness in the epigastric area. IV status, labs sent. Labs show an elevation in AST and ALTs, no other acute abnormalities. Patient has had this in the past and it has resolved on its own. CT abdomen and pelvis shows no acute abnormalities 2 mm nonobstructing stone. Patient given IV fluids, Dilaudid, Zofran. She says she felt better, but the pain returned after CT. She was given an additional dose of Dilaudid as well as Reglan. She is informed of the results. She'll be discharged with a prescription for Zofran. She has pain medicine at home. She is advised to follow-up with her doctor regarding her liver function tests. Advised to return as needed for any worsening symptoms. Diagnosis Primary Impression: Abdominal pain Qualified Codes: R10.13 - Epigastric pain Patient Instructions: Abdominal Pain (ED), General Instructions Additional Instructions: Taking her prescribed pain medicine. He can take Zofran as needed for nausea. Follow-up with your doctor regarding her elevated liver function tests. Return to the ED as needed for any worsening symptoms. Scripts Ondansetron Odt (Zofran Odt) 4 Mg Tab 4 MG SL Q6HR Y for Nausea/Vomiting, #15 TAB 0 Refills Prov: Shanique Mas MD 06/22/17 Disposition: 01 DISCHARGE HOME Condition: Stable Shanique Mas MD Jun 22, 2017 19:11
[2017-06-22 19:14] LABS: OVALOCYTES 1+ (NORMAL)
[2017-06-22 19:15] LABS: SCAN/DIFF AUTO DIFF CONFIRMED
[2017-06-22 20:25] VITALS: BP 116/75; TEMP 98.2
== END 2017-06-22 21:05 | disposition home or self-care (01) ==
LOC: PHED 16:18
DX: R10.13 Epigastric pain (principal)
CPT/HCPCS: 74177; 80048; 80076; 81001; 83690; 85025; 85610; 85730; 96361; 96365; 96375; 96376; 99285; J1170; J2405; J2765; J7030; Q9967

== ENCOUNTER 2017-06-23 22:35 | Emergency (ER) | payer MEDICAID ==
[~2017-06-23] VITALS: Ht 157.5 cm; Wt 70.0 kg
[~2017-06-23 22:35] MED LIST changes: +FENT25DI T-DERMAL; -PERC5TAB12 PO
[2017-06-23 22:38] VITALS: BP 127/84; PULSE 90; RESP 16; TEMP 98.5; O2SAT 99
[2017-06-24] MEDS ORDERED: SODIUM CHLORIDE 0.9% FLUSH 10 ML FLUSH IV FLUSH PRN (00:30)
--- NOTE | 2017-06-24 00:37 | PD ---
HPI Chief Complaint: Abdominal Pain Time Seen by Provider: 00:22 Travel History International Travel<30 days: No Contact w/Intl Traveler<30days: No Traveled to known affect area: No History of Present Illness HPI 32-year-old female complains of abdominal pain. Patient has history chronic recurrent abdominal pain. Patient has been seen by pain management and taking fentanyl patch. Patient states that she has increasing pain since yesterday. Patient states the pain cramping pain diffuse over the abdomen. Patient denies any pain radiation. Patient denies any fever chills. Patient states that she has intermittent nausea vomiting. Patient denies any dysuria or frequency. Patient denies any vaginal discharge or bleeding. Patient was seen in emergency room at [facility] yesterday. Patient had blood tests and CT scan done of the abdomen and pelvis. CT abdomen and pelvis shows 2 mm nonobstructive stone. Patient also had elevated liver function enzyme. Patient states that she has history of elevated liver enzyme the past and awaiting referral to GI specialist. 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 ) Endocrine: No Gastrointestinal Disorders: Yes (LIVER CYST, IBS, January: PANCREATIC DUCT TUMOR REMOVED) GERD: Yes Genitourinary: Yes Hepatitis: No Hiatal Hernia: No Hypertension: No Immune Disorder: No Implanted Vascular Access Dvce: No Kidney Stones: Yes Medical other: No Musculoskeletal: No Neurologic: No Psychiatric: Yes (ANXIETY DEPRESSION) Respiratory: No Immunizations Current: Yes Pancreatitis: Yes Renal Failure: No Thyroid Disease: No Tetanus Vaccination: > 5 Years Influenza Vaccination: Yes ?: Not LMP: 06/10/17 : 2 Para: 2 Tubal Ligation: Yes Past Surgical History Abdominal Surgery: Yes (GASTRIC BYPASS -2015, EXP LAP FOR ADHESIONS, DILEEP, benign tumor removal ) AICD: No Body Medical Devices: CHOCLEAR IMPLANTS Cholecystectomy: Yes (WITH GALLSTONES POST DILEEP) Ear Surgery: Yes ( IMPLANTS) Genitourinary Surgery: Yes (KIDNEY STONES SURGERY AND LITHOTRIPSY) Gynecologic Surgery: Yes (TUBAL) Joint Replacement: No Pacemaker: No Other Surgery: Yes (explor lap for abd adhesions) Social History Alcohol Use: No Tobacco Use: No Substance Use: No Allergies-Medications (Allergen,Severity, Reaction): Coded Allergies: morphine (Verified Allergy, Severe, Rash, 06/23/17) penicillin G (Verified Allergy, Unknown, Hives, 06/23/17) Reported Meds & Prescriptions Reported Meds & Active Scripts Active Zofran Odt (Ondansetron Odt) 4 Mg Tab 4 Mg SL Q6HR PRN Reglan (Metoclopramide HCl) 10 Mg Tab 10 Mg PO TIDAC Carafate (Sucralfate) 1 Gm Tab 1 Gm PO TID On empty stomach Protonix (Pantoprazole Sodium) 40 Mg Tab 40 Mg PO DAILY Reported Fentanyl Patch 72 HR (Fentanyl) 25 Mcg/Hr Patch 25 Mcg T-DERMAL Q72H Review of Systems General / Constitutional: No: Fever Eyes: No: Visual changes HENT: No: Headaches Cardiovascular: No: Chest Pain or Discomfort Respiratory: No: Shortness of Breath Gastrointestinal: Positive: Nausea, Vomiting, Abdominal Pain Genitourinary: No: Dysuria Musculoskeletal: No: Pain Skin: No Rash Neurologic: No: Weakness Psychiatric: No: Depression Endocrine: No: Polydipsia Hematologic/Lymphatic: No: Easy Bruising Physical Exam Narrative GENERAL: Well-nourished, well-developed patient. SKIN: Focused skin assessment warm/dry. HEAD: Normocephalic. EYES: No scleral icterus. No injection or drainage. NECK: Supple, trachea midline. No JVD or lymphadenopathy. CARDIOVASCULAR: Regular rate and rhythm without murmurs, gallops, or rubs. RESPIRATORY: Breath sounds equal bilaterally. No accessory muscle use. GASTROINTESTINAL: Abdomen soft, nondistended. Patient has moderate diffuse tenderness on palpation of the abdomen. No rebound tenderness. No mass. MUSCULOSKELETAL: No cyanosis, or edema. BACK: Nontender without obvious deformity. No CVA tenderness. Neurologic exam normal. Data Data Last Documented VS Vital Signs Date Time Temp Pulse Resp B/P (MAP) Pulse Ox O2 Delivery O2 Flow Rate FiO2 06/24/17 00:43 16 06/23/17 22:38 98.5 90 99 Room Air Orders Orders Complete Blood Count With Diff (06/24/17 00:29) Comprehensive Metabolic Panel (06/24/17 00:29) Lipase (06/24/17 00:29) Iv Access Insert/Monitor (06/24/17 00:29) Ecg Monitoring (06/24/17 00:29) Oximetry (06/24/17 00:29) Sodium Chloride 0.9% Flush (Ns Flush) (06/24/17 00:30) Ketorolac Inj (Toradol Inj) (06/24/17 00:45) Labs Laboratory Tests Test 06/24/17 00:45 White Blood Count 5.1 TH/MM3 Red Blood Count 4.57 MIL/MM3 Hemoglobin 11.4 GM/DL Hematocrit 35.4 % Mean Corpuscular Volume 77.5 FL Mean Corpuscular Hemoglobin 24.9 PG Mean Corpuscular Hemoglobin Concent 32.1 % Red Cell Distribution Width 14.4 % Platelet Count 308 TH/MM3 Mean Platelet Volume 8.1 FL Neutrophils (%) (Auto) 38.0 % Lymphocytes (%) (Auto) 48.2 % Monocytes (%) (Auto) 8.9 % Eosinophils (%) (Auto) 4.5 % Basophils (%) (Auto) 0.4 % Neutrophils # (Auto) 1.9 TH/MM3 Lymphocytes # (Auto) 2.4 TH/MM3 Monocytes # (Auto) 0.5 TH/MM3 Eosinophils # (Auto) 0.2 TH/MM3 Basophils # (Auto) 0.0 TH/MM3 CBC Comment DIFF FINAL Differential Comment Blood Urea Nitrogen 7 MG/DL Creatinine 0.57 MG/DL Random Glucose 91 MG/DL Total Protein 7.6 GM/DL Albumin 3.8 GM/DL Calcium Level 8.8 MG/DL Alkaline Phosphatase 136 U/L Aspartate Amino Transf (AST/SGOT) 54 U/L Alanine Aminotransferase (ALT/SGPT) 178 U/L Total Bilirubin 0.2 MG/DL Sodium Level 136 MEQ/L Potassium Level 3.9 MEQ/L Chloride Level 104 MEQ/L Carbon Dioxide Level 24.8 MEQ/L Anion Gap 7 MEQ/L Estimat Glomerular Filtration Rate 124 ML/MIN Lipase 145 U/L MDM Medical Decision Making Medical Screen Exam Complete: Yes Emergency Medical Condition: Yes Medical Record Reviewed: Yes Interpretation(s) 1:49 AM. CBC within normal limit. CMP within normal limit. AST 54. ALT 178. Alkaline phosphatase 136. Differential Diagnosis Differential diagnosis including recurrent abdominal pain, gastritis, PUD, pancreatitis, cholecystitis, colitis, UTI, pyelonephritis, nephrolithiasis. Narrative Course 32-year-old female with abdominal pain. History of recurrent abdominal pain. Toradol 30 mg IV. Diagnosis Primary Impression: Abdominal pain Qualified Codes: R10.84 - Generalized abdominal pain Additional Impression: Transaminitis Patient Instructions: General Instructions Additional Instructions: Continue with Reglan as directed. Continue Protonix as directed. Follow-up with GI specialist. Return if worse. Disposition: 01 DISCHARGE HOME Condition: Stable Gilberto Hilton MD Jun 24, 2017 00:37
[2017-06-24 00:43] VITALS: RESP 16
[2017-06-24] MEDS ORDERED: KETOROLAC TROMETHAMINE 30 MG/ML (IVP) VIAL IV PUSH ONE (00:45)
[2017-06-24 00:52] LABS: AUTOMATED NEUTROPHIL # 1.9 TH/MM3 (1.8-7.7); BASOPHIL % 0.4 % (0.0-2.0); EOSINOPHIL # 0.2 TH/MM3 (0-0.4); EOSINOPHIL % 4.5 % (0.0-4.0); HEMATOCRIT 35.4 % (35.0-46.0); HEMO FLAGS DIFF FINAL; LYMPH % 48.2 % (9.0-44.0); LYMPHOCYTE # 2.4 TH/MM3 (1.0-4.8); MEAN CELL VOLUME 77.5 FL (80.0-100.0); MEAN CORPUSCULAR HEMOGLOBIN 24.9 PG (27.0-34.0); MEAN CORPUSCULAR HGB CONC 32.1 % (32.0-36.0); MONO % 8.9 % (0.0-8.0); PLATELET COUNT 308 TH/MM3 (150-450); RED BLOOD COUNT 4.57 MIL/MM3 (4.00-5.30); RED CELL DISTRIBUTION WIDTH 14.4 % (11.6-17.2); WHITE BLOOD COUNT 5.1 TH/MM3 (4.0-11.0)
[2017-06-24 01:32] LABS: ALT (GPT) 178 U/L (10-53); ANION GAP 7 MEQ/L (5-15); AST (GOT) 54 U/L (15-37); BICARBONATE 24.8 MEQ/L (21.0-32.0); BLOOD UREA NITROGEN 7 MG/DL (7-18); CHLORIDE 104 MEQ/L (98-107); GLOMERULAR FILTRATION RATE 124 ML/MIN (>89); POTASSIUM 3.9 MEQ/L (3.5-5.1); SODIUM (NA) 136 MEQ/L (136-145)
[2017-06-24 01:34] LABS: ALKALINE PHOSPHATASE 136 U/L (45-117); TOTAL BILIRUBIN ADULT 0.2 MG/DL (0.2-1.0)
[2017-06-24 02:00] VITALS: RESP 16
== END 2017-06-24 03:07 | disposition home or self-care (01) ==
LOC: NEPC 22:35
DX: R10.84 Generalized abdominal pain (principal); R74.0 Nonspecific elevation of levels of transaminase and lactic acid dehydrogenase [LDH]; D64.9 Anemia, unspecified; F41.9 Anxiety disorder, unspecified; F32.9 Major depressive disorder, single episode, unspecified; E11.9 Type 2 diabetes mellitus without complications; K21.9 Gastro-esophageal reflux disease without esophagitis; Z79.899 Other long term (current) drug therapy
CPT/HCPCS: 80053; 83690; 85025; 96374; 99284; J1885

== ENCOUNTER 2017-06-25 19:30 | Emergency (ER) | payer MEDICAID ==
[~2017-06-25] VITALS: Ht 177.8 cm; Wt 68.2 kg
[2017-06-25 19:51] VITALS: BP 134/83; PULSE 99; RESP 18; TEMP 97.9; O2SAT 97
[2017-06-25] MEDS ORDERED: SODIUM CHLOR 0.9% 1000 ML INJ 1,000 ML IV SCH (20:16)
--- NOTE | 2017-06-25 20:21 | PD ---
HPI . Abdominal pain Chief Complaint: Abdominal Pain Time Seen by Provider: 19:54 Travel History International Travel<30 days: No Contact w/Intl Traveler<30days: No Traveled to known affect area: No History of Present Illness HPI Patient presents to us via [facility] with a chief complaint of abdominal pain. This is her third day in a row to be seen at one of our facilities for the same thing. She is actually being followed by pain management because of chronic abdominal pain. She uses a fentanyl patch. She states that she has had some nausea and vomiting today followed by abdominal pain. She subsequently presented to us by rescue for treatment. She is unaware of any modifying factors. She states her abdominal pain is severe. 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 ) Endocrine: No Gastrointestinal Disorders: Yes (LIVER CYST, IBS, January: PANCREATIC DUCT TUMOR REMOVED) GERD: Yes Genitourinary: Yes Hepatitis: No Hiatal Hernia: No Hypertension: No Immune Disorder: No Implanted Vascular Access Dvce: No Kidney Stones: Yes Musculoskeletal: No Neurologic: No Psychiatric: Yes (ANXIETY DEPRESSION) Respiratory: No Immunizations Current: Yes Pancreatitis: Yes Renal Failure: No Thyroid Disease: No Tetanus Vaccination: < 5 Years Influenza Vaccination: Yes ?: Not LMP: 06/10/17 : 2 Para: 2 Tubal Ligation: Yes Past Surgical History Abdominal Surgery: Yes (GASTRIC BYPASS -2014, EXP LAP FOR ADHESIONS, DILEEP, benign tumor removal ) AICD: No Body Medical Devices: CHOCLEAR IMPLANTS Cholecystectomy: Yes (WITH GALLSTONES POST DILEEP) Ear Surgery: Yes ( IMPLANTS) Genitourinary Surgery: Yes (KIDNEY STONES SURGERY AND LITHOTRIPSY) Gynecologic Surgery: Yes (TUBAL) Joint Replacement: No Pacemaker: No Other Surgery: Yes (explor lap for abd adhesions) Social History Alcohol Use: No Tobacco Use: No Substance Use: No Allergies-Medications (Allergen,Severity, Reaction): Coded Allergies: morphine (Verified Allergy, Severe, Rash, 06/25/17) penicillin G (Verified Allergy, Unknown, Hives, 06/25/17) Reported Meds & Prescriptions Reported Meds & Active Scripts Active Zofran Odt (Ondansetron Odt) 4 Mg Tab 4 Mg SL Q6HR PRN Reglan (Metoclopramide HCl) 10 Mg Tab 10 Mg PO TIDAC Carafate (Sucralfate) 1 Gm Tab 1 Gm PO TID On empty stomach Protonix (Pantoprazole Sodium) 40 Mg Tab 40 Mg PO DAILY Reported Fentanyl Patch 72 HR (Fentanyl) 25 Mcg/Hr Patch 25 Mcg T-DERMAL Q72H Review of Systems Except as stated in HPI: all other systems reviewed are Neg General / Constitutional: No: Fever, Chills Gastrointestinal: Positive: Nausea, Vomiting, Abdominal Pain Genitourinary: No: Urgency, Frequency, Dysuria Physical Exam Narrative GENERAL: Awake and alert. No acute distress. SKIN: warm/dry. No rash or lesions. HEAD: Normocephalic. Atraumatic. EYES: Pupils equal and round. No scleral icterus. No injection or drainage. ENT: No nasal bleeding or discharge. Mucous membranes pink and moist. NECK: Trachea midline. Full range of motion without pain.. CARDIOVASCULAR: Regular rate and rhythm. Heart sounds normal. RESPIRATORY: No accessory muscle use. Clear to auscultation. Breath sounds equal bilaterally. GASTROINTESTINAL: Abdomen soft. Left upper quadrant tenderness. Bowel sounds present. Nondistended. MUSCULOSKELETAL: No obvious deformities. NEUROLOGICAL: Awake and alert. No obvious cranial nerve deficits. Motor grossly within normal limits. Normal speech. PSYCHIATRIC: Appropriate mood and affect; insight and judgment normal. Data Data Last Documented VS Vital Signs Date Time Temp Pulse Resp B/P (MAP) Pulse Ox O2 Delivery O2 Flow Rate FiO2 06/25/17 19:51 97.9 99 18 134/83 (100) 97 Orders Orders Complete Blood Count With Diff (06/25/17 20:16) Comprehensive Metabolic Panel (06/25/17 20:16) Lipase (06/25/17 20:16) Lactic Acid (06/25/17 20:16) Urinalysis - C+S If Indicated (06/25/17 20:16) Iv Access Insert/Monitor (06/25/17 20:16) Sodium Chlor 0.9% 1000 Ml Inj (Ns 1000 M (06/25/17 20:16) Sodium Chloride 0.9% Flush (Ns Flush) (06/25/17 20:30) Prochlorperazine Inj (Compazine Inj) (06/25/17 20:30) Diphenhydramine Inj (Benadryl Inj) (06/25/17 20:30) Labs Laboratory Tests Test 06/25/17 20:40 White Blood Count 6.7 TH/MM3 Red Blood Count 4.62 MIL/MM3 Hemoglobin 11.4 GM/DL Hematocrit 35.2 % Mean Corpuscular Volume 76.2 FL Mean Corpuscular Hemoglobin 24.6 PG Mean Corpuscular Hemoglobin Concent 32.3 % Red Cell Distribution Width 13.2 % Platelet Count 359 TH/MM3 Mean Platelet Volume 7.9 FL Neutrophils (%) (Auto) 63.2 % Lymphocytes (%) (Auto) 26.4 % Monocytes (%) (Auto) 7.9 % Eosinophils (%) (Auto) 2.3 % Basophils (%) (Auto) 0.2 % Neutrophils # (Auto) 4.2 TH/MM3 Lymphocytes # (Auto) 1.8 TH/MM3 Monocytes # (Auto) 0.5 TH/MM3 Eosinophils # (Auto) 0.2 TH/MM3 Basophils # (Auto) 0.0 TH/MM3 CBC Comment AUTO DIFF Urine Collection Type VOIDED Urine Color YELLOW Urine Turbidity CLEAR Urine pH 7.0 Urine Specific [place] 1.015 Urine Protein NEG mg/dL Urine Glucose (UA) NEG mg/dL Urine Ketones NEG mg/dL Urine Occult Blood NEG Urine Nitrite NEG Urine Bilirubin NEG Urine Leukocyte Esterase NEG Urine WBC 0-2 /hpf Urine Squamous Epithelial Cells 6-8 /hpf Urine Transitional Epithelial Cells 0-2 /hpf Urine Bacteria FEW /hpf Microscopic Urinalysis Comment CULT NOT INDICATED Blood Urea Nitrogen 9 MG/DL Creatinine 0.64 MG/DL Random Glucose 77 MG/DL Total Protein 7.5 GM/DL Albumin 3.5 GM/DL Calcium Level 8.1 MG/DL Alkaline Phosphatase 108 U/L Aspartate Amino Transf (AST/SGOT) 20 U/L Alanine Aminotransferase (ALT/SGPT) 106 U/L Total Bilirubin 0.2 MG/DL Sodium Level 138 MEQ/L Potassium Level 3.7 MEQ/L Chloride Level 105 MEQ/L Carbon Dioxide Level 28.3 MEQ/L Anion Gap 5 MEQ/L Estimat Glomerular Filtration Rate 108 ML/MIN Lactic Acid Level 1.1 mmol/L Lipase 97 U/L MDM Medical Decision Making Medical Screen Exam Complete: Yes Emergency Medical Condition: Yes Medical Record Reviewed: Yes (this patient has had a previous gastric bypass operation. She has a history of pancreatitis, IBS and liver cysts. She further has a history of known kidney stones. She presents to us very frequently with abdominal pain.) Differential Diagnosis Differential diagnosis of abdominal pain includes but is not limited to gastritis, pancreatitis, hepatitis, gastroenteritis, gallbladder disease, constipation, urinary retention, UTI, peptic ulcer disease, diverticulitis or appendicitis Narrative Course This patient presents for the evaluation and treatment of abdominal pain associated with nausea and vomiting. She has had complete workups done in the past 2 days. She has had a CT scan within the last 2 days. That will not be repeated. I will recheck her lab work. I am treating her with IV fluids and IV Compazine and Benadryl. CBC & BMP Diagram 06/25/17 20:40 Total Protein 7.5, Albumin 3.5, Calcium Level 8.1 L, Alkaline Phosphatase 108, Aspartate Amino Transf (AST/SGOT) 20, Alanine Aminotransferase (ALT/SGPT) 106 H , Total Bilirubin 0.2 LA 1.1 Her liver function studies have markedly improved. Diagnosis Primary Impression: Abdominal pain Qualified Codes: R10.84 - Generalized abdominal pain Additional Impression: Nausea vomiting and diarrhea Patient Instructions: Abdominal Pain (ED), Acute Nausea and Vomiting (DC), General Instructions Disposition: 01 DISCHARGE HOME Condition: Stable Ruchi Mcclelland MD Jun 25, 2017 20:21
[2017-06-25] MEDS ORDERED: diphenhydrAMINE HCL 50 MG/ML VIAL IV PUSH ONE (20:30)
[2017-06-25] MEDS ORDERED: SODIUM CHLORIDE 0.9% FLUSH 10 ML FLUSH IV FLUSH PRN (20:30)
[2017-06-25] MEDS ORDERED: PROCHLORPERAZINE INJ 10 MG/2 ML VIAL IV PUSH ONE (20:30)
[2017-06-25 21:45] LABS: BLOOD, URINE NEG (NEG); GLUCOSE,URINE NEG (NEG); KETONE, URINE NEG (NEG); NITRITE,URINE NEG (NEG)
[2017-06-25 21:47] LABS: AUTOMATED NEUTROPHIL # 4.2 TH/MM3 (1.8-7.7); BASOPHIL % 0.2 % (0.0-2.0); EOSINOPHIL # 0.2 TH/MM3 (0-0.4); EOSINOPHIL % 2.3 % (0.0-4.0); HEMATOCRIT 35.2 % (35.0-46.0); LYMPH % 26.4 % (9.0-44.0); LYMPHOCYTE # 1.8 TH/MM3 (1.0-4.8); MEAN CELL VOLUME 76.2 FL (80.0-100.0); MEAN CORPUSCULAR HEMOGLOBIN 24.6 PG (27.0-34.0); MEAN CORPUSCULAR HGB CONC 32.3 % (32.0-36.0); MONO % 7.9 % (0.0-8.0); NEUT % 63.2 % (16.0-70.0); PLATELET COUNT 359 TH/MM3 (150-450); RED BLOOD COUNT 4.62 MIL/MM3 (4.00-5.30); RED CELL DISTRIBUTION WIDTH 13.2 % (11.6-17.2); WHITE BLOOD COUNT 6.7 TH/MM3 (4.0-11.0)
[2017-06-25 21:55] LABS: HEMO FLAGS AUTO DIFF
[2017-06-25 21:56] LABS: CHLORIDE 105 MEQ/L (98-107); POTASSIUM 3.7 MEQ/L (3.5-5.1); SODIUM (NA) 138 MEQ/L (136-145)
[2017-06-25 22:00] LABS: ANION GAP 5 MEQ/L (5-15); BICARBONATE 28.3 MEQ/L (21.0-32.0); BLOOD UREA NITROGEN 9 MG/DL (7-18)
[2017-06-25 22:03] LABS: ALT (GPT) 106 U/L (10-53); AST (GOT) 20 U/L (15-37); GLOMERULAR FILTRATION RATE 108 ML/MIN (>89)
[2017-06-25 22:04] LABS: METHOD OF COLLECTION VOIDED; URINE COLOR YELLOW (YELLW/STRAW)
[2017-06-25 22:05] LABS: TOTAL BILIRUBIN ADULT 0.2 MG/DL (0.2-1.0)
[2017-06-25 22:06] LABS: ALKALINE PHOSPHATASE 108 U/L (45-117); BACTERIA, URINE FEW /hpf; COMMENT (UR) CULT NOT INDICATED; CULTURE IF INDICATED CULT NOT INDICATED; TRANSITIONAL EPI CELLS, URINE 0-2 /hpf; WBC, URINE 0-2 /hpf (0-5)
[2017-06-25 22:33] LABS: OVALOCYTES 1+ (NORMAL); PLATELET ESTIMATE SMEAR NORMAL (NORMAL); PLATELET MORPHOLOGY NORMAL (NORMAL); SCAN/DIFF AUTO DIFF CONFIRMED
[2017-06-25 22:39] VITALS: BP 132/76
== END 2017-06-25 22:40 | disposition home or self-care (01) ==
LOC: PHED 19:30
DX: R10.84 Generalized abdominal pain (principal); R11.2 Nausea with vomiting, unspecified; R19.7 Diarrhea, unspecified; E11.9 Type 2 diabetes mellitus without complications
CPT/HCPCS: 80053; 81001; 83605; 83690; 85025; 96361; 96374; 96375; 99284; J0780; J1200; J7030

== ENCOUNTER 2017-07-17 23:19 | Emergency (ER) | payer MEDICAID ==
[~2017-07-17] VITALS: Ht 157.5 cm; Wt 73.1 kg
[2017-07-17 23:24] VITALS: BP 129/82; PULSE 102; RESP 18; TEMP 98.3; O2SAT 98
[2017-07-17] MEDS ORDERED: SODIUM CHLOR 0.9% 1000 ML INJ 1,000 ML IV SCH (23:37)
[2017-07-17 23:40] VITALS: BP_SYST 111; BP_SYST 129; BP_DIAS 76; BP_DIAS 82; PULSE 102; PULSE 84; RESP 18; RESP 20; TEMP 98.3; O2SAT 98
[2017-07-17] MEDS ORDERED: SODIUM CHLORIDE 0.9% FLUSH 10 ML FLUSH IV FLUSH PRN (23:45)
[2017-07-17] MEDS ORDERED: ONDANSETRON HCL 4 MG/2 ML VIAL IVP ONE (23:45)
[2017-07-18 00:09] LABS: AUTOMATED NEUTROPHIL # 2.6 TH/MM3 (1.8-7.7); BASOPHIL % 0.4 % (0.0-2.0); CHLORIDE 109 MEQ/L (98-107); EOSINOPHIL # 0.2 TH/MM3 (0-0.4); EOSINOPHIL % 4.3 % (0.0-4.0); HEMATOCRIT 33.1 % (35.0-46.0); HEMO FLAGS DIFF FINAL; LYMPH % 41.5 % (9.0-44.0); LYMPHOCYTE # 2.4 TH/MM3 (1.0-4.8); MEAN CELL VOLUME 76.9 FL (80.0-100.0); MEAN CORPUSCULAR HEMOGLOBIN 25.4 PG (27.0-34.0); MONO % 10.3 % (0.0-8.0); NEUT % 43.5 % (16.0-70.0); PLATELET COUNT 328 TH/MM3 (150-450); POTASSIUM 3.8 MEQ/L (3.5-5.1); RED CELL DISTRIBUTION WIDTH 12.9 % (11.6-17.2); SODIUM (NA) 141 MEQ/L (136-145); WHITE BLOOD COUNT 5.8 TH/MM3 (4.0-11.0)
[2017-07-18 00:13] LABS: ANION GAP 6 MEQ/L (5-15); BICARBONATE 25.9 MEQ/L (21.0-32.0)
[2017-07-18 00:14] LABS: BLOOD UREA NITROGEN 6 MG/DL (7-18)
[2017-07-18 00:16] LABS: ALT (GPT) 16 U/L (10-53); AST (GOT) 10 U/L (15-37); BLOOD, URINE SMALL (NEG); GLOMERULAR FILTRATION RATE 132 ML/MIN (>89); GLUCOSE,URINE NEG (NEG); KETONE, URINE NEG (NEG); NITRITE,URINE NEG (NEG)
[2017-07-18 00:18] LABS: TOTAL BILIRUBIN ADULT 0.2 MG/DL (0.2-1.0)
[2017-07-18 00:19] LABS: ALKALINE PHOSPHATASE 62 U/L (45-117)
[2017-07-18 00:26] LABS: URINE COLOR YELLOW (YELLW/STRAW)
[2017-07-18 00:27] LABS: BACTERIA, URINE OCC /hpf; RBC, URINE 0-3 /hpf (0-3); SQUAMOUS EPITHELIAL CELL URINE 0-5 /hpf (0-5)
[2017-07-18 00:28] LABS: COMMENT (UR) CULT NOT INDICATED; CULTURE IF INDICATED CULT NOT INDICATED
[2017-07-18] MEDS ORDERED: LURA20TA PO (00:46)
[2017-07-18] MEDS ORDERED: BENA25TA6 PO (00:46)
[2017-07-18] MEDS ORDERED: VIST25CA PO (00:46)
[2017-07-18] MEDS ORDERED: REME15TA PO (00:46)
[2017-07-18 00:55] VITALS: BP 111/76; PULSE 75; RESP 18; O2SAT 97
--- NOTE | 2017-07-18 01:54 | PD ---
HPI Chief Complaint: Abdominal Pain Time Seen by Provider: 23:37 Travel History International Travel<30 days: No Contact w/Intl Traveler<30days: No Traveled to known affect area: No History of Present Illness HPI 32-year-old female presents to the emergency department for complaint of 3 hours of abdominal pain. No fever or chills. Nausea no vomiting. 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 Patient is under the care of oncology and her primary care provider. Patient periodically has severe abdominal pain of unclear etiology. Patient's had no hematemesis or coffee-ground emesis and denies melena hematochezia. Patient has been seen numerous times for same presentation and same complaint. Patient is unable to identify exacerbating or alleviating factors. 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) High Cholesterol: No Chest Pain: No Congestive Heart Failure: No Diabetes: Yes (NO MEDS) Patient Takes Glucophage: No Diminished Hearing: Yes ( right COCHLEAR IMPLANT, TUBES, TUMOR in rt ear ) Endocrine: No Gastrointestinal Disorders: Yes (LIVER CYST, IBS, January: PANCREATIC DUCT TUMOR REMOVED) GERD: Yes Genitourinary: Yes Hepatitis: No Hiatal Hernia: No Hypertension: No Immune Disorder: No Implanted Vascular Access Dvce: No Kidney Stones: Yes Musculoskeletal: No Neurologic: No Psychiatric: Yes (ANXIETY DEPRESSION) Respiratory: No Immunizations Current: Yes Pancreatitis: Yes Renal Failure: No Thyroid Disease: No ?: Not LMP: Now : 2 Para: 2 Tubal Ligation: Yes Past Surgical History Abdominal Surgery: Yes (GASTRIC BYPASS -2014, EXP LAP FOR ADHESIONS, DILEEP, benign tumor removal ) AICD: No Body Medical Devices: CHOCLEAR IMPLANTS Cholecystectomy: Yes (WITH GALLSTONES POST DILEEP) Ear Surgery: Yes ( IMPLANTS) Genitourinary Surgery: Yes (KIDNEY STONES SURGERY AND LITHOTRIPSY) Gynecologic Surgery: Yes (TUBAL) Joint Replacement: No Pacemaker: No Other Surgery: Yes (explor lap for abd adhesions) Social History Alcohol Use: No Tobacco Use: No Substance Use: No Allergies-Medications (Allergen,Severity, Reaction): Coded Allergies: morphine (Verified Allergy, Severe, Rash, 07/17/17) penicillin G (Verified Allergy, Unknown, Hives, 07/17/17) Reported Meds & Prescriptions Reported Meds & Active Scripts Active Zofran Odt (Ondansetron Odt) 4 Mg Tab 4 Mg SL Q6HR PRN Reglan (Metoclopramide HCl) 10 Mg Tab 10 Mg PO TIDAC Carafate (Sucralfate) 1 Gm Tab 1 Gm PO TID On empty stomach Protonix (Pantoprazole Sodium) 40 Mg Tab 40 Mg PO DAILY Reported Benadryl Allergy (Diphenhydramine HCl) 25 Mg Tablet 25 Mg PO PRN Latuda (Lurasidone) 20 Mg Tab 20 Mg PO DAILY Remeron (Mirtazapine) 15 Mg Tab 7.5 Mg PO HS Vistaril (Hydroxyzine Pamoate) 25 Mg Cap 25 Mg PO HS Fentanyl Patch 72 HR (Fentanyl) 25 Mcg/Hr Patch 25 Mcg T-DERMAL Q72H Review of Systems Except as stated in HPI: all other systems reviewed are Neg Physical Exam Narrative GENERAL: Well-developed well-nourished female in no acute distress no respiratory distress SKIN: Warm and dry. HEAD: Normocephalic. EYES: No scleral icterus. No injection or drainage. NECK: Supple, trachea midline. No JVD or lymphadenopathy. CARDIOVASCULAR: Regular rate and rhythm without murmurs, gallops, or rubs. RESPIRATORY: Breath sounds equal bilaterally. No accessory muscle use. GASTROINTESTINAL: Abdomen soft, diffusely mildly tender to palpation without guarding or rebound, well-healed midline scar, nondistended. MUSCULOSKELETAL: No cyanosis, or edema. BACK: Nontender without obvious deformity. No CVA tenderness. Data Data Last Documented VS Vital Signs Date Time Temp Pulse Resp B/P (MAP) Pulse Ox O2 Delivery O2 Flow Rate FiO2 07/18/17 02:49 75 18 106/65 (79) 98 07/18/17 02:48 Room Air 07/17/17 23:40 98.3 Orders Orders Complete Blood Count With Diff (07/17/17 23:37) Comprehensive Metabolic Panel (07/17/17 23:37) Lipase (07/17/17 23:37) Lactic Acid (07/17/17 23:37) Urinalysis - C+S If Indicated (07/17/17 23:37) Iv Access Insert/Monitor (07/17/17 23:37) Ecg Monitoring (07/17/17 23:37) Oximetry (07/17/17 23:37) Ondansetron Inj (Zofran Inj) (07/17/17 23:45) Sodium Chlor 0.9% 1000 Ml Inj (Ns 1000 M (07/17/17 23:37) Sodium Chloride 0.9% Flush (Ns Flush) (07/17/17 23:45) Ed Urine Pregnancytest Poc (07/17/17 23:37) Ketorolac Inj (Toradol Inj) (07/18/17 02:00) Ed Discharge Order (07/18/17 01:52) Labs Laboratory Tests Test 07/17/17 23:50 White Blood Count 5.8 TH/MM3 Red Blood Count 4.30 MIL/MM3 Hemoglobin 10.9 GM/DL Hematocrit 33.1 % Mean Corpuscular Volume 76.9 FL Mean Corpuscular Hemoglobin 25.4 PG Mean Corpuscular Hemoglobin Concent 33.0 % Red Cell Distribution Width 12.9 % Platelet Count 328 TH/MM3 Mean Platelet Volume 8.3 FL Neutrophils (%) (Auto) 43.5 % Lymphocytes (%) (Auto) 41.5 % Monocytes (%) (Auto) 10.3 % Eosinophils (%) (Auto) 4.3 % Basophils (%) (Auto) 0.4 % Neutrophils # (Auto) 2.6 TH/MM3 Lymphocytes # (Auto) 2.4 TH/MM3 Monocytes # (Auto) 0.6 TH/MM3 Eosinophils # (Auto) 0.2 TH/MM3 Basophils # (Auto) 0.0 TH/MM3 CBC Comment DIFF FINAL Differential Comment Urine Color YELLOW Urine Turbidity CLEAR Urine pH 7.0 Urine Specific Otis 1.006 Urine Protein NEG mg/dL Urine Glucose (UA) NEG mg/dL Urine Ketones NEG mg/dL Urine Occult Blood SMALL Urine Nitrite NEG Urine Bilirubin NEG Urine Leukocyte Esterase NEG Urine RBC 0-3 /hpf Urine Squamous Epithelial Cells 0-5 /hpf Urine Amorphous Sediment SMALL Urine Bacteria OCC /hpf Microscopic Urinalysis Comment CULT NOT INDICATED Blood Urea Nitrogen 6 MG/DL Creatinine 0.54 MG/DL Random Glucose 89 MG/DL Total Protein 6.9 GM/DL Albumin 3.4 GM/DL Calcium Level 8.1 MG/DL Alkaline Phosphatase 62 U/L Aspartate Amino Transf (AST/SGOT) 10 U/L Alanine Aminotransferase (ALT/SGPT) 16 U/L Total Bilirubin 0.2 MG/DL Sodium Level 141 MEQ/L Potassium Level 3.8 MEQ/L Chloride Level 109 MEQ/L Carbon Dioxide Level 25.9 MEQ/L Anion Gap 6 MEQ/L Estimat Glomerular Filtration Rate 132 ML/MIN Lactic Acid Level 1.2 mmol/L Lipase 188 U/L [facility] Medical Decision Making Medical Screen Exam Complete: Yes Emergency Medical Condition: Yes Medical Record Reviewed: Yes Interpretation(s) CBC & BMP Diagram 07/17/17 23:50 Total Protein 6.9, Albumin 3.4, Calcium Level 8.1 L, Alkaline Phosphatase 62, Aspartate Amino Transf (AST/SGOT) 10 L, Alanine Aminotransferase (ALT/SGPT) 16, Total Bilirubin 0.2 Vital Signs Date Time Temp Pulse Resp B/P (MAP) Pulse Ox O2 Delivery O2 Flow Rate FiO2 07/17/17 23:40 18 07/17/17 23:40 98.3 102 18 129/82 (98) 98 07/17/17 23:40 98.3 84 20 111/76 (88) 98 Room Air 07/17/17 23:24 98.3 102 18 129/82 (98) 98 Differential Diagnosis Abdominal pain gastroparesis ileus bowel obstruction colitis gastritis peptic ulcer disease pancreatitis choledocholithiasis malingering Narrative Course IV access obtained specimens collected and sent for resulting Lab values found to be in normal range Patient given IV fluids Zofran and informed of lab results and is stable for outpatient management. Diagnosis Primary Impression: Gastroparesis Referrals: Line Maintenance Technician call for appointment Primary Care Physician call for appointment Patient Instructions: General Instructions Additional Instructions: Increase fluid hydration Remain active Follow-up with your decal maker Follow-up with your primary care provider Return to the emergency department for any concerns or change in condition Take acetaminophen/Tylenol as needed for fever 100.4F or greater Med/Other Pt SpecificInfo: No Change to Meds Disposition: 01 DISCHARGE HOME Condition: Stable Uma Ovalle MD Jul 18, 2017 01:54
[2017-07-18] MEDS ORDERED: KETOROLAC TROMETHAMINE 30 MG/ML (IVP) VIAL IV PUSH ONE (02:00)
[2017-07-18 02:01] VITALS: BP 109/67; PULSE 78; RESP 18; O2SAT 97
[2017-07-18 02:48] VITALS: BP 106/65; PULSE 75; RESP 18; O2SAT 98
[2017-07-18 02:49] VITALS: BP 106/65
== END 2017-07-18 03:00 | disposition home or self-care (01) ==
LOC: PHED 23:19
DX: K31.84 Gastroparesis (principal); E11.9 Type 2 diabetes mellitus without complications; H91.91 Unspecified hearing loss, right ear; Z98.890 Other specified postprocedural states; Z86.59 Personal history of other mental and behavioral disorders; Z87.19 Personal history of other diseases of the digestive system; Z87.39 Personal history of other diseases of the musculoskeletal system and connective tissue; Z86.2 Personal history of diseases of the blood and blood-forming organs and certain disorders involving the immune mechanism; Z86.79 Personal history of other diseases of the circulatory system; Z87.448 Personal history of other diseases of urinary system
CPT/HCPCS: 80053; 81001; 83605; 83690; 84703; 85025; 96361; 96374; 96375; 99284; J1885; J2405; J7030

== ENCOUNTER 2017-07-29 20:24 | Emergency (ER) | payer MEDICAID ==
[~2017-07-29] VITALS: Ht 157.5 cm; Wt 74.4 kg
[~2017-07-29 20:24] MED LIST changes: +BENA25TA6 PO; +LURA20TA PO; +REME15TA PO; +VIST25CA PO
[2017-07-29 20:31] VITALS: BP 107/65; PULSE 116; RESP 22; TEMP 97.9; O2SAT 100
[2017-07-29 21:01] VITALS: BP 110/66; PULSE 92; RESP 18; TEMP 98.2; O2SAT 99
[2017-07-29] MEDS ORDERED: ONDANSETRON HCL 4 MG/2 ML VIAL IM ONE (21:15)
[2017-07-29] MEDS ORDERED: HYDROmorphone HCL PF 2 MG/ML VIAL IM ONE (21:15)
--- NOTE | 2017-07-29 21:16 | PD ---
HPI Chief Complaint: GI Complaint Time Seen by Provider: 20:42 Travel History International Travel<30 days: No Contact w/Intl Traveler<30days: No Traveled to known affect area: No History of Present Illness HPI The patient was seen and examined in the presence of the nurse. At no point in time was I in the room without the nurse present. Patient complains of nausea vomiting abdominal pain. She's had this chronically for years. Patient is crying and tearful and emotional. There is clearly some emotional component to this. She is on fentanyl patches but has been stopped a week ago. She denies withdrawal and gets very upset when I mentioned the possibility. No alleviating factors. 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 ) Endocrine: No Gastrointestinal Disorders: Yes (LIVER CYST, IBS, January: PANCREATIC DUCT TUMOR REMOVED) GERD: Yes Genitourinary: Yes Hepatitis: No Hiatal Hernia: No Hypertension: No Immune Disorder: No Implanted Vascular Access Dvce: No Kidney Stones: Yes Medical other: No Musculoskeletal: No Neurologic: No Psychiatric: Yes (ANXIETY DEPRESSION) Respiratory: No Immunizations Current: Yes Pancreatitis: Yes Renal Failure: No Thyroid Disease: No Tetanus Vaccination: > 5 Years Influenza Vaccination: Yes ?: Not LMP: 07/19/17 : 2 Para: 2 Tubal Ligation: Yes Past Surgical History Abdominal Surgery: Yes (GASTRIC BYPASS -2014, EXP LAP FOR ADHESIONS, DILEEP, benign tumor removal ) AICD: No Body Medical Devices: CHOCLEAR IMPLANTS Cholecystectomy: Yes (WITH GALLSTONES POST DILEEP) Ear Surgery: Yes ( IMPLANTS) Genitourinary Surgery: Yes (KIDNEY STONES SURGERY AND LITHOTRIPSY) Gynecologic Surgery: Yes (TUBAL) Joint Replacement: No Pacemaker: No Other Surgery: Yes (explor lap for abd adhesions) Social History Alcohol Use: No Tobacco Use: No Substance Use: No Allergies-Medications (Allergen,Severity, Reaction): Coded Allergies: morphine (Verified Allergy, Severe, Rash, 07/29/17) penicillin G (Verified Allergy, Unknown, Hives, 07/29/17) Reported Meds & Prescriptions Reported Meds & Active Scripts Active Zofran Odt (Ondansetron Odt) 4 Mg Tab 4 Mg SL Q6HR PRN Reglan (Metoclopramide HCl) 10 Mg Tab 10 Mg PO TIDAC Carafate (Sucralfate) 1 Gm Tab 1 Gm PO TID On empty stomach Protonix (Pantoprazole Sodium) 40 Mg Tab 40 Mg PO DAILY Reported Benadryl Allergy (Diphenhydramine HCl) 25 Mg Tablet 25 Mg PO PRN Latuda (Lurasidone) 20 Mg Tab 20 Mg PO DAILY Remeron (Mirtazapine) 15 Mg Tab 7.5 Mg PO HS Vistaril (Hydroxyzine Pamoate) 25 Mg Cap 25 Mg PO HS Fentanyl Patch 72 HR (Fentanyl) 25 Mcg/Hr Patch 25 Mcg T-DERMAL Q72H Review of Systems General / Constitutional: No: Fever Eyes: No: Visual changes HENT: No: Headaches Cardiovascular: No: Chest Pain or Discomfort Respiratory: No: Shortness of Breath Gastrointestinal: Positive: Nausea, Vomiting, Abdominal Pain Genitourinary: No: Dysuria Musculoskeletal: No: Pain Skin: No Rash Neurologic: No: Weakness Psychiatric: Positive: Anxiety, Depression Endocrine: No: Polydipsia Hematologic/Lymphatic: No: Easy Bruising Physical Exam Narrative GENERAL: Well-nourished, well-developed patient complaining of nausea and abdominal pain . SKIN: Focused skin assessment reveals no rash and nodules. Skin is Warm and dry. HEAD: Atraumatic. Normocephalic. EYES: Pupils equal and round. No scleral icterus. No injection or drainage. ENT: No nasal bleeding or discharge. Mucous membranes pink and moist. NECK: Trachea midline. No JVD. CARDIOVASCULAR: Regular rate and rhythm. No murmur appreciated. RESPIRATORY: No accessory muscle use. Clear to auscultation. Breath sounds equal bilaterally. GASTROINTESTINAL: Abdomen soft, non-tender, nondistended. Hepatic and splenic margins not palpable. MUSCULOSKELETAL: No obvious deformities. No clubbing. No cyanosis. No edema. NEUROLOGICAL: Awake and alert. No obvious cranial nerve deficits. Motor grossly within normal limits. Normal speech. PSYCHIATRIC: Anxious and tearful mood and affect; insight and judgment seems weak . Data Data Last Documented VS Vital Signs Date Time Temp Pulse Resp B/P (MAP) Pulse Ox O2 Delivery O2 Flow Rate FiO2 07/29/17 21:01 18 07/29/17 21:01 98.2 92 110/66 (81) 99 Room Air Orders Orders Ed Urine Pregnancytest Poc (07/29/17 20:54) MDM Medical Decision Making Medical Screen Exam Complete: Yes Emergency Medical Condition: Yes Medical Record Reviewed: Yes Differential Diagnosis Chronic abdominal pain, narcotic withdrawal, gastroparesis Narrative Course I have reviewed the patient's electronic medical record. Patient is a frequent visitor. Has been here 15-20 times this year for the same thing CT scan of the abdomen and pelvis was done in May and June, neither revealing any thing requiring treatment Patient was here recently for the same thing and had complete lab profiles Urine is negative Patient has a soft benign abdomen Does not look septic or toxic Patient has chronic abdominal pain and there seems to be strong emotional component to this. She is very defensive and hostile Don't feel another complete lab and CT workup here is indicated. Patient is unrealistic and does not have good expectations of what can be accomplished in the ER for this. In the end she just wanted to get out of pain. I offered her lab studies which she ends up declining. She initially said she wanted them and now she doesn't. I gave her injection of Dilaudid and Zofran for symptom relief Patient will need primary care/GI/pain management follow-up This issue is not going to be solved in the emergency department Diagnosis Primary Impression: Abdominal pain Qualified Codes: R10.84 - Generalized abdominal pain Additional Instructions: The patient was advised to follow up with their physician and return if they worsen. Med/Other Pt SpecificInfo: Other Disposition: 01 DISCHARGE HOME Condition: Stable Jesse Read MD Jul 29, 2017 21:16
[2017-07-29 22:10] VITALS: BP 112/64; PULSE 84; RESP 18; O2SAT 99
== END 2017-07-29 22:12 | disposition home or self-care (01) ==
LOC: PHED 20:24
DX: R10.84 Generalized abdominal pain (principal)
CPT/HCPCS: 84703; 96372; 99284; J1170; J2405

== ENCOUNTER 2017-08-09 20:20 | Emergency (ER) | payer OTHER, MEDICAID ==
[~2017-08-09 20:20] MED LIST changes: -FENT25DI T-DERMAL; -ZOFR4TAB3 SL
[2017-08-09 20:21] VITALS: BP 126/78; PULSE 96; RESP 16; TEMP 98.4; O2SAT 100
[2017-08-09] MEDS ORDERED: SODIUM CHLOR 0.9% 1000 ML INJ 1,000 ML IV SCH (21:03)
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
[2017-08-09] MEDS ORDERED: LIDOCAINE VISCOUS 2% SOLN 15 ML UDC PO ONE (21:15)
[2017-08-09] MEDS ORDERED: SODIUM CHLORIDE 0.9% FLUSH 10 ML FLUSH IV FLUSH PRN (21:15)
[2017-08-09] MEDS ORDERED: ALUMINUM/MAGNESIUM/SIMETH 30 ML CUP PO ONE (21:15)
[2017-08-09] MEDS ORDERED: ONDANSETRON HCL 4 MG/2 ML VIAL IVP ONE (21:15)
[2017-08-09] MEDS ORDERED: HYDROmorphone HCL PF 1 MG/ML VIAL IVS ONE (21:15)
[2017-08-09 21:42] VITALS: RESP 16; O2SAT 100
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
[2017-08-09 22:08] LABS: AUTOMATED NEUTROPHIL # 4.7 TH/MM3 (1.8-7.7); BASOPHIL % 0.2 % (0.0-2.0); EOSINOPHIL # 0.2 TH/MM3 (0-0.4); EOSINOPHIL % 2.3 % (0.0-4.0); HEMATOCRIT 35.5 % (35.0-46.0); HEMO FLAGS DIFF FINAL; LYMPH % 26.8 % (9.0-44.0); MEAN CELL VOLUME 77.4 FL (80.0-100.0); MEAN CORPUSCULAR HEMOGLOBIN 25.2 PG (27.0-34.0); MEAN CORPUSCULAR HGB CONC 32.6 % (32.0-36.0); MONO % 9.5 % (0.0-8.0); NEUT % 61.2 % (16.0-70.0); PLATELET COUNT 371 TH/MM3 (150-450); RED BLOOD COUNT 4.58 MIL/MM3 (4.00-5.30); RED CELL DISTRIBUTION WIDTH 13.8 % (11.6-17.2); WHITE BLOOD COUNT 7.6 TH/MM3 (4.0-11.0)
[2017-08-09 22:14] LABS: APTT (PATIENT) 26.1 SEC (24.3-30.1); INTERNATIONAL NORMALIZED RATIO 0.9 RATIO
[2017-08-09 22:32] LABS: ALT (GPT) 20 U/L (10-53)
[2017-08-09 22:36] LABS: ALKALINE PHOSPHATASE 61 U/L (45-117); BETA HCG QUANT LESS THAN 1 MIU/ML (0-5); TOTAL BILIRUBIN ADULT 0.3 MG/DL (0.2-1.0)
[2017-08-09 22:42] LABS: ANION GAP 8 MEQ/L (5-15); AST (GOT) 21 U/L (15-37); BICARBONATE 23.3 MEQ/L (21.0-32.0); BLOOD UREA NITROGEN 9 MG/DL (7-18); CHLORIDE 105 MEQ/L (98-107); GLOMERULAR FILTRATION RATE 98 ML/MIN (>89); SODIUM (NA) 136 MEQ/L (136-145)
[2017-08-09 22:44] LABS: POTASSIUM 3.8 MEQ/L (3.5-5.1)
== END 2017-08-09 23:58 | disposition home or self-care (01) ==
LOC: NEPD 20:20
DX: M79.605 Pain in left leg (principal); R10.13 Epigastric pain; G89.29 Other chronic pain; K31.84 Gastroparesis; V49.59XA Passenger injured in collision with other motor vehicles in traffic accident, initial encounter
CPT/HCPCS: 73552; 73590; 80053; 83690; 84702; 85025; 85610; 85730; 96361; 96374; 96375; 99284; J1170; J2405; J7030

== ENCOUNTER 2017-08-31 20:09 | Emergency (ER) | payer MEDICAID ==
[2017-08-31 20:18] VITALS: BP 146/81; PULSE 84; RESP 20; TEMP 98.7; O2SAT 98
[2017-08-31 20:28] VITALS: BP 121/86; PULSE 100; RESP 16; O2SAT 100
[2017-08-31] MEDS ORDERED: ONDANSETRON HCL 4 MG/2 ML VIAL IV PUSH ONE (21:30)
[2017-08-31] MEDS ORDERED: PANTOPRAZOLE SODIUM 40 MG VIAL IV PUSH ONE (21:30)
[2017-08-31] MEDS ORDERED: SODIUM CHLOR 0.9% 1000 ML INJ 1,000 ML IV ONE (21:30)
[2017-08-31 21:45] LABS: AUTOMATED NEUTROPHIL # 3.9 TH/MM3 (1.8-7.7); BASOPHIL % 0.5 % (0.0-2.0); EOSINOPHIL # 0.2 TH/MM3 (0-0.4); EOSINOPHIL % 2.1 % (0.0-4.0); HEMATOCRIT 38.6 % (35.0-46.0); HEMOGLOBIN 12.3 GM/DL (11.6-15.3); LYMPH % 37.9 % (9.0-44.0); LYMPHOCYTE # 2.8 TH/MM3 (1.0-4.8); MEAN CORPUSCULAR HEMOGLOBIN 24.8 PG (27.0-34.0); MEAN CORPUSCULAR HGB CONC 31.8 % (32.0-36.0); MONO % 6.9 % (0.0-8.0); MONOCYTE # 0.5 TH/MM3 (0-0.9); NEUT % 52.6 % (16.0-70.0); PLATELET COUNT 351 TH/MM3 (150-450); RED BLOOD COUNT 4.95 MIL/MM3 (4.00-5.30); RED CELL DISTRIBUTION WIDTH 12.3 % (11.6-17.2); WHITE BLOOD COUNT 7.4 TH/MM3 (4.0-11.0)
[2017-08-31 21:56] LABS: CHLORIDE 104 MEQ/L (98-107); SODIUM (NA) 139 MEQ/L (136-145)
[2017-08-31 22:00] LABS: ALBUMIN 3.9 GM/DL (3.4-5.0); BLOOD UREA NITROGEN 6 MG/DL (7-18); GLUCOSE,RANDOM 96 MG/DL (74-106); LIPASE 141 U/L (73-393)
[2017-08-31 22:03] LABS: ALT (GPT) 16 U/L (10-53); AST (GOT) 11 U/L (15-37); CREATININE 0.65 MG/DL (0.50-1.00); GLOMERULAR FILTRATION RATE 106 ML/MIN (>89)
[2017-08-31 22:04] LABS: TOTAL BILIRUBIN ADULT 0.3 MG/DL (0.2-1.0); TOTAL PROTEIN 7.8 GM/DL (6.4-8.2)
[2017-08-31 22:06] LABS: ALKALINE PHOSPHATASE 66 U/L (45-117)
[2017-08-31] MEDS ORDERED: KETOROLAC TROMETHAMINE 30 MG/ML (IVP) VIAL IV PUSH ONE (22:30)
[2017-08-31 22:40] VITALS: BP 120/80; PULSE 88; RESP 16; O2SAT 100
--- NOTE | 2017-08-31 23:32 | PD ---
HPI Chief Complaint: GI Complaint Time Seen by Provider: 20:24 Travel History International Travel<30 days: No Contact w/Intl Traveler<30days: No Traveled to known affect area: No History of Present Illness HPI pt has Abdominal pain and history of chronic abdo pain . Pt has had surgeries to remove a dermoid cyst , and reports that the pain clinic gave her a fentanyl patch but pt reports it gave her a local skin reaction , now she comes in complaining of her chronic recurrent pain , no vomit no fever no trauma, no diarrhea .. pt is allergic to Morphine. and PCN . She was unable to see another MD or INTERNATIONAL ORGANIZER b/c office wasclosed for a . 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) High Cholesterol: No Chest Pain: No Congestive Heart Failure: No Diabetes: Yes (NO MEDS) Patient Takes Glucophage: No Diminished Hearing: Yes ( R COCHLEAR IMPLANT, TUBES, TUMOR ) Endocrine: No Gastrointestinal Disorders: Yes (LIVER CYST, IBS, January: PANCREATIC DUCT TUMOR REMOVED) GERD: Yes Genitourinary: Yes Hepatitis: No Hiatal Hernia: No Hypertension: No Immune Disorder: No Implanted Vascular Access Dvce: No Kidney Stones: Yes Medical other: No Musculoskeletal: No Neurologic: No Psychiatric: Yes (ANXIETY DEPRESSION) Respiratory: No Immunizations Current: Yes Pancreatitis: Yes Renal Failure: No Thyroid Disease: No Influenza Vaccination: No ?: Not LMP: LAST WEEK : 2 Para: 2 Tubal Ligation: Yes Past Surgical History Abdominal Surgery: Yes (GASTRIC BYPASS -2014, EXP LAP FOR ADHESIONS, DILEEP, benign tumor removal ) AICD: No Body Medical Devices: CHOCLEAR IMPLANTS Cholecystectomy: Yes (WITH GALLSTONES POST DILEEP) Ear Surgery: Yes ( IMPLANTS) Genitourinary Surgery: Yes (KIDNEY STONES SURGERY AND LITHOTRIPSY) Gynecologic Surgery: Yes (TUBAL) Joint Replacement: No Pacemaker: No Other Surgery: Yes (explor lap for abd adhesions) Social History Alcohol Use: No Tobacco Use: No Substance Use: No Allergies-Medications (Allergen,Severity, Reaction): Coded Allergies: morphine (Verified Allergy, Severe, Rash, 07/29/17) penicillin G (Verified Allergy, Unknown, Hives, 07/29/17) Reported Meds & Prescriptions Reported Meds & Active Scripts Active Reglan (Metoclopramide HCl) 10 Mg Tab 10 Mg PO TIDAC Carafate (Sucralfate) 1 Gm Tab 1 Gm PO TID On empty stomach Protonix (Pantoprazole Sodium) 40 Mg Tab 40 Mg PO DAILY Reported Benadryl Allergy (Diphenhydramine HCl) 25 Mg Tablet 25 Mg PO PRN Latuda (Lurasidone) 20 Mg Tab 20 Mg PO DAILY Remeron (Mirtazapine) 15 Mg Tab 7.5 Mg PO HS Vistaril (Hydroxyzine Pamoate) 25 Mg Cap 25 Mg PO HS Review of Systems Except as stated in HPI: all other systems reviewed are Neg Gastrointestinal: Positive: Abdominal Pain, No: Nausea, Vomiting, Diarrhea Physical Exam Narrative GENERAL: no apparent pain or distress. SKIN: Warm and dry. HEAD: Atraumatic. Normocephalic. EYES: Pupils equal and round. No scleral icterus. No injection or drainage. ENT: No nasal bleeding or discharge. Mucous membranes pink and moist. NECK: Trachea midline. No JVD. CARDIOVASCULAR: Regular rate and rhythm. RESPIRATORY: No accessory muscle use. Clear to auscultation. Breath sounds equal bilaterally. GASTROINTESTINAL: Abdomen soft, vertical periumbilical scar , and periumbilical tenderness no mass appreciated non-tender, nondistended. Hepatic and splenic margins not palpable. MUSCULOSKELETAL: Extremities without clubbing, cyanosis, or edema. No obvious deformities. NEUROLOGICAL: Awake and alert. No obvious cranial nerve deficits. Motor grossly within normal limits. Five out of 5 muscle strength in the arms and legs. Normal speech. PSYCHIATRIC: Appropriate mood and affect; insight and judgment normal. Data Data Last Documented VS Vital Signs Date Time Temp Pulse Resp B/P (MAP) Pulse Ox O2 Delivery O2 Flow Rate FiO2 09/01/17 00:29 84 16 99 09/01/17 00:27 Room Air 08/31/17 20:18 98.7 Orders Orders Lipase (08/31/17 21:24) Complete Blood Count With Diff (08/31/17 21:24) Comprehensive Metabolic Panel (08/31/17 21:24) Sodium Chlor 0.9% 1000 Ml Inj (Ns 1000 M (08/31/17 21:30) Pantoprazole Inj (Protonix Inj) (08/31/17 21:30) Ondansetron Inj (Zofran Inj) (08/31/17 21:30) Ketorolac Inj (Toradol Inj) (08/31/17 22:30) Hydromorphone Pf Inj (Dilaudid Pf Inj) (08/31/17 23:45) Ed Discharge Order (09/01/17 00:08) Labs Laboratory Tests Test 08/31/17 20:40 White Blood Count 7.4 TH/MM3 Red Blood Count 4.95 MIL/MM3 Hemoglobin 12.3 GM/DL Hematocrit 38.6 % Mean Corpuscular Volume 78.0 FL Mean Corpuscular Hemoglobin 24.8 PG Mean Corpuscular Hemoglobin Concent 31.8 % Red Cell Distribution Width 12.3 % Platelet Count 351 TH/MM3 Mean Platelet Volume 9.0 FL Neutrophils (%) (Auto) 52.6 % Lymphocytes (%) (Auto) 37.9 % Monocytes (%) (Auto) 6.9 % Eosinophils (%) (Auto) 2.1 % Basophils (%) (Auto) 0.5 % Neutrophils # (Auto) 3.9 TH/MM3 Lymphocytes # (Auto) 2.8 TH/MM3 Monocytes # (Auto) 0.5 TH/MM3 Eosinophils # (Auto) 0.2 TH/MM3 Basophils # (Auto) 0.0 TH/MM3 CBC Comment DIFF FINAL Differential Comment Blood Urea Nitrogen 6 MG/DL Creatinine 0.65 MG/DL Random Glucose 96 MG/DL Total Protein 7.8 GM/DL Albumin 3.9 GM/DL Calcium Level 9.0 MG/DL Alkaline Phosphatase 66 U/L Aspartate Amino Transf (AST/SGOT) 11 U/L Alanine Aminotransferase (ALT/SGPT) 16 U/L Total Bilirubin 0.3 MG/DL Sodium Level 139 MEQ/L Potassium Level 3.7 MEQ/L Chloride Level 104 MEQ/L Carbon Dioxide Level 26.0 MEQ/L Anion Gap 9 MEQ/L Estimat Glomerular Filtration Rate 106 ML/MIN Lipase 141 U/L MDM Medical Decision Making Medical Screen Exam Complete: Yes Emergency Medical Condition: Yes Differential Diagnosis chronic pain , vs pancreatitis vs GB disease vs gastritis , colitis, other Narrative Course patient has no pain relief from protonix zofran, toradol , labs all normal no indication for CT or further eval, Dilaudid 0.5mg given and told she must follow up with her pain management clinic for chronic pain treatmant Diagnosis Primary Impression: Abdominal pain Qualified Codes: R10.33 - Periumbilical pain Patient Instructions: Abdominal Pain (ED), General Instructions Disposition: 01 DISCHARGE HOME Condition: Good Anthony Alvarez MD Aug 31, 2017 23:32
[2017-08-31] MEDS ORDERED: HYDROmorphone HCL PF 2 MG/ML VIAL IV PUSH ONE (23:45)
[2017-09-01 00:27] VITALS: BP 122/82; PULSE 86; RESP 16; O2SAT 99
== END 2017-09-01 00:30 | disposition home or self-care (01) ==
LOC: PHED 20:09
DX: R10.33 Periumbilical pain (principal); E11.9 Type 2 diabetes mellitus without complications; K21.9 Gastro-esophageal reflux disease without esophagitis; K58.9 Irritable bowel syndrome, unspecified; F32.9 Major depressive disorder, single episode, unspecified; Z98.84 Bariatric surgery status
CPT/HCPCS: 80053; 83690; 85025; 96361; 96374; 96375; 99284; C9113; J1170; J1885; J2405; J7030

== ENCOUNTER 2017-09-27 01:01 | Emergency (ER) | payer MEDICAID ==
[~2017-09-27] VITALS: Ht 157.5 cm; Wt 78.3 kg
[2017-09-27 01:05] VITALS: BP 124/77; PULSE 97; RESP 18; TEMP 98; O2SAT 100
[2017-09-27 01:30] VITALS: O2SAT 97
[2017-09-27] MEDS ORDERED: ONDANSETRON HCL 4 MG/2 ML VIAL IV PUSH ONE (01:45)
[2017-09-27] MEDS ORDERED: SODIUM CHLORIDE 0.9% FLUSH 10 ML FLUSH IV FLUSH PRN (01:45)
[2017-09-27 02:02] LABS: AUTOMATED NEUTROPHIL # 3.9 TH/MM3 (1.8-7.7); BASOPHIL # 0.1 TH/MM3 (0-0.2); BASOPHIL % 0.8 % (0.0-2.0); EOSINOPHIL # 0.2 TH/MM3 (0-0.4); HEMATOCRIT 37.8 % (35.0-46.0); HEMOGLOBIN 11.9 GM/DL (11.6-15.3); LYMPH % 38.7 % (9.0-44.0); MEAN CELL VOLUME 77.7 FL (80.0-100.0); MEAN CORPUSCULAR HEMOGLOBIN 24.4 PG (27.0-34.0); MEAN CORPUSCULAR HGB CONC 31.4 % (32.0-36.0); MEAN PLATELET VOLUME 8.8 FL (7.0-11.0); MONO % 5.9 % (0.0-8.0); MONOCYTE # 0.5 TH/MM3 (0-0.9); NEUT % 52.6 % (16.0-70.0); PLATELET COUNT 467 TH/MM3 (150-450); RED BLOOD COUNT 4.87 MIL/MM3 (4.00-5.30); RED CELL DISTRIBUTION WIDTH 12.9 % (11.6-17.2); WHITE BLOOD COUNT 7.7 TH/MM3 (4.0-11.0)
--- NOTE | 2017-09-27 02:17 | PD ---
HPI Chief Complaint: Abdominal Pain Time Seen by Provider: 02:18 Travel History International Travel<30 days: No Contact w/Intl Traveler<30days: No Traveled to known affect area: No History of Present Illness HPI 32-year-old female patient with chronic recurrent abdominal pain purulence by private transportation for increased abdominal pain. Patient underwent surgery for Darvocet cyst. Patient reportedly has gastroparesis. Patient with multiple visits to the emergency department regarding pain related concerns. Patient today states at 2 PM she was bending over and felt sudden sharp pain in the midline of her abdomen. Pain persisted so she found this evening contacted the surgeon covering for neurosurgery Dr. Alcocer and was told that she did have a CT of the abdomen and pelvis. Patient has had nausea or vomiting. Patient's had no diarrhea or constipation. Patient denies hematemesis or coffee-ground emesis also no report of melena or hematochezia. Patient states that her pain is severe. Patient also complains of nausea. Patient has had no fever or chills. No dysuria frequency or urgency. Patient denies. Patient is unable to identify exacerbating or alleviating factors. 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) High Cholesterol: No Chest Pain: No Congestive Heart Failure: No Diabetes: Yes (NO MEDS) Patient Takes Glucophage: No Diminished Hearing: Yes ( R COCHLEAR IMPLANT, TUBES, TUMOR ) Endocrine: No Gastrointestinal Disorders: Yes (LIVER CYST, IBS, January: PANCREATIC DUCT TUMOR REMOVED) GERD: Yes Genitourinary: Yes Hepatitis: No Hiatal Hernia: No Hypertension: No Immune Disorder: No Implanted Vascular Access Dvce: No Kidney Stones: Yes Musculoskeletal: No Neurologic: No Psychiatric: Yes (ANXIETY DEPRESSION) Respiratory: No Immunizations Current: Yes Pancreatitis: Yes Renal Failure: No Thyroid Disease: No Tetanus Vaccination: > 5 Years ?: Not LMP: 1-15-18 : 2 Para: 2 Tubal Ligation: Yes Past Surgical History Abdominal Surgery: Yes (GASTRIC BYPASS -2014, EXP LAP FOR ADHESIONS, DILEEP, benign tumor removal ) AICD: No Body Medical Devices: CHOCLEAR IMPLANTS Cholecystectomy: Yes (WITH GALLSTONES POST DILEEP) Ear Surgery: Yes ( IMPLANTS) Genitourinary Surgery: Yes (KIDNEY STONES SURGERY AND LITHOTRIPSY) Gynecologic Surgery: Yes (TUBAL) Joint Replacement: No Pacemaker: No Other Surgery: Yes (explor lap for abd adhesions) Social History Alcohol Use: No Tobacco Use: No Substance Use: No Allergies-Medications (Allergen,Severity, Reaction): Coded Allergies: acetaminophen (Verified Allergy, Severe, Chest Pain, 09/27/17) codeine (Verified Allergy, Severe, Chest Pain, 09/27/17) morphine (Verified Allergy, Severe, Rash, 09/27/17) penicillin G (Verified Allergy, Unknown, Hives, 09/27/17) Reported Meds & Prescriptions Reported Meds & Active Scripts Active Reglan (Metoclopramide HCl) 10 Mg Tab 10 Mg PO TIDAC Carafate (Sucralfate) 1 Gm Tab 1 Gm PO TID On empty stomach Protonix (Pantoprazole Sodium) 40 Mg Tab 40 Mg PO DAILY Reported Benadryl Allergy (Diphenhydramine HCl) 25 Mg Tablet 25 Mg PO PRN Latuda (Lurasidone) 20 Mg Tab 20 Mg PO DAILY Remeron (Mirtazapine) 15 Mg Tab 7.5 Mg PO HS Vistaril (Hydroxyzine Pamoate) 25 Mg Cap 25 Mg PO HS Review of Systems Except as stated in HPI: all other systems reviewed are Neg Physical Exam Narrative GENERAL: Well-developed well-nourished female in no acute distress no respiratory distress SKIN: Warm and dry. HEAD: Normocephalic. EYES: No scleral icterus. No injection or drainage. NECK: Supple, trachea midline. No JVD or lymphadenopathy. CARDIOVASCULAR: Regular rate and rhythm without murmurs, gallops, or rubs. RESPIRATORY: Breath sounds equal bilaterally. No accessory muscle use. GASTROINTESTINAL: Abdomen soft, mild midline tenderness over prior surgical scar no guarding or rebound, nondistended. MUSCULOSKELETAL: No cyanosis, or edema. BACK: Nontender without obvious deformity. No CVA tenderness. Data Data Last Documented VS Vital Signs Date Time Temp Pulse Resp B/P (MAP) Pulse Ox O2 Delivery O2 Flow Rate FiO2 09/27/17 01:05 98.0 97 18 124/77 (93) 100 Orders Orders Complete Blood Count With Diff (09/27/17 01:35) Comprehensive Metabolic Panel (09/27/17 01:35) Lipase (09/27/17 01:35) Ct Abd/Pel W Iv Contrast(Rout) (09/27/17 01:35) Iv Access Insert/Monitor (09/27/17 01:35) Ecg Monitoring (09/27/17 01:35) Oximetry (09/27/17 01:35) Sodium Chloride 0.9% Flush (Ns Flush) (09/27/17 01:45) Ed Urine Pregnancytest Poc (09/27/17 01:35) Ondansetron Inj (Zofran Inj) (09/27/17 01:45) Iohexol 350 Inj (Omnipaque 350 Inj) (09/27/17 03:12) Ketorolac Inj (Toradol Inj) (09/27/17 04:00) Labs Laboratory Tests Test 09/27/17 00:15 09/27/17 02:24 White Blood Count 7.7 TH/MM3 Red Blood Count 4.87 MIL/MM3 Hemoglobin 11.9 GM/DL Hematocrit 37.8 % Mean Corpuscular Volume 77.7 FL Mean Corpuscular Hemoglobin 24.4 PG Mean Corpuscular Hemoglobin Concent 31.4 % Red Cell Distribution Width 12.9 % Platelet Count 467 TH/MM3 Mean Platelet Volume 8.8 FL Neutrophils (%) (Auto) 52.6 % Lymphocytes (%) (Auto) 38.7 % Monocytes (%) (Auto) 5.9 % Eosinophils (%) (Auto) 2.0 % Basophils (%) (Auto) 0.8 % Neutrophils # (Auto) 3.9 TH/MM3 Lymphocytes # (Auto) 3.0 TH/MM3 Monocytes # (Auto) 0.5 TH/MM3 Eosinophils # (Auto) 0.2 TH/MM3 Basophils # (Auto) 0.1 TH/MM3 CBC Comment AUTO DIFF Differential Comment AUTO DIFF CONFIRMED Platelet Estimate HIGH Platelet Morphology Comment CLUMPED Blood Urea Nitrogen 8 MG/DL Creatinine 0.65 MG/DL Random Glucose 95 MG/DL Total Protein 7.9 GM/DL Albumin 3.8 GM/DL Calcium Level 8.9 MG/DL Alkaline Phosphatase 64 U/L Aspartate Amino Transf (AST/SGOT) 19 U/L Alanine Aminotransferase (ALT/SGPT) 19 U/L Total Bilirubin 0.2 MG/DL Sodium Level 139 MEQ/L Potassium Level 3.7 MEQ/L Chloride Level 104 MEQ/L Carbon Dioxide Level 27.7 MEQ/L Anion Gap 7 MEQ/L Estimat Glomerular Filtration Rate 106 ML/MIN Lipase 129 U/L MDM Medical Decision Making Medical Screen Exam Complete: Yes Emergency Medical Condition: Yes Medical Record Reviewed: Yes Interpretation(s) CT a/p: CONCLUSION: 1. Tiny nonobstructing 2 mm right renal stone. 2. Status post gastric bypass procedure. Gustavo Henriquez MD on September 27, 2017 at 3:39 Board Certified Radiologist. This report was verified electronically. CBC & BMP Diagram 09/27/17 00:15 09/27/17 02:24 Total Protein 7.9, Albumin 3.8, Calcium Level 8.9, Alkaline Phosphatase 64, Aspartate Amino Transf (AST/SGOT) 19, Alanine Aminotransferase (ALT/SGPT) 19, Total Bilirubin 0.2 Vital Signs Date Time Temp Pulse Resp B/P (MAP) Pulse Ox O2 Delivery O2 Flow Rate FiO2 09/27/17 01:05 98.0 97 18 124/77 (93) 100 POC hcg: negative Differential Diagnosis acute on chronic abdominal pain, ventral hernia, adhesions, gastroparesis exacerbation, abdominal wall strain Narrative Course IV access obtained specimens collected and sent for resulting CT abdomen and pelvis ordered Patient given Zofran for complaint of nausea Lab values resulted and found to be in normal range Patient sent for CT abdomen and pelvis CT abdomen and pelvis shows no acute abnormality Patient given Toradol 30 mg IV for pain; patient stable for outpatient management and follow-up with her surgeon/primary care provider; patient provided prescription for Zofran for complaint of nausea; patient stable for outpatient management Diagnosis Primary Impression: Abdominal pain Referrals: Primary Care Physician call for appointment Patient Instructions: General Instructions Additional Instructions: May use ibuprofen/Advil/Motrin as tolerated for pain associated inflammation Take prescription Zofran as needed for nausea and/or vomiting Follow up with your primary care provider/surgeon Return to the emergency for free concerns or change in condition Med/Other Pt SpecificInfo: Prescription(s) given Scripts Ondansetron Odt (Zofran Odt) 4 Mg Tab 4 MG SL Q6HR Y for Nausea/Vomiting, #10 TAB 0 Refills Prov: Uma Ovalle MD 09/27/17 Disposition: 01 DISCHARGE HOME Condition: Stable Uma Ovalle MD Sep 27, 2017 02:17
[2017-09-27 02:30] VITALS: BP 120/74; PULSE 84; RESP 18; TEMP 98.2; O2SAT 98
[2017-09-27 02:39] LABS: CHLORIDE 104 MEQ/L (98-107); SODIUM (NA) 139 MEQ/L (136-145)
[2017-09-27 02:42] LABS: CALCIUM 8.9 MG/DL (8.5-10.1)
[2017-09-27 02:43] LABS: ALBUMIN 3.8 GM/DL (3.4-5.0); BICARBONATE 27.7 MEQ/L (21.0-32.0); BLOOD UREA NITROGEN 8 MG/DL (7-18); GLUCOSE,RANDOM 95 MG/DL (74-106); LIPASE 129 U/L (73-393)
[2017-09-27 02:45] LABS: ALT (GPT) 19 U/L (10-53)
[2017-09-27 02:46] LABS: AST (GOT) 19 U/L (15-37); CREATININE 0.65 MG/DL (0.50-1.00); GLOMERULAR FILTRATION RATE 106 ML/MIN (>89)
[2017-09-27 02:47] LABS: TOTAL BILIRUBIN ADULT 0.2 MG/DL (0.2-1.0); TOTAL PROTEIN 7.9 GM/DL (6.4-8.2)
[2017-09-27 02:48] LABS: ALKALINE PHOSPHATASE 64 U/L (45-117)
[2017-09-27] MEDS ORDERED: IOHEXOL 350 MG/ML 10 ML VIAL (for RAD DIAG) IVCONTRAST ONE (03:12)
[2017-09-27 03:45] VITALS: BP 112/68; PULSE 80; RESP 18; O2SAT 97
--- NOTE | 2017-09-27 03:45 | RADRPT ---
EXAM DATE/TIME: 09/27/2017 03:04 [facility] COMPARISON: CT ABDOMEN & PELVIS W CONTRAST, June 22, 2017, 18:20. INDICATIONS : Abdominal pain. IV CONTRAST: 100 cc Omnipaque 350 (iohexol) IV ORAL CONTRAST: No oral contrast ingested. RADIATION DOSE: 14.31 CTDIvol (mGy) MEDICAL HISTORY : Irritiable bowel syndrome. Pancreatitis. Gastroesophageal reflux disease. SURGICAL HISTORY : Gastric bypass. Cholecystectomy.Tubal ligation.Pancreatic tumor. ENCOUNTER: Initial ACUITY: 2 weeks PAIN SCALE: 9/10 LOCATION: Bilateral upper quadrant lower quadrant TECHNIQUE: Volumetric scanning of the abdomen and pelvis was performed. Using automated exposure control and ad justment of the mA and/or kV according to patient size, radiation dose was kept as low as reasonably achievable to obtain optimal diagnostic quality images. DICOM format image data is available electro nically for review and comparison. FINDINGS: LOWER LUNGS: The visualized lower lungs are clear. LIVER: Homogeneous density without lesion. There is no dilation of the biliary tree. The patient is status post cholecystectomy. SPLEEN: Normal size without lesion. PANCREAS: Within normal limits. KIDNEYS: Normal in size and shape. There is a 2 mm nonobstructing stone seen in the posterior superior right collecting system. There is no mass or hydronephrosis. ADRENAL GLANDS: Within normal limits. VASCULAR: There is no aortic aneurysm. BOWEL/MESENTERY: The patient is status post gastric bypass surgery. Significant inflammatory change or bowel thickenin g is not seen. ABDOMINAL WALL: Within normal limits. RETROPERITONEUM: There is no lymphadenopathy. BLADDER: No wall thickening or mass. REPRODUCTIVE: Within normal limits. INGUINAL: There is no lymphadenopathy or hernia. MUSCULOSKELETAL: Within normal limits for patient age. CONCLUSION: 1. Tiny nonobstructing 2 mm right renal stone. 2. Status post gastric bypass procedure. Gustavo Henriquez MD on September 27, 2017 at 3:39 Board Certified Radiologist. This report was verified electronically.
[2017-09-27] MEDS ORDERED: ZOFR4TAB3 SL (03:59)
[2017-09-27] MEDS ORDERED: KETOROLAC TROMETHAMINE 30 MG/ML (IVP) VIAL IV PUSH ONE (04:00)
== END 2017-09-27 04:23 | disposition home or self-care (01) ==
LOC: PHED 01:01
DX: R10.9 Unspecified abdominal pain (principal); E11.43 Type 2 diabetes mellitus with diabetic autonomic (poly)neuropathy; K21.9 Gastro-esophageal reflux disease without esophagitis; K31.84 Gastroparesis; K58.9 Irritable bowel syndrome, unspecified; Z98.84 Bariatric surgery status
CPT/HCPCS: 74177; 80053; 83690; 84703; 85025; 96374; 96375; 99284; J1885; J2405; Q9967

== ENCOUNTER 2017-10-18 22:36 | Emergency (ER) | payer MEDICAID ==
[~2017-10-18] VITALS: Ht 157.5 cm; Wt 80.1 kg
[~2017-10-18 22:36] MED LIST changes: +ZOFR4TAB3 SL
[2017-10-18 22:41] VITALS: BP 128/65; PULSE 109; RESP 18; TEMP 98.9; O2SAT 98
[2017-10-18] MEDS ORDERED: KETOROLAC TROMETHAMINE 30 MG/ML (IVP) VIAL IV PUSH ONE (23:30)
[2017-10-18] MEDS ORDERED: ONDANSETRON HCL 4 MG/2 ML VIAL IV PUSH ONE (23:30)
[2017-10-18] MEDS ORDERED: SODIUM CHLOR 0.9% 1000 ML INJ 1,000 ML IV ONE (23:30)
--- NOTE | 2017-10-18 23:34 | PD ---
HPI Chief Complaint: Abdominal Pain Time Seen by Provider: 23:28 Travel History International Travel<30 days: No Contact w/Intl Traveler<30days: No History of Present Illness HPI 32-year-old female presents to the emergency department for 1 of multiple visits for abdominal pain. Patient has had numerous imaging studies which show a small 2 mm right-sided kidney stone without obstruction. Patient states she has had abdominal pain for 3 days and called her managing provider who encouraged her to come to the emergency room for any concerns. Patient states she is in the process of reestablishing with her primary care provider and pain management doctor. Patient states she has been off pain management medications for 1 month. Patient denies fever chills. Patient states multiple family members have been ill. Patient was seen as recently as 09/27/[address] abdomen and pelvis at that time revealed a single 2 mm stone in the right kidney no other acute process or evidence of previous gastric bypass. Patient reports history of kidney stones gastric bypass dermoid cyst excision. Patient has chronic pain syndrome. 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) High Cholesterol: No Chest Pain: No Congestive Heart Failure: No Diabetes: Yes (DIET CONTROLLED) Diminished Hearing: Yes ( R COCHLEAR IMPLANT, TUBES, TUMOR ) Endocrine: No Gastrointestinal Disorders: Yes (LIVER CYST, IBS, January: PANCREATIC DUCT TUMOR REMOVED) GERD: Yes Genitourinary: Yes Hepatitis: No Hiatal Hernia: No Hypertension: No Immune Disorder: No Implanted Vascular Access Dvce: No Kidney Stones: Yes Musculoskeletal: No Neurologic: No Psychiatric: Yes (ANXIETY DEPRESSION) Respiratory: No Immunizations Current: Yes Pancreatitis: Yes Renal Failure: No Thyroid Disease: No ?: Not LMP: 09/26/17 : 2 Para: 2 Tubal Ligation: Yes Past Surgical History Abdominal Surgery: Yes (GASTRIC BYPASS -2014, EXP LAP FOR ADHESIONS, DILEEP, benign tumor removal ) AICD: No Body Medical Devices: CHOCLEAR IMPLANTS Cholecystectomy: Yes (WITH GALLSTONES POST DILEEP) Ear Surgery: Yes ( IMPLANTS) Genitourinary Surgery: Yes (KIDNEY STONES SURGERY AND LITHOTRIPSY) Gynecologic Surgery: Yes (TUBAL) Joint Replacement: No Pacemaker: No Other Surgery: Yes (explor lap for abd adhesions) Social History Alcohol Use: No Tobacco Use: No Substance Use: No Allergies-Medications (Allergen,Severity, Reaction): Coded Allergies: acetaminophen (Verified Allergy, Severe, Chest Pain, 10/18/17) codeine (Verified Allergy, Severe, Chest Pain, 10/18/17) morphine (Verified Allergy, Severe, Rash, 10/18/17) penicillin G (Verified Allergy, Unknown, Hives, 10/18/17) Reported Meds & Prescriptions Reported Meds & Active Scripts Active Zofran Odt (Ondansetron Odt) 4 Mg Tab 4 Mg SL Q6HR PRN Reglan (Metoclopramide HCl) 10 Mg Tab 10 Mg PO TIDAC Carafate (Sucralfate) 1 Gm Tab 1 Gm PO TID On empty stomach Protonix (Pantoprazole Sodium) 40 Mg Tab 40 Mg PO DAILY Reported Gabapentin 100 Mg Cap 100 Mg PO HS Xanax (Alprazolam) 1 Mg Tab 1 Mg PO TID Lamictal (Lamotrigine) 25 Mg Tab 25 Mg PO BID Benadryl Allergy (Diphenhydramine HCl) 25 Mg Tablet 25 Mg PO PRN Review of Systems Except as stated in HPI: all other systems reviewed are Neg General / Constitutional: No: Fever, Chills HENT: No: Congestion Cardiovascular: No: Chest Pain or Discomfort Respiratory: No: Shortness of Breath Gastrointestinal: Positive: Nausea, Abdominal Pain, No: Vomiting, Diarrhea Genitourinary: Positive: Flank Pain, No: Dysuria Musculoskeletal: No: Myalgias, Arthralgias Skin: No Rash Neurologic: No: Weakness Psychiatric: No: Anxiety Hematologic/Lymphatic: No: Easy Bruising Physical Exam Narrative GENERAL: Well-developed well-nourished female no acute distress or respiratory distress SKIN: Warm and dry. HEAD: Normocephalic. EYES: No scleral icterus. No injection or drainage. NECK: Supple, trachea midline. No JVD or lymphadenopathy. CARDIOVASCULAR: Regular rate and rhythm without murmurs, gallops, or rubs. RESPIRATORY: Breath sounds equal bilaterally. No accessory muscle use. GASTROINTESTINAL: Abdomen soft, nontender to direct palpation no guarding or rebound no reproducible pain/discomfort on direct palpation, nondistended. MUSCULOSKELETAL: No cyanosis, or edema. BACK: Nontender without obvious deformity. No CVA tenderness. Data Data Last Documented VS Vital Signs Date Time Temp Pulse Resp B/P (MAP) Pulse Ox O2 Delivery O2 Flow Rate FiO2 10/18/17 22:41 98.9 109 18 128/65 (86) 98 Orders Orders Complete Blood Count With Diff (10/18/17 23:28) Basic Metabolic Panel (Bmp) (10/18/17 23:28) Urinalysis - C+S If Indicated (10/18/17 23:28) Ed Urine Pregnancytest Poc (10/18/17 23:28) Sodium Chlor 0.9% 1000 Ml Inj (Ns 1000 M (10/18/17 23:30) Ketorolac Inj (Toradol Inj) (10/18/17 23:30) Ondansetron Inj (Zofran Inj) (10/18/17 23:30) Abdomen, Flat & Upright (10/18/17 ) Ed Discharge Order (10/19/17 00:42) Labs Laboratory Tests Test 10/18/17 23:30 10/18/17 23:35 Urine Collection Type CLEAN CATCH Urine Color YELLOW Urine Turbidity CLEAR Urine pH 6.0 Urine Specific [place] 1.020 Urine Protein NEG mg/dL Urine Glucose (UA) NEG mg/dL Urine Ketones NEG mg/dL Urine Occult Blood TRACE Urine Nitrite NEG Urine Bilirubin NEG Urine Leukocyte Esterase NEG Urine RBC 4-9 /hpf Urine Squamous Epithelial Cells 0-5 /hpf Urine Bacteria OCC /hpf Urine Mucus FEW /lpf Microscopic Urinalysis Comment CULT NOT INDICATED White Blood Count 10.1 TH/MM3 Red Blood Count 4.39 MIL/MM3 Hemoglobin 11.1 GM/DL Hematocrit 33.7 % Mean Corpuscular Volume 76.8 FL Mean Corpuscular Hemoglobin 25.4 PG Mean Corpuscular Hemoglobin Concent 33.1 % Red Cell Distribution Width 12.8 % Platelet Count 332 TH/MM3 Mean Platelet Volume 8.3 FL Neutrophils (%) (Auto) 68.4 % Lymphocytes (%) (Auto) 22.1 % Monocytes (%) (Auto) 7.7 % Eosinophils (%) (Auto) 1.6 % Basophils (%) (Auto) 0.2 % Neutrophils # (Auto) 6.9 TH/MM3 Lymphocytes # (Auto) 2.2 TH/MM3 Monocytes # (Auto) 0.8 TH/MM3 Eosinophils # (Auto) 0.2 TH/MM3 Basophils # (Auto) 0.0 TH/MM3 CBC Comment DIFF FINAL Differential Comment Blood Urea Nitrogen 8 MG/DL Creatinine 0.63 MG/DL Random Glucose 95 MG/DL Calcium Level 8.3 MG/DL Sodium Level 137 MEQ/L Potassium Level 3.3 MEQ/L Chloride Level 105 MEQ/L Carbon Dioxide Level 25.2 MEQ/L Anion Gap 7 MEQ/L Estimat Glomerular Filtration Rate 110 ML/MIN MDM Medical Decision Making Medical Screen Exam Complete: Yes Emergency Medical Condition: Yes Medical Record Reviewed: Yes Interpretation(s) Last Impressions Abdomen X-Ray 10/18/17 0000 Signed Impressions: Service Date/Time: Wednesday, October 18, 2017 23:48 - CONCLUSION: No acute abdominal abnormality is identified. Gustavo Patel MD CBC & BMP Diagram 10/18/17 23:35 Calcium Level 8.3 L Vital Signs Date Time Temp Pulse Resp B/P (MAP) Pulse Ox O2 Delivery O2 Flow Rate FiO2 10/18/17 22:41 98.9 109 18 128/65 (86) 98 Differential Diagnosis Chronic pain syndrome, UTI, nephrolithiasis; unlikely bowel obstruction Narrative Course IV access obtained specimens collected and sent for resulting flat and upright abdomen film ordered Laboratory values are found to be grossly within normal range X-ray reveals no acute obstructive process Patient is clinically improved and stable for outpatient management Diagnosis Primary Impression: Chronic generalized abdominal pain Referrals: Pain Management 1 day Primary Care Physician 1 day Patient Instructions: General Instructions Additional Instructions: Increase fluid hydration Follow-up with your primary care provider and pain management provider Return to the emergency department for any concerns or change in condition Med/Other Pt SpecificInfo: No Change to Meds Disposition: 01 DISCHARGE HOME Condition: Stable Uma Ovalle MD Oct 18, 2017 23:34
[2017-10-18 23:49] LABS: AUTOMATED NEUTROPHIL # 6.9 TH/MM3 (1.8-7.7); BASOPHIL % 0.2 % (0.0-2.0); EOSINOPHIL # 0.2 TH/MM3 (0-0.4); EOSINOPHIL % 1.6 % (0.0-4.0); HEMATOCRIT 33.7 % (35.0-46.0); HEMOGLOBIN 11.1 GM/DL (11.6-15.3); LYMPH % 22.1 % (9.0-44.0); LYMPHOCYTE # 2.2 TH/MM3 (1.0-4.8); MEAN CELL VOLUME 76.8 FL (80.0-100.0); MEAN CORPUSCULAR HEMOGLOBIN 25.4 PG (27.0-34.0); MEAN CORPUSCULAR HGB CONC 33.1 % (32.0-36.0); MEAN PLATELET VOLUME 8.3 FL (7.0-11.0); MONO % 7.7 % (0.0-8.0); MONOCYTE # 0.8 TH/MM3 (0-0.9); NEUT % 68.4 % (16.0-70.0); PLATELET COUNT 332 TH/MM3 (150-450); RED BLOOD COUNT 4.39 MIL/MM3 (4.00-5.30); RED CELL DISTRIBUTION WIDTH 12.8 % (11.6-17.2); WHITE BLOOD COUNT 10.1 TH/MM3 (4.0-11.0)
[2017-10-18 23:50] LABS: BILIRUBIN, URINE NEG (NEG); BLOOD, URINE TRACE (NEG); GLUCOSE,URINE NEG (NEG); KETONE, URINE NEG (NEG); NITRITE,URINE NEG (NEG); URINE LEUKOCYTE ESTERASE NEG (NEG)
[2017-10-18 23:59] LABS: URINE COLOR YELLOW (YELLW/STRAW)
[2017-10-19] LABS: CALCIUM 8.3 MG/DL (8.5-10.1)
[2017-10-19] LABS: BACTERIA, URINE OCC /hpf; MUCUS URINE FEW /lpf (OCC); SQUAMOUS EPITHELIAL CELL URINE 0-5 /hpf (0-5)
[2017-10-19] MEDS ORDERED: GABA100C4 PO
[2017-10-19] MEDS ORDERED: XANA1TAB2 PO
[2017-10-19] MEDS ORDERED: LAMO25 PO
[2017-10-19 00:01] LABS: BICARBONATE 25.2 MEQ/L (21.0-32.0)
[2017-10-19 00:04] LABS: CREATININE 0.63 MG/DL (0.50-1.00)
--- NOTE | 2017-10-19 00:29 | RADRPT ---
EXAM DATE/TIME: 10/18/2017 23:48 [facility] COMPARISON: CT ABDOMEN & PELVIS W CONTRAST, September 27, 2017, 3:04. INDICATIONS : Abdominal pain. MEDICAL HISTORY : Irritable bowel syndrome. Pancreatitis. Gastroesophageal reflux disease. SURGICAL HISTORY : Gastric bypass. Cholecystectomy.Tubal ligation.Pancreatic tumor. ENCOUNTER: Initial ACUITY: 2 days PAIN SCORE: 10/10 LOCATION: Right lower quadrant FINDINGS: Supine and upright views of the abdomen demonstrate air within small and large bowel in a nonobstruct guerrero pattern. No organomegaly or abnormal calcifications are identified. No abnormal mass effect is ap preciated. Upright image demonstrates no free intraperitoneal air or significant air-fluid level. Vis ualized bones demonstrate no acute finding and lower lung zones are clear. Cholecystectomy clips are present there are clips and bowel staple lines in the left abdomen related to prior gastric bypass alaniz rgery. CONCLUSION: No acute abdominal abnormality is identified. Gustavo Patel MD on October 19, 2017 at 0:25 Board Certified Radiologist. This report was verified electronically.
== END 2017-10-19 01:04 | disposition home or self-care (01) ==
LOC: PHED 22:36
DX: R10.9 Unspecified abdominal pain (principal); G89.29 Other chronic pain; K21.9 Gastro-esophageal reflux disease without esophagitis; F32.9 Major depressive disorder, single episode, unspecified; E11.9 Type 2 diabetes mellitus without complications; Z98.84 Bariatric surgery status; Z88.0 Allergy status to penicillin; Z88.5 Allergy status to narcotic agent; Z88.6 Allergy status to analgesic agent
CPT/HCPCS: 74019; 80048; 81001; 84703; 85025; 96361; 96374; 96375; 99284; J1885; J2405; J7030

== ENCOUNTER 2017-10-21 01:00 | Emergency (ER) | payer MEDICAID ==
[~2017-10-21] VITALS: Ht 157.5 cm; Wt 80.4 kg
[~2017-10-21 01:00] MED LIST changes: +GABA100C4 PO; +LAMO25 PO; -LURA20TA PO; -REME15TA PO; -VIST25CA PO; +XANA1TAB2 PO
[2017-10-21 01:04] VITALS: BP 122/57; PULSE 97; RESP 18; TEMP 97.9; O2SAT 99
--- NOTE | 2017-10-21 03:35 | PD ---
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 The discharge was much more than she usually has an was slight blood tinged. She has been having dyspareunia for the past few months and is in line to get assigned to a damage cutter by her primary care physician. She denies any fever. She apparently has had a bilateral tubal ligation. 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) High Cholesterol: Yes Chest Pain: No Congestive Heart Failure: No Diabetes: Yes (DIET CONTROLLED) Patient Takes Glucophage: No Diminished Hearing: Yes ( R COCHLEAR IMPLANT, TUBES, TUMOR ) Endocrine: No Gastrointestinal Disorders: Yes (LIVER CYST, IBS, January: PANCREATIC DUCT TUMOR REMOVED) GERD: Yes Genitourinary: Yes Hepatitis: No Hiatal Hernia: No Hypertension: No Immune Disorder: No Implanted Vascular Access Dvce: No Kidney Stones: Yes Musculoskeletal: No Neurologic: No Psychiatric: Yes (ANXIETY DEPRESSION) Respiratory: No Immunizations Current: Yes Pancreatitis: Yes Renal Failure: No Thyroid Disease: No ?: Not LMP: 1-15-18 : 2 Para: 2 Tubal Ligation: Yes Past Surgical History Abdominal Surgery: Yes (GASTRIC BYPASS -2014, EXP LAP FOR ADHESIONS, DILEEP, benign tumor removal ) AICD: No Body Medical Devices: CHOCLEAR IMPLANTS Cholecystectomy: Yes (WITH GALLSTONES POST DILEPE) Ear Surgery: Yes ( IMPLANTS) Genitourinary Surgery: Yes (KIDNEY STONES SURGERY AND LITHOTRIPSY) Gynecologic Surgery: Yes (TUBAL) Joint Replacement: No Pacemaker: No Other Surgery: Yes (explor lap for abd adhesions) Social History Alcohol Use: No Tobacco Use: No Substance Use: No Allergies-Medications (Allergen,Severity, Reaction): Coded Allergies: acetaminophen (Verified Allergy, Severe, Chest Pain, 10/21/17) codeine (Verified Allergy, Severe, Chest Pain, 10/21/17) morphine (Verified Allergy, Severe, Rash, 10/21/17) penicillin G (Verified Allergy, Unknown, Hives, 10/21/17) Reported Meds & Prescriptions Reported Meds & Active Scripts Active Reported Gabapentin 300 Mg Cap 300 Mg PO DAILY Percocet (Oxycodone-Acetaminophen) 10-325 mg Tab 1 Tab PO Q6H PRN Xanax (Alprazolam) 1 Mg Tab 1 Mg PO TID Lamictal (Lamotrigine) 25 Mg Tab 25 Mg PO BID Review of Systems Except as stated in HPI: all other systems reviewed are Neg Physical Exam Narrative GENERAL: The patient is alert, oriented 3 in minimal apparent distress. Her vital signs are normal. SKIN: Focused skin assessment warm/dry. HEAD: Atraumatic. Normocephalic. EYES: Pupils equal and round. No scleral icterus. No injection or drainage. ENT: No nasal bleeding or discharge. Mucous membranes pink and moist. NECK: Trachea midline. No JVD. CARDIOVASCULAR: Regular rate and rhythm. No murmur appreciated. RESPIRATORY: No accessory muscle use. Clear to auscultation. Breath sounds equal bilaterally. GASTROINTESTINAL: Abdomen soft, non-tender, nondistended. Hepatic and splenic margins not palpable. No guarding or rebound is present. MUSCULOSKELETAL: No obvious deformities. No clubbing. No cyanosis. No edema. NEUROLOGICAL: Awake and alert. No obvious cranial nerve deficits. Motor grossly within normal limits. Normal speech. PSYCHIATRIC: Appropriate mood and affect; insight and judgment normal. GENITOURINARY: Normal external genitalia without lesions or erythema. Vaginal vault without blood or drainage. Cervical os was closed with clear, non-foul- smelling drainage. No cervical motion tenderness. Uterus nontender and nonenlarged. Bilateral adnexa nontender without masses. Data Data Last Documented VS Vital Signs Date Time Temp Pulse Resp B/P (MAP) Pulse Ox O2 Delivery O2 Flow Rate FiO2 10/21/17 03:41 100 16 116/81 (93) 98 Room Air 10/21/17 01:04 97.9 Orders Orders Beta Hcg (Quant/Titer) (10/21/17 03:30) Complete Blood Count With Diff (10/21/17 03:30) Basic Metabolic Panel (Bmp) (10/21/17 03:30) Gc And Chlamydia Pcr (10/21/17 03:30) Wet Prep Profile (10/21/17 03:30) Urinalysis - C+S If Indicated (10/21/17 03:30) Ed Discharge Order (10/21/17 04:41) Labs Laboratory Tests Test 10/21/17 03:40 10/21/17 03:56 Urine Color YELLOW Urine Turbidity SLIGHT Urine pH 5.5 Urine Specific [place] 1.035 Urine Protein NEG mg/dL Urine Glucose (UA) NEG mg/dL Urine Ketones TRACE mg/dL Urine Occult Blood SMALL Urine Nitrite NEG Urine Bilirubin NEG Urine Leukocyte Esterase NEG Urine RBC 3-5 /hpf Urine WBC 0-2 /hpf Urine Squamous Epithelial Cells 0-5 /hpf Urine Calcium Oxalate Crystals MANY /hpf Urine Bacteria FEW /hpf Microscopic Urinalysis Comment CULT NOT INDICATED Clue Cells (Wet Prep) NONE SEEN Vaginal Trichomonas (Wet Prep) NONE SEEN Vaginal Yeast (Wet Prep) NONE SEEN White Blood Count 5.9 TH/MM3 Red Blood Count 4.45 MIL/MM3 Hemoglobin 10.6 GM/DL Hematocrit 34.3 % Mean Corpuscular Volume 77.2 FL Mean Corpuscular Hemoglobin 23.8 PG Mean Corpuscular Hemoglobin Concent 30.8 % Red Cell Distribution Width 12.5 % Platelet Count 339 TH/MM3 Mean Platelet Volume 7.7 FL Neutrophils (%) (Auto) 61.5 % Lymphocytes (%) (Auto) 27.8 % Monocytes (%) (Auto) 9.0 % Eosinophils (%) (Auto) 1.5 % Basophils (%) (Auto) 0.2 % Neutrophils # (Auto) 3.6 TH/MM3 Lymphocytes # (Auto) 1.7 TH/MM3 Monocytes # (Auto) 0.5 TH/MM3 Eosinophils # (Auto) 0.1 TH/MM3 Basophils # (Auto) 0.0 TH/MM3 CBC Comment AUTO DIFF Differential Comment AUTO DIFF CONFIRMED Platelet Estimate NORMAL Platelet Morphology Comment NORMAL Blood Urea Nitrogen 7 MG/DL Creatinine 0.62 MG/DL Random Glucose 93 MG/DL Calcium Level 8.1 MG/DL Sodium Level 136 MEQ/L Potassium Level 3.3 MEQ/L Chloride Level 102 MEQ/L Carbon Dioxide Level 27.8 MEQ/L Anion Gap 6 MEQ/L Estimat Glomerular Filtration Rate 112 ML/MIN Human Chorionic Gonadotropin, Quant LESS THAN 1 MIU/ML MDM Medical Decision Making Medical Screen Exam Complete: Yes Emergency Medical Condition: Yes Medical Record Reviewed: Yes Interpretation(s) The wet prep is negative for yeast, Trichomonas and clue cells. The CBC shows a hemoglobin of 10.6 and hematocrit of 34.3 but is otherwise normal. The beta- hCG is less than 1 and the potassium is 3.3 and the calcium is 8.1 but the basic metabolic profile is otherwise normal. The urine shows trace ketones, small occult blood with many calcium oxalate crystals and few bacteria but culture is not indicated. Differential Diagnosis Trichomonas vaginitis, monilial vaginitis, bacterial vaginosis, electrolyte disorder, urinary tract infection, Narrative Course The patient had a fairly normal pelvic exam and she is not . She needs to follow-up with a damage cutter because of her dyspareunia. Diagnosis Primary Impression: Dyspareunia in female Ruled Out: Vijay Delatorre MD Oct 21, 2017 03:35
[2017-10-21 03:41] VITALS: BP 116/81; PULSE 100; RESP 16; O2SAT 98
[2017-10-21 04:01] LABS: BILIRUBIN, URINE NEG (NEG); BLOOD, URINE SMALL (NEG); GLUCOSE,URINE NEG (NEG); KETONE, URINE TRACE mg/dL (NEG); NITRITE,URINE NEG (NEG); PH, URINE 5.5 (5.0-8.5); URINE LEUKOCYTE ESTERASE NEG (NEG)
[2017-10-21 04:03] LABS: URINE COLOR YELLOW (YELLW/STRAW)
[2017-10-21] MEDS ORDERED: PERC10TA27 PO (04:04)
[2017-10-21] MEDS ORDERED: GABA300C5 PO (04:04)
[2017-10-21 04:07] LABS: BACTERIA, URINE FEW /hpf; CALCIUM OXALATE CRYSTALS,URINE MANY /hpf; SQUAMOUS EPITHELIAL CELL URINE 0-5 /hpf (0-5); WBC, URINE 0-2 /hpf (0-5)
[2017-10-21 04:09] LABS: AUTOMATED NEUTROPHIL # 3.6 TH/MM3 (1.8-7.7); BASOPHIL % 0.2 % (0.0-2.0); EOSINOPHIL # 0.1 TH/MM3 (0-0.4); EOSINOPHIL % 1.5 % (0.0-4.0); HEMATOCRIT 34.3 % (35.0-46.0); HEMOGLOBIN 10.6 GM/DL (11.6-15.3); LYMPH % 27.8 % (9.0-44.0); LYMPHOCYTE # 1.7 TH/MM3 (1.0-4.8); MEAN CELL VOLUME 77.2 FL (80.0-100.0); MEAN CORPUSCULAR HEMOGLOBIN 23.8 PG (27.0-34.0); MEAN CORPUSCULAR HGB CONC 30.8 % (32.0-36.0); MEAN PLATELET VOLUME 7.7 FL (7.0-11.0); MONOCYTE # 0.5 TH/MM3 (0-0.9); NEUT % 61.5 % (16.0-70.0); PLATELET COUNT 339 TH/MM3 (150-450); RED BLOOD COUNT 4.45 MIL/MM3 (4.00-5.30); RED CELL DISTRIBUTION WIDTH 12.5 % (11.6-17.2); WHITE BLOOD COUNT 5.9 TH/MM3 (4.0-11.0)
[2017-10-21 04:18] LABS: CHLORIDE 102 MEQ/L (98-107); SODIUM (NA) 136 MEQ/L (136-145)
[2017-10-21 04:21] LABS: CALCIUM 8.1 MG/DL (8.5-10.1)
[2017-10-21 04:22] LABS: BICARBONATE 27.8 MEQ/L (21.0-32.0); BLOOD UREA NITROGEN 7 MG/DL (7-18); GLUCOSE,RANDOM 93 MG/DL (74-106)
[2017-10-21 04:25] LABS: CREATININE 0.62 MG/DL (0.50-1.00); GLOMERULAR FILTRATION RATE 112 ML/MIN (>89)
[2017-10-21 05:14] VITALS: BP 103/74; TEMP 97.7
== END 2017-10-21 05:16 | disposition home or self-care (01) ==
LOC: PHED 01:00
DX: N94.10 Unspecified dyspareunia (principal); E78.00 Pure hypercholesterolemia, unspecified; E11.9 Type 2 diabetes mellitus without complications; F32.9 Major depressive disorder, single episode, unspecified
CPT/HCPCS: 80048; 81001; 84702; 85025; 87210; 87491; 87591; 99284

== ENCOUNTER 2017-11-15 15:03 | Emergency (ER) | payer MEDICAID ==
[~2017-11-15] VITALS: Ht 157.5 cm; Wt 85.2 kg
[~2017-11-15 15:03] MED LIST changes: -BENA25TA6 PO; -CARA1TAB6 PO; -GABA100C4 PO; +GABA300C5 PO; +PERC10TA27 PO; -PROT40TA PO; -REGL10TA5 PO; -ZOFR4TAB3 SL
[2017-11-15 15:07] VITALS: BP 96/56; PULSE 82; RESP 18; TEMP 98.2; O2SAT 99
[2017-11-15] MEDS ORDERED: SODIUM CHLOR 0.9% 1000 ML INJ 1,000 ML IV SCH (15:59)
[2017-11-15] MEDS ORDERED: KETOROLAC TROMETHAMINE 30 MG/ML (IVP) VIAL IVP ONE (16:00)
[2017-11-15] MEDS ORDERED: SODIUM CHLORIDE 0.9% FLUSH 10 ML FLUSH IV FLUSH PRN (16:00)
[2017-11-15] MEDS ORDERED: FAMOTIDINE 20 MG/2 ML VIAL IV PUSH ONE (16:00)
[2017-11-15] MEDS ORDERED: diphenhydrAMINE HCL 50 MG/ML VIAL IV PUSH ONE (16:00)
[2017-11-15] MEDS ORDERED: PROCHLORPERAZINE INJ 10 MG/2 ML VIAL IV PUSH ONE (16:00)
[2017-11-15 16:01] LABS: BILIRUBIN, URINE NEG (NEG); BLOOD, URINE NEG (NEG); GLUCOSE,URINE NEG (NEG); KETONE, URINE NEG (NEG); NITRITE,URINE NEG (NEG); URINE COLOR YELLOW (YELLW/STRAW); URINE LEUKOCYTE ESTERASE SMALL (NEG)
[2017-11-15 16:07] LABS: BACTERIA, URINE MOD /hpf; MUCUS URINE FEW /lpf (OCC)
--- NOTE | 2017-11-15 16:07 | PD ---
HPI Chief Complaint: Abdominal Pain Time Seen by Provider: 15:49 Travel History International Travel<30 days: No Contact w/Intl Traveler<30days: No Traveled to known affect area: No History of Present Illness HPI The patient is a 32-year-old female who presents to the emergency department for abdominal pain. The patient has a history of chronic abdominal pain, states she had previous gastric bypass with reversal which resulted in her diet on the operating table. However, she did survive. She has had multiple abdominal surgeries, one for removal of abdominal tumor, tubal ligation , and gastric bypass with reversal. She has had chronic pain for several years and undergone a workup including multiple CTs, endoscopy, diagnostic laparoscopy. The patient is currently undergoing evaluation for possible pain pump with Dilaudid for her chronic abdominal pain. She is currently followed at a local clinic and is prescribed Percocet 10 mg every 6 hours. However, over the last 2 days she has had breakthrough pain and complains of generalized abdominal pain with nausea and vomiting. She denies any fever, dysuria, or vaginal discharge. She denies . Abdominal pain is generalized without any abdomen aggravating or alleviating factors. 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) High Cholesterol: Yes Chest Pain: No Congestive Heart Failure: No Diabetes: Yes (DIET CONTROLLED) Patient Takes Glucophage: No Diminished Hearing: Yes ( R COCHLEAR IMPLANT, TUBES, TUMOR ) Endocrine: No Gastrointestinal Disorders: Yes (LIVER CYST, IBS, January: PANCREATIC DUCT TUMOR REMOVED) GERD: Yes Genitourinary: Yes Hepatitis: No Hiatal Hernia: No Hypertension: No Immune Disorder: No Implanted Vascular Access Dvce: No Kidney Stones: Yes Musculoskeletal: No Neurologic: No Psychiatric: Yes (ANXIETY DEPRESSION) Respiratory: No Immunizations Current: Yes Pancreatitis: Yes Renal Failure: No Thyroid Disease: No Influenza Vaccination: Yes ?: Not LMP: 3 WEEKS AGO : 2 Para: 2 Tubal Ligation: Yes Past Surgical History Abdominal Surgery: Yes (GASTRIC BYPASS -2014, EXP LAP FOR ADHESIONS, DILEEP, benign tumor removal ) AICD: No Body Medical Devices: CHOCLEAR IMPLANTS Cholecystectomy: Yes (WITH GALLSTONES POST DILEEP) Ear Surgery: Yes ( IMPLANTS) Genitourinary Surgery: Yes (KIDNEY STONES SURGERY AND LITHOTRIPSY) Gynecologic Surgery: Yes (TUBAL) Joint Replacement: No Pacemaker: No Other Surgery: Yes (explor lap for abd adhesions) Social History Alcohol Use: No Tobacco Use: No Substance Use: No Allergies-Medications (Allergen,Severity, Reaction): Coded Allergies: acetaminophen (Verified Allergy, Severe, Chest Pain, 11/15/17) codeine (Verified Allergy, Severe, Chest Pain, 11/15/17) morphine (Verified Allergy, Severe, Rash, 11/15/17) penicillin G (Verified Allergy, Unknown, Hives, 11/15/17) Reported Meds & Prescriptions Reported Meds & Active Scripts Active Reported Gabapentin 300 Mg Cap 300 Mg PO HS Percocet (Oxycodone-Acetaminophen) 10-325 mg Tab 1 Tab PO Q6H PRN Xanax (Alprazolam) 1 Mg Tab 1 Mg PO TID Lamictal (Lamotrigine) 25 Mg Tab 25 Mg PO BID Review of Systems Except as stated in HPI: all other systems reviewed are Neg General / Constitutional: No: Fever Cardiovascular: No: Chest Pain or Discomfort Respiratory: No: Shortness of Breath Gastrointestinal: Positive: Nausea, Vomiting, Abdominal Pain, No: Diarrhea, Constipation, Changes in Bowel Habits Genitourinary: No: Dysuria, Discharge, Vaginal Bleeding Physical Exam Narrative GENERAL: The patient is a 32-year-old female who appears her stated age and is in no acute respiratory distress. Upon entering the room she is lying on her left side on her cell phone, appears comfortable. SKIN: Focused skin assessment warm/dry. HEAD: Atraumatic. Normocephalic. EYES: Pupils equal and round. No scleral icterus. No injection or drainage. ENT: No nasal bleeding or discharge. Mucous membranes pink and moist. NECK: Trachea midline. No JVD. CARDIOVASCULAR: Regular rate and rhythm. No murmur appreciated. RESPIRATORY: No accessory muscle use. Clear to auscultation. Breath sounds equal bilaterally. GASTROINTESTINAL: Abdomen soft, well-healed midline surgical scar. No guarding or rigidity. Minimal generalized tenderness. MUSCULOSKELETAL: No obvious deformities. No clubbing. No cyanosis. No edema. NEUROLOGICAL: Awake and alert. No obvious cranial nerve deficits. Motor grossly within normal limits. Normal speech. PSYCHIATRIC: Appropriate mood and affect; insight and judgment normal. Data Data Last Documented VS Vital Signs Date Time Temp Pulse Resp B/P (MAP) Pulse Ox O2 Delivery O2 Flow Rate FiO2 11/15/17 17:01 18 11/15/17 16:32 86 110/71 (84) 96 11/15/17 15:07 98.2 Orders Orders Urinalysis - C+S If Indicated (11/15/17 15:10) Ed Urine Pregnancytest Poc (11/15/17 15:10) Complete Blood Count With Diff (11/15/17 15:59) Comprehensive Metabolic Panel (11/15/17 15:59) Lipase (11/15/17 15:59) Lactic Acid (11/15/17 15:59) Iv Access Insert/Monitor (11/15/17 15:59) Ecg Monitoring (11/15/17 15:59) Oximetry (11/15/17 15:59) Sodium Chlor 0.9% 1000 Ml Inj (Ns 1000 M (11/15/17 15:59) Sodium Chloride 0.9% Flush (Ns Flush) (11/15/17 16:00) Famotidine Inj (Pepcid Inj) (11/15/17 16:00) Ketorolac Inj (Toradol Inj) (11/15/17 16:00) Prochlorperazine Inj (Compazine Inj) (11/15/17 16:00) Diphenhydramine Inj (Benadryl Inj) (11/15/17 16:00) Urine Culture (11/15/17 15:25) Ciprofloxacin 400 Mg Premix (Cipro 400 M (11/15/17 16:45) Ed Discharge Order (11/15/17 17:27) Labs Laboratory Tests Test 11/15/17 15:25 11/15/17 16:15 11/15/17 16:30 Urine Color YELLOW Urine Turbidity CLEAR Urine pH 7.0 Urine Specific Juliette 1.015 Urine Protein NEG mg/dL Urine Glucose (UA) NEG mg/dL Urine Ketones NEG mg/dL Urine Occult Blood NEG Urine Nitrite NEG Urine Bilirubin NEG Urine Urobilinogen 0.2 MG/DL Urine Leukocyte Esterase SMALL Urine RBC 4-9 /hpf Urine WBC 20-24 /hpf Urine Squamous Epithelial Cells 6-8 /hpf Urine Bacteria MOD /hpf Urine Mucus FEW /lpf Microscopic Urinalysis Comment CULTURE INDICATED White Blood Count 5.0 TH/MM3 Red Blood Count 4.46 MIL/MM3 Hemoglobin 11.0 GM/DL Hematocrit 34.6 % Mean Corpuscular Volume 77.5 FL Mean Corpuscular Hemoglobin 24.7 PG Mean Corpuscular Hemoglobin Concent 31.9 % Red Cell Distribution Width 12.7 % Platelet Count 302 TH/MM3 Mean Platelet Volume 8.6 FL Neutrophils (%) (Auto) 48.7 % Lymphocytes (%) (Auto) 36.8 % Monocytes (%) (Auto) 8.7 % Eosinophils (%) (Auto) 4.5 % Basophils (%) (Auto) 1.3 % Neutrophils # (Auto) 2.5 TH/MM3 Lymphocytes # (Auto) 1.8 TH/MM3 Monocytes # (Auto) 0.4 TH/MM3 Eosinophils # (Auto) 0.2 TH/MM3 Basophils # (Auto) 0.1 TH/MM3 CBC Comment AUTO DIFF Blood Urea Nitrogen 8 MG/DL Creatinine 0.69 MG/DL Random Glucose 88 MG/DL Total Protein 7.6 GM/DL Albumin 3.5 GM/DL Calcium Level 8.4 MG/DL Alkaline Phosphatase 68 U/L Aspartate Amino Transf (AST/SGOT) 13 U/L Alanine Aminotransferase (ALT/SGPT) 17 U/L Total Bilirubin 0.2 MG/DL Sodium Level 138 MEQ/L Potassium Level 4.1 MEQ/L Chloride Level 105 MEQ/L Carbon Dioxide Level 26.7 MEQ/L Anion Gap 6 MEQ/L Estimat Glomerular Filtration Rate 99 ML/MIN Lactic Acid Level 1.5 mmol/L Lipase 144 U/L MDM Medical Decision Making Medical Screen Exam Complete: Yes Emergency Medical Condition: Yes Medical Record Reviewed: Yes Interpretation(s) Laboratory Tests Test 11/15/17 15:25 11/15/17 16:15 11/15/17 16:30 Urine Color YELLOW Urine Turbidity CLEAR Urine pH 7.0 Urine Specific Juliette 1.015 Urine Protein NEG mg/dL Urine Glucose (UA) NEG mg/dL Urine Ketones NEG mg/dL Urine Occult Blood NEG Urine Nitrite NEG Urine Bilirubin NEG Urine Urobilinogen 0.2 MG/DL Urine Leukocyte Esterase SMALL Urine RBC 4-9 /hpf Urine WBC 20-24 /hpf Urine Squamous Epithelial Cells 6-8 /hpf Urine Bacteria MOD /hpf Urine Mucus FEW /lpf Microscopic Urinalysis Comment CULTURE INDICATED White Blood Count 5.0 TH/MM3 Red Blood Count 4.46 MIL/MM3 Hemoglobin 11.0 GM/DL Hematocrit 34.6 % Mean Corpuscular Volume 77.5 FL Mean Corpuscular Hemoglobin 24.7 PG Mean Corpuscular Hemoglobin Concent 31.9 % Red Cell Distribution Width 12.7 % Platelet Count 302 TH/MM3 Mean Platelet Volume 8.6 FL Neutrophils (%) (Auto) 48.7 % Lymphocytes (%) (Auto) 36.8 % Monocytes (%) (Auto) 8.7 % Eosinophils (%) (Auto) 4.5 % Basophils (%) (Auto) 1.3 % Neutrophils # (Auto) 2.5 TH/MM3 Lymphocytes # (Auto) 1.8 TH/MM3 Monocytes # (Auto) 0.4 TH/MM3 Eosinophils # (Auto) 0.2 TH/MM3 Basophils # (Auto) 0.1 TH/MM3 CBC Comment AUTO DIFF Blood Urea Nitrogen 8 MG/DL Creatinine 0.69 MG/DL Random Glucose 88 MG/DL Total Protein 7.6 GM/DL Albumin 3.5 GM/DL Calcium Level 8.4 MG/DL Alkaline Phosphatase 68 U/L Aspartate Amino Transf (AST/SGOT) 13 U/L Alanine Aminotransferase (ALT/SGPT) 17 U/L Total Bilirubin 0.2 MG/DL Sodium Level 138 MEQ/L Potassium Level 4.1 MEQ/L Chloride Level 105 MEQ/L Carbon Dioxide Level 26.7 MEQ/L Anion Gap 6 MEQ/L Estimat Glomerular Filtration Rate 99 ML/MIN Lactic Acid Level 1.5 mmol/L Lipase 144 U/L Differential Diagnosis Differential diagnosis includes chronic abdominal pain, porphyria, neuralgia, appendicitis, pancreatitis, partial small bowel obstruction, gastroparesis. Narrative Course IV was established, labs are drawn and sent, and the patient was placed on cardiac telemetry monitoring and continuous pulse oximetry monitoring. The patient was administered Toradol, Compazine, Benadryl, and IV fluids. I reviewed the EMR, she has had several CTs performed which revealed a 2 mm nonobstructing stone, otherwise unremarkable. Previous visits reveal a diagnostic laparoscopy. The patient appears to have had a thorough workup in regards to her chronic abdominal pain is currently being evaluated for chronic pain pump. However, she is already taking Percocet 10 mg every 6 hours, therefore, no further narcotics were administered. White count is unremarkable. Lactic acid is normal. Hemoglobin is 11.0, appears to be baseline. UA is positive for UTI, patient is allergic to penicillin, therefore , was administered Cipro 400 mg intravenously. Patient was reassessed, symptoms had improved. She is advised to follow-up with her chronic pain physician. Cipro as directed. She will be provided a copy of her labs at discharge. Diagnosis Primary Impression: Abdominal pain Qualified Codes: R10.84 - Generalized abdominal pain Additional Impression: UTI (urinary tract infection) Qualified Codes: N30.00 - Acute cystitis without hematuria Patient Instructions: General Instructions Additional Instructions: Cipro as directed. Please provide the patient a copy of her labs at discharge. Follow-up with your primary physician and pain interventionalists. Return if symptoms worsen or progress. Med/Other Pt SpecificInfo: Prescription(s) given Scripts Ciprofloxacin (Cipro) 500 Mg Tab 500 MG PO BID for Infection for 3 Days, #6 TAB 0 Refills Prov: Nishant Duarte MD 11/15/17 Disposition: 01 DISCHARGE HOME Condition: Stable Nishant Duarte MD Nov 15, 2017 16:07
[2017-11-15 16:32] VITALS: BP 110/71; PULSE 86; RESP 18; O2SAT 96
[2017-11-15 16:39] LABS: AUTOMATED NEUTROPHIL # 2.5 TH/MM3 (1.8-7.7); BASOPHIL # 0.1 TH/MM3 (0-0.2); BASOPHIL % 1.3 % (0.0-2.0); EOSINOPHIL # 0.2 TH/MM3 (0-0.4); EOSINOPHIL % 4.5 % (0.0-4.0); HEMATOCRIT 34.6 % (35.0-46.0); LYMPH % 36.8 % (9.0-44.0); LYMPHOCYTE # 1.8 TH/MM3 (1.0-4.8); MEAN CELL VOLUME 77.5 FL (80.0-100.0); MEAN CORPUSCULAR HEMOGLOBIN 24.7 PG (27.0-34.0); MEAN CORPUSCULAR HGB CONC 31.9 % (32.0-36.0); MEAN PLATELET VOLUME 8.6 FL (7.0-11.0); MONO % 8.7 % (0.0-8.0); MONOCYTE # 0.4 TH/MM3 (0-0.9); NEUT % 48.7 % (16.0-70.0); PLATELET COUNT 302 TH/MM3 (150-450); RED BLOOD COUNT 4.46 MIL/MM3 (4.00-5.30); RED CELL DISTRIBUTION WIDTH 12.7 % (11.6-17.2)
[2017-11-15 16:45] LABS: CHLORIDE 105 MEQ/L (98-107); SODIUM (NA) 138 MEQ/L (136-145)
[2017-11-15] MEDS ORDERED: CIPROFLOXACIN 400 MG PREMIX 200 ML IV ONE (16:45)
[2017-11-15 16:49] LABS: ALBUMIN 3.5 GM/DL (3.4-5.0); BICARBONATE 26.7 MEQ/L (21.0-32.0); CALCIUM 8.4 MG/DL (8.5-10.1)
[2017-11-15 16:50] LABS: BLOOD UREA NITROGEN 8 MG/DL (7-18); GLUCOSE,RANDOM 88 MG/DL (74-106)
[2017-11-15 16:52] LABS: ALT (GPT) 17 U/L (10-53); AST (GOT) 13 U/L (15-37); CREATININE 0.69 MG/DL (0.50-1.00); GLOMERULAR FILTRATION RATE 99 ML/MIN (>89)
[2017-11-15 16:54] LABS: TOTAL BILIRUBIN ADULT 0.2 MG/DL (0.2-1.0); TOTAL PROTEIN 7.6 GM/DL (6.4-8.2)
[2017-11-15 16:55] LABS: ALKALINE PHOSPHATASE 68 U/L (45-117)
[2017-11-15 17:01] VITALS: RESP 18
[2017-11-15] MEDS ORDERED: CIPR-9 PO (17:30)
[2017-11-15 18:18] LABS: OVALOCYTES 1+ (NORMAL)
== END 2017-11-15 17:45 | disposition home or self-care (01) ==
LOC: PHED 15:03
DX: R10.84 Generalized abdominal pain (principal); N30.00 Acute cystitis without hematuria; G89.29 Other chronic pain; E78.00 Pure hypercholesterolemia, unspecified; E11.9 Type 2 diabetes mellitus without complications; F32.9 Major depressive disorder, single episode, unspecified; K21.9 Gastro-esophageal reflux disease without esophagitis; Z79.891 Long term (current) use of opiate analgesic
CPT/HCPCS: 80053; 81001; 83605; 83690; 84703; 85025; 87086; 96365; 96375; 99284; J0744; J0780; J1200; J1885; J7030

== ENCOUNTER 2017-11-21 00:07 | Emergency (ER) | payer MEDICAID ==
[~2017-11-21 00:07] MED LIST changes: +CIPR-9 PO
[2017-11-21 00:13] VITALS: BP 123/78; PULSE 86; RESP 20; TEMP 98.5; O2SAT 98
[2017-11-21 00:40] VITALS: BP 120/83; PULSE 82; RESP 18; O2SAT 100
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
[2017-11-21] MEDS ORDERED: CARA1TAB6 PO (01:43)
[2017-11-21] MEDS ORDERED: PROT40TA PO (01:43)
[2017-11-21] MEDS ORDERED: REGL5TAB PO (01:43)
[2017-11-21] MEDS ORDERED: TRAM-388 PO (01:47)
[2017-11-21 01:53] VITALS: BP 120/90
== END 2017-11-21 02:07 | disposition home or self-care (01) ==
LOC: PHED 00:07
DX: S60.211A Contusion of right wrist, initial encounter (principal); S20.221A Contusion of right back wall of thorax, initial encounter; Y04.2XXA Assault by strike against or bumped into by another person, initial encounter; Y92.008 Other place in unspecified non-institutional (private) residence as the place of occurrence of the external cause; E78.00 Pure hypercholesterolemia, unspecified; E11.9 Type 2 diabetes mellitus without complications
CPT/HCPCS: 73090; 73110; 99283

== ENCOUNTER 2017-12-14 22:19 | Emergency (ER) | payer MEDICAID ==
[~2017-12-14] VITALS: Ht 157.5 cm; Wt 83.0 kg
[~2017-12-14 22:19] MED LIST changes: +CARA1TAB6 PO; +PROT40TA PO; +REGL5TAB PO; +TRAM-388 PO
[2017-12-14 22:26] VITALS: BP 118/78; PULSE 125; RESP 20; TEMP 98.5; O2SAT 98
[2017-12-14] MEDS ORDERED: RESP: ALBUTEROL 2.5 MG/IPRATROPIUM 0.5 MG NEB (SCH) INH ONE (22:45)
[2017-12-14] MEDS ORDERED: methylPREDNISolone SOD SUCC 125 MG/2 ML VIAL IV PUSH ONE (22:45)
[2017-12-14] MEDS ORDERED: SODIUM CHLORIDE 0.9% FLUSH 10 ML FLUSH IVF PRN (22:45)
--- NOTE | 2017-12-14 22:51 | PD ---
HPI Chief Complaint: Respiratory Symptoms Time Seen by Provider: 22:31 Travel History International Travel<30 days: No Contact w/Intl Traveler<30days: No Traveled to known affect area: No History of Present Illness HPI Patient is a 32-year-old female presents to emergency room with complaints of cough and shortness of breath. Patient reports that since last month (December 02) , she has not been feeling well. Patient reports that she has been having a productive cough with nausea and vomiting. Patient reports that when she coughs , she is coughing up blood in her mucus. Patient reports that she has been feeling short of breath like "I have mucous stuck in my lungs." Patient endorses that she tried going to the emergency room in [place] last week but was refused care by the ER and was never seen. Reports that she recently drove from [place] to [place] and is not feeling any better. Patient denies any fevers or chills, reports no sick contacts. Patient reports that she did not have a flu shot this year. Patient reports that she does have increased chest congestion with her symptoms. 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) High Cholesterol: Yes Chest Pain: No Congestive Heart Failure: No Diabetes: Yes (DIET CONTROLLED) Patient Takes Glucophage: No Diminished Hearing: Yes ( R COCHLEAR IMPLANT, TUBES, TUMOR ) Endocrine: No Gastrointestinal Disorders: Yes (LIVER CYST, IBS, January: PANCREATIC DUCT TUMOR REMOVED) GERD: Yes Genitourinary: Yes Hepatitis: No Hiatal Hernia: No Hypertension: No Immune Disorder: No Implanted Vascular Access Dvce: No Kidney Stones: Yes Medical other: No Musculoskeletal: No Neurologic: No Psychiatric: Yes (ANXIETY DEPRESSION) Respiratory: No Immunizations Current: Yes Pancreatitis: Yes Renal Failure: No Thyroid Disease: No Tetanus Vaccination: > 5 Years Influenza Vaccination: No ?: Not LMP: 11/23/17 : 2 Para: 2 Tubal Ligation: Yes Past Surgical History Abdominal Surgery: Yes (GASTRIC BYPASS -2014, EXP LAP FOR ADHESIONS, DILEEP, benign tumor removal ) AICD: No Body Medical Devices: CHOCLEAR IMPLANTS Cholecystectomy: Yes (WITH GALLSTONES POST DILEEP) Ear Surgery: Yes ( IMPLANTS) Genitourinary Surgery: Yes (KIDNEY STONES SURGERY AND LITHOTRIPSY) Gynecologic Surgery: Yes (TUBAL) Joint Replacement: No Pacemaker: No Other Surgery: Yes (explor lap for abd adhesions) Social History Alcohol Use: No Tobacco Use: No Substance Use: No Allergies-Medications (Allergen,Severity, Reaction): Coded Allergies: acetaminophen (Verified Allergy, Severe, Chest Pain, 11/21/17) codeine (Verified Allergy, Severe, Chest Pain, 11/21/17) morphine (Verified Allergy, Severe, Rash, 11/21/17) penicillin G (Verified Allergy, Unknown, Hives, 11/21/17) Reported Meds & Prescriptions Reported Meds & Active Scripts Active Zofran (Ondansetron HCl) 4 Mg Tab 4 Mg PO Q6HR PRN Tramadol-Acetaminophen 37.5-325 mg Tab 1 Tab PO Q6H PRN Cipro (Ciprofloxacin HCl) 500 Mg Tab 500 Mg PO BID 3 Days Reported Reglan (Metoclopramide HCl) 5 Mg Tab 5 Mg PO DIRECTED Carafate (Sucralfate) 1 Gram Tab 1 Gm PO QID On empty stomach Protonix (Pantoprazole Sodium) 40 Mg Tab 40 Mg PO DAILY Gabapentin 300 Mg Cap 300 Mg PO HS Percocet (Oxycodone-Acetaminophen) 10-325 mg Tab 1 Tab PO Q6H PRN Xanax (Alprazolam) 1 Mg Tab 1 Mg PO TID Lamictal (Lamotrigine) 25 Mg Tab 50 Mg PO BID Review of Systems General / Constitutional: No: Fever, Chills Eyes: No: Visual changes HENT: No: Headaches Cardiovascular: No: Chest Pain or Discomfort Respiratory: Positive: Cough, Shortness of Breath Gastrointestinal: Positive: Nausea, Vomiting, No: Abdominal Pain Genitourinary: No: Dysuria Musculoskeletal: No: Pain Skin: No Rash Neurologic: No: Weakness Psychiatric: Positive: Anxiety, No: Depression, Suicidal Ideations, Homicidal Ideation Endocrine: No: Polydipsia Hematologic/Lymphatic: No: Easy Bruising Physical Exam Narrative GENERAL: moderate distress SKIN: Focused skin assessment warm/dry. HEAD: Atraumatic. Normocephalic. EYES: Pupils equal and round. No scleral icterus. No injection or drainage. ENT: No nasal bleeding or discharge. Mucous membranes pink and moist. NECK: Trachea midline. No JVD. CARDIOVASCULAR: Tachycardic. No murmur appreciated. RESPIRATORY: No accessory muscle use. Clear to auscultation. Breath sounds equal bilaterally. GASTROINTESTINAL: Abdomen soft, non-tender, nondistended. Hepatic and splenic margins not palpable. MUSCULOSKELETAL: No obvious deformities. No clubbing. No cyanosis. No edema. NEUROLOGICAL: Awake and alert. No obvious cranial nerve deficits. Motor grossly within normal limits. Normal speech. PSYCHIATRIC: Anxious mood and affect; insight and judgment normal. Data Data Last Documented VS Vital Signs Date Time Temp Pulse Resp B/P (MAP) Pulse Ox O2 Delivery O2 Flow Rate FiO2 12/15/17 00:12 99 Room Air 12/14/17 22:39 18 12/14/17 22:26 98.5 125 118/78 (91) Orders Orders Complete Blood Count With Diff (12/14/17 22:36) Comprehensive Metabolic Panel (12/14/17 22:36) D-Dimer (12/14/17 22:36) Magnesium (Mg) (12/14/17 22:36) Influenzae A/B Antigen (12/14/17 22:36) Iv Access Insert/Monitor (12/14/17 22:36) Ecg Monitoring (12/14/17 22:36) Oximetry (12/14/17 22:36) Sodium Chloride 0.9% Flush (Ns Flush) (12/14/17 22:45) Methylprednisolone So Succ Inj (Solumedr (12/14/17 22:45) Albuterol-Ipratropium Neb (Duoneb Neb) (12/14/17 22:45) Ed Urine Pregnancytest Poc (12/14/17 22:39) Chest, Single Ap (12/14/17 22:36) Ct Pulmonary Angiogram (12/14/17 23:17) Iohexol 350 Inj (Omnipaque 350 Inj) (12/15/17 00:27) Sodium Chlor 0.9% 1000 Ml Inj (Ns 1000 M (12/15/17 01:00) Labs Laboratory Tests Test 12/14/17 22:53 White Blood Count 8.5 TH/MM3 Red Blood Count 4.68 MIL/MM3 Hemoglobin 11.8 GM/DL Hematocrit 35.7 % Mean Corpuscular Volume 76.3 FL Mean Corpuscular Hemoglobin 25.3 PG Mean Corpuscular Hemoglobin Concent 33.1 % Red Cell Distribution Width 12.4 % Platelet Count 388 TH/MM3 Mean Platelet Volume 8.6 FL Neutrophils (%) (Auto) 65.8 % Lymphocytes (%) (Auto) 25.8 % Monocytes (%) (Auto) 5.5 % Eosinophils (%) (Auto) 1.8 % Basophils (%) (Auto) 1.1 % Neutrophils # (Auto) 5.5 TH/MM3 Lymphocytes # (Auto) 2.2 TH/MM3 Monocytes # (Auto) 0.5 TH/MM3 Eosinophils # (Auto) 0.2 TH/MM3 Basophils # (Auto) 0.1 TH/MM3 CBC Comment DIFF FINAL Differential Comment D-Dimer Quantitative (PE/DVT) 0.60 MG/L FEU Blood Urea Nitrogen 6 MG/DL Creatinine 0.77 MG/DL Random Glucose 114 MG/DL Total Protein 8.1 GM/DL Albumin 3.6 GM/DL Calcium Level 8.7 MG/DL Magnesium Level 2.1 MG/DL Alkaline Phosphatase 63 U/L Aspartate Amino Transf (AST/SGOT) 45 U/L Alanine Aminotransferase (ALT/SGPT) 16 U/L Total Bilirubin 0.3 MG/DL Sodium Level 137 MEQ/L Potassium Level 4.6 MEQ/L Chloride Level 106 MEQ/L Carbon Dioxide Level 21.7 MEQ/L Anion Gap 9 MEQ/L Estimat Glomerular Filtration Rate 87 ML/MIN [facility] Medical Decision Making Medical Screen Exam Complete: Yes Emergency Medical Condition: Yes Medical Record Reviewed: Yes Interpretation(s) Vital Signs Date Time Temp Pulse Resp B/P (MAP) Pulse Ox O2 Delivery O2 Flow Rate FiO2 12/14/17 22:39 18 98 Room Air 12/14/17 22:26 98.5 125 20 118/78 (91) 98 Differential Diagnosis Pneumonia, reactive airway disease, URI, influenza, gastroenteritis, anxiety reaction, PE, pneumothorax Narrative Course Patient is a 32-year-old female presents to emergency room with complaints of cough and shortness of breath which is been ongoing for the past week (november) During the course of the patients emergency department visit, the patients history, examination, and differential diagnosis were reviewed with the patient. The patient was placed on a student support advisor with oximetry and frequent blood pressure monitoring. The patient had an IV access obtained and blood work sent for analysis. The patient was initially provided IVF as well as IV solumedrol and duoneb nebulizer treatment The patients laboratory studies were reviewed and remarkable for: CBC & BMP Diagram 12/14/17 22:53 Total Protein 8.1, Albumin 3.6, Calcium Level 8.7, Magnesium Level 2.1, Alkaline Phosphatase 63, Aspartate Amino Transf (AST/SGOT) 45 H, Alanine Aminotransferase (ALT/SGPT) 16, Total Bilirubin 0.3 Radiology studies were reviewed and remarkable for: Last Impressions Chest X-Ray 12/14/17 2236 Signed Impressions: Service Date/Time: Thursday, December 14, 2017 22:53 - CONCLUSION: No acute disease. Gustavo Ascencio MD Patient's hemoglobin stable 11.8, white blood cell count 8.5, glucose 114, AST 45, d-dimer 0.60 CTA was ordered to rule out PE given her recent travels as she drove from [place] to [place] and back Patient re-evaluated, patient feeling much better at this time ,reviewed all labs and studies as well as incidental findings with patient, patient understands need to follow up with pcp. signs and symptoms of when to return to the ER was reviewed with patient in detail Patient signed out to care of Dr. Delatorre at change of shift Diagnosis Primary Impression: Viral syndrome Additional Impression: Nausea & vomiting Qualified Codes: R11.2 - Nausea with vomiting, unspecified Patient Instructions: General Instructions Departure Forms: Tests/Procedures, Work Release Enter return to work date: Dec 19, 2017 Additional Instructions: Please provide patient with a copy of their lab work and studies at discharge* * Please follow up with your primary care doctor in 2-3 days Return to the ER if symptoms worsen or progress Return to the ER as needed Scripts Ondansetron (Zofran) 4 Mg Tab 4 MG PO Q6HR Y for NAUSEA OR VOMITING, #20 TAB 0 Refills Prov: Angela Dodd DO 12/15/17 Disposition: 01 DISCHARGE HOME Condition: Stable Angela Dodd DO Dec 14, 2017 22:51
[2017-12-14 22:59] LABS: AUTOMATED NEUTROPHIL # 5.5 TH/MM3 (1.8-7.7); BASOPHIL # 0.1 TH/MM3 (0-0.2); BASOPHIL % 1.1 % (0.0-2.0); EOSINOPHIL # 0.2 TH/MM3 (0-0.4); EOSINOPHIL % 1.8 % (0.0-4.0); HEMATOCRIT 35.7 % (35.0-46.0); HEMOGLOBIN 11.8 GM/DL (11.6-15.3); LYMPH % 25.8 % (9.0-44.0); LYMPHOCYTE # 2.2 TH/MM3 (1.0-4.8); MEAN CELL VOLUME 76.3 FL (80.0-100.0); MEAN CORPUSCULAR HEMOGLOBIN 25.3 PG (27.0-34.0); MEAN CORPUSCULAR HGB CONC 33.1 % (32.0-36.0); MEAN PLATELET VOLUME 8.6 FL (7.0-11.0); MONO % 5.5 % (0.0-8.0); MONOCYTE # 0.5 TH/MM3 (0-0.9); NEUT % 65.8 % (16.0-70.0); PLATELET COUNT 388 TH/MM3 (150-450); RED BLOOD COUNT 4.68 MIL/MM3 (4.00-5.30); RED CELL DISTRIBUTION WIDTH 12.4 % (11.6-17.2); WHITE BLOOD COUNT 8.5 TH/MM3 (4.0-11.0)
[2017-12-14 23:09] LABS: CHLORIDE 106 MEQ/L (98-107); SODIUM (NA) 137 MEQ/L (136-145)
[2017-12-14 23:12] LABS: CALCIUM 8.7 MG/DL (8.5-10.1)
[2017-12-14 23:13] LABS: ALBUMIN 3.6 GM/DL (3.4-5.0); BICARBONATE 21.7 MEQ/L (21.0-32.0); BLOOD UREA NITROGEN 6 MG/DL (7-18); GLUCOSE,RANDOM 114 MG/DL (74-106); MAGNESIUM 2.1 MG/DL (1.5-2.5)
[2017-12-14 23:16] LABS: ALT (GPT) 16 U/L (10-53); AST (GOT) 45 U/L (15-37); CREATININE 0.77 MG/DL (0.50-1.00); GLOMERULAR FILTRATION RATE 87 ML/MIN (>89)
[2017-12-14 23:17] LABS: TOTAL BILIRUBIN ADULT 0.3 MG/DL (0.2-1.0); TOTAL PROTEIN 8.1 GM/DL (6.4-8.2)
[2017-12-14 23:19] LABS: ALKALINE PHOSPHATASE 63 U/L (45-117)
--- NOTE | 2017-12-14 23:32 | RADRPT ---
EXAM DATE/TIME: 12/14/2017 22:53 [facility] COMPARISON: CHEST SINGLE AP, March 27, 2017, 18:10. INDICATIONS : Cough and short of breath. MEDICAL HISTORY : None. SURGICAL HISTORY : Tubal ligation. ENCOUNTER: Initial ACUITY: 1 day PAIN SCORE: 4/10 LOCATION: Bilateral chest FINDINGS: A single view of the chest demonstrates the lungs to be symmetrically aerated without evidence of mas s, infiltrate or effusion. The cardiomediastinal contours are unremarkable. Osseous structures are intact. CONCLUSION: No acute disease. Gustavo Ascencio MD on December 14, 2017 at 23:30 Board Certified Radiologist. This report was verified electronically.
[2017-12-15 00:12] VITALS: O2SAT 99
[2017-12-15] MEDS ORDERED: IOHEXOL 350 MG/ML 10 ML VIAL (for RAD DIAG) IVCONTRAST ONE (00:27)
[2017-12-15] MEDS ORDERED: ZOFR4TAB PO (00:47)
[2017-12-15] MEDS ORDERED: SODIUM CHLOR 0.9% 1000 ML INJ 1,000 ML IV ONE (01:00)
--- NOTE | 2017-12-15 01:10 | RADRPT ---
EXAM DATE/TIME: 12/15/2017 00:19 [facility] COMPARISON: No previous studies available for comparison. INDICATIONS : Elevated d-dimer. IV CONTRAST: 65 cc Omnipaque 350 (iohexol) IV RADIATION DOSE: 13.82 CTDIvol (mGy) MEDICAL HISTORY : None SURGICAL HISTORY : None. ENCOUNTER: Initial ACUITY: 1 day PAIN SCALE: 0/10 LOCATION: chest TECHNIQUE: Volumetric scanning of the chest was performed using a pulmonary embolism protocol MIP images were re constructed. Using automated exposure control and adjustment of the mA and/or kV according to patien t size, radiation dose was kept as low as reasonably achievable to obtain optimal diagnostic quality images. DICOM format image data is available electronically for review and comparison. Follow-up recommendations for detected pulmonary nodules are based at a minimum on nodule size and pa tient risk factors according to Fleischner Society Guidelines. FINDINGS: PULMONARY ARTERIES: No filling defects are seen in the pulmonary arteries through the segmental level. LUNGS: There is no consolidation or pneumothorax . No concerning pulmonary nodule is visualized. PLEURAE: There is no pleural thickening or pleural effusion. MEDIASTINUM: There is good visualization of the great vessels of the middle mediastinum. No evidence of mediastin al or hilar adenopathy/mass. MUSCULOSKELETAL: Within normal limits for patient age. CONCLUSION: No evidence of pulmonary embolism Gustavo Ascencio MD on December 15, 2017 at 0:47 Board Certified Radiologist. This report was verified electronically.
[2017-12-15 02:22] VITALS: BP 132/68; TEMP 98.9
== END 2017-12-15 02:24 | disposition home or self-care (01) ==
LOC: PHED 22:19
DX: B34.9 Viral infection, unspecified (principal); R00.0 Tachycardia, unspecified; D64.9 Anemia, unspecified; F41.9 Anxiety disorder, unspecified; F32.9 Major depressive disorder, single episode, unspecified; E78.00 Pure hypercholesterolemia, unspecified; E11.9 Type 2 diabetes mellitus without complications; K21.9 Gastro-esophageal reflux disease without esophagitis; Z87.19 Personal history of other diseases of the digestive system
CPT/HCPCS: 71045; 71275; 80053; 83735; 84703; 85025; 85379; 87804; 94664; 96361; 96374; 99285; J2930; J7030; Q9967

== ENCOUNTER 2017-12-21 11:53 | Emergency (ER) | payer MEDICAID ==
[~2017-12-21] VITALS: Ht 157.5 cm; Wt 83.0 kg
[~2017-12-21 11:53] MED LIST changes: +ZOFR4TAB PO
[2017-12-21 11:56] VITALS: BP 107/65; PULSE 86; RESP 16; TEMP 97.9; O2SAT 100
[2017-12-21] MEDS ORDERED: PERC7.5T13 PO (12:19)
[2017-12-21] MEDS ORDERED: LAMO25 PO (12:19)
[2017-12-21 12:25] VITALS: BP 121/70; PULSE 84; RESP 16; O2SAT 99
[2017-12-21] MEDS ORDERED: ONDANSETRON HCL 4 MG/2 ML VIAL IV PUSH ONE (12:45)
[2017-12-21] MEDS ORDERED: HYDROmorphone HCL PF 2 MG/ML VIAL IV PUSH ONE (12:45)
[2017-12-21] MEDS ORDERED: SODIUM CHLOR 0.9% 1000 ML INJ 1,000 ML IV ONE (12:45)
--- NOTE | 2017-12-21 12:45 | PD ---
HPI Chief Complaint: Abdominal Pain Time Seen by Provider: 12:26 Travel History International Travel<30 days: No Contact w/Intl Traveler<30days: No Traveled to known affect area: No History of Present Illness HPI This 32-year-old female says she is having abdominal pain. She says she's had black stools and is concerned that she is bleeding. She has extensive trouble with her stomach. She has had repeated CT scans. She had a gastric bypass in which has been reversed. 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 She apparently has gastroparesis by a gastric emptying scan. She has had extensive surgery by Dr. Alcocer. She is a patient at the [facility] and is waiting for referral to gastroenterology. 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 PVC's) High Cholesterol: Yes (hx of this denies at present) Chest Pain: No Congestive Heart Failure: No Diabetes: No Diminished Hearing: Yes ( R COCHLEAR IMPLANT, TUBES, TUMOR ) Endocrine: No Gastrointestinal Disorders: Yes (LIVER CYST, IBS, January: PANCREATIC DUCT TUMOR REMOVED) GERD: Yes Genitourinary: Yes Hepatitis: No Hiatal Hernia: No Hypertension: Yes (not at present) Immune Disorder: No Implanted Vascular Access Dvce: No Kidney Stones: Yes Medical other: No Musculoskeletal: No Neurologic: No Psychiatric: Yes (ANXIETY DEPRESSION) Respiratory: No Immunizations Current: Yes Pancreatitis: Yes Renal Failure: No Thyroid Disease: No Ulcer: Yes Tetanus Vaccination: > 5 Years Influenza Vaccination: No ?: Not LMP: 11/24/17 : 2 Para: 2 Tubal Ligation: Yes Past Surgical History Abdominal Surgery: Yes (GASTRIC BYPASS -2015, EXP LAP FOR ADHESIONS, DILEEP, benign tumor removal ) AICD: No Body Medical Devices: CHOCLEAR IMPLANTS Cholecystectomy: Yes (WITH GALLSTONES POST DILEEP) Ear Surgery: Yes ( IMPLANTS) Genitourinary Surgery: Yes (KIDNEY STONES SURGERY AND LITHOTRIPSY) Gynecologic Surgery: Yes (TUBAL) Joint Replacement: No Pacemaker: No Other Surgery: Yes (explor lap for abd adhesions) Social History Alcohol Use: No Tobacco Use: No Substance Use: No Allergies-Medications (Allergen,Severity, Reaction): Coded Allergies: acetaminophen (Verified Allergy, Severe, Chest Pain, 12/21/17) codeine (Verified Allergy, Severe, Chest Pain, 12/21/17) morphine (Verified Allergy, Severe, Rash, 12/21/17) penicillin G (Verified Allergy, Unknown, Hives, 12/21/17) Reported Meds & Prescriptions Reported Meds & Active Scripts Active Reported Lamictal (Lamotrigine) 25 Mg Tab 50 Mg PO BID Percocet (Oxycodone-Acetaminophen) 7.5-325 mg Tab 1 Tab PO QID PRN Reglan (Metoclopramide HCl) 5 Mg Tab 5 Mg PO DIRECTED Carafate (Sucralfate) 1 Gram Tab 1 Gm PO QID On empty stomach Protonix (Pantoprazole Sodium) 40 Mg Tab 40 Mg PO DAILY Gabapentin 300 Mg Cap 300 Mg PO HS Xanax (Alprazolam) 1 Mg Tab 1 Mg PO TID Review of Systems General / Constitutional: No: Fever, Chills Eyes: No: Diploplia, Blurred Vision HENT: No: Headaches, Vertigo Cardiovascular: No: Chest Pain or Discomfort Respiratory: No: Cough Gastrointestinal: Positive: Nausea, Abdominal Pain Genitourinary: No: Frequency, Dysuria Skin: No Rash Neurologic: No: Weakness Physical Exam Narrative GENERAL: Well-developed female SKIN: Focused skin assessment warm/dry. HEAD: Atraumatic. Normocephalic. EYES: Pupils equal and round. No scleral icterus. No injection or drainage. ENT: No nasal bleeding or discharge. Mucous membranes pink and moist. NECK: Trachea midline. No JVD. CARDIOVASCULAR: Regular rate and rhythm. No murmur appreciated. RESPIRATORY: No accessory muscle use. Clear to auscultation. Breath sounds equal bilaterally. GASTROINTESTINAL: Abdomen soft, multiple scars. There is some mid abdominal tenderness without guarding. On rectal exam there are no masses. Stool is brown and guaiac-negative MUSCULOSKELETAL: No obvious deformities. No clubbing. No cyanosis. No edema. NEUROLOGICAL: Awake and alert. No obvious cranial nerve deficits. Motor grossly within normal limits. Normal speech. PSYCHIATRIC: Appropriate mood and affect; insight and judgment normal. Data Data Last Documented VS Vital Signs Date Time Temp Pulse Resp B/P (MAP) Pulse Ox O2 Delivery O2 Flow Rate FiO2 12/21/17 12:25 84 16 121/70 (87) 99 Room Air 12/21/17 11:56 97.9 Orders Orders Complete Blood Count With Diff (12/21/17 12:36) Comprehensive Metabolic Panel (12/21/17 12:36) Lipase (12/21/17 12:36) Sodium Chlor 0.9% 1000 Ml Inj (Ns 1000 M (12/21/17 12:45) Ondansetron Inj (Zofran Inj) (12/21/17 12:45) Hydromorphone Pf Inj (Dilaudid Pf Inj) (12/21/17 12:45) Labs Laboratory Tests Test 12/21/17 12:00 White Blood Count 7.7 TH/MM3 Red Blood Count 4.71 MIL/MM3 Hemoglobin 11.7 GM/DL Hematocrit 36.1 % Mean Corpuscular Volume 76.7 FL Mean Corpuscular Hemoglobin 24.9 PG Mean Corpuscular Hemoglobin Concent 32.5 % Red Cell Distribution Width 13.1 % Platelet Count 412 TH/MM3 Mean Platelet Volume 8.4 FL Neutrophils (%) (Auto) 56.9 % Lymphocytes (%) (Auto) 31.7 % Monocytes (%) (Auto) 7.2 % Eosinophils (%) (Auto) 3.7 % Basophils (%) (Auto) 0.5 % Neutrophils # (Auto) 4.4 TH/MM3 Lymphocytes # (Auto) 2.4 TH/MM3 Monocytes # (Auto) 0.6 TH/MM3 Eosinophils # (Auto) 0.3 TH/MM3 Basophils # (Auto) 0.0 TH/MM3 CBC Comment AUTO DIFF Blood Urea Nitrogen 7 MG/DL Creatinine 0.69 MG/DL Random Glucose 89 MG/DL Total Protein 7.8 GM/DL Albumin 3.5 GM/DL Calcium Level 8.5 MG/DL Aspartate Amino Transf (AST/SGOT) 19 U/L Alanine Aminotransferase (ALT/SGPT) 14 U/L Total Bilirubin 0.3 MG/DL Sodium Level 136 MEQ/L Potassium Level 4.2 MEQ/L Chloride Level 103 MEQ/L Carbon Dioxide Level 27.6 MEQ/L Estimat Glomerular Filtration Rate 99 ML/MIN Lipase 96 U/L MDM Medical Decision Making Medical Screen Exam Complete: Yes Emergency Medical Condition: Yes Medical Record Reviewed: Yes Differential Diagnosis Differential includes bowel obstruction, gastritis, nonspecific abdominal pain, gastroparesis Narrative Course Hemoglobin is 11 with a normal white count. I considered doing a CT scan but review the chart and the patient has had multiple CAT scans recently which have all been negative with the exception of changes related to her gastric bypass. He is stable for discharge Diagnosis Primary Impression: Pain, abdominal, nonspecific Disposition: 01 DISCHARGE HOME Condition: Stable Bhaskar Martinez MD Dec 21, 2017 12:45
[2017-12-21 12:57] LABS: AUTOMATED NEUTROPHIL # 4.4 TH/MM3 (1.8-7.7); BASOPHIL % 0.5 % (0.0-2.0); EOSINOPHIL # 0.3 TH/MM3 (0-0.4); EOSINOPHIL % 3.7 % (0.0-4.0); HEMATOCRIT 36.1 % (35.0-46.0); HEMOGLOBIN 11.7 GM/DL (11.6-15.3); LYMPH % 31.7 % (9.0-44.0); LYMPHOCYTE # 2.4 TH/MM3 (1.0-4.8); MEAN CELL VOLUME 76.7 FL (80.0-100.0); MEAN CORPUSCULAR HEMOGLOBIN 24.9 PG (27.0-34.0); MEAN CORPUSCULAR HGB CONC 32.5 % (32.0-36.0); MEAN PLATELET VOLUME 8.4 FL (7.0-11.0); MONO % 7.2 % (0.0-8.0); MONOCYTE # 0.6 TH/MM3 (0-0.9); NEUT % 56.9 % (16.0-70.0); PLATELET COUNT 412 TH/MM3 (150-450); RED BLOOD COUNT 4.71 MIL/MM3 (4.00-5.30); RED CELL DISTRIBUTION WIDTH 13.1 % (11.6-17.2); WHITE BLOOD COUNT 7.7 TH/MM3 (4.0-11.0)
[2017-12-21 13:12] LABS: CHLORIDE 103 MEQ/L (98-107); SODIUM (NA) 136 MEQ/L (136-145)
[2017-12-21 13:15] LABS: CALCIUM 8.5 MG/DL (8.5-10.1)
[2017-12-21 13:16] LABS: ALBUMIN 3.5 GM/DL (3.4-5.0); BICARBONATE 27.6 MEQ/L (21.0-32.0); BLOOD UREA NITROGEN 7 MG/DL (7-18); GLUCOSE,RANDOM 89 MG/DL (74-106)
[2017-12-21 13:19] LABS: ALT (GPT) 14 U/L (10-53); AST (GOT) 19 U/L (15-37); CREATININE 0.69 MG/DL (0.50-1.00); GLOMERULAR FILTRATION RATE 99 ML/MIN (>89)
[2017-12-21 13:20] LABS: TOTAL BILIRUBIN ADULT 0.3 MG/DL (0.2-1.0); TOTAL PROTEIN 7.8 GM/DL (6.4-8.2)
[2017-12-21 13:21] LABS: ALKALINE PHOSPHATASE 67 U/L (45-117)
[2017-12-21 13:42] VITALS: RESP 16
[2017-12-21 13:43] VITALS: BP 111/79
== END 2017-12-21 13:46 | disposition home or self-care (01) ==
LOC: PHED 11:53
DX: R10.9 Unspecified abdominal pain (principal); R11.0 Nausea; D64.9 Anemia, unspecified; F41.9 Anxiety disorder, unspecified; F32.9 Major depressive disorder, single episode, unspecified; K21.9 Gastro-esophageal reflux disease without esophagitis; I10 Essential (primary) hypertension; Z87.19 Personal history of other diseases of the digestive system; Z87.442 Personal history of urinary calculi
CPT/HCPCS: 80053; 83690; 85025; 96361; 96374; 96375; 99284; J1170; J2405; J7030

== ENCOUNTER 2017-12-31 19:57 | Emergency (ER) | payer MEDICAID ==
[~2017-12-31] VITALS: Ht 157.5 cm; Wt 84.0 kg
[~2017-12-31 19:57] MED LIST changes: -CIPR-9 PO; -PERC10TA27 PO; +PERC7.5T13 PO; -TRAM-388 PO; -ZOFR4TAB PO
[2017-12-31 20:22] VITALS: BP 118/76; TEMP 97.6; O2SAT 98
[2017-12-31] MEDS ORDERED: ZITHTAB2 PO (21:03)
--- NOTE | 2017-12-31 21:04 | PD ---
HPI Chief Complaint: ENT Complaint Time Seen by Provider: 20:53 Travel History International Travel<30 days: No Contact w/Intl Traveler<30days: No Traveled to known affect area: No History of Present Illness HPI 32-year-old female presents to the emergency department complaint of laryngitis and sore throat on and off 1 month. Patient has had fever and chills. Patient was seen in the emergency department reportedly told that she had a negative strep test and negative flu test. Patient contacted her primary care provider due to persistent symptoms and was told that she can be seen in the office on Tuesday and to come to the emergency department over the weekend if she had any concerns. Due to persistent throat pain she decided to come to the emergency room. Patient states that her throat is so painful it hurts to swallow and it makes it feel like it is difficult for her to breathe. No wheezing no productive cough no history of reactive airways disease asthma bronchitis or pneumonia. Patient does not report any vomiting abdominal pain flank pain dysuria frequency urgency myalgias or arthralgias. Patient's last dose of ibuprofen was this morning. 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) High Cholesterol: Yes (hx of this denies at present) Chest Pain: No Congestive Heart Failure: No Diabetes: No Diminished Hearing: Yes ( R COCHLEAR IMPLANT, TUBES, TUMOR ) Endocrine: No Gastrointestinal Disorders: Yes (LIVER CYST, IBS, January: PANCREATIC DUCT TUMOR REMOVED) GERD: Yes Genitourinary: Yes Hepatitis: No Hiatal Hernia: No Hypertension: Yes (not at present) Immune Disorder: No Implanted Vascular Access Dvce: No Kidney Stones: Yes Musculoskeletal: No Neurologic: No Psychiatric: Yes (ANXIETY DEPRESSION) Respiratory: No Immunizations Current: Yes Pancreatitis: Yes Renal Failure: No Thyroid Disease: No Ulcer: Yes ?: Unknown LMP: 12/27/17 : 2 Para: 2 Tubal Ligation: Yes Past Surgical History Abdominal Surgery: Yes (GASTRIC BYPASS -2014, EXP LAP FOR ADHESIONS, DILEEP, benign tumor removal , ) AICD: No Body Medical Devices: CHOCLEAR IMPLANTS Cholecystectomy: Yes (WITH GALLSTONES POST DILEEP) Ear Surgery: Yes ( IMPLANTS) Genitourinary Surgery: Yes (KIDNEY STONES SURGERY AND LITHOTRIPSY) Gynecologic Surgery: Yes (TUBAL) Joint Replacement: No Pacemaker: No Other Surgery: Yes (explor lap for abd adhesions) Social History Alcohol Use: No Tobacco Use: No Substance Use: No Allergies-Medications (Allergen,Severity, Reaction): Coded Allergies: acetaminophen (Verified Allergy, Severe, Chest Pain, 12/21/17) codeine (Verified Allergy, Severe, Chest Pain, 12/21/17) morphine (Verified Allergy, Severe, Rash, 12/21/17) penicillin G (Verified Allergy, Unknown, Hives, 12/21/17) Reported Meds & Prescriptions Reported Meds & Active Scripts Active Zithromax Tri-[place] (Azithromycin) 500 Mg Dspk 500 Mg PO DAILY Reported Lamictal (Lamotrigine) 25 Mg Tab 50 Mg PO BID Percocet (Oxycodone-Acetaminophen) 7.5-325 mg Tab 1 Tab PO QID PRN Reglan (Metoclopramide HCl) 5 Mg Tab 5 Mg PO DIRECTED Carafate (Sucralfate) 1 Gram Tab 1 Gm PO QID On empty stomach Protonix (Pantoprazole Sodium) 40 Mg Tab 40 Mg PO DAILY Gabapentin 300 Mg Cap 300 Mg PO HS Xanax (Alprazolam) 1 Mg Tab 1 Mg PO TID Review of Systems Except as stated in HPI: all other systems reviewed are Neg Physical Exam Narrative GENERAL: Well-developed well-nourished female no acute distress no respiratory distress mild laryngitis no stridor SKIN: Warm and dry. HEAD: Normocephalic. EYES: No scleral icterus. No injection or drainage. ENT: Mucous membranes moist airways patent sinuses tender to percussion primarily frontal and maxillary bilaterally; tympanic membranes no redness no dullness no perforation NECK: Supple, trachea midline. No JVD or lymphadenopathy. Few anterior chain lymph nodes no thyromegaly no palpable mass no meningismus no nuchal rigidity CARDIOVASCULAR: Regular rate and rhythm without murmurs, gallops, or rubs. RESPIRATORY: Breath sounds equal bilaterally. No accessory muscle use. GASTROINTESTINAL: Abdomen soft, non-tender, nondistended. MUSCULOSKELETAL: No cyanosis, or edema. BACK: Nontender without obvious deformity. No CVA tenderness. Data Data Last Documented VS Vital Signs Date Time Temp Pulse Resp B/P (MAP) Pulse Ox O2 Delivery O2 Flow Rate FiO2 12/31/17 20:22 97.6 80 20 118/76 (90) 98 Orders Orders Group A Rapid Strep Screen (12/31/17 20:53) Strep Culture (Group A) (12/31/17 20:50) Ed Discharge Order (12/31/17 21:48) MDM Medical Decision Making Medical Screen Exam Complete: Yes Emergency Medical Condition: Yes Medical Record Reviewed: Yes Interpretation(s) RSA: negative Differential Diagnosis Viral syndrome, pharyngitis, laryngitis, sinusitis Narrative Course Rapid strep antigen specimen collected RSA: negative Patient stable for outpatient management Diagnosis Primary Impression: Sinusitis Referrals: Primary Care Physician 2 days Patient Instructions: General Instructions Additional Instructions: Increase fluid hydration Take antibiotic as prescribed Follow-up with your primary care provider Take take ibuprofen 600 mg as often as every 6-8 hours as needed for fever 100.4 F or greater Complete course of antibiotic as prescribed Return to the emergency department concerns or change in Med/Other Pt SpecificInfo: Prescription(s) given Scripts Azithromycin (Zithromax Tri-[place]) 500 Mg Dspk 500 MG PO DAILY for Infection, #1 DSPK 0 Refills Prov: Uma Ovalle MD 12/31/17 Disposition: 01 DISCHARGE HOME Condition: Stable Uma Ovalle MD Dec 31, 2017 21:03
== END 2017-12-31 21:55 | disposition home or self-care (01) ==
LOC: PHEFT 19:57
DX: J32.9 Chronic sinusitis, unspecified (principal); E78.00 Pure hypercholesterolemia, unspecified; F41.8 Other specified anxiety disorders; I10 Essential (primary) hypertension; K21.9 Gastro-esophageal reflux disease without esophagitis; K58.9 Irritable bowel syndrome, unspecified
CPT/HCPCS: 87081; 87880; 99283

== ENCOUNTER 2018-01-21 07:56 | Emergency (ER) | payer MEDICAID ==
[~2018-01-21] VITALS: Ht 157.5 cm; Wt 86.0 kg
[~2018-01-21 07:56] MED LIST changes: +ZITHTAB2 PO
[2018-01-21 08:25] VITALS: BP 122/75; PULSE 81; RESP 16; TEMP 98.5; O2SAT 100
[2018-01-21] MEDS ORDERED: SODIUM CHLORIDE 0.9% FLUSH 10 ML FLUSH IV FLUSH PRN (09:15)
[2018-01-21] MEDS ORDERED: KETOROLAC TROMETHAMINE 30 MG/ML (IVP) VIAL IVP ONE (09:15)
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
[2018-01-21] MEDS ORDERED: ONDANSETRON ODT 4 MG TAB PO ONE (09:30)
[2018-01-21] MEDS ORDERED: IOHEXOL 350 MG/ML 10 ML VIAL (for RAD DIAG) IVCONTRAST ONE (09:40)
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
[2018-01-21 10:25] VITALS: RESP 16
--- NOTE | 2018-01-21 11:03 | PD ---
Physical Exam Narrative Please see my previous note for full visit details Data Data Last Documented VS Vital Signs Date Time Temp Pulse Resp B/P (MAP) Pulse Ox O2 Delivery O2 Flow Rate FiO2 01/21/18 10:25 16 01/21/18 08:30 80 100 Room Air 01/21/18 08:25 98.5 122/75 (91) Orders Orders Ed Urine Pregnancytest Poc (01/21/18 09:13) Ct Abd/Pel W Iv Contrast(Rout) (01/21/18 09:13) Iv Access Insert/Monitor (01/21/18 09:13) Sodium Chloride 0.9% Flush (Ns Flush) (01/21/18 09:15) Ketorolac Inj (Toradol Inj) (01/21/18 09:15) Hand, Complete ([id number]) (01/21/18 ) Forearm (2vws) (01/21/18 ) Ondansetron Odt (Zofran Odt) (01/21/18 09:30) Iohexol 350 Inj (Omnipaque 350 Inj) (01/21/18 09:40) Ed Discharge Order (01/21/18 10:23) Splint Or Brace Apply/Monitor (01/21/18 10:23) MDM Supervised Visit with SANDRA: Yes Diagnosis Primary Impression: Contusion, arm, upper Qualified Codes: S40.021A - Contusion of right upper arm, initial encounter Additional Impression: Abdominal wall contusion Qualified Codes: S30.1XXA - Contusion of abdominal wall, initial encounter Referrals: Primary Care Physician Departure Forms: Tests/Procedures, Work Release Enter return to work date: January 23, 2018 Additional Instruction: Wrist splint as directed. Tylenol and ibuprofen for pain. Avoid heavy lifting or strenuous activity. Follow up with your primary doctor. Disposition: 01 DISCHARGE HOME Condition: Stable Crisys Murillo Champ EUGENE January 21, 2018 11:03
== END 2018-01-21 11:16 | disposition home or self-care (01) ==
LOC: PHED 07:56
DX: S40.021A Contusion of right upper arm, initial encounter (principal); S30.1XXA Contusion of abdominal wall, initial encounter; S69.91XA Unspecified injury of right wrist, hand and finger(s), initial encounter; Y04.0XXA Assault by unarmed brawl or fight, initial encounter; F32.9 Major depressive disorder, single episode, unspecified; F41.9 Anxiety disorder, unspecified; K21.9 Gastro-esophageal reflux disease without esophagitis; G89.29 Other chronic pain; Z98.84 Bariatric surgery status
CPT/HCPCS: 73090; 73130; 74177; 84703; 96374; 99284; J1885; L3908; Q9967

== ENCOUNTER 2018-01-24 21:25 | Emergency (ER) | payer MEDICAID ==
[~2018-01-24] VITALS: Ht 157.5 cm; Wt 87.6 kg
[~2018-01-24 21:25] MED LIST changes: -ZITHTAB2 PO
[2018-01-24 21:30] VITALS: BP 134/78; PULSE 95; RESP 16; TEMP 98.3; O2SAT 100
--- NOTE | 2018-01-24 21:54 | PD ---
HPI Chief Complaint: Pain: Acute or Chronic Time Seen by Provider: 21:48 Travel History International Travel<30 days: No Contact w/Intl Traveler<30days: No Traveled to known affect area: No History of Present Illness HPI Patient was fully evaluated on January 21 when the patient had a CAT scan of the abdomen and pelvis, as well as an x-ray of her hand and forearm. Patient was discharged that day, she went to see her pain management clinic who recommended she come to the emergency department? Because her pain is not controlled. This is a very on recommendation, considering that pain control or pain management clinics have a contract with their patients did not go to the emergency department and be hopping around from ER to ER. 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 PVC's) High Cholesterol: Yes (hx of this denies at present) Chest Pain: No Congestive Heart Failure: No Diabetes: No Diminished Hearing: Yes ( R COCHLEAR IMPLANT, TUBES, TUMOR ) Endocrine: No Gastrointestinal Disorders: Yes (LIVER CYST, IBS, January: PANCREATIC DUCT TUMOR REMOVED) GERD: Yes Genitourinary: Yes Hepatitis: No Hiatal Hernia: No Hypertension: Yes (not at present) Immune Disorder: No Implanted Vascular Access Dvce: No Kidney Stones: Yes Musculoskeletal: No Neurologic: No Psychiatric: Yes (ANXIETY DEPRESSION) Respiratory: No Immunizations Current: Yes Pancreatitis: Yes Renal Failure: No Thyroid Disease: No Ulcer: Yes ?: Not LMP: 12/25/17 : 2 Para: 2 Tubal Ligation: Yes Past Surgical History Abdominal Surgery: Yes (GASTRIC BYPASS -2014, EXP LAP FOR ADHESIONS, DILEEP, benign tumor removal , ) AICD: No Body Medical Devices: CHOCLEAR IMPLANTS Cholecystectomy: Yes (WITH GALLSTONES POST DILEEP) Ear Surgery: Yes ( IMPLANTS) Genitourinary Surgery: Yes (KIDNEY STONES SURGERY AND LITHOTRIPSY) Gynecologic Surgery: Yes (TUBAL) Joint Replacement: No Pacemaker: No Other Surgery: Yes (explor lap for abd adhesions) Social History Alcohol Use: No (denies) Tobacco Use: No (denies) Substance Use: No (denies) Allergies-Medications (Allergen,Severity, Reaction): Coded Allergies: acetaminophen (Verified Allergy, Severe, Chest Pain, 01/24/18) codeine (Verified Allergy, Severe, Chest Pain, 01/24/18) morphine (Verified Allergy, Severe, Rash, 01/24/18) penicillin G (Verified Allergy, Unknown, Hives, 01/24/18) Reported Meds & Prescriptions Reported Meds & Active Scripts Active Reported Lamictal (Lamotrigine) 25 Mg Tab 50 Mg PO BID Percocet (Oxycodone-Acetaminophen) 7.5-325 mg Tab 1 Tab PO QID PRN Reglan (Metoclopramide HCl) 5 Mg Tab 5 Mg PO DIRECTED Carafate (Sucralfate) 1 Gram Tab 1 Gm PO QID On empty stomach Protonix (Pantoprazole Sodium) 40 Mg Tab 40 Mg PO DAILY Gabapentin 300 Mg Cap 300 Mg PO HS Xanax (Alprazolam) 1 Mg Tab 1 Mg PO TID Review of Systems General / Constitutional: No: Fever Eyes: No: Visual changes HENT: No: Headaches Cardiovascular: No: Chest Pain or Discomfort Respiratory: No: Shortness of Breath Gastrointestinal: Positive: Abdominal Pain Genitourinary: No: Dysuria Musculoskeletal: No: Pain Skin: No Rash Neurologic: No: Weakness Psychiatric: No: Depression Endocrine: No: Polydipsia Hematologic/Lymphatic: No: Easy Bruising Physical Exam Narrative GENERAL: SKIN: Warm and dry. HEAD: Atraumatic. Normocephalic. EYES: Pupils equal and round. No scleral icterus. No injection or drainage. ENT: No nasal bleeding or discharge. Mucous membranes pink and moist. NECK: Trachea midline. No JVD. CARDIOVASCULAR: Regular rate and rhythm. RESPIRATORY: No accessory muscle use. Clear to auscultation. Breath sounds equal bilaterally. GASTROINTESTINAL: Abdomen soft, non-tender, nondistended. MUSCULOSKELETAL: Extremities without clubbing, cyanosis, or edema. No obvious deformities. NEUROLOGICAL: Awake and alert. No obvious cranial nerve deficits. Motor grossly within normal limits. Five out of 5 muscle strength in the arms and legs. Normal speech. PSYCHIATRIC: Appropriate mood and affect; insight and judgment normal. Data Data Last Documented VS Vital Signs Date Time Temp Pulse Resp B/P (MAP) Pulse Ox O2 Delivery O2 Flow Rate FiO2 01/24/18 21:30 98.3 95 16 134/78 (96) 100 Orders Orders Ketorolac Inj (Toradol Inj) (01/24/18 22:00) Prochlorperazine Inj (Compazine Inj) (01/24/18 22:00) Metoclopramide Inj (Reglan Inj) (01/24/18 22:00) Abdomen, Flat & Upright (01/24/18 ) MDM Medical Decision Making Medical Screen Exam Complete: Yes Emergency Medical Condition: Yes Medical Record Reviewed: Yes Differential Diagnosis Not applicable Narrative Course The patient had CAT scan of her abdomen and pelvis which was read by radiologist as unremarkable Hand x-ray and forearm x-rays performed on January 21 were also negative. The patient denies having any additional trauma or traumatic events. I advised patient that she will receive pain medication injections, and barring any reaction she will be discharged home and to follow-up with her pain management clinic. No prescriptions specifically for any opiates will be written for this patient Diagnosis Primary Impression: Chronic pain Patient Instructions: Chronic Abdominal Pain (ED), General Instructions Disposition: 01 DISCHARGE HOME Condition: Stable Fredis Camargo MD January 24, 2018 21:53
[2018-01-24] MEDS ORDERED: PROCHLORPERAZINE INJ 10 MG/2 ML VIAL IM ONE (22:00)
[2018-01-24] MEDS ORDERED: METOCLOPRAMIDE HCL 10 MG/2 ML VIAL IM ONE (22:00)
[2018-01-24] MEDS ORDERED: KETOROLAC TROMETHAMINE 60 MG/2 ML (IM) VIAL IM ONE (22:00)
--- NOTE | 2018-01-24 23:04 | RADRPT ---
EXAM DATE/TIME: 01/24/2018 22:38 [facility] COMPARISON: No previous studies available for comparison. INDICATIONS : Nausea and vomiting for 4 days. MEDICAL HISTORY : IBS. SURGICAL HISTORY : Cholecystectomy. Hysterectomy. Gastric bypass. Psancreatic duct remove. ENCOUNTER: Initial ACUITY: 4 - 6 days PAIN SCORE: 4/10 LOCATION: Abdomen, upper quadrant. FINDINGS: Nonspecific, benign bowel gas pattern. Surgical clips from previous bowel surgery and cholecystectomy . Pelvic phleboliths. Bony structures benign. CONCLUSION: Nonspecific outside abdomen appearance Gustavo Ascencio MD on January 24, 2018 at 23:00 Board Certified Radiologist. This report was verified electronically.
[2018-01-24 23:36] VITALS: BP 105/65
== END 2018-01-24 23:37 | disposition home or self-care (01) ==
LOC: PHED 21:25
DX: G89.29 Other chronic pain (principal); R10.9 Unspecified abdominal pain; E78.00 Pure hypercholesterolemia, unspecified; I10 Essential (primary) hypertension; F41.9 Anxiety disorder, unspecified; F32.9 Major depressive disorder, single episode, unspecified; K21.9 Gastro-esophageal reflux disease without esophagitis; Z98.84 Bariatric surgery status
CPT/HCPCS: 74019; 96372; 99283; J0780; J1885; J2765

== ENCOUNTER 2018-01-30 15:56 | Emergency (ER) | payer MEDICAID ==
[~2018-01-30] VITALS: Ht 157.5 cm; Wt 88.0 kg
[2018-01-30 16:13] VITALS: BP 136/78; PULSE 84; RESP 18; TEMP 98.3; O2SAT 97
--- NOTE | 2018-01-30 16:40 | PD ---
HPI Chief Complaint: Abdominal Pain Time Seen by Provider: 16:24 Travel History International Travel<30 days: No Contact w/Intl Traveler<30days: No Traveled to known affect area: No History of Present Illness HPI 32yo F with PMH of chronic pain follows with pain management, dermoid tumor s/p resection presents to the ED with c/o abdominal pain, nonbloody diarrhea since yesterday. Pain is epigastric to right upper abdomen. Associated with nausea and vomiting. Denies any fever, chest pain, sob, dysuria, hematuria, vaginal bleeding or discharge. Pt also complains of persistent right hand pain but no new trauma. Pt was seen here on 01/21/[address] a/p and negative xray right hand. Pt then came again on 01/24/18 and had negative xray abdomen. Pt had cholecystectomy. 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 PVC's) High Cholesterol: Yes (hx of this denies at present) Chest Pain: No Congestive Heart Failure: No Diabetes: No Diminished Hearing: Yes ( R COCHLEAR IMPLANT, TUBES, TUMOR ) Endocrine: No Gastrointestinal Disorders: Yes (LIVER CYST, IBS, January: PANCREATIC DUCT TUMOR REMOVED) GERD: Yes Genitourinary: Yes Hepatitis: No Hiatal Hernia: No Hypertension: Yes (not at present) Immune Disorder: No Implanted Vascular Access Dvce: No Kidney Stones: Yes Musculoskeletal: No Neurologic: No Psychiatric: Yes (ANXIETY DEPRESSION) Respiratory: No Immunizations Current: Yes Pancreatitis: Yes Renal Failure: No Thyroid Disease: No Ulcer: Yes LMP: JUST FINISHED : 2 Para: 2 Tubal Ligation: Yes Past Surgical History Abdominal Surgery: Yes (GASTRIC BYPASS -2015, EXP LAP FOR ADHESIONS, DILEEP, benign tumor removal , ) AICD: No Body Medical Devices: CHOCLEAR IMPLANTS Cholecystectomy: Yes (WITH GALLSTONES POST DILEEP) Ear Surgery: Yes ( IMPLANTS) Genitourinary Surgery: Yes (KIDNEY STONES SURGERY AND LITHOTRIPSY) Gynecologic Surgery: Yes (TUBAL) Joint Replacement: No Pacemaker: No Other Surgery: Yes (explor lap for abd adhesions) Social History Alcohol Use: No (denies) Tobacco Use: No (denies) Substance Use: No (denies) Allergies-Medications (Allergen,Severity, Reaction): Coded Allergies: acetaminophen (Verified Allergy, Severe, Chest Pain, 01/30/18) codeine (Verified Allergy, Severe, Chest Pain, 01/30/18) morphine (Verified Allergy, Severe, Rash, 01/30/18) penicillin G (Verified Allergy, Unknown, Hives, 01/30/18) Reported Meds & Prescriptions Reported Meds & Active Scripts Active Reported Lamictal (Lamotrigine) 25 Mg Tab 50 Mg PO BID Percocet (Oxycodone-Acetaminophen) 7.5-325 mg Tab 1 Tab PO QID PRN Reglan (Metoclopramide HCl) 5 Mg Tab 5 Mg PO DIRECTED Carafate (Sucralfate) 1 Gram Tab 1 Gm PO QID On empty stomach Protonix (Pantoprazole Sodium) 40 Mg Tab 40 Mg PO DAILY Gabapentin 300 Mg Cap 300 Mg PO HS Xanax (Alprazolam) 1 Mg Tab 1 Mg PO TID Review of Systems Except as stated in HPI: all other systems reviewed are Neg Physical Exam Narrative GENERAL: 32yo F in mild distress. SKIN: Focused skin assessment warm/dry. HEAD: Atraumatic. Normocephalic. EYES: Pupils equal and round. No scleral icterus. No injection or drainage. ENT: No nasal bleeding or discharge. Mucous membranes pink and moist. NECK: Trachea midline. No JVD. CARDIOVASCULAR: Regular rate and rhythm. No murmur appreciated. RESPIRATORY: No accessory muscle use. Clear to auscultation. Breath sounds equal bilaterally. GASTROINTESTINAL: Abdomen soft, Nondistended. Mild ttp. No rebound tenderness or guarding. MUSCULOSKELETAL: No obvious deformities. No clubbing. No cyanosis. No edema. NEUROLOGICAL: Awake and alert. No obvious cranial nerve deficits. Motor grossly within normal limits. Normal speech. PSYCHIATRIC: Appropriate mood and affect; insight and judgment normal. Data Data Last Documented VS Vital Signs Date Time Temp Pulse Resp B/P (MAP) Pulse Ox O2 Delivery O2 Flow Rate FiO2 01/30/18 18:25 67 18 118/75 (89) 95 Room Air 01/30/18 16:13 98.3 Orders Orders Complete Blood Count With Diff (01/30/18 16:36) Comprehensive Metabolic Panel (01/30/18 16:36) Lipase (01/30/18 16:36) Urinalysis - C+S If Indicated (01/30/18 16:36) Ed Urine Pregnancytest Poc (01/30/18 16:36) Ketorolac Inj (Toradol Inj) (01/30/18 16:45) Ondansetron Odt (Zofran Odt) (01/30/18 16:45) Hand, Limited (2vws) (01/30/18 ) Metoclopramide Inj (Reglan Inj) (01/30/18 18:00) Oxycodone-Acetamin 5-325 Mg (Percocet (01/30/18 18:00) Metoclopramide Inj (Reglan Inj) (01/30/18 18:15) Ed Discharge Order (01/30/18 18:53) Labs Laboratory Tests Test 01/30/18 16:54 01/30/18 17:20 Urine Color YELLOW Urine Turbidity CLEAR Urine pH 6.0 Urine Specific [place] LESS/EQUAL 1.005 Urine Protein NEG mg/dL Urine Glucose (UA) NEG mg/dL Urine Ketones NEG mg/dL Urine Occult Blood NEG Urine Nitrite NEG Urine Bilirubin NEG Urine Urobilinogen 0.2 MG/DL Urine Leukocyte Esterase NEG Urine Squamous Epithelial Cells 0-5 /hpf Microscopic Urinalysis Comment CULT NOT INDICATED White Blood Count 5.2 TH/MM3 Red Blood Count 4.44 MIL/MM3 Hemoglobin 11.6 GM/DL Hematocrit 33.8 % Mean Corpuscular Volume 76.1 FL Mean Corpuscular Hemoglobin 26.1 PG Mean Corpuscular Hemoglobin Concent 34.3 % Red Cell Distribution Width 13.8 % Platelet Count 338 TH/MM3 Mean Platelet Volume 8.6 FL Neutrophils (%) (Auto) 51.2 % Lymphocytes (%) (Auto) 38.0 % Monocytes (%) (Auto) 7.1 % Eosinophils (%) (Auto) 3.2 % Basophils (%) (Auto) 0.5 % Neutrophils # (Auto) 2.6 TH/MM3 Lymphocytes # (Auto) 2.0 TH/MM3 Monocytes # (Auto) 0.4 TH/MM3 Eosinophils # (Auto) 0.2 TH/MM3 Basophils # (Auto) 0.0 TH/MM3 CBC Comment DIFF FINAL Differential Comment Blood Urea Nitrogen 7 MG/DL Creatinine 0.61 MG/DL Random Glucose 101 MG/DL Total Protein 7.5 GM/DL Albumin 3.7 GM/DL Calcium Level 8.8 MG/DL Alkaline Phosphatase 62 U/L Aspartate Amino Transf (AST/SGOT) 14 U/L Alanine Aminotransferase (ALT/SGPT) 17 U/L Total Bilirubin 0.2 MG/DL Sodium Level 138 MEQ/L Potassium Level 3.8 MEQ/L Chloride Level 107 MEQ/L Carbon Dioxide Level 25.7 MEQ/L Anion Gap 5 MEQ/L Estimat Glomerular Filtration Rate 114 ML/MIN Lipase 78 U/L [facility] Medical Decision Making Medical Screen Exam Complete: Yes Emergency Medical Condition: Yes Differential Diagnosis Gastroenteritis vs. obstruction vs. chronic pain vs. malingering Narrative Course 32yo F with abdominal pain, vomiting and diarrhea. Pt has been here multiple time and recently had CT a/p and Xray abdomen. Pt's abdominal exam is unremarkable. She said she has chronic pain in her abdomen from the dermoid tumor. Said she takes percocet and took it today but it is not helping with the pain anymore. Labs reviewed, no leukocytosis. H/H normal. CMP unremarkable. Lipase normal. UA negative. Urine negative. Pt given toradol and zofran but did not help with pain or nausea. Pt given percocet and reglan and reevaluated at bedside. Pain and nausea has resolved. Tolerating PO. Said she lose her reglan prescription and wants another one. Xray right hand negative. Pt will follow up with pain management. Diagnosis Primary Impression: Chronic pain Qualified Codes: G89.29 - Other chronic pain Referrals: Rachel Oliveros MD as needed Follow up with hand if hand pain persists. Patient Instructions: General Instructions Departure Forms: Tests/Procedures Additional Instructions: Please follow up with your pain management physician and hand clinic if pain persists in hand. Return to the ED if symptoms worsen. Med/Other Pt SpecificInfo: Prescription(s) given Scripts Metoclopramide (Reglan) 5 Mg Tab 5 MG PO TIDAC Y for NAUSEA, #10 TAB 0 Refills Prov: Corinna Mix 01/30/18 Disposition: 01 DISCHARGE HOME Condition: Stable Mix,Corinna VERDUGO January 30, 2018 16:40
[2018-01-30] MEDS ORDERED: ONDANSETRON ODT 4 MG TAB PO ONE (16:45)
[2018-01-30] MEDS ORDERED: KETOROLAC TROMETHAMINE 30 MG/ML (IVP) VIAL IV PUSH ONE (16:45)
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
[2018-01-30 17:11] LABS: BILIRUBIN, URINE NEG (NEG); BLOOD, URINE NEG (NEG); GLUCOSE,URINE NEG (NEG); KETONE, URINE NEG (NEG); NITRITE,URINE NEG (NEG); URINE COLOR YELLOW (YELLW/STRAW); URINE LEUKOCYTE ESTERASE NEG (NEG)
[2018-01-30 17:23] LABS: SQUAMOUS EPITHELIAL CELL URINE 0-5 /hpf (0-5)
[2018-01-30 17:28] LABS: AUTOMATED NEUTROPHIL # 2.6 TH/MM3 (1.8-7.7); BASOPHIL % 0.5 % (0.0-2.0); EOSINOPHIL # 0.2 TH/MM3 (0-0.4); EOSINOPHIL % 3.2 % (0.0-4.0); HEMATOCRIT 33.8 % (35.0-46.0); HEMOGLOBIN 11.6 GM/DL (11.6-15.3); MEAN CELL VOLUME 76.1 FL (80.0-100.0); MEAN CORPUSCULAR HEMOGLOBIN 26.1 PG (27.0-34.0); MEAN CORPUSCULAR HGB CONC 34.3 % (32.0-36.0); MEAN PLATELET VOLUME 8.6 FL (7.0-11.0); MONO % 7.1 % (0.0-8.0); MONOCYTE # 0.4 TH/MM3 (0-0.9); NEUT % 51.2 % (16.0-70.0); PLATELET COUNT 338 TH/MM3 (150-450); RED BLOOD COUNT 4.44 MIL/MM3 (4.00-5.30); RED CELL DISTRIBUTION WIDTH 13.8 % (11.6-17.2); WHITE BLOOD COUNT 5.2 TH/MM3 (4.0-11.0)
[2018-01-30 17:40] LABS: CHLORIDE 107 MEQ/L (98-107); SODIUM (NA) 138 MEQ/L (136-145)
[2018-01-30 17:43] LABS: CALCIUM 8.8 MG/DL (8.5-10.1)
[2018-01-30 17:44] LABS: ALBUMIN 3.7 GM/DL (3.4-5.0); BICARBONATE 25.7 MEQ/L (21.0-32.0); BLOOD UREA NITROGEN 7 MG/DL (7-18); GLUCOSE,RANDOM 101 MG/DL (74-106)
[2018-01-30 17:46] LABS: ALT (GPT) 17 U/L (10-53); AST (GOT) 14 U/L (15-37); CREATININE 0.61 MG/DL (0.50-1.00); GLOMERULAR FILTRATION RATE 114 ML/MIN (>89)
[2018-01-30 17:48] LABS: TOTAL BILIRUBIN ADULT 0.2 MG/DL (0.2-1.0); TOTAL PROTEIN 7.5 GM/DL (6.4-8.2)
[2018-01-30 17:49] LABS: ALKALINE PHOSPHATASE 62 U/L (45-117)
[2018-01-30] MEDS ORDERED: METOCLOPRAMIDE INJ 10 MG in SODIUM CHLORIDE 0.9% INJ 50 ML IV ONE (18:00)
[2018-01-30] MEDS ORDERED: oxyCODONE/ACETAMINOPHEN 5 MG/325 MG TAB PO ONE (18:00)
[2018-01-30] MEDS ORDERED: METOCLOPRAMIDE HCL 10 MG/2 ML VIAL IV PUSH ONE (18:15)
[2018-01-30 18:25] VITALS: BP 118/75; PULSE 67; RESP 18; O2SAT 95
[2018-01-30] MEDS ORDERED: REGL5TAB PO (19:12)
== END 2018-01-30 19:16 | disposition home or self-care (01) ==
LOC: PHED 15:56
DX: G89.29 Other chronic pain (principal); D64.9 Anemia, unspecified; F41.8 Other specified anxiety disorders; K21.9 Gastro-esophageal reflux disease without esophagitis; I10 Essential (primary) hypertension; Z88.5 Allergy status to narcotic agent; Z88.0 Allergy status to penicillin
CPT/HCPCS: 73120; 80053; 81001; 83690; 84703; 85025; 96374; 96375; 99284; J1885; J2765

== ENCOUNTER 2018-02-09 00:05 | Emergency (ER) | payer MEDICAID ==
[~2018-02-09] VITALS: Ht 157.5 cm; Wt 80.0 kg
[2018-02-09] MEDS ORDERED: IOHEXOL 350 MG/ML 10 ML VIAL (for RAD DIAG) IVCONTRAST ONE (00:06)
[2018-02-09 00:08] VITALS: BP 172/97; PULSE 77; RESP 16; TEMP 97.2; O2SAT 100
[2018-02-09] MEDS ORDERED: SODIUM CHLOR 0.9% 1000 ML INJ 1,000 ML IV SCH (00:41)
[2018-02-09] MEDS ORDERED: METOCLOPRAMIDE HCL 10 MG/2 ML VIAL IV PUSH ONE (00:45)
[2018-02-09] MEDS ORDERED: HYDROmorphone HCL PF 1 MG/ML VIAL IVS ONE (00:45)
[2018-02-09] MEDS ORDERED: SODIUM CHLORIDE 0.9% FLUSH 10 ML FLUSH IV FLUSH PRN (00:45)
--- NOTE | 2018-02-09 00:45 | PD ---
HPI Chief Complaint: Abdominal Pain Time Seen by Provider: 00:32 Travel History International Travel<30 days: No Contact w/Intl Traveler<30days: No Traveled to known affect area: No History of Present Illness HPI 32-year-old female here complaining of abdominal pain. The patient has had several emergency department visits for the same complaint. She has history of dermoid cyst removal in 2017, and since then has had issues with chronic abdominal pain. She is seen by pain management and takes Percocet 5/325 3 times daily. Apparently they are weaning this for plans to place a Dilaudid pump. Patient reports that for the last week she has had worsening pains. She also reports several episodes of vomiting and states she is unable to keep any food down. She has been seen by GI and is scheduled for endoscopy and colonoscopy. She has also been seen by general surgery Dr. Alcocer for evaluations of possible pain from adhesions. She tells me that her home pain medication is not working and states that the pain over the last week has been worsening and is different than her usual pain. Her pain is generalized, sharp/ pressure-like, constant, moderate to severe, worse with movements and palpation. 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) Cardiovascular Problems: Yes (STATES IRREGULAR HEARTBEAT PVC's) High Cholesterol: Yes (hx of this denies at present) Chest Pain: No Congestive Heart Failure: No Diabetes: No Diminished Hearing: Yes ( R COCHLEAR IMPLANT, TUBES, TUMOR ) Endocrine: No Gastrointestinal Disorders: Yes (LIVER CYST, IBS, January: PANCREATIC DUCT TUMOR REMOVED) GERD: Yes Genitourinary: Yes Hepatitis: No Hiatal Hernia: No Hypertension: Yes (not at present) Immune Disorder: No Implanted Vascular Access Dvce: No Kidney Stones: Yes Musculoskeletal: No Neurologic: No Psychiatric: Yes (ANXIETY DEPRESSION) Respiratory: No Immunizations Current: Yes Pancreatitis: Yes Renal Failure: No Thyroid Disease: No Ulcer: Yes Tetanus Vaccination: < 5 Years Influenza Vaccination: Yes ?: Not LMP: 1 WEEK AGO : 2 Para: 2 Tubal Ligation: Yes Past Surgical History Abdominal Surgery: Yes (GASTRIC BYPASS -2015, EXP LAP FOR ADHESIONS, DILEEP, benign tumor removal , ) AICD: No Body Medical Devices: CHOCLEAR IMPLANTS Cholecystectomy: Yes (WITH GALLSTONES POST DILEEP) Ear Surgery: Yes ( IMPLANTS) Genitourinary Surgery: Yes (KIDNEY STONES SURGERY AND LITHOTRIPSY) Gynecologic Surgery: Yes (TUBAL) Joint Replacement: No Pacemaker: No Other Surgery: Yes (explor lap for abd adhesions) Social History Alcohol Use: No (denies) Tobacco Use: No (denies) Substance Use: No (denies) Allergies-Medications (Allergen,Severity, Reaction): Coded Allergies: acetaminophen (Verified Allergy, Severe, Chest Pain, 01/30/18) codeine (Verified Allergy, Severe, Chest Pain, 01/30/18) morphine (Verified Allergy, Severe, Rash, 01/30/18) penicillin G (Verified Allergy, Unknown, Hives, 01/30/18) Reported Meds & Prescriptions Reported Meds & Active Scripts Active Reglan (Metoclopramide HCl) 5 Mg Tab 5 Mg PO TIDAC PRN Reported Lamictal (Lamotrigine) 25 Mg Tab 50 Mg PO BID Percocet (Oxycodone-Acetaminophen) 7.5-325 mg Tab 1 Tab PO QID PRN Reglan (Metoclopramide HCl) 5 Mg Tab 5 Mg PO DIRECTED Carafate (Sucralfate) 1 Gram Tab 1 Gm PO QID On empty stomach Protonix (Pantoprazole Sodium) 40 Mg Tab 40 Mg PO DAILY Gabapentin 300 Mg Cap 300 Mg PO HS Xanax (Alprazolam) 1 Mg Tab 1 Mg PO TID Review of Systems Except as stated in HPI: all other systems reviewed are Neg Physical Exam Narrative GENERAL: Well-developed, well-nourished, comfortable, no apparent distress. SKIN: Focused skin assessment warm/dry. HEAD: Atraumatic. Normocephalic. EYES: Pupils equal and round. No scleral icterus. No injection or drainage. ENT: No nasal bleeding or discharge. Mucous membranes pink and moist. NECK: Trachea midline. No JVD. CARDIOVASCULAR: Regular rate and rhythm. RESPIRATORY: No accessory muscle use. Clear to auscultation. Breath sounds equal bilaterally. GASTROINTESTINAL: Abdomen soft, non-tender, nondistended. Normal bowel sounds. No hernias. MUSCULOSKELETAL: No obvious deformities. No clubbing. No cyanosis. No edema. NEUROLOGICAL: Awake and alert. No obvious cranial nerve deficits. Motor grossly within normal limits. Normal speech. PSYCHIATRIC: Appropriate mood and affect; insight and judgment normal. Data Data Last Documented VS Vital Signs Date Time Temp Pulse Resp B/P (MAP) Pulse Ox O2 Delivery O2 Flow Rate FiO2 02/09/18 00:53 98 Room Air 02/09/18 00:08 97.2 77 16 172/97 (122) Orders Orders Beta Hcg (Quant/Titer) (02/09/18 00:41) Complete Blood Count With Diff (02/09/18 00:41) Comprehensive Metabolic Panel (02/09/18 00:41) Lipase (02/09/18:41) Prothrombin Time / Inr (Pt) (02/09/18:41) Act Partial Throm Time (Ptt) (02/09/18:41) Urinalysis - C+S If Indicated (02/09/18 00:41) Ct Abd/Pel W Iv Contrast(Rout) (02/09/18 00:41) Iv Access Insert/Monitor (02/09/18 00:41) Ecg Monitoring (02/09/18:41) Oximetry (02/09/18 00:41) Sodium Chlor 0.9% 1000 Ml Inj (Ns 1000 M (02/09/18 00:41) Sodium Chloride 0.9% Flush (Ns Flush) (02/09/18 00:45) Ed Urine Pregnancytest Poc (02/09/18 00:41) Metoclopramide Inj (Reglan Inj) (02/09/18 00:45) Hydromorphone Pf Inj (Dilaudid Pf Inj) (02/09/18 01:45) Iohexol 350 Inj (Omnipaque 350 Inj) (02/09/18 00:06) Labs Laboratory Tests Test 02/09/18 00:50 02/09/18 01:31 Urine Color LIGHT-YELLOW Urine Turbidity CLEAR Urine pH 6.5 Urine Specific [place] 1.012 Urine Protein NEG mg/dL Urine Glucose (UA) NEG mg/dL Urine Ketones NEG mg/dL Urine Occult Blood NEG Urine Nitrite NEG Urine Bilirubin NEG Urine Urobilinogen LESS THAN 2.0 MG/DL Urine Leukocyte Esterase NEG Urine RBC LESS THAN 1 /hpf Urine WBC 1 /hpf Urine Squamous Epithelial Cells 3 /hpf Urine Transitional Epithelial Cells <1 /hpf Urine Renal Epithelial Cells <1 /hpf Urine Bacteria RARE /hpf Microscopic Urinalysis Comment CULT NOT INDICATED White Blood Count 5.8 TH/MM3 Red Blood Count 4.33 MIL/MM3 Hemoglobin 10.9 GM/DL Hematocrit 33.4 % Mean Corpuscular Volume 77.1 FL Mean Corpuscular Hemoglobin 25.1 PG Mean Corpuscular Hemoglobin Concent 32.6 % Red Cell Distribution Width 13.8 % Platelet Count 339 TH/MM3 Mean Platelet Volume 8.4 FL Neutrophils (%) (Auto) 46.8 % Lymphocytes (%) (Auto) 40.2 % Monocytes (%) (Auto) 9.3 % Eosinophils (%) (Auto) 3.4 % Basophils (%) (Auto) 0.3 % Neutrophils # (Auto) 2.7 TH/MM3 Lymphocytes # (Auto) 2.3 TH/MM3 Monocytes # (Auto) 0.5 TH/MM3 Eosinophils # (Auto) 0.2 TH/MM3 Basophils # (Auto) 0.0 TH/MM3 CBC Comment DIFF FINAL Differential Comment Prothrombin Time 9.8 SEC Prothromb Time International Ratio 1.0 RATIO Activated Partial Thromboplast Time 26.1 SEC Blood Urea Nitrogen 7 MG/DL Creatinine 0.70 MG/DL Random Glucose 83 MG/DL Total Protein 7.2 GM/DL Albumin 3.8 GM/DL Calcium Level 8.4 MG/DL Alkaline Phosphatase 59 U/L Aspartate Amino Transf (AST/SGOT) 23 U/L Alanine Aminotransferase (ALT/SGPT) 25 U/L Total Bilirubin 0.2 MG/DL Sodium Level 141 MEQ/L Potassium Level 3.6 MEQ/L Chloride Level 105 MEQ/L Carbon Dioxide Level 25.2 MEQ/L Anion Gap 11 MEQ/L Estimat Glomerular Filtration Rate 98 ML/MIN Lipase 66 U/L Human Chorionic Gonadotropin, Quant LESS THAN 1 MIU/ML [facility] Medical Decision Making Medical Screen Exam Complete: Yes Emergency Medical Condition: Yes Medical Record Reviewed: Yes Differential Diagnosis Chronic abdominal pain, adhesions, bowel obstruction, drug-seeking behavior Narrative Course Vital signs reviewed. CBC: WBC 5.8, hemoglobin 10.9, hematocrit 33.4, platelets 339. CMP is unremarkable. Lipase is 66. Beta-hCG is negative. UA is not suggestive of UTI. CT abdomen pelvis: CONCLUSION: 1. Tiny nonobstructing stone right kidney. 2. Otherwise chronic and benign postsurgical changes. Patient was made aware of all findings. She was given pain medication and on reassessment she is sleeping comfortably. She states that her gastric bypass was reversed a year ago. At this point I believe she is stable for discharge home outpatient follow-up. She has an appointment with her special effects technician for endoscopy and colonoscopy on 28 February. She will make an appointment with her general surgeon Dr. Alcocer as well. She was advised on when to return to the emergency department patient verbalizes understanding and agreement with plan. Diagnosis Primary Impression: Chronic abdominal pain Referrals: Edwar Alcocer MD 3 days Phone Manager 3 days Additional Instructions: Follow-up with your special effects technician and general surgeon this week. Return to the emergency department for worsening symptoms or any other concerns. Disposition: DISCHARGE HOME Condition: Stable Abel Kirkpatrick MD February 09, 2018 00:45
[2018-02-09 00:53] VITALS: O2SAT 98
[2018-02-09] MEDS ORDERED: HYDROmorphone HCL PF 2 MG/ML VIAL IV ONE (01:45)
[2018-02-09 01:55] LABS: AUTOMATED NEUTROPHIL # 2.7 TH/MM3 (1.8-7.7); BASOPHIL % 0.3 % (0.0-2.0); EOSINOPHIL # 0.2 TH/MM3 (0-0.4); EOSINOPHIL % 3.4 % (0.0-4.0); HEMATOCRIT 33.4 % (35.0-46.0); HEMOGLOBIN 10.9 GM/DL (11.6-15.3); LYMPH % 40.2 % (9.0-44.0); LYMPHOCYTE # 2.3 TH/MM3 (1.0-4.8); MEAN CELL VOLUME 77.1 FL (80.0-100.0); MEAN CORPUSCULAR HEMOGLOBIN 25.1 PG (27.0-34.0); MEAN CORPUSCULAR HGB CONC 32.6 % (32.0-36.0); MEAN PLATELET VOLUME 8.4 FL (7.0-11.0); MONO % 9.3 % (0.0-8.0); MONOCYTE # 0.5 TH/MM3 (0-0.9); NEUT % 46.8 % (16.0-70.0); PLATELET COUNT 339 TH/MM3 (150-450); RED BLOOD COUNT 4.33 MIL/MM3 (4.00-5.30); RED CELL DISTRIBUTION WIDTH 13.8 % (11.6-17.2); WHITE BLOOD COUNT 5.8 TH/MM3 (4.0-11.0)
[2018-02-09 02:03] LABS: BACTERIA, URINE RARE /hpf; BILIRUBIN, URINE NEG (NEG); BLOOD, URINE NEG (NEG); GLUCOSE,URINE NEG (NEG); KETONE, URINE NEG (NEG); NITRITE,URINE NEG (NEG); PH, URINE 6.5 (5.0-8.5); RENAL EPITHELIAL CELLS <1 /hpf; SQUAMOUS EPITHELIAL CELL URINE 3 /hpf (0-5); TRANSITIONAL EPI CELLS, URINE <1 /hpf; URINE COLOR LIGHT-YELLOW (YELLW/STRAW); URINE LEUKOCYTE ESTERASE NEG (NEG)
[2018-02-09 02:09] LABS: PROTHROMBIN TIME - PATIENT 9.8 SEC (9.8-11.6)
[2018-02-09 02:10] LABS: ALBUMIN 3.8 GM/DL (3.4-5.0); ALT (GPT) 25 U/L (10-53); AST (GOT) 23 U/L (15-37); BICARBONATE 25.2 MEQ/L (21.0-32.0); BLOOD UREA NITROGEN 7 MG/DL (7-18); CALCIUM 8.4 MG/DL (8.5-10.1); CHLORIDE 105 MEQ/L (98-107); GLOMERULAR FILTRATION RATE 98 ML/MIN (>89); GLUCOSE,RANDOM 83 MG/DL (74-106); SODIUM (NA) 141 MEQ/L (136-145)
[2018-02-09 02:14] LABS: ALKALINE PHOSPHATASE 59 U/L (45-117); TOTAL BILIRUBIN ADULT 0.2 MG/DL (0.2-1.0); TOTAL PROTEIN 7.2 GM/DL (6.4-8.2)
--- NOTE | 2018-02-09 03:14 | RADRPT ---
EXAM DATE: 02/09/2018 3:04 AM EDT AGE/SEX: 32 years / Female INDICATIONS: Abdomen pain past week. CLINICAL DATA: This is the patient's initial encounter. Patient reports that signs and symptoms have been present for 1 week and indicates a pain score of 7/10. MEDICAL/SURGICAL HISTORY: Cardiovascular disease. Hypertension. Pancreatitis. IBS GERD Jean al stones Colon cancer Cholecystectomy. Gastric bypass. Tubal ligation. ORAL CONTRAST: No oral contrast ingested. RADIATION DOSE: 16.73 CTDI (mGy) COMPARISON: [facility], CT ABDOMEN & PELVIS W CONTRAST, 01/21/2018. . TECHNIQUE: Multiple contiguous axial images were obtained through the abdomen and pelvis following b olus infusion of 92 ml Omnipaque 350 (iohexol) nonionic water-soluble contrast as a single exam dos e. No oral contrast ingested. Using automated exposure control and adjustment of the mA and/or kV ac cording to patient size, the radiation dose was kept as low as reasonably achievable to obtain optima l diagnostic quality images. FINDINGS: Abdomen CT: The liver, spleen, pancreas, left kidney, adrenals are unremarkable. There is a tiny 2 to 3 mm stone in the right kidney. There is no evidence for any appreciable pathological adenopathy, free fluid, or bowel obstruction. There is mild dependent atelectasis left lung base with a calcified granuloma ri ght lung base. There is evidence for prior cholecystectomy and there are postsurgical changes in the region of the stomach. A tiny pericardial effusion is seen probably of no clinical significance. The common bile duct measures 1.2 cm without any significant intrahepatic ductal dilatation most likely f rom post cholecystectomy reservoir changes. Pelvic CT: There is no evidence for mass, abscess formation, or any significant adenopathy within the pelvis. T here is a tiny bone island in the left iliac bone and left ischium. The appendix appears intact for t echnique without signs of appendicitis. CONCLUSION: 1. Tiny nonobstructing stone right kidney. 2. Otherwise chronic and benign postsurgical changes. Electronically signed by: Jaspreet Arroyo MD 02/09/2018 3:13 AM EDT
== END 2018-02-09 03:33 | disposition home or self-care (01) ==
LOC: NEPE 00:05
DX: R10.9 Unspecified abdominal pain (principal); G89.29 Other chronic pain; K21.9 Gastro-esophageal reflux disease without esophagitis
CPT/HCPCS: 74177; 80053; 81001; 83690; 84702; 84703; 85025; 85610; 85730; 96361; 96374; 96375; 99285; J1170; J2765; J7030; Q9967

== ENCOUNTER 2018-02-16 22:05 | Emergency (ER) | payer MEDICAID ==
[2018-02-16 22:10] VITALS: BP 141/67; PULSE 116; RESP 23; TEMP 97.7; O2SAT 98
[2018-02-16 22:20] VITALS: BP 138/89; PULSE 100; RESP 18; O2SAT 98
--- NOTE | 2018-02-16 22:49 | PD ---
HPI Chief Complaint: Abdominal Pain Time Seen by Provider: 22:59 Travel History International Travel<30 days: No Contact w/Intl Traveler<30days: No Traveled to known affect area: No History of Present Illness HPI 32-year-old female returns to the emergency department for ongoing chronic abdominal pain 1 week. Patient has been seen numerous times in this emergency department for same complaint. Patient reports she is under the care of [employer] and pain management. Patient states that she has had ongoing abdominal pain nausea vomiting and diarrhea. Patient does not report any fever chills. No report of hematemesis coffee-ground emesis melena hematochezia. 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 Patient has had ongoing postoperative abdominal pain and recent diagnosis of gastroparesis. Patient states she is on multiple medications that she has not been able to take due to her persistent vomiting. Patient is unable to identify alleviating factors or specific exacerbating factors. Patient rates her pain as 10/10 in intensity pain is abdominal but does radiate to her epigastric and midline chest area. Patient reportedly contacted her [employer] who reportedly encouraged her to come to the emergency room for evaluation. Patient was seen 02/09/[address] scan at that time reportedly showed no acute abnormality and lab values were found to be in normal range. 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) Cardiovascular Problems: Yes (STATES IRREGULAR HEARTBEAT PVC's) High Cholesterol: Yes (hx of this denies at present) Chest Pain: No Congestive Heart Failure: No Diabetes: No Diminished Hearing: Yes ( R COCHLEAR IMPLANT, TUBES, TUMOR ) Endocrine: No Gastrointestinal Disorders: Yes (LIVER CYST, IBS, PANCREATIC DUCT TUMOR REMOVED ) GERD: Yes Genitourinary: Yes Hepatitis: No Hiatal Hernia: No Hypertension: Yes Immune Disorder: No Implanted Vascular Access Dvce: No Kidney Stones: Yes Musculoskeletal: No Neurologic: No Psychiatric: Yes (ANXIETY DEPRESSION) Respiratory: No Immunizations Current: Yes Pancreatitis: Yes Renal Failure: No Thyroid Disease: No Ulcer: Yes Tetanus Vaccination: > 5 Years Influenza Vaccination: Yes ?: Not LMP: 01/22/2018, tubal ligation : 2 Para: 2 Tubal Ligation: Yes Past Surgical History Abdominal Surgery: Yes (GASTRIC BYPASS -2014, EXP LAP FOR ADHESIONS, DILEEP, benign tumor removal , ) AICD: No Body Medical Devices: CHOCLEAR IMPLANTS Cholecystectomy: Yes Ear Surgery: Yes ( IMPLANTS) Genitourinary Surgery: Yes (LITHOTRIPSY) Gynecologic Surgery: Yes (TUBAL) Joint Replacement: No Pacemaker: No Other Surgery: Yes (explor lap for abd adhesions) Social History Alcohol Use: No Tobacco Use: No Substance Use: No Allergies-Medications (Allergen,Severity, Reaction): Coded Allergies: acetaminophen (Verified Allergy, Severe, Chest Pain, 02/16/18) codeine (Verified Allergy, Severe, Chest Pain, 02/16/18) morphine (Verified Allergy, Severe, Rash, 02/16/18) penicillin G (Verified Allergy, Unknown, Hives, 02/16/18) Reported Meds & Prescriptions Reported Meds & Active Scripts Active Reglan (Metoclopramide HCl) 5 Mg Tab 5 Mg PO TIDAC PRN Reported Lamictal (Lamotrigine) 25 Mg Tab 50 Mg PO BID Percocet (Oxycodone-Acetaminophen) 7.5-325 mg Tab 1 Tab PO QID PRN Reglan (Metoclopramide HCl) 5 Mg Tab 5 Mg PO DIRECTED Carafate (Sucralfate) 1 Gram Tab 1 Gm PO QID On empty stomach Protonix (Pantoprazole Sodium) 40 Mg Tab 40 Mg PO DAILY Gabapentin 300 Mg Cap 300 Mg PO HS Xanax (Alprazolam) 1 Mg Tab 1 Mg PO TID Review of Systems Except as stated in HPI: all other systems reviewed are Neg General / Constitutional: No: Fever, Chills HENT: No: Congestion Cardiovascular: Positive: Chest Pain or Discomfort Respiratory: No: Shortness of Breath Gastrointestinal: Positive: Nausea, Vomiting, Diarrhea, Abdominal Pain Genitourinary: No: Dysuria Musculoskeletal: No: Myalgias, Arthralgias Skin: No Rash Neurologic: Positive: Weakness, Dizziness, No: Syncope (near syncope), Focal Abnormalities, Coordination Problem Psychiatric: No: Anxiety Hematologic/Lymphatic: No: Easy Bruising Physical Exam Narrative GENERAL: Well-developed well-nourished obese female no acute distress no respiratory distress SKIN: Warm and dry. HEAD: Normocephalic. EYES: No scleral icterus. No injection or drainage. NECK: Supple, trachea midline. No JVD or lymphadenopathy. CARDIOVASCULAR: Regular rate and rhythm without murmurs, gallops, or rubs. RESPIRATORY: Breath sounds equal bilaterally. No accessory muscle use. GASTROINTESTINAL: Abdomen soft, non-tender, nondistended. No guarding no rebound no palpable small mass no focal tenderness. MUSCULOSKELETAL: No cyanosis, or edema. BACK: Nontender without obvious deformity. No CVA tenderness. Data Data Last Documented VS Vital Signs Date Time Temp Pulse Resp B/P (MAP) Pulse Ox O2 Delivery O2 Flow Rate FiO2 02/16/18 23:15 98 Room Air 02/16/18 22:20 100 18 02/16/18 22:10 97.7 Orders Orders Complete Blood Count With Diff (02/16/18 22:59) Comprehensive Metabolic Panel (02/16/18 22:59) Lipase (02/16/18 22:59) Urinalysis - C+S If Indicated (02/16/18 22:59) Abdomen, Flat & Upright (02/16/18 ) Iv Access Insert/Monitor (02/16/18 22:59) Ecg Monitoring (02/16/18 22:59) Oximetry (02/16/18 22:59) Sodium Chlor 0.9% 1000 Ml Inj (Ns 1000 M (02/16/18 22:59) Sodium Chloride 0.9% Flush (Ns Flush) (02/16/18 23:00) Electrocardiogram (02/16/18 22:59) Ed Urine Pregnancytest Poc (02/16/18 22:59) Metoclopramide Inj (Reglan Inj) (02/16/18 23:00) Ketorolac Inj (Toradol Inj) (02/17/18 00:15) Sodium Chlor 0.9% 1000 Ml Inj (Ns 1000 M (02/17/18 00:15) Labs Laboratory Tests Test 02/16/18 23:05 02/17/18 00:15 Urine Color COLORLESS Urine Turbidity CLEAR Urine pH 7.0 Urine Specific [place] 1.004 Urine Protein NEG mg/dL Urine Glucose (UA) NEG mg/dL Urine Ketones NEG mg/dL Urine Occult Blood NEG Urine Nitrite NEG Urine Bilirubin NEG Urine Urobilinogen LESS THAN 2.0 MG/DL Urine Leukocyte Esterase NEG Urine RBC LESS THAN 1 /hpf Urine WBC 1 /hpf Urine Squamous Epithelial Cells 6 /hpf Urine Bacteria RARE /hpf Urine Mucus FEW /lpf Microscopic Urinalysis Comment CULT NOT INDICATED Blood Urea Nitrogen 10 MG/DL Creatinine 0.70 MG/DL Random Glucose 75 MG/DL Total Protein 7.9 GM/DL Albumin 3.9 GM/DL Calcium Level 8.8 MG/DL Alkaline Phosphatase 66 U/L Aspartate Amino Transf (AST/SGOT) 31 U/L Alanine Aminotransferase (ALT/SGPT) 32 U/L Total Bilirubin 0.2 MG/DL Sodium Level 139 MEQ/L Potassium Level 4.6 MEQ/L Chloride Level 105 MEQ/L Carbon Dioxide Level 28.8 MEQ/L Anion Gap 5 MEQ/L Estimat Glomerular Filtration Rate 98 ML/MIN Lipase 106 U/L White Blood Count 8.0 TH/MM3 Red Blood Count 4.47 MIL/MM3 Hemoglobin 11.3 GM/DL Hematocrit 34.6 % Mean Corpuscular Volume 77.3 FL Mean Corpuscular Hemoglobin 25.3 PG Mean Corpuscular Hemoglobin Concent 32.7 % Red Cell Distribution Width 13.8 % Platelet Count 338 TH/MM3 Mean Platelet Volume 8.2 FL Neutrophils (%) (Auto) 59.5 % Lymphocytes (%) (Auto) 28.7 % Monocytes (%) (Auto) 8.9 % Eosinophils (%) (Auto) 2.7 % Basophils (%) (Auto) 0.2 % Neutrophils # (Auto) 4.8 TH/MM3 Lymphocytes # (Auto) 2.3 TH/MM3 Monocytes # (Auto) 0.7 TH/MM3 Eosinophils # (Auto) 0.2 TH/MM3 Basophils # (Auto) 0.0 TH/MM3 CBC Comment DIFF FINAL Differential Comment MDM Medical Decision Making Medical Screen Exam Complete: Yes Emergency Medical Condition: Yes Medical Record Reviewed: Yes Interpretation(s) EKG: Normal sinus rhythm rate [address] elevation injury pattern or ectopy noted Last Impressions Abdomen X-Ray 02/16/18 0000 Signed Impressions: CONCLUSION: Moderate constipation. Numerous surgical clips in the abdomen. Vital Signs Date Time Temp Pulse Resp B/P (MAP) Pulse Ox O2 Delivery O2 Flow Rate FiO2 02/16/18 23:15 98 Room Air 02/16/18 22:20 100 18 138/89 (105) 98 Room Air 02/16/18 22:10 97.7 116 23 141/67 (91) 98 POC hcg: negative CBC & BMP Diagram 02/16/18 23:05 Total Protein 7.9, Albumin 3.9, Calcium Level 8.8, Alkaline Phosphatase 66, Aspartate Amino Transf (AST/SGOT) 31, Alanine Aminotransferase (ALT/SGPT) 32, Total Bilirubin 0.2 02/17/18 00:15 UA grossly wnl Differential Diagnosis Chronic recurrent abdominal pain, gastroparesis, adhesions, partial small bowel obstruction, ileus, pancreatitis, biliary colic, diverticulitis, UTI, pleurisy, chronic pain syndrome Narrative Course Patient placed on traffic monitor specialist with continuous pulse oximetry IV access obtained patient given bolus of normal saline along with Reglan 10 mg IV flat and upright abdomen x-ray ordered along with [id number] test Metabolic panel and urinalysis values are normal [id number] hCG is negative and flat and upright x-ray reveals no evidence for bowel obstruction or ileus but does show moderate constipation Patient will be given additional liter of normal saline and Toradol for pain. Patient has received milligram for complaint of nausea vomiting no nausea or vomiting noted in the emergency department. CBC is automated differential grossly within normal range mild anemia Patient informed of imaging results lab results and is stable for outpatient management. Patient encouraged to add MiraLAX to daily dietary intake and bowel regimen encouraged to use as needed [id number] laxative and encouraged to decrease narcotic use as causes slow transit and predisposes to constipation which probably is causing her to experience intestinal colic/ intestinal spasm. Diagnosis Primary Impression: Abdominal pain Qualified Codes: R10.12 - Left upper quadrant pain Additional Impressions: Constipation Constipation due to opioid therapy Referrals: Primary Care Physician call for appointment Patient Instructions: General Instructions Additional Instructions: Increase fluid hydration Take Zofran as prescribed as needed for nausea and/or vomiting Add MiraLAX to daily GI regimen May use as needed as tolerated Dulcolax suppository or other laxative for constipation Follow-up with your primary care provider Return the emergency department for concerns or change in condition Med/Other Pt SpecificInfo: No Change to Meds Disposition: 01 DISCHARGE HOME Condition: Stable Uma Ovalle MD Feb 16, 2018 22:49
[2018-02-16] MEDS ORDERED: SODIUM CHLOR 0.9% 1000 ML INJ 1,000 ML IV SCH (22:59)
[2018-02-16] MEDS ORDERED: METOCLOPRAMIDE HCL 10 MG/2 ML VIAL IV PUSH ONE (23:00)
[2018-02-16] MEDS ORDERED: SODIUM CHLORIDE 0.9% FLUSH 10 ML FLUSH IV FLUSH PRN (23:00)
[2018-02-16 23:15] VITALS: O2SAT 98
[2018-02-16 23:21] LABS: BACTERIA, URINE RARE /hpf; BILIRUBIN, URINE NEG (NEG); BLOOD, URINE NEG (NEG); GLUCOSE,URINE NEG (NEG); KETONE, URINE NEG (NEG); MUCUS URINE FEW /lpf (OCC); NITRITE,URINE NEG (NEG); SQUAMOUS EPITHELIAL CELL URINE 6 /hpf (0-5); URINE COLOR COLORLESS (YELLW/STRAW); URINE LEUKOCYTE ESTERASE NEG (NEG)
--- NOTE | 2018-02-16 23:40 | RADRPT ---
EXAM DATE: 02/16/2018 11:23 PM EDT AGE/SEX: 32 years / Female INDICATIONS: Abdominal pain. CLINICAL DATA: This is the patient's initial encounter. Patient reports that signs and symptoms have been present for 1 week and indicates a pain score of 10/10. MEDICAL/SURGICAL HISTORY: . Cardiovascular disease. Hypertension. Pancreatitis. Gastritis. IBS GERD Renal stones Colon cancer . Cholecystectomy. Gastric bypass, & reversal. Tubal ligation. Inte stinal. Pancreatic. COMPARISON: No prior exams available for comparison. FINDINGS: Supine and upright views of the abdomen were performed. The abdominal bowel gas pattern is mild const ipation. No air-fluid levels are seen. No abnormal masses, calcifications, or organomegaly is seen. T he visualized lower lungs are clear. No evidence of free intraperitoneal gas. The osseous structures are unremarkable. CONCLUSION: Moderate constipation. Numerous surgical clips in the abdomen. Electronically signed by: Gee Laurent MD 02/16/2018 11:39 PM EDT
[2018-02-16 23:50] LABS: ALKALINE PHOSPHATASE 66 U/L (45-117); ALT (GPT) 32 U/L (10-53); TOTAL BILIRUBIN ADULT 0.2 MG/DL (0.2-1.0); TOTAL PROTEIN 7.9 GM/DL (6.4-8.2)
[2018-02-16 23:55] LABS: ALBUMIN 3.9 GM/DL (3.4-5.0); AST (GOT) 31 U/L (15-37); BICARBONATE 28.8 MEQ/L (21.0-32.0); BLOOD UREA NITROGEN 10 MG/DL (7-18); CALCIUM 8.8 MG/DL (8.5-10.1); CHLORIDE 105 MEQ/L (98-107); GLOMERULAR FILTRATION RATE 98 ML/MIN (>89); GLUCOSE,RANDOM 75 MG/DL (74-106); SODIUM (NA) 139 MEQ/L (136-145)
[2018-02-17] MEDS ORDERED: SODIUM CHLOR 0.9% 1000 ML INJ 1,000 ML IV ONE (00:15)
[2018-02-17] MEDS ORDERED: KETOROLAC TROMETHAMINE 30 MG/ML (IVP) VIAL IV PUSH ONE (00:15)
[2018-02-17 00:33] LABS: AUTOMATED NEUTROPHIL # 4.8 TH/MM3 (1.8-7.7); BASOPHIL % 0.2 % (0.0-2.0); EOSINOPHIL # 0.2 TH/MM3 (0-0.4); EOSINOPHIL % 2.7 % (0.0-4.0); HEMATOCRIT 34.6 % (35.0-46.0); HEMOGLOBIN 11.3 GM/DL (11.6-15.3); LYMPH % 28.7 % (9.0-44.0); LYMPHOCYTE # 2.3 TH/MM3 (1.0-4.8); MEAN CELL VOLUME 77.3 FL (80.0-100.0); MEAN CORPUSCULAR HEMOGLOBIN 25.3 PG (27.0-34.0); MEAN CORPUSCULAR HGB CONC 32.7 % (32.0-36.0); MEAN PLATELET VOLUME 8.2 FL (7.0-11.0); MONO % 8.9 % (0.0-8.0); MONOCYTE # 0.7 TH/MM3 (0-0.9); NEUT % 59.5 % (16.0-70.0); PLATELET COUNT 338 TH/MM3 (150-450); RED BLOOD COUNT 4.47 MIL/MM3 (4.00-5.30); RED CELL DISTRIBUTION WIDTH 13.8 % (11.6-17.2)
[2018-02-17 01:15] VITALS: BP 140/70; PULSE 77; RESP 16; O2SAT 99
--- NOTE | 2018-02-17 16:01 | EKG ---
Date Performed: 02/16/2018 Time Performed: 22:30:33 PTAGE: 32 years EKG: Sinus rhythm NORMAL ECG Since the PREVIOUS TRACING , no significant change noted PREVIOUS TRACIN10/23/2016 16.25 DOCTOR: Ramona Reed Interpretating Date/Time 02/17/2018 15:59:00
== END 2018-02-17 01:36 | disposition home or self-care (01) ==
LOC: NEPC 22:05
DX: R10.12 Left upper quadrant pain (principal); K59.03 Drug induced constipation; T40.0X5A Adverse effect of opium, initial encounter; R11.2 Nausea with vomiting, unspecified; R19.7 Diarrhea, unspecified; D64.9 Anemia, unspecified; F31.9 Bipolar disorder, unspecified; I10 Essential (primary) hypertension; Z87.19 Personal history of other diseases of the digestive system
CPT/HCPCS: 74019; 80053; 81001; 83690; 84703; 85025; 93005; 96361; 96374; 96375; 99285; J1885; J2765; J7030

== ENCOUNTER 2018-02-21 18:27 | Emergency (ER) | payer MEDICAID ==
[~2018-02-21] VITALS: Ht 157.5 cm; Wt 91.5 kg
[2018-02-21 18:40] VITALS: BP 136/76; PULSE 103; RESP 16; TEMP 98.7; O2SAT 100
--- NOTE | 2018-02-21 18:47 | PD ---
HPI Chief Complaint: Pain: Acute or Chronic Time Seen by Provider: 18:46 Travel History International Travel<30 days: No Contact w/Intl Traveler<30days: No Traveled to known affect area: No History of Present Illness HPI 32-year-old female came to the emergency room with history of nausea, vomiting, heartburn going on for past couple days. Patient does have the symptoms on a chronic basis and sees a kiln hand. She has an appointment with him on but her kiln hand asked her to come to the emergency room to be evaluated for the symptoms. 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 Vital signs were stable. No history of diarrhea. No history of fever or chills. The abdominal pain is epigastric radiating to her chest and a burning quality. No aggravating or relieving factors identified. She has been in this emergency room multiple times in the past and has had multiple radiologic studies including her last CAT scan less than 2 weeks ago. 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) Cardiovascular Problems: Yes (STATES IRREGULAR HEARTBEAT PVC's) High Cholesterol: Yes (hx of this denies at present) Chest Pain: No Congestive Heart Failure: No Diabetes: No Diminished Hearing: Yes ( R COCHLEAR IMPLANT, TUBES, TUMOR ) Endocrine: No Gastrointestinal Disorders: Yes (LIVER CYST, IBS, PANCREATIC DUCT TUMOR REMOVED ) GERD: Yes Genitourinary: Yes Hepatitis: No Hiatal Hernia: No Hypertension: Yes Immune Disorder: No Implanted Vascular Access Dvce: No Kidney Stones: Yes Musculoskeletal: No Neurologic: No Psychiatric: Yes (ANXIETY DEPRESSION) Respiratory: No Immunizations Current: Yes Pancreatitis: Yes Renal Failure: No Thyroid Disease: No Ulcer: Yes ?: Not LMP: 01/22/18 : 2 Para: 2 Tubal Ligation: Yes Past Surgical History Abdominal Surgery: Yes (GASTRIC BYPASS -2014, EXP LAP FOR ADHESIONS, DILEEP, benign tumor removal , ) AICD: No Body Medical Devices: CHOCLEAR IMPLANTS Cholecystectomy: Yes Ear Surgery: Yes ( IMPLANTS) Genitourinary Surgery: Yes (LITHOTRIPSY) Gynecologic Surgery: Yes (TUBAL) Joint Replacement: No Pacemaker: No Other Surgery: Yes (explor lap for abd adhesions) Social History Alcohol Use: No Tobacco Use: No Substance Use: No Allergies-Medications (Allergen,Severity, Reaction): Coded Allergies: acetaminophen (Verified Allergy, Severe, Chest Pain, 02/21/18) codeine (Verified Allergy, Severe, Chest Pain, 02/21/18) morphine (Verified Allergy, Severe, Rash, 02/21/18) penicillin G (Verified Allergy, Unknown, Hives, 02/21/18) Comments List of her allergies reviewed from the nursing note Reported Meds & Prescriptions Reported Meds & Active Scripts Active Reglan (Metoclopramide HCl) 5 Mg Tab 5 Mg PO TIDAC PRN Reported Lamictal (Lamotrigine) 25 Mg Tab 50 Mg PO BID Percocet (Oxycodone-Acetaminophen) 7.5-325 mg Tab 1 Tab PO QID PRN Reglan (Metoclopramide HCl) 5 Mg Tab 5 Mg PO DIRECTED Carafate (Sucralfate) 1 Gram Tab 1 Gm PO QID On empty stomach Protonix (Pantoprazole Sodium) 40 Mg Tab 40 Mg PO DAILY Gabapentin 300 Mg Cap 300 Mg PO HS Xanax (Alprazolam) 1 Mg Tab 1 Mg PO TID Narrative Medication List of her home medications reviewed from the nursing note Review of Systems Except as stated in HPI: all other systems reviewed are Neg Gastrointestinal: Positive: Nausea, Vomiting, Abdominal Pain Physical Exam Narrative GENERAL: Awake, alert, moderate distress SKIN: Focused skin assessment warm/dry. HEAD: Atraumatic. Normocephalic. EYES: Pupils equal and round. No scleral icterus. No injection or drainage. ENT: No nasal bleeding or discharge. Mucous membranes pink and moist. NECK: Trachea midline. No JVD. CARDIOVASCULAR: Regular rate and rhythm. No murmur appreciated. RESPIRATORY: No accessory muscle use. Clear to auscultation. Breath sounds equal bilaterally. GASTROINTESTINAL: Abdomen soft, non-tender, nondistended. Hepatic and splenic margins not palpable. MUSCULOSKELETAL: No obvious deformities. No clubbing. No cyanosis. No edema. NEUROLOGICAL: Awake and alert. No obvious cranial nerve deficits. Motor grossly within normal limits. Normal speech. PSYCHIATRIC: Appropriate mood and affect; insight and judgment normal. Data Data Last Documented VS Vital Signs Date Time Temp Pulse Resp B/P (MAP) Pulse Ox O2 Delivery O2 Flow Rate FiO2 02/21/18 20:08 02/21/18 19:56 83 16 100 Room Air 02/21/18 18:40 98.7 Orders Orders Complete Blood Count With Diff (02/21/18 18:50) Comprehensive Metabolic Panel (02/21/18 18:50) Lipase (02/21/18 18:50) Iv Access Insert/Monitor (02/21/18 18:50) Ecg Monitoring (02/21/18 18:50) Oximetry (02/21/18 18:50) Sodium Chlor 0.9% 1000 Ml Inj (Ns 1000 M (02/21/18 18:50) Sodium Chloride 0.9% Flush (Ns Flush) (02/21/18 19:00) Pantoprazole Inj (Protonix Inj) (02/21/18 19:00) Ondansetron Odt (Zofran Odt) (02/21/18 19:00) Oxycodone-Acetamin 5-325 Mg (Percocet (02/21/18 19:00) Ed Discharge Order (02/21/18 19:45) Labs Laboratory Tests Test 02/21/18 19:05 White Blood Count 8.4 TH/MM3 Red Blood Count 4.65 MIL/MM3 Hemoglobin 11.6 GM/DL Hematocrit 36.2 % Mean Corpuscular Volume 77.8 FL Mean Corpuscular Hemoglobin 24.9 PG Mean Corpuscular Hemoglobin Concent 32.0 % Red Cell Distribution Width 12.8 % Platelet Count 399 TH/MM3 Mean Platelet Volume 8.1 FL Neutrophils (%) (Auto) 67.0 % Lymphocytes (%) (Auto) 22.6 % Monocytes (%) (Auto) 8.0 % Eosinophils (%) (Auto) 1.8 % Basophils (%) (Auto) 0.6 % Neutrophils # (Auto) 5.5 TH/MM3 Lymphocytes # (Auto) 1.9 TH/MM3 Monocytes # (Auto) 0.7 TH/MM3 Eosinophils # (Auto) 0.2 TH/MM3 Basophils # (Auto) 0.1 TH/MM3 CBC Comment AUTO DIFF Differential Comment AUTO DIFF CONFIRMED Platelet Estimate NORMAL Platelet Morphology Comment NORMAL Red Cell Morphology Comment NORMAL Blood Urea Nitrogen 8 MG/DL Creatinine 0.73 MG/DL Random Glucose 87 MG/DL Total Protein 7.7 GM/DL Albumin 3.7 GM/DL Calcium Level 8.7 MG/DL Alkaline Phosphatase 64 U/L Aspartate Amino Transf (AST/SGOT) 12 U/L Alanine Aminotransferase (ALT/SGPT) 22 U/L Total Bilirubin 0.1 MG/DL Sodium Level 139 MEQ/L Potassium Level 3.9 MEQ/L Chloride Level 107 MEQ/L Carbon Dioxide Level 24.1 MEQ/L Anion Gap 8 MEQ/L Estimat Glomerular Filtration Rate 93 ML/MIN Lipase 141 U/L [facility] Medical Decision Making Medical Screen Exam Complete: Yes Emergency Medical Condition: Yes Medical Record Reviewed: Yes Differential Diagnosis Acute and chronic gastritis, dehydration, electrolyte abnormality Narrative Course 7:49 PM blood test results are back and within normal limit. Patient was given IV fluid bolus, Zofran ODT, Percocet for the pain which she takes on a daily basis and IV Protonix. At this point I will discharge her home given the chronicity of her symptoms. She does have a kiln hand whom she needs to follow-up with for further recommendations at this point. Procedures EKG Prior to Arrival: No Diagnosis Primary Impression: Acute on chronic abdominal pain Additional Impressions: Gastritis Qualified Codes: K29.50 - Unspecified chronic gastritis without bleeding Vomiting Qualified Codes: R11.2 - Nausea with vomiting, unspecified Additional Instructions: Please follow-up with your kiln hand. Take all the medications that has already been prescribed to you by your kiln hand as recommended. Disposition: 01 DISCHARGE HOME Condition: Stable Carlene Bang MD Feb 21, 2018 18:47
[2018-02-21] MEDS ORDERED: SODIUM CHLOR 0.9% 1000 ML INJ 1,000 ML IV SCH (18:50)
[2018-02-21] MEDS ORDERED: oxyCODONE/ACETAMINOPHEN 5 MG/325 MG TAB PO ONE (19:00)
[2018-02-21] MEDS ORDERED: SODIUM CHLORIDE 0.9% FLUSH 10 ML FLUSH IV FLUSH PRN (19:00)
[2018-02-21] MEDS ORDERED: PANTOPRAZOLE SODIUM 40 MG VIAL IV PUSH ONE (19:00)
[2018-02-21] MEDS ORDERED: ONDANSETRON ODT 4 MG TAB PO ONE (19:00)
[2018-02-21 19:14] LABS: AUTOMATED NEUTROPHIL # 5.5 TH/MM3 (1.8-7.7); BASOPHIL # 0.1 TH/MM3 (0-0.2); BASOPHIL % 0.6 % (0.0-2.0); EOSINOPHIL # 0.2 TH/MM3 (0-0.4); EOSINOPHIL % 1.8 % (0.0-4.0); HEMATOCRIT 36.2 % (35.0-46.0); HEMOGLOBIN 11.6 GM/DL (11.6-15.3); LYMPH % 22.6 % (9.0-44.0); LYMPHOCYTE # 1.9 TH/MM3 (1.0-4.8); MEAN CELL VOLUME 77.8 FL (80.0-100.0); MEAN CORPUSCULAR HEMOGLOBIN 24.9 PG (27.0-34.0); MEAN PLATELET VOLUME 8.1 FL (7.0-11.0); MONOCYTE # 0.7 TH/MM3 (0-0.9); PLATELET COUNT 399 TH/MM3 (150-450); RED BLOOD COUNT 4.65 MIL/MM3 (4.00-5.30); RED CELL DISTRIBUTION WIDTH 12.8 % (11.6-17.2); WHITE BLOOD COUNT 8.4 TH/MM3 (4.0-11.0)
[2018-02-21 19:22] LABS: CHLORIDE 107 MEQ/L (98-107); SODIUM (NA) 139 MEQ/L (136-145)
[2018-02-21 19:25] LABS: CALCIUM 8.7 MG/DL (8.5-10.1)
[2018-02-21 19:26] LABS: ALBUMIN 3.7 GM/DL (3.4-5.0); BICARBONATE 24.1 MEQ/L (21.0-32.0); BLOOD UREA NITROGEN 8 MG/DL (7-18); GLUCOSE,RANDOM 87 MG/DL (74-106)
[2018-02-21 19:29] LABS: ALT (GPT) 22 U/L (10-53); AST (GOT) 12 U/L (15-37); CREATININE 0.73 MG/DL (0.50-1.00); GLOMERULAR FILTRATION RATE 93 ML/MIN (>89)
[2018-02-21 19:31] LABS: TOTAL BILIRUBIN ADULT 0.1 MG/DL (0.2-1.0); TOTAL PROTEIN 7.7 GM/DL (6.4-8.2)
[2018-02-21 19:32] LABS: ALKALINE PHOSPHATASE 64 U/L (45-117)
[2018-02-21 19:56] VITALS: BP 140/81; PULSE 83; RESP 16; O2SAT 100
== END 2018-02-21 20:10 | disposition home or self-care (01) ==
LOC: PHED 18:27
DX: R10.13 Epigastric pain (principal); G89.29 Other chronic pain; K29.50 Unspecified chronic gastritis without bleeding; R11.2 Nausea with vomiting, unspecified; F31.9 Bipolar disorder, unspecified; F41.9 Anxiety disorder, unspecified; K58.9 Irritable bowel syndrome, unspecified; K21.9 Gastro-esophageal reflux disease without esophagitis; Z87.442 Personal history of urinary calculi; Z98.84 Bariatric surgery status; I10 Essential (primary) hypertension
CPT/HCPCS: 80053; 83690; 85025; 96361; 96374; 99284; C9113; J7030